=== PATIENT | male | born 1950 | race Caucasian/White ===

== ENCOUNTER → 2016-10-15 | Outpatient (CLI) | payer MEDICAID ==
[2016-10-15 10:25] LABS: Basophils # (A) 0.1 k/uL (0-0.2); Basophils % (A) 1 %; CH 31.2; CHCM 34.8; Eosinophils # (A) 0.1 k/uL (0-0.7); Eosinophils % (A) 1 %; HCT 46.4 % (39.0-53.0); HDW 2.85; HGB 15.7 gm/dL (13.0-17.5); Luc # (Auto) 0.26; Luc % (Auto) 4; Lymphocytes # (A) 2.5 k/uL (1.0-4.8); Lymphocytes % (A) 37 %; MCH 30.4 pg (25.0-35.0); MCHC 33.8 g/dL (31.0-37.0); MCV 90.1 fL (80.0-100.0); Mean Platelet Volume 6.8; Monocytes # (A) 0.4 k/uL (0-1.0); Monocytes % (A) 7 %; Neutrophils # (A) 3.4 k/uL (1.3-7.7); Neutrophils % (A) 50 %; RBC 5.15 m/uL (4.30-5.90); RDW 15.1 % (11.5-15.5); WBC 6.7 k/uL (3.8-10.6); WBC (Perox) 6.41
[2016-10-15 11:00] LABS: Bilirubin, Delta 0.2 mg/dL (0.0-0.2); Total Bilirubin 0.7 mg/dL (0.2-1.3); Total Protein 7.9 g/dL (6.3-8.2)
[2016-10-16 15:29] LABS: HCV Qualitative Result Not detected (Not detected)
== END | disposition home or self-care (01) ==
LOC: LABWHC1 10:03
PROVIDERS: ATTEND Physician Assistant
DX: B18.2 Chronic viral hepatitis C (principal)
CPT/HCPCS: 36415; 80076; 82105; 85025; 87522

== ENCOUNTER → 2016-12-26 | Outpatient (CLI) | payer MEDICAID ==
[2016-12-26 10:18] LABS: CH 31.5; CHCM 34.2; HCT 47.5 % (39.0-53.0); HDW 2.73; HGB 16.1 gm/dL (13.0-17.5); MCH 31.4 pg (25.0-35.0); MCHC 33.9 g/dL (31.0-37.0); MCV 92.6 fL (80.0-100.0); Mean Platelet Volume 7.6; RBC 5.13 m/uL (4.30-5.90); RDW 14.6 % (11.5-15.5); WBC 8.8 k/uL (3.8-10.6)
[2016-12-26 10:33] LABS: Anion Gap 11 mmol/L; Blood Urea Nitrogen 10 mg/dL (9-20); Carbon Dioxide 23 mmol/L (22-30); Chloride 106 mmol/L (98-107); Non-African American GFR(MDRD) >60 (>60 ml/min/1.73 sqM); Potassium 4.4 mmol/L (3.5-5.1); Sodium 140 mmol/L (137-145)
== END | disposition home or self-care (01) ==
LOC: LABWHC1 09:24
PROVIDERS: ATTEND Internal Medicine Interventional Cardiology
DX: Z01.818 Encounter for other preprocedural examination (principal); I73.9 Peripheral vascular disease, unspecified
CPT/HCPCS: 36415; 80051; 82565; 84520; 85027

== ENCOUNTER 2016-12-30 05:24 | Emergency (ER) | payer MEDICAID ==
[2016-12-30 05:32] VITALS: BP 165/96; PULSE 76; RESP 24; TEMP 97.4
--- NOTE | 2016-12-30 05:56 | ED ---
General Adult HPI - General Chief complaint: Extremity Problem,Nontraumatic Stated complaint: bursitis Time Seen by Provider: 12/30/16 05:37 Source: patient, RN notes reviewed Mode of arrival: ambulatory Limitations: no limitations - History of Present Illness Initial comments: 66-year-old male presenting with a one-day history of left neck and shoulder pain. Patient denies trauma. Patient does have history of chronic low back and lower extremity pain. So also had neck pain in the past, states this is different than his normal neck pain. Denies shooting pain down the arm. Pain is located to the base of the left neck and left shoulder. There is no fever or chills. No nausea vomiting or diarrhea. Patient has rubbed lidocaine ointment antrotomy heating pack Home with minimal relief. He also admits to taking a friend's Pettibone tends which did help him sleep and alleviated some of the pain. Patient also states she has an appointment with a pain specialist on Friday. - Related Data Home Medications Medication Instructions Recorded Confirmed Celecoxib [CeleBREX] 200 mg PO QAM 02/05/14 04/09/16 DULoxetine HCL [Cymbalta] 60 mg PO QAM 02/05/14 04/10/16 Mirtazapine 7.5 mg PO HS PRN 01/24/15 04/09/16 Rivaroxaban [Xarelto] 20 mg PO QAM 01/24/15 04/10/16 hydrALAZINE HCL [Apresoline] 25 tab PO BID 01/24/15 04/09/16 Gabapentin 600 mg PO TID 07/28/15 04/09/16 amLODIPine [Norvasc] 5 mg PO QAM 02/09/16 04/09/16 oxyCODONE HCL 30 mg PO QID PRN 02/09/16 04/09/16 Daclatasvir Dihydrochloride 60 mg PO QAM 04/09/16 04/09/16 [Daklinza] Sovaldi 100 mg PO QAM 04/09/16 Previous Rx's Medication Instructions Recorded Aspirin 325 mg PO DAILY #90 tab 04/11/16 Atorvastatin [Lipitor] 40 mg PO DAILY #90 tab 04/11/16 Clopidogrel [Plavix] 75 mg PO DAILY #90 tab 04/11/16 HYDROcodone/APAP 10-325MG [Pettibone 1 tab PO Q6H PRN #12 tab 12/30/16 10-325] Ibuprofen [Motrin] 600 mg PO Q8HR PRN #24 tab 12/30/16 Allergies Allergy/AdvReac Type Severity Reaction Status Date / Time No Known Allergies Allergy Verified 12/30/16 05:31 Review of Systems ROS Statement: Those systems with pertinent positive or pertinent negative responses have been documented in the HPI. ROS Other: All systems not noted in ROS Statement are negative. Past Medical History Past Medical History: CVA/TIA, Hypertension, Liver Disease, Memory Impairment, Osteoarthritis (OA), Vascular Disorder Additional Past Medical History / Comment(s): L lower extremity discomfort with claudication, PAD, xarelto for previous stoke. HEPATITIS 25YRS AGO DIAGNOSED. History of Any Multi-Drug Resistant Organisms: None Reported Past Surgical History: Appendectomy, Hernia Repair, Orthopedic Surgery, Pacemaker Additional Past Surgical History / Comment(s): 04/10/16 L femoral popliteal atherectomy with PTBA. Other surgical hx: abdominal aortagram with bilateral lower extremity runoffs, 2016 LIVER BX THIS YEAR. Liver biopsy - approx. 15-20 years ago per pt, hepatitis Past Anesthesia/Blood Transfusion Reactions: No Reported Reaction Type of Cardiac Device: Permanent Pacemaker Device Placement Date:: 02-13-16 Past Psychological History: Depression Smoking Status: Current every day smoker - Past Family History Mother Family Medical History: Cancer Additional Family Medical History / Comment(s): Skin cancer and lung cancer Father Family Medical History: No Reported History General Exam Limitations: no limitations General appearance: alert, in no apparent distress Head exam: Present: atraumatic, normocephalic Eye exam: Present: normal appearance, PERRL, EOMI ENT exam: Present: normal exam, mucous membranes moist Neck exam: Present: tenderness, full ROM, other (No midline tenderness, tenderness over the left trapezius, with muscle spasm) Respiratory exam: Present: normal lung sounds bilaterally. Absent: respiratory distress Cardiovascular Exam: Present: regular rate. Absent: normal rhythm GI/Abdominal exam: Present: soft. Absent: distended, tenderness Extremities exam: Present: normal inspection, normal capillary refill. Absent: pedal edema Back exam: Present: normal inspection, full ROM, tenderness, muscle spasm ( Tenderness over the left trapezius) Neurological exam: Present: alert, oriented X3, CN II-XII intact. Absent: motor sensory deficit Psychiatric exam: Present: normal affect, normal mood Skin exam: Present: warm, dry Course Vital Signs 12/30/16 05:27 Temperature 97.4 F L Pulse Rate 76 Respiratory 24 Rate Blood Pressure 165/96 O2 Sat by Pulse 100 Oximetry Medical Decision Making - Medical Decision Making 66-year-old male presenting with nontraumatic neck pain. Patient has significant point tenderness over the left trapezius, there is no midline tenderness. No shooting pain down the arm, strength is normal in the upper extremities. Patient did try some lidocaine ointment and heating pad at home with minimal relief. He also admits to taking Pettibone and was not prescribed and this did help the pain. He previously was on OxyContin 30 mg up until approximately one month ago when his primary care physician "cut him off". Patient does have an appointment with a pain specialist on Friday which is 24- hours from now. Diagnosis: Left trapezius muscle spasm Disposition Clinical Impression: Trapezius muscle spasm Disposition: HOME SELF-CARE Condition: Stable Instructions: Muscle Spasm (ED) Prescriptions: HYDROcodone/APAP 10-325MG [Pettibone 10-325] 1 tab PO Q6H PRN #12 tab PRN Reason: Pain Ibuprofen [Motrin] 600 mg PO Q8HR PRN #24 tab PRN Reason: Pain Referrals: Cheo Ramirez MD [Primary Care Provider] - 1-2 days Time of Disposition: 05:56
== END 2016-12-30 06:06 | disposition home or self-care (01) ==
LOC: EC 05:24
DX: M62.838 Other muscle spasm (principal); I10 Essential (primary) hypertension; K76.9 Liver disease, unspecified; F32.9 Major depressive disorder, single episode, unspecified; M19.90 Unspecified osteoarthritis, unspecified site; F17.200 Nicotine dependence, unspecified, uncomplicated; Z86.73 Personal history of transient ischemic attack (TIA), and cerebral infarction without residual deficits; Z95.0 Presence of cardiac pacemaker; Z79.01 Long term (current) use of anticoagulants; Z79.899 Other long term (current) drug therapy
CPT/HCPCS: 99283

== ENCOUNTER 2017-01-02 06:35 | Inpatient (IN) | payer MEDICAID ==
[2016-12-31 08:10] VITALS: BMI 20.1
[~2017-01-02 06:35] MED LIST: ALPRAZolam 0.25 MG TAB PO PRN; ALPRAZolam 0.5 MG TAB PO PRN; ASPIRIN 325 MG TAB PO STA; CLOPIDOGREL 75 MG TAB PO STA; NITROGLYCERIN SL TABS 0.4 MG TAB SUBLINGUAL PRN; SODIUM CHLORIDE 0.9% 1,000 ML in EMPTY BAG 1 BAG IV ONE
[2017-01-02] MEDS: HYDROmorphone 2 MG/ML 1 ML SYRINGE IVP ONE ×2 (08:28→09:19)
[2017-01-02] MEDS ORDERED: LIDOCAINE 2% INJ 20 MG/ML SQ ONE (08:30)
[2017-01-02] MEDS ORDERED: CLOPIDOGREL 75 MG TAB PO ONE (08:34)
[2017-01-02] MEDS ORDERED: HEPARIN SODIUM 1,000 UN/ML (10ML VL) IV ONE (08:38)
[2017-01-02] MEDS ORDERED: HYDROmorphone 2 MG/ML 1 ML SYRINGE IVP ONE (09:23)
[2017-01-02] MEDS ORDERED: IOHEXOL 350 MG/ML 100 ML BOTTLE INJ ONE (09:49)
[2017-01-02] MEDS ORDERED: MIRTAZAPINE 15 MG TAB PO PRN (09:57)
[2017-01-02] MEDS ORDERED: ATROPINE SULFATE 0.1 MG/ML 10ML SYRINGE IV PRN (09:58)
[2017-01-02] MEDS ORDERED: RX INFO: IV CONTRAST WAS GIVEN 1 EACH MISC MISCELLANE PRN (09:58)
[2017-01-02] MEDS ORDERED: MAG HYDROX/AL HYDROX/SIMETH 30 ML CUP PO PRN (09:58)
[2017-01-02] MEDS ORDERED: SODIUM CHLORIDE 0.9% 1,000 ML IV SCH (10:00)
[2017-01-02 10:58] LABS: Glucose,Whole Blood 116 mg/dL (75-99)
[2017-01-02] MEDS: HYDROcodone/APAP 10-325MG 1 EACH TAB PO PRN ×2 (11:42→18:25)
--- NOTE | 2017-01-02 14:20 | IR ---
EXAMINATION TYPE: IR stent intravas non coronary DATE OF EXAM: 01/02/2017 CLINICAL HISTORY: Carotid stenosis TECHNIQUE: Fluoroscopy. COMPARISON: None. FINDINGS: Fluoroscopic guidance was provided during carotid angiogram with stent deployment procedur e performed by Dr. Bui. A total of 17.8 minutes of fluoroscopic time was utilized during the proced ure and 16 distinct cine runs are saved to PACS. IMPRESSION: As Above.
[2017-01-02] MEDS: METOPROLOL TARTRATE 25 MG TAB PO SCH (20:38)
[2017-01-02] MEDS: hydrALAZINE HCL 25 MG TAB PO SCH (20:38)
[2017-01-02] MEDS ORDERED: ATORVASTATIN 40 MG TAB PO SCH (21:00)
[2017-01-02] MEDS ORDERED: PRAMIPEXOLE 0.125 MG TAB PO SCH (21:00)
[2017-01-03] MEDS: HYDROcodone/APAP 10-325MG 1 EACH TAB PO PRN ×2 (00:38→06:43)
[2017-01-03 04:37] LABS: Basophils # (A) 0.1 k/uL (0-0.2); Basophils % (A) 1 %; CH 31.8; CHCM 34.8; Eosinophils # (A) 0.2 k/uL (0-0.7); Eosinophils % (A) 2 %; HDW 2.69; HGB 14.1 gm/dL (13.0-17.5); Luc # (Auto) 0.21; Luc % (Auto) 2; Lymphocytes # (A) 2.7 k/uL (1.0-4.8); Lymphocytes % (A) 30 %; MCHC 33.7 g/dL (31.0-37.0); MCV 91.9 fL (80.0-100.0); Mean Platelet Volume 7.3; Monocytes # (A) 0.5 k/uL (0-1.0); Monocytes % (A) 6 %; Neutrophils # (A) 5.3 k/uL (1.3-7.7); Neutrophils % (A) 59 %; RBC 4.57 m/uL (4.30-5.90); WBC (Perox) 8.76
[2017-01-03 04:53] LABS: Anion Gap 6 mmol/L; Blood Urea Nitrogen 18 mg/dL (9-20); Calcium 8.9 mg/dL (8.4-10.2); Carbon Dioxide 27 mmol/L (22-30); Chloride 109 mmol/L (98-107); Glucose 90 mg/dL (74-99); Non-African American GFR(MDRD) >60 (>60 ml/min/1.73 sqM); Potassium 4.6 mmol/L (3.5-5.1); Sodium 142 mmol/L (137-145)
--- NOTE | 2017-01-03 07:41 | PCN ---
DATE OF SERVICE: 01/02/17 PERFORMING PHYSICIAN: Loyd Bui M.D., wax pattern assembler. PROCEDURE PERFORMED: 1. Selective right common carotid angiogram. 2. Selective right internal carotid angiogram. 3. Intracranial angiogram. 4. Successful stenting of the right internal carotid artery using 8 to 10 x 14 mm Xact stent with good angiographic results with adjunctive use of the ( ) distal protection device. 5. Selective right common femoral artery angiogram. INDICATIONS: This is a pleasant 66 -year-old gentleman who sees Dr. French as an outpatient who was found to have critical right internal carotid artery by Doppler study. He was brought in today to undergo an aortic arch and carotid angiogram. APPROACH: Right common femoral artery. COMPLICATIONS: None. LEVEL OF SEDATION: Moderate with a sedation length of one hour and 15 minutes. PROCEDURE DESCRIPTION: After obtaining informed consent, the patient was brought to the cardiac catheterization lab. The right common femoral artery was cannulated using Micropuncture technique. The micropuncture wire passed easily. Then I placed a 6 Tristanian sheath in the right common femoral artery. Subsequently, I did an aortic arch angiogram using a 5 Tristanian pigtail catheter. After that I did right common and right internal as well as intracranial angiogram after I did select the right common carotid artery using a JV2 catheter. After that, I decided to intervene on the right common carotid artery. Please see a separate paragraph for that. AORTIC ARCH ANGIOGRAM: The aortic arch angiogram was performed in the LATVIAN projection and using a power injection. The aortic arch appeared to be angiographically normal and it seemed to be Type 2 aortic arch as well as a bovine arch. SELECTIVE CAROTID ANGIOGRAM: The right common carotid artery appeared to be angiographically normal. The ostial of the right internal carotid artery as well as the proximal right internal carotid artery appeared to be calcified with eccentric plaque seems to be in the range of 90 to 95%. The ostial of the right external carotid artery seems to be involved in the disease as well. INTRACRANIAL ANGIOGRAM: The intracranial angiogram was performed in the AP crani view and using hand injection. I was able to visualize the right middle cerebral artery as well as the right anterior cerebral artery as well. STENTING OF THE RIGHT INTERNAL CAROTID ARTERY: Anticoagulation was initiated using heparin and the patient was given a total of 6000 units of heparin IV. Subsequently I did exchange my 11 cm 6 Tristanian sheath into 70 cm 6 Tristanian sheath using an Advantage wire. I did select the right common carotid artery using an 035 [place] Advantage wire with and using a JP2 catheter. Left JP2 catheter in the right common carotid artery and I pulled the 035 Advantage wire out. I did selective right common carotid and right internal carotid and intracranial angiogram using the JP2 catheter. After that, I did advance my long 90 cm sheath into the proximal right common carotid artery using I did advance my 90 6 Tristanian sheath into the proximal right common carotid artery over the JP2 catheter as well as over super core wire. I positioned the long sheath in the proximal right common carotid artery. After that, I did selective picture of the right common and internal carotid artery using the long sheath. Subsequently, I was able to deploy the ( ) distal protection device. After that, I did predilatation of the lesion using 4 -0 mm x 30 mm balloon. The balloon was inflated for maybe a few seconds only. Subsequently, I deployed 8 to 10 x 40 mm X-Act carotid stent system and after that it was dilated using 6 mm balloon. The following angiogram showed good angiographic results. After that, I did retrieve the filter. I did final angiogram which showed good angiographic results with residual stenosis of about maybe 50%. The procedure was completed with residual stenosis of about 30% only. CONCLUSION: 1. Type 2 aortic arch. 2. Bovine arch as well. 3. Critical disease involving the proximal right internal carotid artery. 4. Successful stenting of the right internal carotid artery using 8 to 10 x 40 mm X-Act self expandable stent with adjunctive use of distal protection device with final good angiographic results. POST PROCEDURE MANAGEMENT: 1. Dual antiplatelet therapy. 2. Risk factor modifications. 3. Follow-up with the patient. BRITT
--- NOTE | 2017-01-03 07:44 | MISC ---
Dear Dr. Ramirez: Mr. Jagjit Israel was found to have severe disease involving the right internal carotid artery by duplex study. As you know, he suffered from stroke a few months ago. He was brought today and underwent a carotid angiogram which showed critical disease involving the right internal carotid artery seems to be in the range of 90 to 95%. He underwent successful stenting of the right internal carotid artery with good angiographic results and without any complication. I want to thank you for allowing me to participate in his care. Please do not hesitate to call if you have any questions or concerns. BRITT
[2017-01-03] MEDS: hydrALAZINE HCL 25 MG TAB PO SCH (08:48)
[2017-01-03] MEDS: METOPROLOL TARTRATE 25 MG TAB PO SCH (08:48)
[2017-01-03] MEDS ORDERED: amLODIPine 5 MG TAB PO SCH (09:00)
[2017-01-03] MEDS ORDERED: CLOPIDOGREL 75 MG TAB PO SCH (09:00)
[2017-01-03] MEDS ORDERED: MELOXICAM 7.5 MG TAB PO SCH (09:00)
[2017-01-03] MEDS ORDERED: ASPIRIN 325 MG TAB PO SCH (09:00)
[2017-01-03] MEDS ORDERED: DULoxetine HCL 60 MG CAPSULE.DR PO SCH (09:00)
[2017-01-03 10:05] VITALS: TEMP 98
[2017-01-03 10:20] VITALS: BP 123/77; PULSE 73; RESP 21
--- NOTE | 2017-01-03 11:31 | P.DS ---
Providers Date of admission: 01/02/17 06:35 Attending physician: Loyd Bui Consults: 01/02/17 09:58 Consult Physician Routine Consulting Provider: Loyd Bui Consult Reason/Comments: Post Interventional patient Do you want consulting provider notified?: Already Contacted [facility] care [facility]: [facility] Course: This is a pleasant 66-year-old gentleman who was admitted to the hospital yesterday and underwent successful stenting of the right internal carotid artery with a good angiographic results and without any complication. The procedure was performed from the right groin which is soft and nontender and without any bruises. The patient is going to be discharged home on dual antiplatelet therapy and I will follow-up with the patient as an outpatient in the office. Plan - Discharge Summary New Discharge Prescriptions: New Aspirin 325 mg PO DAILY #90 tab Atorvastatin [Lipitor] 40 mg PO HS #90 tab Clopidogrel [Plavix] 75 mg PO DAILY #90 tab Continue DULoxetine HCL [Cymbalta] 60 mg PO DAILY hydrALAZINE HCL [Apresoline] 25 tab PO BID amLODIPine [Norvasc] 5 mg PO DAILY HYDROcodone/APAP 10-325MG [[place] 10-325] 1 tab PO Q6H PRN #12 tab PRN Reason: Pain Pramipexole [Mirapex] 0.125 mg PO HS Metoprolol Tartrate [Lopressor] 25 mg PO BID Mirtazapine 7.5 mg PO HS PRN PRN Reason: Insomnia Discontinued Celecoxib [CeleBREX] 200 mg PO QAM Rivaroxaban [Xarelto] 20 mg PO DAILY Discharge Medication List DULoxetine HCL [Cymbalta] 60 mg PO DAILY 02/05/14 [History] hydrALAZINE HCL [Apresoline] 25 tab PO BID 01/24/15 [History] amLODIPine [Norvasc] 5 mg PO DAILY 02/09/16 [History] HYDROcodone/APAP 10-325MG [[place] 10-325] 1 tab PO Q6H PRN #12 tab 12/30/16 [Rx] Metoprolol Tartrate [Lopressor] 25 mg PO BID 12/31/16 [History] Pramipexole [Mirapex] 0.125 mg PO HS 12/31/16 [History] Mirtazapine 7.5 mg PO HS PRN 01/02/17 [History] Aspirin 325 mg PO DAILY #90 tab 01/03/17 [Rx] Atorvastatin [Lipitor] 40 mg PO HS #90 tab 01/03/17 [Rx] Clopidogrel [Plavix] 75 mg PO DAILY #90 tab 01/03/17 [Rx] Follow up Appointment(s)/Referral(s): Loyd Bui MD [STAFF PHYSICIAN] - 1 Week
== END 2017-01-03 12:19 | disposition home or self-care (01) | DRG 39 ==
LOC: 2ORMAIN 06:35 → EDSTATUS 07:30 → 6ICU 09:43
PROVIDERS: ADMIT Internal Medicine Interventional Cardiology; ATTEND Internal Medicine Interventional Cardiology
PROC: B3161ZZ Fluoroscopy of Right Internal Carotid Artery using Low Osmolar Contrast (ICD-10-PCS; principal; 2017-01-02 08:00)
PROC: B3131ZZ Fluoroscopy of Right Common Carotid Artery using Low Osmolar Contrast (ICD-10-PCS; principal; 2017-01-02 08:00)
PROC: 037K34Z Dilation of Right Internal Carotid Artery with Drug-eluting Intraluminal Device, Percutaneous Approach (ICD-10-PCS; principal; 2017-01-02 08:00)
PROC: B41F1ZZ Fluoroscopy of Right Lower Extremity Arteries using Low Osmolar Contrast (ICD-10-PCS; principal; 2017-01-02 08:00)
DX: I65.21 Occlusion and stenosis of right carotid artery (principal); I10 Essential (primary) hypertension; Z86.73 Personal history of transient ischemic attack (TIA), and cerebral infarction without residual deficits; Z79.01 Long term (current) use of anticoagulants; Z79.899 Other long term (current) drug therapy; F17.210 Nicotine dependence, cigarettes, uncomplicated
CPT/HCPCS: 37215; 80048; 85025

== ENCOUNTER → 2017-04-16 | Outpatient (CLI) | payer MEDICAID ==
[2017-04-16 13:18] LABS: Basophils # (A) 0.1 k/uL (0-0.2); Basophils % (A) 1 %; CHCM 33.1; Eosinophils # (A) 0.1 k/uL (0-0.7); Eosinophils % (A) 1 %; HCT 42.3 % (39.0-53.0); HDW 2.51; HGB 13.9 gm/dL (13.0-17.5); Luc # (Auto) 0.14; Luc % (Auto) 2; Lymphocytes # (A) 2.2 k/uL (1.0-4.8); Lymphocytes % (A) 34 %; MCH 30.9 pg (25.0-35.0); MCHC 32.8 g/dL (31.0-37.0); Mean Platelet Volume 7.5; Monocytes # (A) 0.4 k/uL (0-1.0); Monocytes % (A) 6 %; Neutrophils # (A) 3.7 k/uL (1.3-7.7); Neutrophils % (A) 57 %; RDW 14.8 % (11.5-15.5); WBC 6.6 k/uL (3.8-10.6); WBC (Perox) 6.26
[2017-04-16 13:40] LABS: ALT 40 U/L (21-72); AST 27 U/L (17-59); Alkaline Phosphatase 59 U/L (38-126); Anion Gap 7 mmol/L; Bilirubin, Delta 0.2 mg/dL (0.0-0.2); Blood Urea Nitrogen 12 mg/dL (9-20); Calcium 9.1 mg/dL (8.4-10.2); Carbon Dioxide 31 mmol/L (22-30); Chloride 104 mmol/L (98-107); Glucose 103 mg/dL (74-99); Non-African American GFR(MDRD) >60 (>60 ml/min/1.73 sqM); Potassium 4.1 mmol/L (3.5-5.1); Sodium 142 mmol/L (137-145); Total Bilirubin 0.4 mg/dL (0.2-1.3); Total Protein 7.1 g/dL (6.3-8.2)
[2017-04-17 14:51] LABS: Hepatits C Virus RNA, Quant <12 IU/mL (<12); LOG HCV IU/mL <1.08 (<1.08)
== END | disposition home or self-care (01) ==
LOC: LABWHC1 12:15
PROVIDERS: ATTEND Physician Assistant
DX: R31.0 Gross hematuria (principal); B18.2 Chronic viral hepatitis C
CPT/HCPCS: 36415; 80053; 82248; 85025; 87522

== ENCOUNTER → 2017-04-22 | Outpatient (CLI) | payer MEDICAID ==
--- NOTE | 2017-04-22 16:48 | US ---
EXAMINATION TYPE: US kidneys/renal and bladder DATE OF EXAM: 04/22/2017 COMPARISON: NONE CLINICAL HISTORY: R31.0 Hematuria. Patient states urinating blood for 5 days then went away. Did a ro und of antibiotics. Generalized back pain. EXAM MEASUREMENTS: Right Kidney: 10.1 x 5.4 x 3.8 cm Left Kidney: 10.4 x 4.0 x 5.1 cm Right Kidney: Medial anechoic lesion = 1.4 x 0.8 cm Left Kidney: Medial anechoic lesion - 1.5 x 1.0 cm Bladder: posterior nonvascular right lesion - 1.8 x 1.3 x 1.1 cm Bilateral Jets seen There is no evidence for hydronephrosis at this point in time. No nephrolithiasis is seen. No celina s are identified. The urinary bladder is anechoic. Bilateral ureteral jets are seen. IMPRESSION: No evidence of renal stone or obstruction. No evidence of a renal solid mass. Oval-shaped solid area in the dependent urinary bladder measures 18 x 10 mm. I would consider possibi lities of nonshadowing stone, tumor, blood clot. Follow-up is recommended.
== END | disposition home or self-care (01) ==
LOC: RADUSWWP 16:09
PROVIDERS: ATTEND Family Medicine
DX: R31.0 Gross hematuria (principal)
CPT/HCPCS: 76770

== ENCOUNTER → 2017-05-05 | Outpatient (CLI) | payer MEDICAID ==
[2017-05-05 14:17] LABS: Blood Urea Nitrogen 13 mg/dL (9-20); Non-African American GFR(MDRD) >60 (>60 ml/min/1.73 sqM)
--- NOTE | 2017-05-05 17:27 | CT ---
EXAMINATION TYPE: CT urogram wo/w con DATE OF EXAM: 05/05/2017 COMPARISON: NONE INDICATION: Blood in urine DLP: 869 mGycm, Automated exposure control for dose reduction was used. CONTRAST: 100 mL of Omnipaque 300. Study performed TECHNIQUE: Axial images were obtained from above the diaphragm to the pubic rami in the axial plane a t 5 mm thick sections. Reconstructed images are reviewed on the computer in the coronal plane. Thre e-D reconstructed images through the renal collecting system are performed postcontrast by the techno logist on a separate computer. FINDINGS: Limited CT sections are obtained the lung bases. The lung bases are clear. CT ABDOMEN: Liver: Normal Spleen: Normal Pancreas: Normal Adrenal glands: The adrenal glands are normal. Gallbladder: Normal Kidneys: No masses are evident. No hydronephrosis is present. No cysts are present. Delayed images were obtained through the kidneys, which remain unremarkable. Dedicated sequential images were obtained through the renal collecting system and ureters. Three-D re constructed images are reviewed. Appears to be some hydroureter present proximal ureters are tortuous . Distal ureters appear normal. Aorta: Vascular calcification is within the aorta. Inferior vena cava: Normal. CT PELVIS: Loops of bowel within the abdomen and pelvis are normal. Study is without oral contrast limiting the evaluation of bowel loops. Fecal debris is within the colon. Appendix: Not identified. Urinary bladder: Normal as visualized. Genitourinary structures: Prostate is mildly prominent. Osseous structures: No suspicious lytic or sclerotic lesions. Spondylolysis of L5 is evident. Facet d egenerative changes present L4-5 and L3-4 IMPRESSIONS: 1. Mild bilateral hydroureter. 2. Proximal ureters are tortuous without obstruction or hydronephrosis. 3. Spondylolysis of L5
== END | disposition home or self-care (01) ==
LOC: RADCTMAIN 13:32
PROVIDERS: ATTEND Urology
DX: N13.4 Hydroureter (principal)
CPT/HCPCS: 82565; 84520; 74178; 36415; 74400; Q9967

== ENCOUNTER 2017-08-19 15:02 | Inpatient (IN) | payer MEDICAID ==
[2017-08-19] MEDS ORDERED: SODIUM CHLORIDE 0.9% 1,000 ML IV STA (15:08)
[2017-08-19] MEDS ORDERED: RX INFO: IV CONTRAST WAS GIVEN 1 EACH MISC MISCELLANE PRN ×2 (15:08→15:44)
[2017-08-19 15:20] LABS: Glucose,Whole Blood 162 mg/dL (75-99)
[2017-08-19 15:31] LABS: Basophils % (A) 0 %; Eosinophils % (A) 0 %; HCT 47.1 % (39.0-53.0); HGB 15.7 gm/dL (13.0-17.5); Lymphocytes % (A) 10 %; MCH 28.7 pg (25.0-35.0); MCHC 33.3 g/dL (31.0-37.0); MCV 86.1 fL (80.0-100.0); Mean Platelet Volume 7.3; Monocytes # (A) 1.3 k/uL (0-1.0); Monocytes % (A) 6 %; Neutrophils # (A) 16.6 k/uL (1.3-7.7); Neutrophils % (A) 82 %; Platelet Count 352 k/uL (150-450); RBC 5.47 m/uL (4.30-5.90); RDW 14.3 % (11.5-15.5); WBC 20.3 k/uL (3.8-10.6)
--- NOTE | 2017-08-19 15:31 | ED ---
Neuro HPI - General Chief Complaint: Neuro Symptoms/Deficit Stated Complaint: Poss cva Time Seen by Provider: 08/19/17 15:02 Source: EMS, RN notes reviewed, old records reviewed Mode of arrival: EMS Limitations: altered mental status - History of Present Illness Is the patient presenting with stroke symptoms?: Yes Initial Comments: This is a 67-year-old male with a history of CVA about one half years ago with no residual deficits also history of hepatitis C who is believes only be on Plavix at this time who was last seen at 7:30 AM this morning he was pretty normal he was found is prior to arrival by his son found him lying on the floor unresponsive. Per paramedics he was unresponsive lying on the floor he was incontinent of urine he initially was not using his left upper or lower extremity he had a left lateral gaze. As time he arrives here by EMS he was moving his left arm somewhat. He was still not answering questions he after brief period time in emergency Department was able to communicate with staff. No history of trauma the information is limited at this time. - Related Data Home Medications: Home Medications Medication Instructions Recorded Confirmed DULoxetine HCL [Cymbalta] 60 mg PO DAILY 02/05/14 08/19/17 hydrALAZINE HCL [Apresoline] 25 tab PO BID 01/24/15 08/19/17 amLODIPine [Norvasc] 5 mg PO DAILY 02/09/16 08/19/17 Metoprolol Tartrate [Lopressor] 25 mg PO BID 12/31/16 08/19/17 Tamsulosin HCl [Flomax] 0.4 mg PO DAILY 08/19/17 08/19/17 Previous Rx's Medication Instructions Recorded Clopidogrel [Plavix] 75 mg PO DAILY #90 tab 01/03/17 Allergies/Adverse Reactions: Allergies Allergy/AdvReac Type Severity Reaction Status Date / Time No Known Allergies Allergy Verified 08/19/17 16:13 Review of Systems ROS Statement: Those systems with pertinent positive or pertinent negative responses have been documented in the HPI. ROS Other: All systems not noted in ROS Statement are negative. Limitations: ROS unobtainable due to patients medical condition General Exam - General Exam Comments Initial Comments: This is a well-developed sec appearing male no evidence of trauma he does demonstrate left lateral gaze he does demonstrate some hemiparesis a left upper lower extremity. Limitations: altered mental status General appearance: obtunded Head exam: Present: atraumatic, normocephalic, normal inspection Eye exam: Present: other (Left lateral gaze pupils are approximately 4 mm and responsive cataracts are present) ENT exam: Present: mucous membranes dry Neck exam: Present: normal inspection. Absent: tenderness, meningismus, lymphadenopathy Respiratory exam: Present: decreased breath sounds Cardiovascular Exam: Present: normal rhythm, tachycardia GI/Abdominal exam: Present: soft, normal bowel sounds. Absent: distended, tenderness, guarding, rebound, rigid Extremities exam: Absent: full ROM Back exam: Present: normal inspection Neurological exam: Present: altered, reflexes normal Psychiatric exam: Present: other (Unable to evaluate) Skin exam: Present: warm, dry, intact, normal color. Absent: rash Stroke MDM - Lab Data Result diagrams: 08/19/17 15:16 08/19/17 15:16 Lab Results 08/19/17 08/19/17 08/19/17 Range/Units 15:16 15:16 15:16 WBC (3.8-10.6) k/uL RBC (4.30-5.90) m/uL Hgb (13.0-17.5) gm/dL Hct (39.0-53.0) % MCV (80.0-100.0) fL MCH (25.0-35.0) pg MCHC (31.0-37.0) g/dL RDW (11.5-15.5) % Plt Count (150-450) k/uL Neutrophils % % Lymphocytes % % Monocytes % % Eosinophils % % Basophils % % Neutrophils # (1.3-7.7) k/uL Lymphocytes # (1.0-4.8) k/uL Monocytes # (0-1.0) k/uL Eosinophils # (0-0.7) k/uL Basophils # (0-0.2) k/uL PT (9.0-12.0) sec INR (<1.2) APTT (22.0-30.0) sec Sodium 147 H (137-145) mmol/L Potassium 3.7 (3.5-5.1) mmol/L Chloride 108 H (98-107) mmol/L Carbon Dioxide 16 L (22-30) mmol/L Anion Gap 23 mmol/L BUN 18 (9-20) mg/dL Creatinine 0.70 (0.66-1.25) mg/dL Est GFR (CKD-EPI)AfAm >90 (>60 ml/min/1.73 sqM) Est GFR (CKD-EPI)NonAf >90 (>60 ml/min/1.73 sqM) Glucose 174 H (74-99) mg/dL POC Glucose (mg/dL) (75-99) mg/dL POC Glu Physician Scientist ID Plasma Lactic Acid [place]ingo 8.6 H* (0.7-2.0) mmol/L Calcium 10.3 H (8.4-10.2) mg/dL Magnesium 2.2 (1.6-2.3) mg/dL Total Bilirubin 0.7 (0.2-1.3) mg/dL AST 28 (17-59) U/L ALT 8 L (21-72) U/L Alkaline Phosphatase 77 (38-126) U/L Ammonia <9 (<30) umol/L Total Creatine Kinase 247 H (55-170) U/L CK-MB (CK-2) 2.6 H* (0.0-2.4) ng/mL CK-MB (CK-2) Rel Index 1.1 Troponin I <0.012 (0.000-0.034) ng/mL Total Protein 8.7 H (6.3-8.2) g/dL Albumin 5.1 H (3.5-5.0) g/dL Amylase 60 (30-110) U/L Lipase 198 (23-300) U/L Urine Color Urine Appearance (Clear) Urine pH (5.0-8.0) Ur Specific [place] (1.001-1.035) Urine Protein (Negative) Urine Glucose (UA) (Negative) Urine Ketones (Negative) Urine Blood (Negative) Urine Nitrite (Negative) Urine Bilirubin (Negative) Urine Urobilinogen (<2.0) mg/dL Ur Leukocyte Esterase (Negative) Urine RBC (0-5) /hpf Urine WBC (0-5) /hpf Amorphous Sediment (None) /hpf Urine Bacteria (None) /hpf Hyaline Casts (0-2) /lpf Granular Casts (0) /lpf Urine Mucus (None) /hpf Urine Opiates Screen (NotDetected) Ur Oxycodone Screen (NotDetected) Urine Methadone Screen (NotDetected) Ur Propoxyphene Screen (NotDetected) Ur Barbiturates Screen (NotDetected) U Tricyclic Antidepress (NotDetected) Ur Phencyclidine Scrn (NotDetected) Ur Amphetamines Screen (NotDetected) U Methamphetamines Scrn (NotDetected) U Benzodiazepines Scrn (NotDetected) Urine Cocaine Screen (NotDetected) U Marijuana (THC) Screen (NotDetected) Serum Alcohol <10 mg/dL 08/19/17 08/19/17 08/19/17 Range/Units 15:16 15:16 15:18 WBC 20.3 H (3.8-10.6) k/uL RBC 5.47 (4.30-5.90) m/uL Hgb 15.7 (13.0-17.5) gm/dL Hct 47.1 (39.0-53.0) % MCV 86.1 (80.0-100.0) fL MCH 28.7 (25.0-35.0) pg MCHC 33.3 (31.0-37.0) g/dL RDW 14.3 (11.5-15.5) % Plt Count 352 (150-450) k/uL Neutrophils % 82 % Lymphocytes % 10 % Monocytes % 6 % Eosinophils % 0 % Basophils % 0 % Neutrophils # 16.6 H (1.3-7.7) k/uL Lymphocytes # 2.0 (1.0-4.8) k/uL Monocytes # 1.3 H (0-1.0) k/uL Eosinophils # 0.0 (0-0.7) k/uL Basophils # 0.0 (0-0.2) k/uL PT 13.6 H (9.0-12.0) sec INR 1.5 H (<1.2) APTT 20.7 L (22.0-30.0) sec Sodium (137-145) mmol/L Potassium (3.5-5.1) mmol/L Chloride (98-107) mmol/L Carbon Dioxide (22-30) mmol/L Anion Gap mmol/L BUN (9-20) mg/dL Creatinine (0.66-1.25) mg/dL Est GFR (CKD-EPI)AfAm (>60 ml/min/1.73 sqM) Est GFR (CKD-EPI)NonAf (>60 ml/min/1.73 sqM) Glucose (74-99) mg/dL POC Glucose (mg/dL) 162 H (75-99) mg/dL POC Glu Physician Scientist ID Precious Fish Plasma Lactic Acid Mingo (0.7-2.0) mmol/L Calcium (8.4-10.2) mg/dL Magnesium (1.6-2.3) mg/dL Total Bilirubin (0.2-1.3) mg/dL AST (17-59) U/L ALT (21-72) U/L Alkaline Phosphatase (38-126) U/L Ammonia (<30) umol/L Total Creatine Kinase (55-170) U/L CK-MB (CK-2) (0.0-2.4) ng/mL CK-MB (CK-2) Rel Index Troponin I (0.000-0.034) ng/mL Total Protein (6.3-8.2) g/dL Albumin (3.5-5.0) g/dL Amylase (30-110) U/L Lipase (23-300) U/L Urine Color Urine Appearance (Clear) Urine pH (5.0-8.0) Ur Specific [place] (1.001-1.035) Urine Protein (Negative) Urine Glucose (UA) (Negative) Urine Ketones (Negative) Urine Blood (Negative) Urine Nitrite (Negative) Urine Bilirubin (Negative) Urine Urobilinogen (<2.0) mg/dL Ur Leukocyte Esterase (Negative) Urine RBC (0-5) /hpf Urine WBC (0-5) /hpf Amorphous Sediment (None) /hpf Urine Bacteria (None) /hpf Hyaline Casts (0-2) /lpf Granular Casts (0) /lpf Urine Mucus (None) /hpf Urine Opiates Screen (NotDetected) Ur Oxycodone Screen (NotDetected) Urine Methadone Screen (NotDetected) Ur Propoxyphene Screen (NotDetected) Ur Barbiturates Screen (NotDetected) U Tricyclic Antidepress (NotDetected) Ur Phencyclidine Scrn (NotDetected) Ur Amphetamines Screen (NotDetected) U Methamphetamines Scrn (NotDetected) U Benzodiazepines Scrn (NotDetected) Urine Cocaine Screen (NotDetected) U Marijuana (THC) Screen (NotDetected) Serum Alcohol mg/dL 08/19/17 Range/Units 16:04 WBC (3.8-10.6) k/uL RBC (4.30-5.90) m/uL Hgb (13.0-17.5) gm/dL Hct (39.0-53.0) % MCV (80.0-100.0) fL MCH (25.0-35.0) pg MCHC (31.0-37.0) g/dL RDW (11.5-15.5) % Plt Count (150-450) k/uL Neutrophils % % Lymphocytes % % Monocytes % % Eosinophils % % Basophils % % Neutrophils # (1.3-7.7) k/uL Lymphocytes # (1.0-4.8) k/uL Monocytes # (0-1.0) k/uL Eosinophils # (0-0.7) k/uL Basophils # (0-0.2) k/uL PT (9.0-12.0) sec INR (<1.2) APTT (22.0-30.0) sec Sodium (137-145) mmol/L Potassium (3.5-5.1) mmol/L Chloride (98-107) mmol/L Carbon Dioxide (22-30) mmol/L Anion Gap mmol/L BUN (9-20) mg/dL Creatinine (0.66-1.25) mg/dL Est GFR (CKD-EPI)AfAm (>60 ml/min/1.73 sqM) Est GFR (CKD-EPI)NonAf (>60 ml/min/1.73 sqM) Glucose (74-99) mg/dL POC Glucose (mg/dL) (75-99) mg/dL POC Glu Physician Scientist ID Plasma Lactic Acid Mingo (0.7-2.0) mmol/L Calcium (8.4-10.2) mg/dL Magnesium (1.6-2.3) mg/dL Total Bilirubin (0.2-1.3) mg/dL AST (17-59) U/L ALT (21-72) U/L Alkaline Phosphatase (38-126) U/L Ammonia (<30) umol/L Total Creatine Kinase (55-170) U/L CK-MB (CK-2) (0.0-2.4) ng/mL CK-MB (CK-2) Rel Index Troponin I (0.000-0.034) ng/mL Total Protein (6.3-8.2) g/dL Albumin (3.5-5.0) g/dL Amylase (30-110) U/L Lipase (23-300) U/L Urine Color Yellow Urine Appearance Cloudy (Clear) Urine pH 5.5 (5.0-8.0) Ur Specific M[place] 1.018 (1.001-1.035) Urine Protein 2+ H (Negative) Urine Glucose (UA) Negative (Negative) Urine Ketones 1+ H (Negative) Urine Blood Moderate H (Negative) Urine Nitrite Negative (Negative) Urine Bilirubin Negative (Negative) Urine Urobilinogen <2.0 (<2.0) mg/dL Ur Leukocyte Esterase Negative (Negative) Urine RBC 4 (0-5) /hpf Urine WBC 5 (0-5) /hpf Amorphous Sediment Few H (None) /hpf Urine Bacteria Rare H (None) /hpf Hyaline Casts 9 H (0-2) /lpf Granular Casts 8 (0) /lpf Urine Mucus Occasional H (None) /hpf Urine Opiates Screen Detected H (NotDetected) Ur Oxycodone Screen Not Detected (NotDetected) Urine Methadone Screen Not Detected (NotDetected) Ur Propoxyphene Screen Not Detected (NotDetected) Ur Barbiturates Screen Not Detected (NotDetected) U Tricyclic Antidepress Not Detected (NotDetected) Ur Phencyclidine Scrn Not Detected (NotDetected) Ur Amphetamines Screen Not Detected (NotDetected) U Methamphetamines Scrn Not Detected (NotDetected) U Benzodiazepines Scrn Detected H (NotDetected) Urine Cocaine Screen Not Detected (NotDetected) U Marijuana (THC) Screen Detected H (NotDetected) Serum Alcohol mg/dL - NIH Stroke Scale 1a. Level of Consciousness: (1) not alert, arousable 1b. LOC Questions: (0) answers correctly 1c. LOC Commands: (0) performs tasks correctly 2. Best Gaze: (2) forced deviation 3. Visual: (0) no visual loss 4. Facial Palsy: (0) normal symmetrical movement 5a. Motor Arm Left: (3) no gravity effort 5b. Motor Arm Right: (0) no drift 6a. Motor Leg Left: (3) no gravity effort 6b. Motor Leg Right: (0) no drift 7. Limb Ataxia: (0) absent 8. Sensory: (0) normal 9. Best Language: (1) mild/moderate aphasia 10. Dysarthria: (1) mild/moderate dysarthria 11. Extinction/Inattention: (0) no abnormality - Thrombolytic Inclusion/Exclusion Thrombolytic Exclusion Criteria: Symptom Onset > 3 Hours - Medical Decision Making Patient was evaluated by interventional neurology at this time he is not a candidate for TPA he will be admitted to this facility for evaluation. X-ray shows no definite acute infiltrate CT shows no definite acute findings. - EKG Data -: EKG Interpreted by Me (Sinus rhythm rate of 109 CT interval 118 QRS duration 70 QT since QTC 3:30/) Past Medical History Past Medical History: CVA/TIA, Hypertension, Liver Disease, Memory Impairment, Osteoarthritis (OA), Vascular Disorder Additional Past Medical History / Comment(s): L lower extremity discomfort with claudication, PAD, xarelto for previous stoke. HEPATITIS 25YRS AGO DIAGNOSED. History of Any Multi-Drug Resistant Organisms: None Reported Past Surgical History: Appendectomy, Hernia Repair, Orthopedic Surgery, Pacemaker Additional Past Surgical History / Comment(s): 04/10/16 L femoral popliteal atherectomy with PTBA. Other surgical hx: abdominal aortagram with bilateral lower extremity runoffs, 2016 LIVER BX THIS YEAR. Liver biopsy - approx. 15-20 years ago per pt, hepatitis Past Anesthesia/Blood Transfusion Reactions: No Reported Reaction Type of Cardiac Device: Permanent Pacemaker Device Placement Date:: 02-13-16 Past Psychological History: Depression Past Drug Use History: None Reported - Past Family History Mother Family Medical History: Cancer Additional Family Medical History / Comment(s): Skin cancer and lung cancer Father Family Medical History: No Reported History Course Vital Signs 08/19/17 08/19/17 08/19/17 15:04 15:15 15:30 Temperature 101.4 F H Pulse Rate 102 H 96 108 H Respiratory 18 22 22 Rate Blood Pressure 136/63 136/63 168/101 O2 Sat by Pulse 97 98 98 Oximetry 08/19/17 08/19/17 08/19/17 16:41 16:59 17:40 Temperature 99.2 F Pulse Rate 104 H 102 H Respiratory 20 20 Rate Blood Pressure 195/96 175/107 O2 Sat by Pulse 98 98 Oximetry - Reevaluation(s) Reevaluation #1: 08/19/17 15:31 Warfarin from the patient's he purely had nausea vomiting diarrhea however yesterday and appeared be somewhat dehydrated. Reevaluation #2: 08/19/17 15:34 Patient did have a proximally 3 second episode of tonic-clonic activity while in CAT scan. 2 mg of IV Ativan was ordered. Reevaluation #3: 08/19/17 16:13 Patient is more responsive some of the activity demonstrated by the patient apparently is his normal with respect to his extremity movement. His renal function is within normal limits he is getting CTA. Reevaluation #4: 08/19/17 17:56 CT imaging was reviewed and the exam performed by the neuro interventionalist. Patient will be admitted to this facility. Patient was seen by Dr. Haas in the emergency department. Critical Care Time Critical Care Time: Yes Critical Care Time: 45 minutes critical care time which includes monitoring EMS call discussed with paramedics history physical labs x-rays several reevaluation of the patient to response to therapy and progression of disease. Discussion with the patient's discussion with staff members admitting physician. Review of old history. Documentation the above admission orders. Disposition Clinical Impression: Cerebrovascular accident, Seizure, Sepsis Disposition: ADMITTED IP TO THIS [facility] Condition: Stable Referrals: None,Stated [REFERRING] - 1-2 days
[2017-08-19] MEDS ORDERED: LORazepam 2 MG/ML INJ IV STA ×2 (15:32→16:36)
[2017-08-19] MEDS ORDERED: ACETAMINOPHEN IV (For NPO) 1,000 MG in EMPTY BAG 1 BAG IVPB ONE (15:32)
[2017-08-19 15:36] LABS: INR 1.5 (<1.2); Prothrombin Time 13.6 sec (9.0-12.0)
--- NOTE | 2017-08-19 15:36 | CT ---
EXAMINATION TYPE: CT brain wo con DATE OF EXAM: 08/19/2017 COMPARISON: NONE HISTORY: Altered mental status. History of stroke. Unable to do repeats for motion, patient started s eizing. CT DLP: [address] of the brain was performed. The ventricles, basal cisterns and sulci overlying the cerebral convexities demonstrate moderate enla rgement. Remote insult high right parietal occipital region. There is no evidence for intracranial hemorrhage or sulcal effacement. There is decreased attenuation about the periventricular white matter and deep white matter of both c erebral hemispheres, compatible with chronic small vessel ischemia. Differential diagnosis does inclu de demyelination. No mass effects are seen.No midline shift. Osseous calvarium is intact. If symptoms persist consider MRI. IMPRESSION: 1. Age related atrophic and chronic small vessel ischemic change without acute intracranial process s een at this time. Limited examination due to patient motion.
[2017-08-19 15:38] LABS: Partial Thromboplastin Time 20.7 sec (22.0-30.0)
[2017-08-19 15:46] LABS: Ammonia <9 umol/L (<30)
[2017-08-19 15:48] LABS: Creatine Kinase 247 U/L (55-170); Lactic Acid, Venous 8.6 mmol/L (0.7-2.0)
[2017-08-19] MEDS ORDERED: SODIUM CHLORIDE 0.9% 2,000 ML IV ONE (15:48)
[2017-08-19 15:50] LABS: ALT 8 U/L (21-72); Albumin 5.1 g/dL (3.5-5.0); Alcohol <10 mg/dL; Alkaline Phosphatase 77 U/L (38-126); Amylase 60 U/L (30-110); Anion Gap 23 mmol/L; Blood Urea Nitrogen 18 mg/dL (9-20); Calcium 10.3 mg/dL (8.4-10.2); Carbon Dioxide 16 mmol/L (22-30); Chloride 108 mmol/L (98-107); Glucose 174 mg/dL (74-99); Lipase 198 U/L (23-300); Magnesium 2.2 mg/dL (1.6-2.3); Potassium 3.7 mmol/L (3.5-5.1); Sodium 147 mmol/L (137-145); Total Bilirubin 0.7 mg/dL (0.2-1.3); Total Protein 8.7 g/dL (6.3-8.2)
--- NOTE | 2017-08-19 15:56 | XR ---
EXAMINATION TYPE: XR chest 1V portable DATE OF EXAM: 08/19/2017 COMPARISON: 02/14/2016 HISTORY: altered mental status TECHNIQUE: Single frontal view of the chest is obtained. FINDINGS: Cardiac device noted and there is hyperinflation compatible COPD. No focal infiltrate or i nterstitial edema. No pneumothorax. Diffuse osteopenia and arthropathy of the shoulders. Curvature th e spine with degenerative changes noted. Exam limited by overlying instrumentation. IMPRESSION: Correlate for COPD
[2017-08-19 15:57] LABS: AST 28 U/L (17-59)
[2017-08-19 15:59] LABS: Troponin I <0.012 ng/mL (0.000-0.034)
[2017-08-19 16:00] LABS: Creatine Kinase MB 2.6 ng/mL (0.0-2.4)
[2017-08-19] MEDS ORDERED: cefTRIAXone IN SWFI 1,000 MG/10 ML SYRINGE IVP STA (16:11)
[2017-08-19 16:20] LABS: Amorphous Sediment,Urine Few /hpf; Appearance,Urine Cloudy (Clear); Bacteria,Urine Rare /hpf; Bilirubin,Urine Negative (Negative); Blood,Urine Moderate (Negative); Color,Urine Yellow; Glucose,Urine (UA) Negative (Negative); Granular Casts,Urine 8 /lpf (0); Hyaline Casts,Urine 9 /lpf (0-2); Ketones,Urine 1+ (Negative); Leukocyte Esterase,Urine Negative (Negative); Mucus,Urine Occasional /hpf; Nitrite,Urine Negative (Negative); PH, Urine 5.5 (5.0-8.0); Protein,Urine 2+ (Negative); RBC,Urine 4 /hpf (0-5); Specific Gravity,Urine 1.018 (1.001-1.035); Urobilinogen,Urine <2.0 mg/dL (<2.0); WBC,Urine 5 /hpf (0-5)
[2017-08-19 16:22] LABS: Cocaine Screen,Urine Not Detected (NotDetected); Phencyclidine Screen,Urine Not Detected (NotDetected); Urn Cannabinoid Scrn Detected (NotDetected)
[2017-08-19 16:23] LABS: Amphetamine Screen,Urine Not Detected (NotDetected); Barbiturate Screen,Urine Not Detected (NotDetected); Benzodiazepines Screen,Urine Detected (NotDetected); Methadone Screen, Urine Not Detected (NotDetected); Opiate Screen,Urine Detected (NotDetected); Oxycodone Screen, Urine Not Detected (NotDetected); Tricyclic Antidepressant,Urine Not Detected (NotDetected)
--- NOTE | 2017-08-19 17:06 | CT ---
EXAMINATION TYPE: CT angio head neck DATE OF EXAM: 08/19/2017 HISTORY: Altered mental status. COMPARISON: NONE CT DLP: 219.8 mGycm. Automated Exposure Control for Dose Reduction was Utilized. TECHNIQUE: CTA scan of the neck is performed with IV Contrast, patient injected with 65 mL of Omnipa que 350, axial images are obtained, coronal and sagittal reformatted images are reviewed. Three-D rec onstructed images are created on an independent workstation and reviewed. FINDINGS: There is normal branching pattern of the great vessels on the aortic arch. There is bilateral patency of the common carotid arteries. The right vertebral artery is larger than the left. There is bilater al vertebral artery flow. There is significant plaque at the left carotid artery bifurcation and lume n narrowing of 75% diameter. There is patency of the left external carotid artery. There is no stenos is of left external carotid artery. There is metal artifact at the right carotid artery bifurcation. Lumen is difficult to evaluate. Ther e is arterial flow in the right external and internal carotid arteries. The basilar artery fills entirely from the right side. There is a diminutive distal left vertebral ar mis. There is arterial flow in the anterior middle and posterior cerebral arteries. I see no evidence of a neurysm or neovascularity. There is no sign of spasm. There is hypodensity in the right posterior par ietal lobe cortex consistent with old infarct. There is hypodensity in the periventricular white kiana er. There is normal contrast opacification of the venous sinuses. IMPRESSION: There is approximate 75% stenosis of the proximal left internal carotid artery due to clarissa que formation. There is artifact at the right carotid artery bifurcation and lumen is not well evaluated. Diminutive left vertebral artery. I do not see evidence of subclavian steal. No significant intracranial arterial abnormality.
[2017-08-19] MEDS ORDERED: MAGNESIUM HYDROXIDE 2,400 MG/10 ML CUP PO PRN (18:07)
[2017-08-19] MEDS ORDERED: CALCIUM CARBONATE 500 MG CHEWABLE PO PRN (18:07)
[2017-08-19] MEDS ORDERED: ENOXAPARIN 40 MG/0.4 ML SYRINGE SQ STA (18:26)
[2017-08-19] MEDS ORDERED: NICOTINE 21MG/24HR PATCH TRANSDERM STA (18:27)
[2017-08-19] MEDS ORDERED: ACETAMINOPHEN IV (For NPO) 500 MG in EMPTY BAG 1 BAG IVPB PRN (18:52)
[2017-08-19] MEDS ORDERED: KETOROLAC 30 MG/ML 1 ML VIAL IVP PRN (19:04)
[2017-08-19 19:08] LABS: Glucose,Whole Blood 123 mg/dL (75-99)
[2017-08-19] MEDS: SODIUM CHLORIDE 0.9% 1,000 ML IV SCH (19:09)
--- NOTE | 2017-08-19 19:46 | HP ---
HISTORY AND PHYSICAL DATE OF ADMISSION: 08/19/2017. PRESENTING COMPLAINT: Found unconscious. HISTORY OF PRESENTING COMPLAINT: This is a 67-year-old patient who follows with Dr. Ramirez. Chronic stable medical conditions include hypertension, osteoarthritis, BPH, peripheral arterial disease, depression, permanent pacemaker. History is obtained from the Jayla who is a psychiatry nurse in the hospital. The was called by the son that he found the father unconscious. The patient was looking to the left side. The patient was lying on the living room floor and was incontinent of urine and feces. [place] coma scale was 10. Skin was warm and dry. Patient was breathing. Pupils were equal, 4 mm bilaterally. There was some left-sided weakness and patient was looking to the left side. There was no trauma noted. There is no prior history of seizures. No arrhythmia was noted. Patient's vital signs recorded there were blood pressure 159/103, pulse 130, respiration 20. Blood sugar was 171. Pulse ox was 97%. The patient 2 years ago did have a stroke that completely recovered. The did state that at his baseline patient was very fidgety, had restless legs and sometimes had mild tremors. It looks like the patient had a right internal carotid artery stent placed back in December. For the last 3 or 4 days the patient has been having upper respiratory tract infection symptoms, including a runny nose and a cough. The patient currently is moving his limbs but not able to speak or really follow commands. Review of systems cannot be done, as the patient is nonverbal. PAST MEDICAL HISTORY: 1. Right internal carotid artery stent. 2. Stroke with complete recovery. 3. Hypertension. 4. Osteoarthritis. 5. BPH. 6. Peripheral arterial disease. 7. Depression. 8. Permanent pacemaker. PAST SURGICAL HISTORY: 1. Appendectomy. 2. Hernia repair. 3. Orthopedic surgery. 4. Pacemaker. 5. Left femoropopliteal atherectomy with PTBA. 6. Abdominal aortogram with bilateral lower extremity runoff. SOCIAL HISTORY: The patient has been smoking a pack a day for over 45 years. Did stop drinking excessive alcohol about 25 years ago. The patient is a [employer] retired. . Lives with his . Does marijuana about twice a week. FAMILY HISTORY: Skin and lung cancer. HOME MEDICATIONS: 1. Hydralazine 25 mg b.i.d. 2. Norvasc 5 mg p.o. daily. 3. Flomax 0.4 mg daily. 4. Lopressor 25 p.o. b.i.d. 5. Cymbalta 60 mg p.o. daily. 6. Plavix 75 mg p.o. daily. ALLERGIES: NONE. PHYSICAL EXAMINATION: VITAL SIGNS ON PRESENTATION: Temperature 101.4, pulse 102, respiration 18, blood pressure 136/63, pulse ox 97% on room air. GENERAL APPEARANCE: Thin build. Lying in bed, not awake. Fidgety. Moving all limbs. EYES: Pupils equal. Conjunctivae normal. HEENT: External appearance of nose and ears normal. Oral cavity dry mucous membrane. NECK: JVD not raised. Mass not palpable. RESPIRATORY: Effort increased. LUNGS: Decreased breath sounds. CARDIOVASCULAR: First and second sounds normal. No edema. ABDOMEN: Soft, nontender. Liver and spleen not palpable. LYMPHATICS: No lymph node palpable in neck, axillae or groin. PSYCHIATRY: Unable to assess. NEUROLOGICAL: Pupils are equal and reactive. No facial asymmetry. Patient's right arm is supported on a board and patient is moving all 4 limbs. Plantars are difficult to assess. Patient is not really following commands, though responds to pain and is spontaneously moving all 4 limbs. INVESTIGATIONS: White count 20.3, hemoglobin 15.7, potassium 3.7. BUN and creatinine are normal. Glucose 174. Lactic acid 8.6. Urine drug screen positive for marijuana, benzodiazepine, opiates. Chest x-ray did not report any infiltrate. ASSESSMENT: 1. This is a patient who was found on the floor, unresponsive, with some shaking, incontinent of stool and urine, looking to one side initially; appears to have had a seizure and probably is in a postictal state. Patient is moving all 4 limbs. Stroke entirely cannot be ruled out, though appears to be less likely. The seizure probably could have been precipitated by the sepsis picture patient has. 2. Probably sepsis. Sepsis could be from a viral infection. Patient's says that patient has had a history of cough and cold and respiratory symptoms for last 4 to 5 days, and this well could be viral. At the same time, bacterial cannot be ruled out at this point. 3. Essential hypertension with urgency. 4. Primary osteoarthritis in multiple joints. 5. Benign prostatic hypertrophy. 6. Peripheral arterial disease. 7. Permanent pacemaker. 8. Depression not otherwise specified. 9. Chronic obstructive pulmonary disease. 10.Chronic nicotine dependence in an active cigarette smoker. PLAN: At this point, neuro checks will be carried out with seizure precautions. Patient of course will be kept n.p.o. Wait for the patient to recover. Patient has never had a seizure before. Will hold off any anti-epileptic drugs for now. CT scan does not indicate any stroke. Patient has been started on antibiotics in the ER and did get a dose of ceftriaxone. Will continue with the same for now. Care was discussed with the . Questions were answered. Consultation request to Neurology Dr. Abel is being made. Prognosis guarded. MMODL / IJN: [id number] /
[2017-08-19] MEDS: ACETAMINOPHEN IV (For NPO) 1,000 MG in EMPTY BAG 1 BAG IVPB PRN (22:00)
[2017-08-19] MEDS: hydrALAZINE HCL 25 MG TAB PO SCH (23:20)
[2017-08-19] MEDS: METOPROLOL TARTRATE 25 MG TAB PO SCH (23:20)
[2017-08-19] MEDS: ATORVASTATIN 80 MG TAB PO SCH (23:20)
[2017-08-19] MEDS: FAMOTIDINE 20 MG/2 ML VIAL IV SCH (23:20)
[2017-08-20 02:23] LABS: Glucose,Whole Blood 121 mg/dL (75-99)
[2017-08-20 03:47] LABS: Hemoglobin A1C 5.7 % (4.0-6.0)
[2017-08-20] MEDS: SODIUM CHLORIDE 0.9% 1,000 ML IV SCH ×4 (03:49→21:26)
[2017-08-20] MEDS: ACETAMINOPHEN IV (For NPO) 1,000 MG in EMPTY BAG 1 BAG IVPB PRN (03:55)
[2017-08-20 06:38] LABS: Glucose,Whole Blood 110 mg/dL (75-99)
[2017-08-20 07:12] LABS: Basophils % (A) 0 %; Eosinophils % (A) 0 %; HCT 45.5 % (39.0-53.0); HGB 15.5 gm/dL (13.0-17.5); Lymphocytes # (A) 2.4 k/uL (1.0-4.8); Lymphocytes % (A) 16 %; MCH 29.3 pg (25.0-35.0); MCV 86.1 fL (80.0-100.0); Mean Platelet Volume 6.8; Monocytes # (A) 0.9 k/uL (0-1.0); Monocytes % (A) 6 %; Neutrophils # (A) 11.1 k/uL (1.3-7.7); Neutrophils % (A) 75 %; Platelet Count 255 k/uL (150-450); RBC 5.29 m/uL (4.30-5.90); RDW 14.2 % (11.5-15.5); WBC 14.9 k/uL (3.8-10.6)
[2017-08-20 07:26] LABS: Anion Gap 13 mmol/L; Blood Urea Nitrogen 14 mg/dL (9-20); Calcium 8.9 mg/dL (8.4-10.2); Carbon Dioxide 21 mmol/L (22-30); Chloride 112 mmol/L (98-107); Cholesterol 136 mg/dL (<200); Glucose 106 mg/dL (74-99); HDL Cholesterol 39 mg/dL (40-60); LDL Cholesterol,Calculated 71 mg/dL (0-99); Potassium 3.1 mmol/L (3.5-5.1); Sodium 146 mmol/L (137-145); Triglycerides 131 mg/dL (<150)
--- NOTE | 2017-08-20 09:30 | P.CON ---
Consult Note - . Consult date: 08/20/17 Assessment/Plan:: Consult for lumbar puncture noted, requested for altered mental status and sedation. Patient currently on Plavix which he received yesterday, and there is substantially increased risk of neuraxial hematoma and possible paralysis if procedure is performed while patient is on recent anticoagulation. Patient will need to be off Plavix for seven days to be a candidate for lumbar puncture. Please call back with any questions.
[2017-08-20] MEDS ORDERED: Potassium Replacement Protocol 1 EACH MISC MISCELLANE PRN (10:07)
[2017-08-20] MEDS ORDERED: POTASSIUM CHLORIDE ER 20 MEQ TAB.ER PO STA (10:07)
[2017-08-20] MEDS: METOPROLOL TARTRATE 25 MG TAB PO SCH ×2 (10:16→21:25)
[2017-08-20] MEDS: DULoxetine HCL 60 MG CAPSULE.DR PO SCH (10:16)
[2017-08-20] MEDS: ASPIRIN 325 MG TAB PO SCH (10:16)
[2017-08-20] MEDS: ENOXAPARIN 40 MG/0.4 ML SYRINGE SQ SCH (10:17)
[2017-08-20] MEDS: FAMOTIDINE 20 MG/2 ML VIAL IV SCH ×2 (10:17→21:26)
[2017-08-20] MEDS: CLOPIDOGREL 75 MG TAB PO SCH (10:17)
[2017-08-20] MEDS: NICOTINE 21MG/24HR PATCH TRANSDERM SCH (10:18)
[2017-08-20] MEDS: amLODIPine 5 MG TAB PO SCH (10:18)
[2017-08-20] MEDS: TAMSULOSIN 0.4 MG CAP.ER.24H PO SCH (10:18)
[2017-08-20] MEDS: hydrALAZINE HCL 25 MG TAB PO SCH ×2 (10:18→21:25)
[2017-08-20] MEDS ORDERED: VANCOMYCIN IV PER PHARMACY 1 EACH MISC MISCELLANE SCH (10:45)
--- NOTE | 2017-08-20 10:57 | ECHOF ---
Referral Reason: MEASUREMENTS -------- HEIGHT: 170.2 cm WEIGHT: 114.8 kg BP: 92/50 IVSd: 0.8 cm (0.6 - 1.1) LVIDd: 4.2 cm (3.9 - 5.3) LVPWd: 0.7 cm (0.6 - 1.1) IVSs: 1.0 cm LVIDs: 2.3 cm LVPWs: 1.2 cm Ao Diam: 3.2 cm (2.0 - 3.7) AV Cusp: 1.2 cm (1.5 - 2.6) LA Diam: 2.6 cm (2.7 - 3.8) MV EXCURSION: 18.525 mm (> 18.000) MV EF SLOPE: 110 mm/s (70 - 150) EPSS: 1.0 cm MV E Davy: 0.52 m/s MV DecT: 412 ms MV A Davy: 0.52 m/s MV E/A Ratio: 0.99 RAP: 5.00 mmHg RVSP: 10.17 mmHg FINDINGS -------- Pacemaker This was a technically difficult study with suboptimal limited apical views. The left ventricular size is normal. Left ventricular wall thickness is normal. Overall left vent ricular systolic function is normal with, an EF between 55 - 60 %. The right ventricle is normal in size and function. The left atrium is normal in size. The right atrium is normal in size. The aortic valve is trileaflet, and appears structurally normal. No aortic stenosis or regurgitation. There is trace mitral regurgitation. Trace tricuspid regurgitation present. The right ventricular systolic pressure, as measured by Dopp ler, is 10.17mmHg. Pulmonic valve appears structurally normal. The aortic root, ascending aorta and aortic arch are normal. The pericardium is normal. CONCLUSIONS -------- 1. Pacemaker 2. This was a technically difficult study with suboptimal limited apical views. 3. The left ventricular size is normal. 4. Left ventricular wall thickness is normal. 5. Overall left ventricular systolic function is normal with, an EF between 55 - 60 %. 6. The right ventricle is normal in size and function. 7. The left atrium is normal in size. 8. The right atrium is normal in size. 9. The aortic valve is trileaflet, and appears structurally normal. No aortic stenosis or regurgitati on. 10. There is trace mitral regurgitation. 11. Trace tricuspid regurgitation present. 12. The right ventricular systolic pressure, as measured by Doppler, is 10.17mmHg. 13. Pulmonic valve appears structurally normal. 14. The aortic root, ascending aorta and aortic arch are normal. 15. The pericardium is normal. 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
--- NOTE | 2017-08-20 11:01 | P.CONS ---
History of Present Illness - Reason for Consult Consult date: 08/20/17 fever, delirium - History of Present Illness Year old male patient who has history of hepatitis C as well as previous stroke on Plavix. The patient is seen in the emergency center. Patient states he has had diarrhea for the past 3 days and complains of abdominal pain he had. He has also had several falls over the last couple of days when he has an abrasion to the left lower leg and complains of increased lumbar pain. He states he always has back pain and he smokes marijuana for this. Patient is an active smoker. According to the ER documentation, patient was found by his son on the floor unresponsive and incontinent of urine and not using his left arm with a left lateral gaze. He was evaluated for stroke and not a candidate for TPA as he was last seen in the morning at 7:30 and was acting normal at that time. CAT scan of the brain showed age-related atrophy and chronic small vessel ischemic change. CTA of head and neck revealed 75% stenosis of the proximal left internal carotid artery. Artifact in the left carotid artery bifurcation. Diminutive left vertebral artery. No subclavian steal. No intracranial abnormality. EKG was a sinus rhythm. Her temperature max is been 102.6 with elevated heart rate and blood pressure elevated with leukocytosis of 20.3. Patient was given ceftriaxone 1 dose. Blood culture was obtained. Urinalysis was cloudy with bacteria rare. INR 1.5. Lactic acid initially 8.6 and repeated 1.2. Patient is unable to undergo LP due to Plavix. Patient appears to be sleeping and is minimally arousable to verbal stimuli. He will answer a few questions but does not open his eyes, set up, make eye contact but he is able to answer simple questions correctly regarding orientation. Patient denies having any shortness of breath. On note that patient had a 3 second tonic-clonic seizure-like activity while in CAT scan. He was given Ativan and there is a consult in place with Dr. Abel. Review of Systems ROS unobtainable: due to mental status Past Medical History Past Medical History: CVA/TIA, Hypertension, Liver Disease, Memory Impairment, Osteoarthritis (OA), Vascular Disorder Additional Past Medical History / Comment(s): L lower extremity discomfort with claudication, PAD, xarelto for previous stoke. HEPATITIS 25YRS AGO DIAGNOSED. History of Any Multi-Drug Resistant Organisms: None Reported Past Surgical History: Appendectomy, Hernia Repair, Orthopedic Surgery, Pacemaker Additional Past Surgical History / Comment(s): 04/10/16 L femoral popliteal atherectomy with PTBA. Other surgical hx: abdominal aortagram with bilateral lower extremity runoffs, 2016 LIVER BX THIS YEAR. Liver biopsy - approx. 15-20 years ago per pt, hepatitis Past Anesthesia/Blood Transfusion Reactions: No Reported Reaction Type of Cardiac Device: Permanent Pacemaker Device Placement Date:: 02-13-16 Past Psychological History: Depression Past Drug Use History: None Reported - Past Family History Mother Family Medical History: Cancer Additional Family Medical History / Comment(s): Skin cancer and lung cancer Father Family Medical History: No Reported History Medications and Allergies Home Medications Medication Instructions Recorded Confirmed Type DULoxetine HCL [Cymbalta] 60 mg PO DAILY 02/05/14 08/19/17 History hydrALAZINE HCL [Apresoline] 25 tab PO BID 01/24/15 08/19/17 History amLODIPine [Norvasc] 5 mg PO DAILY 02/09/16 08/19/17 History Metoprolol Tartrate [Lopressor] 25 mg PO BID 12/31/16 08/19/17 History Clopidogrel [Plavix] 75 mg PO DAILY #90 tab 01/03/17 08/19/17 Rx Tamsulosin HCl [Flomax] 0.4 mg PO DAILY 08/19/17 08/19/17 History Allergies Allergy/AdvReac Type Severity Reaction Status Date / Time No Known Allergies Allergy Verified 08/19/17 16:13 Physical Exam Vitals: Vital Signs Temp Pulse Pulse Resp BP BP Pulse Ox 08/20/17 08:00 98 F 62 18 167/79 97 08/20/17 04:00 101.4 F H 67 18 165/89 97 08/20/17 00:00 102.0 F H 72 18 170/84 100 08/19/17 21:22 88 18 182/93 98 08/19/17 20:28 102.2 F H 08/19/17 20:12 80 18 198/106 98 08/19/17 18:53 102.6 F H 18 180/100 98 08/19/17 17:40 102 H 20 175/107 98 08/19/17 16:59 99.2 F 08/19/17 16:41 104 H 20 195/96 98 08/19/17 15:30 108 H 22 168/101 98 08/19/17 15:15 96 22 136/63 98 08/19/17 15:04 101.4 F H 102 H 18 136/63 97 Intake and Output 08/19/17 08/20/17 08/20/17 22:59 06:59 14:59 Intake Total 1300 Output Total 650 625 Balance -650 675 Intake: IV 1300 ACETAMINOPHEN IV (For NPO 100 ) 1,000 mg In Empty Bag 1 bag @ 400 mls/hr IVPB ONCE ONE Rx#:[id number] Sodium Chloride 0.9% 1, 1200 000 ml @ 150 mls/hr IV . Q6H40M LYDIA Rx#:[id number] Output: Urine 650 625 Other: Voiding Method Indwelling Catheter Indwelling Catheter Weight 114.9 kg Gen: This is a 67-year-old thin male. Patient is laying on the stretcher and appears to be comfortable. No respiratory distress noted. HEENT: Head is atraumatic, normocephalic. Pupils equal, round. Sclerae is anicteric. Conjunctiva pink. Mucous members of the mouth are dry. No thrush noted. NECK: Supple. No JVD. No lymphadenopathy. No thyromegaly. LUNGS: Scattered rhonchi. No intercostal retractions. HEART: Regular rate and rhythm. No murmur. ABDOMEN: Soft. Bowel sounds are present. No masses. Generalized tenderness. EXTREMITIES: Extremities are thin with muscle wasting noted. No pedal edema. No calf tenderness. Dorsalis pedis +1 bilaterally. Patient has an abrasion to the back of his left ankle. No significant redness erythema. NEUROLOGICAL: Patient appears to be sleeping, arouses minimally to verbal stimuli. He answers all orientation questions appropriately but is unclear regarding recent history of events. Hand cna instructor are equal bilaterally. Foot pull/push equal bilaterally. Results Results: Laboratory Results WBC 14.9 k/uL (3.8-10.6) H 08/20/17 06:43 RBC 5.29 m/uL (4.30-5.90) 08/20/17 06:43 Hgb 15.5 gm/dL (13.0-17.5) 08/20/17 06:43 Hct 45.5 % (39.0-53.0) 08/20/17 06:43 MCV 86.1 fL (80.0-100.0) 08/20/17 06:43 MCH 29.3 pg (25.0-35.0) 08/20/17 06:43 MCHC 34.0 g/dL (31.0-37.0) 08/20/17 06:43 RDW 14.2 % (11.5-15.5) 08/20/17 06:43 Plt Count 255 k/uL (150-450) 08/20/17 06:43 Neutrophils % 75 % 08/20/17 06:43 Lymphocytes % 16 % 08/20/17 06:43 Monocytes % 6 % 08/20/17 06:43 Eosinophils % 0 % 08/20/17 06:43 Basophils % 0 % 08/20/17 06:43 Neutrophils # 11.1 k/uL (1.3-7.7) H 08/20/17 06:43 Lymphocytes # 2.4 k/uL (1.0-4.8) 08/20/17 06:43 Monocytes # 0.9 k/uL (0-1.0) 08/20/17 06:43 Eosinophils # 0.0 k/uL (0-0.7) 08/20/17 06:43 Basophils # 0.0 k/uL (0-0.2) 08/20/17 06:43 PT 13.6 sec (9.0-12.0) H 08/19/17 15:16 INR 1.5 (<1.2) H 08/19/17 15:16 APTT 20.7 sec (22.0-30.0) L 08/19/17 15:16 Sodium 146 mmol/L (137-145) H 08/20/17 06:43 Potassium 3.1 mmol/L (3.5-5.1) L 08/20/17 06:43 Chloride 112 mmol/L (98-107) H 08/20/17 06:43 Carbon Dioxide 21 mmol/L (22-30) L 08/20/17 06:43 Anion Gap 13 mmol/L 08/20/17 06:43 BUN 14 mg/dL (9-20) 08/20/17 06:43 Creatinine 0.55 mg/dL (0.66-1.25) L 08/20/17 06:43 Est GFR (CKD-EPI)AfAm >90 (>60 ml/min/1.73 sqM) 08/20/17 06:43 Est GFR (CKD-EPI)NonAf >90 (>60 ml/min/1.73 sqM) 08/20/17 06:43 Glucose 106 mg/dL (74-99) H 08/20/17 06:43 POC Glucose (mg/dL) 110 mg/dL (75-99) H 08/20/17 06:36 POC Glu Rounder And Backer ID 08/20/17 06:[address] Glu mg/dL 117 08/19/17 19:17 Hemoglobin A1c 5.7 % (4.0-6.0) 08/19/17 19:17 Lactic Ac Sepsis Rflx Y 08/19/17 15:48 Plasma Lactic Acid [place] 1.2 mmol/L (0.7-2.0) 08/19/17 19:17 Calcium 8.9 mg/dL (8.4-10.2) 08/20/17 06:43 Magnesium 2.2 mg/dL (1.6-2.3) 08/19/17 15:16 Total Bilirubin 0.7 mg/dL (0.2-1.3) 08/19/17 15:16 AST 28 U/L (17-59) 08/19/17 15:16 ALT 8 U/L (21-72) L 08/19/17 15:16 Alkaline Phosphatase 77 U/L (38-126) 08/19/17 15:16 Ammonia <9 umol/L (<30) 08/19/17 15:16 Total Creatine Kinase 247 U/L (55-170) H 08/19/17 15:16 CK-MB (CK-2) 2.6 ng/mL (0.0-2.4) H* 08/19/17 15:16 CK-MB (CK-2) Rel Index 1.1 08/19/17 15:16 Troponin I <0.012 ng/mL (0.000-0.034) 08/19/17 15:16 Total Protein 8.7 g/dL (6.3-8.2) H 08/19/17 15:16 Albumin 5.1 g/dL (3.5-5.0) H 08/19/17 15:16 Triglycerides 131 mg/dL (<150) 08/20/17 06:43 Cholesterol 136 mg/dL (<200) 08/20/17 06:43 LDL Cholesterol, Calc 71 mg/dL (0-99) 08/20/17 06:43 HDL Cholesterol 39 mg/dL (40-60) L 08/20/17 06:43 Amylase 60 U/L (30-110) 08/19/17 15:16 Lipase 198 U/L (23-300) 08/19/17 15:16 Urine Color Yellow 08/19/17 16:04 Urine Appearance Cloudy (Clear) 08/19/17 16:04 Urine pH 5.5 (5.0-8.0) 08/19/17 16:04 Ur Specific [place] 1.018 (1.001-1.035) 08/19/17 16:04 Urine Protein 2+ (Negative) H 08/19/17 16:04 Urine Glucose (UA) Negative (Negative) 08/19/17 16:04 Urine Ketones 1+ (Negative) H 08/19/17 16:04 Urine Blood Moderate (Negative) H 08/19/17 16:04 Urine Nitrite Negative (Negative) 08/19/17 16:04 Urine Bilirubin Negative (Negative) 08/19/17 16:04 Urine Urobilinogen <2.0 mg/dL (<2.0) 08/19/17 16:04 Ur Leukocyte Esterase Negative (Negative) 08/19/17 16:04 Urine RBC 4 /hpf (0-5) 08/19/17 16:04 Urine WBC 5 /hpf (0-5) 08/19/17 16:04 Amorphous Sediment Few /hpf (None) H 08/19/17 16:04 Urine Bacteria Rare /hpf (None) H 08/19/17 16:04 Hyaline Casts 9 /lpf (0-2) H 08/19/17 16:04 Granular Casts 8 /lpf (0) 08/19/17 16:04 Urine Mucus Occasional /hpf (None) H 08/19/17 16:04 Urine Opiates Screen Detected (NotDetected) H 08/19/17 16:04 Ur Oxycodone Screen Not Detected (NotDetected) 08/19/17 16:04 Urine Methadone Screen Not Detected (NotDetected) 08/19/17 16:04 Ur Propoxyphene Screen Not Detected (NotDetected) 08/19/17 16:04 Ur Barbiturates Screen Not Detected (NotDetected) 08/19/17 16:04 U Tricyclic Antidepress Not Detected (NotDetected) 08/19/17 16:04 Ur Phencyclidine Scrn Not Detected (NotDetected) 08/19/17 16:04 Ur Amphetamines Screen Not Detected (NotDetected) 08/19/17 16:04 U Methamphetamines Scrn Not Detected (NotDetected) 08/19/17 16:04 U Benzodiazepines Scrn Detected (NotDetected) H 08/19/17 16:04 Urine Cocaine Screen Not Detected (NotDetected) 08/19/17 16:04 U Marijuana (THC) Screen Detected (NotDetected) H 08/19/17 16:04 Serum Alcohol <10 mg/dL 08/19/17 15:16 CBC & Chem 7: 08/20/17 06:43 08/20/17 06:43 Labs: Abnormal Lab Results - Last 24 Hours (Table) 08/19/17 08/19/17 08/19/17 Range/Units 15:16 15:16 15:16 WBC (3.8-10.6) k/uL Neutrophils # (1.3-7.7) k/uL Monocytes # (0-1.0) k/uL PT (9.0-12.0) sec INR (<1.2) APTT (22.0-30.0) sec Sodium 147 H (137-145) mmol/L Potassium (3.5-5.1) mmol/L Chloride 108 H (98-107) mmol/L Carbon Dioxide 16 L (22-30) mmol/L Creatinine (0.66-1.25) mg/dL Glucose 174 H (74-99) mg/dL POC Glucose (mg/dL) (75-99) mg/dL Plasma Lactic Acid [place] 8.6 H* (0.7-2.0) mmol/L Calcium 10.3 H (8.4-10.2) mg/dL ALT 8 L (21-72) U/L Total Creatine Kinase 247 H (55-170) U/L CK-MB (CK-2) 2.6 H* (0.0-2.4) ng/mL Total Protein 8.7 H (6.3-8.2) g/dL Albumin 5.1 H (3.5-5.0) g/dL HDL Cholesterol (40-60) mg/dL Urine Protein (Negative) Urine Ketones (Negative) Urine Blood (Negative) Amorphous Sediment (None) /hpf Urine Bacteria (None) /hpf Hyaline Casts (0-2) /lpf Urine Mucus (None) /hpf Urine Opiates Screen (NotDetected) U Benzodiazepines Scrn (NotDetected) U Marijuana (THC) Screen (NotDetected) 08/19/17 08/19/17 08/19/17 Range/Units 15:16 15:16 15:18 WBC 20.3 H (3.8-10.6) k/uL Neutrophils # 16.6 H (1.3-7.7) k/uL Monocytes # 1.3 H (0-1.0) k/uL PT 13.6 H (9.0-12.0) sec INR 1.5 H (<1.2) APTT 20.7 L (22.0-30.0) sec Sodium (137-145) mmol/L Potassium (3.5-5.1) mmol/L Chloride (98-107) mmol/L Carbon Dioxide (22-30) mmol/L Creatinine (0.66-1.25) mg/dL Glucose (74-99) mg/dL POC Glucose (mg/dL) 162 H (75-99) mg/dL Plasma Lactic Acid [place] (0.7-2.0) mmol/L Calcium (8.4-10.2) mg/dL ALT (21-72) U/L Total Creatine Kinase (55-170) U/L CK-MB (CK-2) (0.0-2.4) ng/mL Total Protein (6.3-8.2) g/dL Albumin (3.5-5.0) g/dL HDL Cholesterol (40-60) mg/dL Urine Protein (Negative) Urine Ketones (Negative) Urine Blood (Negative) Amorphous Sediment (None) /hpf Urine Bacteria (None) /hpf Hyaline Casts (0-2) /lpf Urine Mucus (None) /hpf Urine Opiates Screen (NotDetected) U Benzodiazepines Scrn (NotDetected) U Marijuana (THC) Screen (NotDetected) 08/19/17 08/19/17 08/20/17 Range/Units 16:04 19:06 02:18 WBC (3.8-10.6) k/uL Neutrophils # (1.3-7.7) k/uL Monocytes # (0-1.0) k/uL PT (9.0-12.0) sec INR (<1.2) APTT (22.0-30.0) sec Sodium (137-145) mmol/L Potassium (3.5-5.1) mmol/L Chloride (98-107) mmol/L Carbon Dioxide (22-30) mmol/L Creatinine (0.66-1.25) mg/dL Glucose (74-99) mg/dL POC Glucose (mg/dL) 123 H 121 H (75-99) mg/dL Plasma Lactic Acid [place] (0.7-2.0) mmol/L Calcium (8.4-10.2) mg/dL ALT (21-72) U/L Total Creatine Kinase (55-170) U/L CK-MB (CK-2) (0.0-2.4) ng/mL Total Protein (6.3-8.2) g/dL Albumin (3.5-5.0) g/dL HDL Cholesterol (40-60) mg/dL Urine Protein 2+ H (Negative) Urine Ketones 1+ H (Negative) Urine Blood Moderate H (Negative) Amorphous Sediment Few H (None) /hpf Urine Bacteria Rare H (None) /hpf Hyaline Casts 9 H (0-2) /lpf Urine Mucus Occasional H (None) /hpf Urine Opiates Screen Detected H (NotDetected) U Benzodiazepines Scrn Detected H (NotDetected) U Marijuana (THC) Screen Detected H (NotDetected) 08/20/17 08/20/17 08/20/17 Range/Units 06:36 06:43 06:43 WBC 14.9 H (3.8-10.6) k/uL Neutrophils # 11.1 H (1.3-7.7) k/uL Monocytes # (0-1.0) k/uL PT (9.0-12.0) sec INR (<1.2) APTT (22.0-30.0) sec Sodium 146 H (137-145) mmol/L Potassium 3.1 L (3.5-5.1) mmol/L Chloride 112 H (98-107) mmol/L Carbon Dioxide 21 L (22-30) mmol/L Creatinine 0.55 L (0.66-1.25) mg/dL Glucose 106 H (74-99) mg/dL POC Glucose (mg/dL) 110 H (75-99) mg/dL Plasma Lactic Acid [place] (0.7-2.0) mmol/L Calcium (8.4-10.2) mg/dL ALT (21-72) U/L Total Creatine Kinase (55-170) U/L CK-MB (CK-2) (0.0-2.4) ng/mL Total Protein (6.3-8.2) g/dL Albumin (3.5-5.0) g/dL HDL Cholesterol 39 L (40-60) mg/dL Urine Protein (Negative) Urine Ketones (Negative) Urine Blood (Negative) Amorphous Sediment (None) /hpf Urine Bacteria (None) /hpf Hyaline Casts (0-2) /lpf Urine Mucus (None) /hpf Urine Opiates Screen (NotDetected) U Benzodiazepines Scrn (NotDetected) U Marijuana (THC) Screen (NotDetected) Assessment and Plan Plan: This is a 67-year-old male patient who presented to the hospital with mental status changes and metabolic encephalopathy most likely secondary to sepsis possibly related to meningitis or encephalitis. Patient also had a seizure while on the CAT scan unit possibly related to sepsis. Patient has had falls recently at home no obvious injuries noted. He also has had diarrhea for 3 days at home. We will check amylase and lipase and C. difficile toxin influenza testing will be done a patient will be started on ceftriaxone 2 g every 12 hours and vancomycin, acyclovir 10 mg/kg every 8 hours. Serum HSV 1 and 2 by PCR will be ordered. Continue IV Tylenol. Blood cultures are status received. Continue supportive care. Further recommendations as patient progresses. The above dictated assessment and findings were discussed with Dr. Starkey. The impression and plan of care have been directed as dictated. Ewa Barahona nurse practitioner acting as scribe for Dr. Starkey.
[2017-08-20 11:11] LABS: Amylase 62 U/L (30-110); Lipase 201 U/L (23-300)
[2017-08-20] MEDS: POTASSIUM CHLORIDE 10 MEQ in SODIUM CHLORIDE 0.9% 100 ML IVPB SCH ×2 (12:26→14:38)
[2017-08-20] MEDS: ACYCLOVIR SODIUM 1,150 MG in SODIUM CHLORIDE 0.9% 250 ML IV SCH ×2 (12:28→19:59)
[2017-08-20] MEDS: cefTRIAXone IN SWFI 2,000 MG/20 ML SYRINGE IVP SCH ×2 (12:28→21:29)
[2017-08-20] MEDS: VANCOMYCIN 2,000 MG in SODIUM CHLORIDE 0.9% 500 ML IVPB SCH ×2 (14:44→22:47)
[2017-08-20 15:00] LABS: Glucose,Whole Blood 97 mg/dL (75-99)
[2017-08-20] MEDS: ATORVASTATIN 80 MG TAB PO SCH (21:25)
--- NOTE | 2017-08-20 22:11 | PN ---
PROGRESS NOTE DATE OF SERVICE: August 20, 2017. PRESENT COMPLAINT: Fever. INTERVAL HISTORY: This patient admitted with what may be seizure activity. Febrile. Started on antibiotics in the ER. Seen by Infectious Disease who brought in the coverage. The patient is more awake today, actually communicating, following commands. Jayla is not at the bedside. Because of Plavix, lumbar puncture could not be done. I did talk to the anesthesia person on-call who came down to the ER. Hence, lumbar puncture could not be done. Patient denies any photophobia or neck stiffness. REVIEW OF SYSTEMS: Was attempted. The patient is currently barely talking but following commands. CURRENT MEDICATIONS: Reviewed that include IV acyclovir, IV ceftriaxone, IV vancomycin. PHYSICAL EXAMINATION: T-max 102, this morning 98, pulse 62, respiration 18, blood pressure 167/79, pulse ox 97% on 2 L. General appearance is lying in bed, awake. Eyes: Pupils equal, conjunctivae normal. HEENT external appearance of nose and ears normal. Oral cavity dry. Neck JVD unable to assess. Mass not palpable. Respiratory effort increased. Lungs decreased breath sounds. Cardiovascular: First and second sounds normal. No edema. ABDOMEN: Soft, nontender. Liver and spleen not palpable. Neurological no facial asymmetry. The patient is moving all 4 limbs. Following simple commands but barely speaking. INVESTIGATIONS: White count 14.9, hemoglobin 15.5, potassium 3.5, BUN 14, creatinine 0.55. Cultures are pending. ASSESSMENT: 1. This is a patient looks like he may have had a seizure. Also had a septic picture. There is concern about encephalitis/meningitis. Lumbar puncture could not be done because the patient being on Plavix. The patient is clinically doing better. Given that the white count is coming down and fevers are coming down this morning. 2. Essential hypertension. 3. Primary osteoarthritis multiple joints. 4. Benign prostatic hypertrophy. 5. Peripheral artery disease. 6. Permanent pacemaker. 7. Depression, not otherwise specified. 8. Chronic obstructive pulmonary disease. 9. Chronic nicotine dependence in an active cigarette smoker. PLAN: Close eye will be kept on the patient. Will be continued on ceftriaxone, acyclovir, vancomycin. The patient does not have any photophobia or neck stiffness. Need to cover the organisms. Dr. Starkey was consulted and so was Neurology. The patient's is not here. Will try to reach her on home phone. MMODL / IJN: [id number] /
[2017-08-20] MEDS: PRAMIPEXOLE 0.5 MG TAB PO SCH (22:50)
--- NOTE | 2017-08-20 22:58 | P.CON ---
Consult Note - . Consult date: 08/20/17 Assessment/Plan:: 67 Year old male patient who has history of hepatitis C as well as previous stroke on Plavix. The patient is seen in the emergency center. Patient states he has had diarrhea for the past 3 days and complains of abdominal pain he had. He has also had several falls over the last couple of days when he has an abrasion to the left lower leg and complains of increased lumbar pain. He states he always has back pain and he smokes marijuana for this. Patient is an active smoker. According to the ER documentation, patient was found by his son on the floor unresponsive and incontinent of urine and not using his left arm with a left lateral gaze. He was evaluated for stroke and not a candidate for TPA as he was last seen in the morning at 7:30 and was acting normal at that time. CAT scan of the brain showed age-related atrophy and chronic small vessel ischemic change. CTA of head and neck revealed 75% stenosis of the proximal left internal carotid artery. Artifact in the left carotid artery bifurcation. Diminutive left vertebral artery. No subclavian steal. No intracranial abnormality. EKG was a sinus rhythm. Her temperature max is been 102.6 with elevated heart rate and blood pressure elevated with leukocytosis of 20.3. Patient was given ceftriaxone 1 dose. Blood culture was obtained. Urinalysis was cloudy with bacteria rare. INR 1.5. Lactic acid initially 8.6 and repeated 1.2. Patient is unable to undergo LP due to Plavix. Patient appears to be sleeping and is minimally arousable to verbal stimuli. He will answer a few questions but does not open his eyes, set up, make eye contact but he is able to answer simple questions correctly regarding orientation. Patient denies having any shortness of breath. On note that patient had a 3 second tonic-clonic seizure-like activity while in CAT scan. He was given Ativan and there is a consult in place with Dr. Abel. Please see the consult is dictated by nurse practitioner Mrs. Ewa Barahona. The patient has had a slight improvement of his mental status over the last few hours has his fever has improved and has been no further seizure-like activity. Is not he is on Plavix and lumbar puncture cannot be performed. The left does relate that the patient was treated with his hepatitis C with Epclusa which has been completed for more than a year and he has had sustained neurological response for that timeframe. No recent drug activities of occurred. No current alcohol use. As noted the patient has had a significantly. Mental status associated with fever and leukocytosis and elevated lactic acid all of concern to potential central nervous system infection and consequently antibiotic therapy with Rocephin and vancomycin have been initiated. We'll also add in acyclovir and that if he does have encephalitis, herpes simplex encephalitis is the most common and is potentially treatable and consequently high-dose acyclovir was added. Blood cultures are in process urine cultures are in process. Serum HSV1 PCR has been requested since lumbar puncture not able to be performed at this time. Lactic acid is improved from 8.6-1.2 after hydration, and as noted mental status is showing some improvement. He is however having copious amounts of diarrhea and workup is in progress. His abdomen is soft and exam and does not appear to have ischemic colitis, but infectious gastroenteritis is of concern and workup is in progress. C. diff testing is negative as was influenza testing. For now supportive care empiric antimicrobial therapy and close monitoring is in process. Neurologic evaluation is in process to further evaluate the possibility of seizure, if seizure has occurred would increase the likelihood that this was a encephalitis. I agree with evaluation, assessment and plan as dictated by nurse practitioner Mrs. Ewa Barahona.
[2017-08-21] MEDS: SODIUM CHLORIDE 0.9% 1,000 ML IV SCH ×3 (03:36→21:27)
[2017-08-21] MEDS: ACYCLOVIR SODIUM 1,150 MG in SODIUM CHLORIDE 0.9% 250 ML IV SCH ×3 (05:00→21:20)
[2017-08-21 06:10] LABS: Glucose,Whole Blood 97 mg/dL (75-99)
[2017-08-21 06:39] LABS: Anion Gap 11 mmol/L; Blood Urea Nitrogen 12 mg/dL (9-20); Carbon Dioxide 23 mmol/L (22-30); Chloride 108 mmol/L (98-107); Glucose 99 mg/dL (74-99); Potassium 3.7 mmol/L (3.5-5.1); Sodium 142 mmol/L (137-145)
[2017-08-21] MEDS: CLOPIDOGREL 75 MG TAB PO SCH (08:36)
[2017-08-21] MEDS: amLODIPine 5 MG TAB PO SCH (08:36)
[2017-08-21] MEDS: ASPIRIN 325 MG TAB PO SCH (08:36)
[2017-08-21] MEDS: ENOXAPARIN 40 MG/0.4 ML SYRINGE SQ SCH (08:37)
[2017-08-21] MEDS: FAMOTIDINE 20 MG/2 ML VIAL IV SCH ×2 (08:37→21:21)
[2017-08-21] MEDS: DULoxetine HCL 60 MG CAPSULE.DR PO SCH (08:37)
[2017-08-21] MEDS: hydrALAZINE HCL 25 MG TAB PO SCH ×2 (08:37→21:21)
[2017-08-21] MEDS: TAMSULOSIN 0.4 MG CAP.ER.24H PO SCH (08:38)
[2017-08-21] MEDS: METOPROLOL TARTRATE 25 MG TAB PO SCH ×2 (08:38→21:21)
[2017-08-21] MEDS: NICOTINE 21MG/24HR PATCH TRANSDERM SCH (08:38)
[2017-08-21] MEDS: cefTRIAXone IN SWFI 2,000 MG/20 ML SYRINGE IVP SCH ×2 (08:41→21:29)
[2017-08-21] MEDS: VANCOMYCIN 1,000 MG in SODIUM CHLORIDE 0.9% 250 ML IVPB SCH (13:57)
[2017-08-21] MEDS: ATORVASTATIN 80 MG TAB PO SCH (21:20)
[2017-08-21] MEDS: PRAMIPEXOLE 0.5 MG TAB PO SCH (21:21)
[2017-08-21] MEDS: Acetaminophen-Codeine 300-30mg TAB PO PRN (21:33)
--- NOTE | 2017-08-21 22:53 | P.PN ---
Subjective Progress Note Date: 08/21/17 Principal diagnosis: Year old male patient who has history of hepatitis C as well as previous stroke on Plavix. The patient is seen in the emergency center. Patient states he has had diarrhea for the past 3 days and complains of abdominal pain he had. He has also had several falls over the last couple of days when he has an abrasion to the left lower leg and complains of increased lumbar pain. He states he always has back pain and he smokes marijuana for this. Patient is an active smoker. According to the ER documentation, patient was found by his son on the floor unresponsive and incontinent of urine and not using his left arm with a left lateral gaze. He was evaluated for stroke and not a candidate for TPA as he was last seen in the morning at 7:30 and was acting normal at that time. CAT scan of the brain showed age-related atrophy and chronic small vessel ischemic change. CTA of head and neck revealed 75% stenosis of the proximal left internal carotid artery. Artifact in the left carotid artery bifurcation. Diminutive left vertebral artery. No subclavian steal. No intracranial abnormality. EKG was a sinus rhythm. Her temperature max is been 102.6 with elevated heart rate and blood pressure elevated with leukocytosis of 20.3. Patient was given ceftriaxone 1 dose. Blood culture was obtained. Urinalysis was cloudy with bacteria rare. INR 1.5. Lactic acid initially 8.6 and repeated 1.2. Patient is unable to undergo LP due to Plavix. Patient appears to be sleeping and is minimally arousable to verbal stimuli. He will answer a few questions but does not open his eyes, set up, make eye contact but he is able to answer simple questions correctly regarding orientation. Patient denies having any shortness of breath. On note that patient had a 3 second tonic-clonic seizure-like activity while in CAT scan. He was given Ativan and there is a consult in place with Dr. Abel. 08/21/2017 patient is more cognizant. He is wondering when he'll be able to go home. He is less agitated. He is able to form sentences. He is moving easily in the bed. Is trying to get up. Does not easily understand he has a Mcfarlane catheter in place. But he is easily quieted. He does not complain of much discomfort. Objective - Vital Signs Vital signs: Vital Signs Temp 97.2 F L 08/21/17 16:00 Pulse 60 08/21/17 16:00 Resp 18 08/21/17 16:00 BP 156/82 08/21/17 16:00 Pulse Ox 94 L 08/21/17 16:00 Intake & Output 08/21/17 08/21/17 08/22/17 06:59 18:59 06:59 Intake Total 400 Output Total 2000 600 Balance -1999 -200 Weight 54 kg 54 kg Intake: Oral 400 Output: Urine 2000 600 Other: Voiding Method Indwelling Catheter Indwelling Catheter # Bowel Movements 4 - Exam Gen: This is a 67-year-old thin male. Patient is laying on the stretcher and appears to be comfortable. No respiratory distress noted. HEENT: Head is atraumatic, normocephalic. Pupils equal, round. Sclerae is anicteric. Conjunctiva pink. Mucous members of the mouth are dry. No thrush noted. NECK: Supple. No JVD. No lymphadenopathy. No thyromegaly. no menigsmus LUNGS: Scattered rhonchi. No intercostal retractions. HEART: Regular rate and rhythm. No murmur. ABDOMEN: Soft. Bowel sounds are present. No masses. Generalized tenderness. EXTREMITIES: Extremities are thin with muscle wasting noted. No pedal edema. No calf tenderness. Dorsalis pedis +1 bilaterally. Patient has an abrasion to the back of his left ankle. No significant redness erythema. NEUROLOGICAL: The patient is awake and arousable. He is able to speak. He wonders when he gets to go home. He is resting comfortably until he tries to get up to his close ongoing home. He is reoriented and then lays back down. He currently is not having any seizure-like activity. - Labs CBC & Chem 7: 08/20/17 06:43 08/21/17 05:50 Labs: Abnormal Lab Results - Last 24 Hours (Table) 08/21/17 Range/Units 05:50 Chloride 108 H (98-107) mmol/L Creatinine 0.58 L (0.66-1.25) mg/dL Microbiology - Last 24 Hours (Table) 08/19/17 15:16 Blood Culture - Preliminary Blood No Growth after 48 hours 08/19/17 16:04 Urine Culture - Preliminary Urine,Catheterized Laboratory Results WBC 14.9 k/uL (3.8-10.6) H 08/20/17 06:43 RBC 5.29 m/uL (4.30-5.90) 08/20/17 06:43 Hgb 15.5 gm/dL (13.0-17.5) 08/20/17 06:43 Hct 45.5 % (39.0-53.0) 08/20/17 06:43 MCV 86.1 fL (80.0-100.0) 08/20/17 06:43 MCH 29.3 pg (25.0-35.0) 08/20/17 06:43 MCHC 34.0 g/dL (31.0-37.0) 08/20/17 06:43 RDW 14.2 % (11.5-15.5) 08/20/17 06:43 Plt Count 255 k/uL (150-450) 08/20/17 06:43 Neutrophils % 75 % 08/20/17 06:43 Lymphocytes % 16 % 08/20/17 06:43 Monocytes % 6 % 08/20/17 06:43 Eosinophils % 0 % 08/20/17 06:43 Basophils % 0 % 08/20/17 06:43 Neutrophils # 11.1 k/uL (1.3-7.7) H 08/20/17 06:43 Lymphocytes # 2.4 k/uL (1.0-4.8) 08/20/17 06:43 Monocytes # 0.9 k/uL (0-1.0) 08/20/17 06:43 Eosinophils # 0.0 k/uL (0-0.7) 08/20/17 06:43 Basophils # 0.0 k/uL (0-0.2) 08/20/17 06:43 PT 13.6 sec (9.0-12.0) H 08/19/17 15:16 INR 1.5 (<1.2) H 08/19/17 15:16 APTT 20.7 sec (22.0-30.0) L 08/19/17 15:16 Sodium 142 mmol/L (137-145) 08/21/17 05:50 Potassium 3.7 mmol/L (3.5-5.1) 08/21/17 05:50 Chloride 108 mmol/L (98-107) H 08/21/17 05:50 Carbon Dioxide 23 mmol/L (22-30) 08/21/17 05:50 Anion Gap 11 mmol/L 08/21/17 05:50 BUN 12 mg/dL (9-20) 08/21/17 05:50 Creatinine 0.58 mg/dL (0.66-1.25) L 08/21/17 05:50 Est GFR (CKD-EPI)AfAm >90 (>60 ml/min/1.73 sqM) 08/21/17 05:50 Est GFR (CKD-EPI)NonAf >90 (>60 ml/min/1.73 sqM) 08/21/17 05:50 Glucose 99 mg/dL (74-99) 08/21/17 05:50 POC Glucose (mg/dL) 97 mg/dL (75-99) 08/21/17 06:09 POC Glu [employer] ID Kailee Berry 08/21/17 06:[address] Glu mg/dL 117 08/19/17 19:17 Hemoglobin A1c 5.7 % (4.0-6.0) 08/19/17 19:17 Lactic Ac Sepsis Rflx Y 08/19/17 15:48 Plasma Lactic Acid [place] 1.2 mmol/L (0.7-2.0) 08/19/17 19:17 Calcium 9.0 mg/dL (8.4-10.2) 08/21/17 05:50 Magnesium 2.2 mg/dL (1.6-2.3) 08/19/17 15:16 Total Bilirubin 0.7 mg/dL (0.2-1.3) 08/19/17 15:16 AST 28 U/L (17-59) 08/19/17 15:16 ALT 8 U/L (21-72) L 08/19/17 15:16 Alkaline Phosphatase 77 U/L (38-126) 08/19/17 15:16 Ammonia <9 umol/L (<30) 08/19/17 15:16 Total Creatine Kinase 247 U/L (55-170) H 08/19/17 15:16 CK-MB (CK-2) 2.6 ng/mL (0.0-2.4) H* 08/19/17 15:16 CK-MB (CK-2) Rel Index 1.1 08/19/17 15:16 Troponin I <0.012 ng/mL (0.000-0.034) 08/19/17 15:16 Total Protein 8.7 g/dL (6.3-8.2) H 08/19/17 15:16 Albumin 5.1 g/dL (3.5-5.0) H 08/19/17 15:16 Triglycerides 131 mg/dL (<150) 08/20/17 06:43 Cholesterol 136 mg/dL (<200) 08/20/17 06:43 LDL Cholesterol, Calc 71 mg/dL (0-99) 08/20/17 06:43 HDL Cholesterol 39 mg/dL (40-60) L 08/20/17 06:43 Amylase 62 U/L (30-110) 08/20/17 06:43 Lipase 201 U/L (23-300) 08/20/17 06:43 Urine Color Yellow 08/19/17 16:04 Urine Appearance Cloudy (Clear) 08/19/17 16:04 Urine pH 5.5 (5.0-8.0) 08/19/17 16:04 Ur Specific Reg[place] 1.018 (1.001-1.035) 08/19/17 16:04 Urine Protein 2+ (Negative) H 08/19/17 16:04 Urine Glucose (UA) Negative (Negative) 08/19/17 16:04 Urine Ketones 1+ (Negative) H 08/19/17 16:04 Urine Blood Moderate (Negative) H 08/19/17 16:04 Urine Nitrite Negative (Negative) 08/19/17 16:04 Urine Bilirubin Negative (Negative) 08/19/17 16:04 Urine Urobilinogen <2.0 mg/dL (<2.0) 08/19/17 16:04 Ur Leukocyte Esterase Negative (Negative) 08/19/17 16:04 Urine RBC 4 /hpf (0-5) 08/19/17 16:04 Urine WBC 5 /hpf (0-5) 08/19/17 16:04 Amorphous Sediment Few /hpf (None) H 08/19/17 16:04 Urine Bacteria Rare /hpf (None) H 08/19/17 16:04 Hyaline Casts 9 /lpf (0-2) H 08/19/17 16:04 Granular Casts 8 /lpf (0) 08/19/17 16:04 Urine Mucus Occasional /hpf (None) H 08/19/17 16:04 Urine Opiates Screen Detected (NotDetected) H 08/19/17 16:04 Ur Oxycodone Screen Not Detected (NotDetected) 08/19/17 16:04 Urine Methadone Screen Not Detected (NotDetected) 08/19/17 16:04 Ur Propoxyphene Screen Not Detected (NotDetected) 08/19/17 16:04 Ur Barbiturates Screen Not Detected (NotDetected) 08/19/17 16:04 U Tricyclic Antidepress Not Detected (NotDetected) 08/19/17 16:04 Ur Phencyclidine Scrn Not Detected (NotDetected) 08/19/17 16:04 Ur Amphetamines Screen Not Detected (NotDetected) 08/19/17 16:04 U Methamphetamines Scrn Not Detected (NotDetected) 08/19/17 16:04 U Benzodiazepines Scrn Detected (NotDetected) H 08/19/17 16:04 Urine Cocaine Screen Not Detected (NotDetected) 08/19/17 16:04 U Marijuana (THC) Screen Detected (NotDetected) H 08/19/17 16:04 Serum Alcohol <10 mg/dL 08/19/17 15:16 C. difficile (EIA) Intrp Negative (Negative) 08/20/17 10:04 HSV I DNA PCR Not detected (Not detected) 08/20/17 06:43 HSV II DNA PCR Not detected (Not detected) 08/20/17 06:43 HSV (PCR) Source Blood - Plasma 08/20/17 06:43 Influenza Type A RNA Not Detected (Not Detectd) 08/20/17 12:05 Influenza Type B (PCR) Not Detected (Not Detectd) 08/20/17 12:05 Microbiology 08/19/17 15:16 Blood Blood Culture - Preliminary No Growth after 48 hours 08/19/17 16:04 Urine,Catheterized Urine Culture - Preliminary Assessment and Plan (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 Patient also had a seizure while on the CAT scan unit possibly related to sepsis. Patient has had falls recently at home no obvious injuries noted. He also has had diarrhea for 3 days at home. We will check amylase and lipase and C. difficile toxin influenza testing will be done a patient will be started on ceftriaxone 2 g every 12 hours and vancomycin, acyclovir 10 mg/kg every 8 hours. Serum HSV 1 and 2 by PCR will be ordered. Continue IV Tylenol. Blood cultures are status received. Continue supportive care. 08/21/2017 the patient is more awake and alert today. He is able to answer some simple questions. The appropriateness of his answers is certainly questionable. Toward the end of the exam he tries to exit out of the bed and try to stand catching his Mcfarlane catheter in his leg. He is redirected that he has a Mcfarlane in and stops. And lays back down. It is noted there is evidence of his altered mental status At this point in time it is appearing more likely be an encephalitis. Unfortunately lumbar puncture could not be performed and CSF PCR for HSV 1 and 2 could not be performed. The serum PCR that was negative but does not exclude the possibility of viral encephalitis. The patient's fever and leukocytosis are rapidly improving. He has no meningismus and has no other new acute neurological difficulties. It is unlikely that he has meningitis if his blood cultures are negative tomorrow and consider discontinuation of his antibiotic therapy. Continue his antiviral therapy. Case is discussed with the hospitalist and likely will complete her course of acyclovir therapy. Current Visit: Yes Status: Acute Code(s): B00.4 - HERPESVIRAL ENCEPHALITIS SNOMED Code(s): 147048462 (2) Sepsis Current Visit: Yes Status: Acute Code(s): A41.9 - SEPSIS, UNSPECIFIED ORGANISM SNOMED Code(s): 82378677 (3) Seizure Current Visit: Yes Status: Acute Code(s): R56.9 - UNSPECIFIED CONVULSIONS SNOMED Code(s): 25932778
--- NOTE | 2017-08-21 23:24 | PN ---
PROGRESS NOTE DATE OF SERVICE: 08/21/2017 PRESENTING COMPLAINT: Fever. INTERVAL HISTORY: This is a patient who presented with fever, mental status changes. It is felt the more likely to be probably encephalitis as opposed to meningitis. Given the generalized nature of his presentation. No photophobia. No neck stiffness. The patient this morning is awake, actually talking, communicative. He does state that his arms and legs are jumpy all the time and what may have been described as seizure activity was actually more of an exacerbation of his restless leg syndrome. The patient has responded to current treatment plan and fevers have come down. Patient actually wants food. I did try to reach patient's last night both at home and in the psychiatry where she works, could not get hold off her, just to give her an update. Patient has a sitter in the room. REVIEW OF SYSTEMS: Done for constitutional, cardiovascular, GI, pulmonary; relevant findings as above. CURRENT MEDICATIONS: Reviewed that include: 1. IV acyclovir. 2. IV ceftriaxone and. 3. IV vancomycin. EXAMINATION: Afebrile, pulse 70, respirations 18, blood pressure 152/80, pulse ox 94% on 3L. GENERAL APPEARANCE: Lying in bed, awake, communicating. EYES: Pupil equal. Conjunctivae normal. HEENT: External nose and ears normal. Oral cavity normal. NECK: JVD not raised. Mass not palpable. RESPIRATORY: Effort increased. LUNGS: Diminished breath sounds. CARDIOVASCULAR: First and second sounds normal. No edema. ABDOMEN: Soft, nontender. Liver, spleen not palpable. PSYCHIATRY: Alert and oriented x3. Mood: The patient is somewhat anxious. NEUROLOGICAL: The patient has some at least restless legs. ASSESSMENT: 1. Likely acute encephalitis. Given the clinical presentation, meningitis seems much unlikely. The patient has clinically responded to the current treatment plan. Lumbar puncture could not be done because of the patient being on Plavix. The patient's serum HSV has come back to be negative. 2. Essential hypertension. 3. Primary osteoarthritis in multiple joints. 4. Benign prostatic hypertrophy. 5. Peripheral artery disease. 6. Permanent pacemaker. 7. Depression, not otherwise specified. 8. Chronic obstructive pulmonary disease. 9. Chronic nicotine dependence. Patient is an active cigarette smoker. 10.Anxiety disorder, slightly uncontrolled, unspecified. It may be noted that the patient's urine drug screen was positive for medications, including benzodiazepines and so will add some Ativan to curb that down. 11.Restless legs syndrome, uncontrolled. PLAN: 1. At this point will add Mirapex, increase that to 0.5 three times a day. If needed, the dose can be escalated. 2. Will add a small dose of Valium at least for the next 2-3 days and as it builds up in his system, the dose can be scaled back. I discussed with Dr. Starkey/infectious disease. It is felt most likely the patient has encephalitis and less likely meningitis, given his clinical picture presentation, responding well to the current treatment plan. HSV in the blood has come back negative. Given that a lumbar puncture cannot be done, we will probably give the patient 10 days of acyclovir and if cultures remain negative, antibiotics can be discontinued in next 24-48 hours and if fevers do not come back, no antibiotic will be resumed. EEG is also ordered and neurology input will be followed. Total time spent today was about 40 minutes, including 20-25 minutes of discussion, including that with the patient. NADIA / LATOYAN: [id number] /
--- NOTE | 2017-08-21 23:27 | CONS ---
CONSULTATION DATE OF SERVICE: 08/21/2017. CHIEF COMPLAINT: Syncope. HISTORY OF PRESENT ILLNESS: The patient is a pleasant 67-year-old male who is being evaluated by the neurology service per the request of Dr. Haas for a syncopal spell. The patient was found by his son to be unconscious on the living room floor. According to his , who was at bedside, their son found him to be incontinent of urine and feces. EMS was called and the patient was transferred to the emergency room. His vital signs were stable and his blood sugar was 171. The blood pressure was slightly elevated at 159 systolic and moderately elevated at 103 diastolic. There is no history of seizures. The patient does not recall why he was in the living room. He remembers going to sleep the previous night in the bedroom, but does not recall waking up on Friday morning. This episode occurred on 08/19/2017. At the time of my evaluation, the patient is quite awake and is back to his baseline according to his . A CT scan of the brain was done, which showed atrophy and small-vessel ischemic changes. A CT angiogram of the neck showed 75% stenosis involving the left internal carotid artery. The patient states that he has history of carotid artery stent placement. His CT angiogram of the brain was normal. His fasting lipid panel was normal. His CBC showed leukocytosis of 14.9. His comprehensive metabolic profile showed mild hypernatremia at 146 and hypokalemia at 3.1. The patient does complain of low back pain. He does have a chronic history of spinal pain, though he denies having any recent workup for this. He also informs me that he suffered a stroke a few years ago, but he recovered from this. At that time, he had left hemiparesis. He does have a pacemaker implant and is on Plavix 75 mg daily. PAST MEDICAL HISTORY: Stroke, right internal carotid artery stent placement, hypertension, osteoarthritis, benign prostatic hypertrophy, peripheral artery disease, depression, history of appendectomy, orthopedic surgery, pacemaker placement, hernia repair, vascular surgery. SOCIAL HISTORY: The patient is a current every day smoker. There is a remote history of alcohol abuse but he quit drinking over 20 years ago. He occasionally smokes marijuana. FAMILY HISTORY: Positive for cancer. HOME MEDICATIONS: Reviewed in the chart. ALLERGIES: No known drug allergies. REVIEW OF SYSTEMS: CONSTITUTIONAL: Negative. EYES: Negative. CARDIOVASCULAR: As mentioned above. ENT: Negative. RESPIRATORY: Negative. NEUROLOGICAL: As mentioned above. GASTROINTESTINAL: Negative. GENITOURINARY: Negative. ENDOCRINE: Negative. MUSCULOSKELETAL: As mentioned above. DERMATOLOGICAL: Negative. PSYCHIATRIC: Negative. PHYSICAL EXAM: VITAL SIGNS: Temperature of 97.2, pulse 60, respiration 18, blood pressure 156/82. GENERAL APPEARANCE: The patient is a thin male who appears to be in no acute distress. HEENT: Normocephalic, atraumatic, no facial asymmetry is seen. NECK: Supple with no masses felt. CARDIOVASCULAR: Regular rate and rhythm. ABDOMEN: Nontender, nondistended. EXTREMITIES: No edema or clubbing. NEUROLOGIC: The patient is alert, aware and oriented x3. Speech and language are normal. Strength is full in all 4 extremities. Sensory exam was normal to light touch in all 4 extremities. No pronator drift is seen. No tremors or seizure-like activity is noticed. No facial asymmetry is seen on cranial nerve testing. IMPRESSION: 1. Episode of unresponsiveness. 2. Altered mental status, improved. 3. History of ischemic stroke. 4. Left internal carotid artery stenosis. 5. Chronic pain syndrome. RECOMMENDATIONS: The patient did have an episode of unresponsiveness but the exact etiology is unknown. He does not have any history of seizures. Although he was found to be incontinent of urine and feces as mentioned above, no seizure-like activity was described. No tongue biting occurred. His CT scan of the brain was reviewed and it showed no acute findings. I reviewed his home medications and none of them significantly is thought to induce seizures, although Cymbalta can reduce a seizure threshold, but he is on a low to medium dose. An EEG will be ordered. The patient does have a history of pacemaker implant and I do recommend a Cardiology consultation for possible pacemaker interrogation. As for his left internal carotid artery stenosis, this is felt to be significant and I do recommend a vascular surgery consultation. Continue Plavix daily. His fasting lipid panel was normal. I will order a serum homocystine level. Continue neuro checks. I will continue to follow with you. Further recommendations to follow. Thank you for allowing me to participate in the care of your patient. If you have any questions, please feel free to contact me. NADIA / LATOYAN: [id number] /
[2017-08-22] MEDS: ACYCLOVIR SODIUM 1,150 MG in SODIUM CHLORIDE 0.9% 250 ML IV SCH ×3 (03:00→20:36)
[2017-08-22 04:10] LABS: Glucose,Whole Blood 94 mg/dL (75-99)
[2017-08-22] MEDS: SODIUM CHLORIDE 0.9% 1,000 ML IV SCH ×4 (05:26→20:38)
[2017-08-22 06:22] LABS: Calcium 8.9 mg/dL (8.4-10.2); Potassium 3.1 mmol/L (3.5-5.1)
[2017-08-22] MEDS: VANCOMYCIN 1,000 MG in SODIUM CHLORIDE 0.9% 250 ML IVPB SCH (06:41)
[2017-08-22] MEDS ORDERED: VANCOMYCIN IV PER PHARMACY 1 EACH MISC MISCELLANE SCH (09:15)
[2017-08-22] MEDS: NICOTINE 21MG/24HR PATCH TRANSDERM SCH (11:20)
[2017-08-22] MEDS: amLODIPine 5 MG TAB PO SCH (11:21)
[2017-08-22] MEDS: ASPIRIN 325 MG TAB PO SCH (11:22)
[2017-08-22] MEDS: cefTRIAXone IN SWFI 2,000 MG/20 ML SYRINGE IVP SCH (11:22)
[2017-08-22] MEDS: CLOPIDOGREL 75 MG TAB PO SCH (11:23)
[2017-08-22] MEDS: DULoxetine HCL 60 MG CAPSULE.DR PO SCH (11:23)
[2017-08-22] MEDS: ENOXAPARIN 40 MG/0.4 ML SYRINGE SQ SCH (11:24)
[2017-08-22] MEDS: FAMOTIDINE 20 MG/2 ML VIAL IV SCH ×2 (11:24→20:33)
[2017-08-22] MEDS: hydrALAZINE HCL 25 MG TAB PO SCH ×2 (11:25→20:33)
[2017-08-22] MEDS: METOPROLOL TARTRATE 25 MG TAB PO SCH ×2 (11:26→20:33)
[2017-08-22] MEDS: PRAMIPEXOLE 0.5 MG TAB PO SCH ×3 (11:27→20:33)
[2017-08-22] MEDS: TAMSULOSIN 0.4 MG CAP.ER.24H PO SCH (11:27)
--- NOTE | 2017-08-22 18:34 | PN ---
PROGRESS NOTE DATE OF SERVICE: 08/22/2017 PRESENTING COMPLAINT: Fever. INTERVAL HISTORY: This patient presented with fever, mental status changes, felt to be more likely encephalitis as opposed to meningitis, though currently still on IV antibiotics for the same. The patient did not have any photophobia or neck stiffness. The patient is having jerking motions which is felt to be a flareup of his chronic restless leg syndrome. Patient's urine drug screen came back positive for some medications, which patient really did not want to discuss much, though he agreed he has been taking the same. The patient though feels much better after a dose of Mirapex was increased yesterday. REVIEW OF SYSTEMS: Done for constitutional, cardiovascular, GI, pulmonary; relevant findings as above. CURRENT MEDICATIONS: Reviewed. They include IV acyclovir. Patient's vancomycin and ceftriaxone have now been discontinued. PHYSICAL EXAMINATION: Afebrile. Pulse 70, respiration 18, blood pressure 140/72, pulse ox 96% on room air. GENERAL APPEARANCE: Lying in bed, awake. EYES: Pupils equal. Conjunctivae normal. HEENT: External appearance of nose and ears normal. Oral cavity normal. NECK: JVD not raised. Mass not palpable. RESPIRATORY: Effort normal. LUNGS: Diminished breath sounds. CARDIOVASCULAR: First and second sounds normal. No edema. ABDOMEN: Soft, nontender. Liver and spleen not palpable. PSYCHIATRY: Alert and oriented x3. Mood and affect anxious. NEUROLOGICAL: Less muscle spasms. INVESTIGATIONS: Potassium 3.1. ASSESSMENT: 1. Likely acute encephalitis with clinical improvement. Empirically it is being treated with IV acyclovir. Patient's serum HSV was negative but LP could not be done because patient had been on Plavix. 2. Essential hypertension. 3. Primary osteoarthritis in multiple joints. 4. Benign prostatic hypertrophy. 5. Peripheral arterial disease. 6. Permanent pacemaker. 7. Depression not otherwise specified. 8. Chronic obstructive pulmonary disease. 9. Chronic nicotine dependence. Patient is an active cigarette smoker. 10.Anxiety disorder, unspecified. 11.Restless legs syndrome, uncontrolled, but doing better with Mirapex. PLAN: Patient is doing well on the current medication and treatment plan. I spoke at length with the patient and his at the bedside. Will continue with IV acyclovir at least through the weekend, and if the patient does not get any fevers, then patient will get a total of 10 days of IV acyclovir. If restless leg syndrome becomes a problem, the dose of Mirapex can be increased. Patient's dose of Valium can be cut back by the time patient is going home. NADIA / JONAH: [phone] /
[2017-08-22] MEDS: ATORVASTATIN 80 MG TAB PO SCH (20:32)
[2017-08-22] MEDS: DIAZEPAM 2 MG TAB PO SCH (20:33)
--- NOTE | 2017-08-22 23:02 | P.PN ---
Subjective Progress Note Date: 08/22/17 Principal diagnosis: altered mental status Neurology is following on a 67-year-old male for altered mental status/syncope. Patient collapsed on living room floor at home, was found by son incontinent of urine and feces. EMS transported patient to the ED. Patient is going to sleep the previous night but does not recall waking up CT of the brain showed atrophy and chronic small vessel ischemic changes. CT angiogram of the neck showed 75% stenosis involving the left ICA. Patient has a history of carotid artery stent placement. CT angiogram of the brain was normal. Fasting lipid panel normal. CBC showed leukocytosis. CMP showed mild hyponatremia and hypokalemia. Patient does complain of low back pain, history of chronic spinal pain that he denies having any recent workup. Patient does have a pacemaker and is on Plavix 75 mg by mouth daily. Patient is alert but intermittently confused. Patient does appear to be impulsive. Patient is in no acute distress. Objective - Vital Signs Vital signs: Vital Signs Temp 97.0 F L 08/22/17 20:00 Pulse 61 08/22/17 20:00 Resp 18 08/22/17 20:00 BP 160/99 08/22/17 20:00 Pulse Ox 98 08/22/17 20:00 Intake & Output 08/22/17 08/22/17 08/23/17 06:59 18:59 06:59 Intake Total 2250 990 1200 Output Total 905 Balance 4675 145 1871 Weight 54 kg Intake: IV 1500 1200 Sodium Chloride 0.9% 1, 1500 1200 000 ml @ 150 mls/hr IV . Q6H40M [facility] Rx#:[id number] Intake, IV Titration 750 Amount Acyclovir Sodium 1,150 mg 500 In Sodium Chloride 0.9% 250 ml @ 250 mls/hr IV Q8H [facility] Rx#:[id number] Vancomycin 1,000 mg In 250 Sodium Chloride 0.9% 250 ml @ 125 mls/hr IVPB Q12H [facility] Rx#:[id number] Oral 990 Output: Urine 900 Emesis 5 Other: Voiding Method Indwelling Catheter Indwelling Catheter Indwelling Catheter # Voids 2 # Bowel Movements 1 - Exam General appearance: Alert, no apparent distress. Head: Atraumatic, normocephalic, normal inspection Eyes: Well appearance, PERRLA, EOMI. Absent scleral icterus, conjunctival injection, nystagmus, periorbital swelling. Ear, nose and throat: Normal exam, mucous membranes moist Neck: Normal inspection, absent tenderness, lymphadenopathy. Respiratory: No increased work of breathing Cardiovascular: Regular rate, rhythm GI/abdominal: no guarding, no rebound, no rigidity. Extremities: All range of motion, normal capillary refill, no tenderness, pedal edema joint swelling, calf tenderness. Neurological: cranial nerves II through XII intact no lateralizing weakness no seizure activity noted on physical exam no pronator drift and no nystagmus. strength is normal, equal and symmetrical in all 4 extremities Sensation: normal, equal in all 4 extremities Psychological: Mood and affect appropriate for setting. - Labs CBC & Chem 7: 08/20/17 06:43 08/22/17 05:51 Labs: Abnormal Lab Results - Last 24 Hours (Table) 08/22/17 08/22/17 Range/Units 05:51 05:51 Potassium 3.1 L (3.5-5.1) mmol/L Chloride 109 H (98-107) mmol/L Homocysteine 21.68 H (4.00-14.00) umol/L Microbiology - Last 24 Hours (Table) 08/19/17 15:16 Blood Culture - Preliminary Blood No Growth after 72 hours 08/19/17 16:04 Urine Culture - Final Urine,Catheterized Assessment and Plan (1) Encephalitis due to human herpes simplex virus (HSV) Current Visit: Yes Status: Acute Code(s): B00.4 - HERPESVIRAL ENCEPHALITIS SNOMED Code(s): 210244136 (2) Seizure Current Visit: Yes Status: Acute Code(s): R56.9 - UNSPECIFIED CONVULSIONS SNOMED Code(s): 87799785 Plan: 1. Encephalitis 2. Possible Seizure Patient does not have a history of seizures. Although he was found incontinent with no seizure-like activity was observed. CT brain showed no acute process. Home medications were negative for any contributory occasions. EEG is taken not read. Vascular consult was recommended for left internal carotid artery stenosis felt to be significant. Fasting lipid panel is normal serum homocystine level was elevated. Prescribed: Fobic for serum homocyteine elevation Continue: neuro checks QSHIFT Continue: Plavix Continue: Lipitor Infectious Disease is already on consult Continue to treat underlying encephalopathic process. Neurology will follow on an as needed basis Feel free to contact our office with any questions or if we are need to assist in the future. I have discussed the plan of care with the physician prior to implementation and he agrees with the plan as implemented.
[2017-08-23] MEDS: ACYCLOVIR SODIUM 1,150 MG in SODIUM CHLORIDE 0.9% 250 ML IV SCH ×2 (04:14→11:46)
[2017-08-23] MEDS: SODIUM CHLORIDE 0.9% 1,000 ML IV SCH ×4 (04:14→21:46)
[2017-08-23 06:21] LABS: Calcium 8.2 mg/dL (8.4-10.2)
[2017-08-23 06:26] LABS: Vancomycin,Random 14.4 ug/mL
[2017-08-23] MEDS: POTASSIUM CHLORIDE ER 20 MEQ TAB.ER PO SCH ×2 (06:55→08:32)
[2017-08-23] MEDS: CYANOCOBALAMIN-FA-PYRIDOXINE 1 EACH TAB PO SCH (08:33)
[2017-08-23] MEDS: METOPROLOL TARTRATE 25 MG TAB PO SCH ×2 (08:33→21:21)
[2017-08-23] MEDS: TAMSULOSIN 0.4 MG CAP.ER.24H PO SCH (08:33)
[2017-08-23] MEDS: PRAMIPEXOLE 0.5 MG TAB PO SCH ×3 (08:33→21:46)
[2017-08-23] MEDS: amLODIPine 5 MG TAB PO SCH (08:33)
[2017-08-23] MEDS: FAMOTIDINE 20 MG/2 ML VIAL IV SCH ×2 (08:33→21:20)
[2017-08-23] MEDS: NICOTINE 21MG/24HR PATCH TRANSDERM SCH (08:33)
[2017-08-23] MEDS: hydrALAZINE HCL 25 MG TAB PO SCH ×2 (08:33→21:45)
[2017-08-23] MEDS: ASPIRIN 325 MG TAB PO SCH (08:33)
[2017-08-23] MEDS: DULoxetine HCL 60 MG CAPSULE.DR PO SCH (08:33)
[2017-08-23] MEDS: CLOPIDOGREL 75 MG TAB PO SCH (08:33)
[2017-08-23] MEDS: DIAZEPAM 2 MG TAB PO SCH ×2 (08:36→21:19)
[2017-08-23] MEDS: ENOXAPARIN 40 MG/0.4 ML SYRINGE SQ SCH (08:36)
--- NOTE | 2017-08-23 11:43 | P.PN ---
Subjective 67-year-old admitted is being treated for HSV encephalitis, apparently his hallucinations are worse kidney function has gone up from 0.9 couple days ago to 2.5 ketorolac will be discontinued patient is on diazepam is apparently requiring diazepam. Urine random sodium and urine random creatinine will be obtained patient is having good urine output and clear urine. Patient is not feeling well because of increasing hallucinations and on and off confusion, when I evaluated his alert oriented 3. Constitutional: Denied any fatigue denied any fever. Cardio vascular: denied any chest pain, palpitations Gastrointestinal denied any nausea vomiting Pulmonary: Denied any shortness of breath cough Neurologic denied any new focal deficits Objective - Vital Signs Vital signs: Vital Signs Temp 96.4 F L 08/23/17 08:00 Pulse 68 08/23/17 08:00 Resp 18 08/23/17 08:00 BP 178/87 08/23/17 08:00 Pulse Ox 90 L 08/23/17 08:00 Intake & Output 08/22/17 08/23/17 08/23/17 18:59 06:59 18:59 Intake Total 990 1200 Output Total 1700 Balance 990 -500 Weight 54 kg Intake: IV 1200 Sodium Chloride 0.9% 1, 1200 000 ml @ 150 mls/hr IV . Q6H40M [facility] Rx#:[id number] Oral 990 Output: Urine 1700 Other: Voiding Method Indwelling Catheter Indwelling Catheter Indwelling Catheter - Exam PHYSICAL EXAMINATION: GENERAL: The patient is alert and oriented x3, not in any acute distress. Well developed, well nourished. HEENT: Pupils are round and equally reacting to light. EOMI. No scleral icterus. No conjunctival pallor. Normocephalic, atraumatic. No pharyngeal erythema. No thyromegaly. CARDIOVASCULAR: S1 and S2 present. No murmurs, rubs, or gallops. PULMONARY: Chest is clear to auscultation, no wheezing or crackles. ABDOMEN: Soft, nontender, nondistended, normoactive bowel sounds. No palpable organomegaly. MUSCULOSKELETAL: No joint swelling or deformity. EXTREMITIES: No cyanosis, clubbing, or pedal edema. NEUROLOGICAL: Gross neurological examination did not reveal any focal deficits. Patient was having hallucinations SKIN: No rashes. - Labs CBC & Chem 7: 08/20/17 06:43 08/23/17 05:38 Labs: Abnormal Lab Results - Last 24 Hours (Table) 08/22/17 08/23/17 Range/Units 05:51 05:38 Potassium 3.0 L* (3.5-5.1) mmol/L Chloride 114 H (98-107) mmol/L Carbon Dioxide 19 L (22-30) mmol/L Creatinine 2.40 H (0.66-1.25) mg/dL Glucose 126 H (74-99) mg/dL Calcium 8.2 L (8.4-10.2) mg/dL Homocysteine 21.68 H (4.00-14.00) umol/L Microbiology - Last 24 Hours (Table) 08/19/17 15:16 Blood Culture - Preliminary Blood No Growth after 72 hours Assessment and Plan Plan: -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 -Hallucinations delirium probably related to encephalitis with contribution from worsening renal function. -Acute renal failure: Related to nonsteroidal anti-inflammatories which will be discontinued continue with IV fluids infectious disease will be consulted. -Seizures: Secondary to encephalitis. -Hyperlipidemia -Benign prostatic hypertrophy -Restless leg syndrome.
[2017-08-23] MEDS ORDERED: TEMAZEPAM 15 MG CAP PO PRN (18:18)
[2017-08-23] MEDS ORDERED: QUEtiapine 25 MG TAB PO PRN (20:34)
[2017-08-23] MEDS: HALOPERIDOL LACTATE 5 MG/ML 1 ML VIAL IVP PRN (21:11)
[2017-08-23] MEDS: ATORVASTATIN 80 MG TAB PO SCH (21:19)
[2017-08-24] MEDS: HALOPERIDOL LACTATE 5 MG/ML 1 ML VIAL IVP PRN ×4 (01:29→15:48)
[2017-08-24] MEDS: LORazepam 2 MG/ML INJ IV PRN ×4 (04:32→20:05)
[2017-08-24] MEDS: SODIUM CHLORIDE 0.9% 1,000 ML IV SCH (05:56)
[2017-08-24 06:53] LABS: HCT 38.7 % (39.0-53.0); HGB 13.6 gm/dL (13.0-17.5); MCH 29.4 pg (25.0-35.0); MCHC 35.1 g/dL (31.0-37.0); MCV 83.8 fL (80.0-100.0); Mean Platelet Volume 7.3; Platelet Count 192 k/uL (150-450); RBC 4.62 m/uL (4.30-5.90); RDW 14.1 % (11.5-15.5); WBC 11.6 k/uL (3.8-10.6)
[2017-08-24 06:57] LABS: Calcium 8.9 mg/dL (8.4-10.2); Potassium 3.6 mmol/L (3.5-5.1)
[2017-08-24] MEDS: FAMOTIDINE 20 MG/2 ML VIAL IV SCH ×2 (08:40→20:06)
[2017-08-24] MEDS: ACYCLOVIR SODIUM 500 MG in SODIUM CHLORIDE 0.9% 100 ML IVPB SCH ×2 (08:41→20:20)
[2017-08-24] MEDS: SODIUM CHLORIDE 0.45% 1,000 ML IV SCH ×2 (10:00→20:21)
--- NOTE | 2017-08-24 10:20 | CONS ---
CONSULTATION DATE OF SERVICE: 08/24/2017. REASON FOR CONSULT: Renal failure. HISTORY OF PRESENT ILLNESS: Patient is a 67-year-old male who was admitted to the hospital on 08/19/2017 with shaky movements of the upper extremities and he was found by son lying on the floor. He was noted to have a left lateral gaze with nystagmus. The patient has a previous history of cerebrovascular accident. He has been evaluated by Neurology and is being worked up for possible seizures. The patient has been confused and is requiring Haldol. His serum creatinine on admission was 0.7 and did go up to 2.4 mg/dL yesterday and today it is at 2.7. Currently, patient is maintained on IV fluids. He was on bigger dose of acyclovir, which is now decreased. The patient is getting acyclovir IV. His blood pressures have not been low, in fact on the higher side. The patient did receive IV contrast for CT angiogram that was done on 08/19/2017. There is a suspicion for HSV encephalitis. PAST MEDICAL HISTORY: Significant for previous the stroke and hepatitis C, carotid artery disease, hypertension, osteoarthritis, BPH, peripheral arterial disease, history of depression. PAST SURGICAL HISTORY: Appendectomy, pacemaker placement, hernia surgery, left femoral popliteal arthrectomy with PTBA, liver biopsy, permanent pacemaker placement. SOCIAL HISTORY: Positive for depression. No history of alcohol abuse. REVIEW OF SYSTEMS: As per HPI. No history of diarrhea, nausea, vomiting or urinary symptoms. The patient did have a fever. On examination, currently he is sleeping. He is not in any acute distress. Blood pressure 198/104, heart rate 84 per minute. He is afebrile. Examination of the heart S1, S2. Examination of the lungs, bilateral breath sounds are heard. Abdomen is soft, nontender. Examination lower extremities shows no evidence of edema. [employer] exam is grossly intact. LABS: Sodium 150, potassium 3.6, chloride 119, serum creatinine 2.7 mg/dL. Hemoglobin was 13.6. Random vancomycin was 14.4. ASSESSMENT: 1. Acute kidney injury secondary to contrast nephropathy as well as possibly related to the IV acyclovir is as well. The dose has been decreased. Continue with aggressive IV hydration. Continue to avoid nephrotoxic agents. Vancomycin level was not elevated. 2. Hypernatremia associated with free water deficit. Change IV fluids to half-normal saline and recheck a serum sodium this evening. 3. Hypokalemia, currently being replaced, improved post replacement. 4. HSV encephalitis, being followed by ID, maintained on IV acyclovir. 5. Possible seizures, being followed by Neurology. PLAN: Continue off of nonsteroidal anti-inflammatory agents. Continue aggressive IV hydration. Agree with decreasing the acyclovir dose. Avoid vancomycin. Continue with indwelling Mcfarlane catheter. Thank you for this consultation. We will continue to follow the patient with you during his hospitalization. MMCEDL / LATOYAN: [id number] /
--- NOTE | 2017-08-24 12:29 | P.PN ---
Subjective 67-year-old admitted is being treated for HSV encephalitis, apparently his hallucinations are worse kidney function has gone up from 0.9 couple days ago to 2.5 ketorolac will be discontinued patient is on diazepam is apparently requiring diazepam. Urine random sodium and urine random creatinine will be obtained patient is having good urine output and clear urine. Patient is not feeling well because of increasing hallucinations and on and off confusion, when I evaluated his alert oriented 3. 08/24/2017 Patient is more agitated more confused patient is alert oriented time almost 0 today. Patient is receiving Haldol and Seroquel on as-needed basis for agitation. Urine output appears to be okay nephrology evaluated the patient. And he is receiving 0.45 half-normal saline Constitutional: Denied any fatigue denied any fever. Cardio vascular: denied any chest pain, palpitations Gastrointestinal denied any nausea vomiting Pulmonary: Denied any shortness of breath cough Neurologic denied any new focal deficits Objective - Vital Signs Vital signs: Vital Signs Temp 96.5 F L 08/24/17 07:00 Pulse 84 08/24/17 07:00 Resp 18 08/24/17 07:00 BP 198/104 08/24/17 07:00 Pulse Ox 100 08/24/17 07:00 Intake & Output 08/23/17 08/24/17 08/24/17 18:59 06:59 18:59 Intake Total 1050 1000 Output Total 350 1475 700 Balance 700 -475 -700 Weight 52 kg Intake: IV 800 800 Sodium Chloride 0.9% 1, 800 800 000 ml @ 150 mls/hr IV . Q6H40M [facility] Rx#:[id number] Intake, IV Titration 250 Amount Acyclovir Sodium 1,150 mg 250 In Sodium Chloride 0.9% 250 ml @ 250 mls/hr IV Q8H [facility] Rx#:[id number] Oral 200 Output: Urine 350 1475 700 Other: Voiding Method Indwelling Catheter Indwelling Catheter Indwelling Catheter # Voids 1 - Exam PHYSICAL EXAMINATION: GENERAL: The patient is alert and oriented x0, not in any acute distress. Well developed, well nourished. Agitated HEENT: Pupils are round and equally reacting to light. EOMI. No scleral icterus. No conjunctival pallor. Normocephalic, atraumatic. No pharyngeal erythema. No thyromegaly. CARDIOVASCULAR: S1 and S2 present. No murmurs, rubs, or gallops. PULMONARY: Chest is clear to auscultation, no wheezing or crackles. ABDOMEN: Soft, nontender, nondistended, normoactive bowel sounds. No palpable organomegaly. MUSCULOSKELETAL: No joint swelling or deformity. EXTREMITIES: No cyanosis, clubbing, or pedal edema. NEUROLOGICAL: Gross neurological examination did not reveal any focal deficits. Patient was having hallucinations, much more agitated compared to yesterday SKIN: No rashes. - Labs CBC & Chem 7: 08/24/17 06:30 08/24/17 06:30 Labs: Abnormal Lab Results - Last 24 Hours (Table) 08/24/17 08/24/17 Range/Units 06:30 06:30 WBC 11.6 H (3.8-10.6) k/uL Hct 38.7 L (39.0-53.0) % Sodium 150 H (137-145) mmol/L Chloride 119 H (98-107) mmol/L Carbon Dioxide 20 L (22-30) mmol/L Creatinine 2.77 H (0.66-1.25) mg/dL Glucose 105 H (74-99) mg/dL Microbiology - Last 24 Hours (Table) 08/19/17 15:16 Blood Culture - Preliminary Blood No Growth after 96 hours Assessment and Plan Plan: -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 -Hallucinations, agitation delirium probably related to encephalitis with contribution from worsening renal function and metabolic encephalopathy. Patient is receiving on as-needed basis Haldol, Seroquel at nighttime. -Acute renal failure: Related to nonsteroidal anti-inflammatories which will be discontinued continue with IV fluids infectious disease will be consulted. -Seizures: Secondary to encephalitis. -Hyperlipidemia -Benign prostatic hypertrophy -Restless leg syndrome.
--- NOTE | 2017-08-24 12:57 | CONS ---
DATE OF CONSULTATION: 08/24/2017 The patient is a 67-year-old gentleman who was seen on consultation for left carotid 75% stenosis. The patient was found to have some dizzy spell and the patient was found on the floor. EMS was called and patient was transferred to the emergency room. The patient had some blood sugar 171. There was no history of seizure. No history of amaurosis fugax. CT scan of the head showed no atrophy with old age-related related finding and the CT of the carotid shows 75% stenosis on the left side both vertebral antegrade. EXAMINATION: Patient was seen in his room. NECK: Supple. No bruit appreciated. CHEST: Clear to auscultation. ABDOMEN: Soft. Femoral pulses are present. Patient has a normal motor function. The patient is seen by Neurology. At this point, patient has no evidence of any motor deficit. She was found to have incidental finding of 75% stenosis of the left carotid artery. PLAN: Patient is on antiplatelet therapy, which should be continued. If the patient is stable and goes home, we will follow in the office. At this point patient does not need any major vascular intervention. MMODL / IJN: [id number] / BRITT
[2017-08-24] MEDS: ASPIRIN 325 MG TAB PO SCH (15:18)
[2017-08-24] MEDS: amLODIPine 5 MG TAB PO SCH (15:18)
[2017-08-24] MEDS: PRAMIPEXOLE 0.5 MG TAB PO SCH ×3 (15:19→21:07)
[2017-08-24] MEDS: DIAZEPAM 2 MG TAB PO SCH ×2 (15:19→20:06)
[2017-08-24] MEDS: DULoxetine HCL 60 MG CAPSULE.DR PO SCH (15:19)
[2017-08-24] MEDS: CLOPIDOGREL 75 MG TAB PO SCH (15:19)
[2017-08-24] MEDS: CYANOCOBALAMIN-FA-PYRIDOXINE 1 EACH TAB PO SCH (15:20)
[2017-08-24] MEDS: NICOTINE 21MG/24HR PATCH TRANSDERM SCH (15:20)
[2017-08-24] MEDS: METOPROLOL TARTRATE 25 MG TAB PO SCH ×2 (15:20→20:06)
[2017-08-24] MEDS: TAMSULOSIN 0.4 MG CAP.ER.24H PO SCH (15:21)
[2017-08-24] MEDS: hydrALAZINE HCL 25 MG TAB PO SCH ×2 (15:21→21:07)
[2017-08-24] MEDS: PIPERACILLIN-TAZOBACTAM 3.375 GM in DEXTROSE/WATER 1 50ML.BAG IVPB SCH ×2 (15:48→23:35)
--- NOTE | 2017-08-24 16:04 | XR ---
EXAMINATION TYPE: XR chest 1V portable DATE OF EXAM: 08/24/2017 COMPARISON: 08/09/2017 HISTORY: Shortness of breath. TECHNIQUE: Single frontal view of the chest is obtained. FINDINGS: There is no focal air space opacity, pleural effusion, or pneumothorax seen. There is a dextroscoliotic curvature of the thoracic spine shifting the mediastinum to the left. Heart is enlarg ed. Dual lead left-sided cardiac device is again demonstrated. Multiple skin folds overlie the right hemithorax with lung markings seen peripheral to these. Pulmonary hyperinflation again may relate to underlying COPD. IMPRESSION: No acute cardiopulmonary process.
[2017-08-24 16:09] LABS: Appearance,Urine Clear (Clear); Bacteria,Urine Rare /hpf; Bilirubin,Urine Negative (Negative); Blood,Urine Small (Negative); Color,Urine Colorless; Glucose,Urine (UA) Negative (Negative); Ketones,Urine Negative (Negative); Leukocyte Esterase,Urine Negative (Negative); Mucus,Urine Rare /hpf; Nitrite,Urine Negative (Negative); PH, Urine 5.5 (5.0-8.0); Protein,Urine Trace (Negative); RBC,Urine 21 /hpf (0-5); Specific Gravity,Urine 1.006 (1.001-1.035); Urobilinogen,Urine <2.0 mg/dL (<2.0); WBC,Urine 2 /hpf (0-5)
--- NOTE | 2017-08-24 17:52 | P.CN ---
Psychiatric Consult - . Consult date: 08/24/17 Consult:: 08/24/17 17:43 IDENTIFYING DATA: 67-year-old male patient HPI: Patient admitted to the medical floor [facility] after being found unconscious. Per chart history was found unconscious and incontinent of urine and feces. He is admitted with concerns of seizure, stroke , sepsis. He is currently found in his room lying in bed, does not respond to name-calling, eyes closed. His is present and provides much of the history. He is being treated for likely acute encephalitis per chart history and has been started on IV acyclovir. Per chart history is also been experiencing some hallucinations. His reports that he has been hallucinating until today, he was seeing things, for example 2 of her. He also was talking about a repeated movie. His states he is also having lots of diarrhea. She states that yesterday he was agitated and didn't sleep. He started receiving some Haldol which did give him benefit and he received a dose about an hour ago it has worked for him. Per his , Restoril was not helpful and given in the hospital. PAST PSYCHIATRIC HISTORY: History of depression and anxiety with history of being on Cymbalta, currently 60 mg daily. Cymbalta is working well for him. He 's never had any psychiatric admissions and never tried to hurt himself per history. PMH: Hypertension, osteoarthritis, BPH, peripheral arterial disease, permanent pacemaker, right ICA stent, stroke, hepatitis C ALLERGIES: No Known ALLERGIES MEDICATIONS: Tylenol No. 3 when necessary, acyclovir, Norvasc, aspirin, Lipitor , Tums when necessary, Plavix, Valium, Cymbalta, Pepcid, folate Acid, Haldol when necessary, Apresoline, Ativan when necessary, milk of magnesia when necessary, Lopressor, potassium when necessary, Habitrol patch, piperacillin/ tazobactam, Mirapex, Seroquel when necessary, Flomax, Restoril when necessary, CHEMICAL DEPENDENCY HISTORY: Per his benzodiazepine was found on urine drug screen; history of heroin dependence; sobriety from alcohol greater than 25 years. FAMILY PSYCHIATRIC HISTORY: Not known at this time. FAMILY CHEMICAL DEPENDENCY HISTORY: Unknown at this time. SOCIAL HISTORY: Lives with his . 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 3 children. MENTAL STATUS EXAM: He is found in his room lying in bed, eyes closed. He does not respond to name-calling. He is recently received a dose of Haldol per his . He does move his extremities at times. He does not show any significant agitation. His provides all of the history. IMPRESSIONS: Delirium, likely multifactorial; possible causes include infectious , withdrawal; history of depression and anxiety; rule out sedative/hypnotic use disorder; history of opioid use disorder PLAN: Continue to treat possible causes of delirium. Currently, Seroquel when necessary and Haldol when necessary were ordered. He has responded in a positive fashion when he has received Haldol when necessary, we'll discontinue Seroquel when necessary to minimize to only 1 antipsychotic. We'll also discontinue Restoril to minimize the number of benzodiazepine medication. He is currently on Valium scheduled which would help in terms of any benzodiazepine withdrawal, Ativan is ordered on a when necessary basis. Psychiatry to follow up to monitor status
[2017-08-24] MEDS: ATORVASTATIN 80 MG TAB PO SCH (20:06)
[2017-08-25] MEDS: SODIUM CHLORIDE 0.45% 1,000 ML IV SCH (06:14)
[2017-08-25 07:52] LABS: HCT 37.3 % (39.0-53.0); HGB 13.2 gm/dL (13.0-17.5); MCH 29.8 pg (25.0-35.0); MCHC 35.3 g/dL (31.0-37.0); MCV 84.3 fL (80.0-100.0); Mean Platelet Volume 7.6; Platelet Count 197 k/uL (150-450); RBC 4.43 m/uL (4.30-5.90); RDW 14.3 % (11.5-15.5); WBC 13.9 k/uL (3.8-10.6)
[2017-08-25 08:17] LABS: Calcium 8.9 mg/dL (8.4-10.2); Potassium 3.2 mmol/L (3.5-5.1)
[2017-08-25] MEDS: ACYCLOVIR SODIUM 500 MG in SODIUM CHLORIDE 0.9% 100 ML IVPB SCH ×3 (09:04→21:10)
[2017-08-25] MEDS: DULoxetine HCL 30 MG CAPSULE.DR PO SCH (09:05)
[2017-08-25] MEDS: amLODIPine 5 MG TAB PO SCH (09:05)
[2017-08-25] MEDS: CLOPIDOGREL 75 MG TAB PO SCH (09:05)
[2017-08-25] MEDS: ASPIRIN 325 MG TAB PO SCH (09:05)
[2017-08-25] MEDS: FAMOTIDINE 20 MG/2 ML VIAL IV SCH (09:06)
[2017-08-25] MEDS: METOPROLOL TARTRATE 25 MG TAB PO SCH ×2 (09:06→20:33)
[2017-08-25] MEDS: hydrALAZINE HCL 25 MG TAB PO SCH ×2 (09:06→20:34)
[2017-08-25] MEDS: NICOTINE 21MG/24HR PATCH TRANSDERM SCH (09:06)
[2017-08-25] MEDS: PRAMIPEXOLE 0.5 MG TAB PO SCH ×3 (09:06→20:35)
[2017-08-25] MEDS: DIAZEPAM 2 MG TAB PO SCH ×2 (09:32→20:33)
[2017-08-25] MEDS: PIPERACILLIN-TAZOBACTAM 3.375 GM in DEXTROSE/WATER 1 50ML.BAG IVPB SCH ×3 (09:32→23:33)
[2017-08-25] MEDS: TAMSULOSIN 0.4 MG CAP.ER.24H PO SCH (09:39)
[2017-08-25] MEDS: DEXTROSE 5% IN WATER 1,000 ML IV SCH ×2 (09:41→20:42)
[2017-08-25] MEDS: CYANOCOBALAMIN-FA-PYRIDOXINE 1 EACH TAB PO SCH (13:08)
[2017-08-25 14:24] VITALS: BMI 17.7
--- NOTE | 2017-08-25 16:49 | P.PN ---
Subjective Progress Note Date: 08/25/17 Principal diagnosis: Progress note being dictated for Dr. Casanova. Interval history:67-year-old admitted is being treated for HSV encephalitis, apparently his hallucinations are worse kidney function has gone up from 0.9 couple days ago to 2.5 ketorolac will be discontinued patient is on diazepam is apparently requiring diazepam. Urine random sodium and urine random creatinine will be obtained patient is having good urine output and clear urine. Patient is not feeling well because of increasing hallucinations and on and off confusion, when I evaluated his alert oriented 3. 08/24/2017 Patient is more agitated more confused patient is alert oriented time almost 0 today. Patient is receiving Haldol and Seroquel on as-needed basis for agitation. Urine output appears to be okay nephrology evaluated the patient. And he is receiving 0.45 half-normal saline Constitutional: Denied any fatigue denied any fever. Cardio vascular: denied any chest pain, palpitations Gastrointestinal denied any nausea vomiting Pulmonary: Denied any shortness of breath cough Neurologic denied any new focal deficits 08/25 resting comfortably, no family at bedside. Evaluated by psychiatry with recommendations noted including Restoril and Seroquel discontinued. Afebrile, T-max 101.4. WBC13.9. Chest x-ray reporting no acute cardiopulmonary process, pulmonary hyperinflation. Initial urine and blood cultures negative. Repeat urine and blood cultures in progress. Sodium, creatinine, chloride trending up, maintained on D5W as per nephrology. K3.2. Objective - Vital Signs Vital signs: Vital Signs Temp 98.2 F 08/25/17 07:00 Pulse 76 08/25/17 07:00 Resp 18 08/25/17 07:00 BP 136/77 08/25/17 07:00 Pulse Ox 97 08/25/17 07:00 Intake & Output 08/24/17 08/25/17 08/25/17 18:59 06:59 18:59 Intake Total 820 950 150 Output Total 2300 1200 Balance -1480 -250 150 Weight 51.5 kg 51.5 kg Intake: IV 950 150 Piperacillin-Tazobactam 3 50 50 .375 gm In Dextrose/Water 1 50ml.bag @ 12.5 mls/hr IVPB Q8HR [facility] Rx#: [id number] Sodium Chloride 0.45% 1, 900 100 000 ml @ 100 mls/hr IV . Q10H [facility] Rx#:[id number] Intake, IV Titration 700 Amount Sodium Chloride 0.45% 1, 700 000 ml @ 100 mls/hr IV . Q10H [facility] Rx#:[id number] Oral 120 Output: Urine 2300 1200 Uretheral (Mcfarlane) 1200 Other: Voiding Method Indwelling Catheter Indwelling Catheter Indwelling Catheter # Bowel Movements 1 - Exam GENERAL: The patient is alert and oriented x1, no acute distress. Well developed , well nourished. HEENT: Pupils are round and equally reacting to light. EOMI. No scleral icterus. No conjunctival pallor. Normocephalic, atraumatic. No pharyngeal erythema. No thyromegaly. CARDIOVASCULAR: S1 and S2 present. No murmurs, rubs, or gallops. PULMONARY: Chest is clear to auscultation, no wheezing or crackles. ABDOMEN: Soft, nontender, nondistended, normoactive bowel sounds. No palpable organomegaly. MUSCULOSKELETAL: No joint swelling or deformity. EXTREMITIES: No cyanosis, clubbing, or pedal edema. Safety mittens on bilateral hands. NEUROLOGICAL: Gross neurological examination did not reveal any focal deficits. - Labs CBC & Chem 7: 08/25/17 07:20 08/25/17 07:20 Labs: Abnormal Lab Results - Last 24 Hours (Table) 08/24/17 08/25/17 08/25/17 Range/Units 15:30 07:20 07:20 WBC 13.9 H (3.8-10.6) k/uL Hct 37.3 L (39.0-53.0) % Sodium 152 H (137-145) mmol/L Potassium 3.2 L (3.5-5.1) mmol/L Chloride 122 H* (98-107) mmol/L Carbon Dioxide 17 L (22-30) mmol/L BUN 22 H (9-20) mg/dL Creatinine 2.80 H (0.66-1.25) mg/dL Urine Protein Trace H (Negative) Urine Blood Small H (Negative) Urine RBC 21 H (0-5) /hpf Urine Bacteria Rare H (None) /hpf Urine Mucus Rare H (None) /hpf Microbiology - Last 24 Hours (Table) 08/24/17 15:30 Urine Culture - Preliminary Urine,Catheterized 08/19/17 15:16 Blood Culture - Preliminary Blood No Growth after 120 hours Assessment and Plan Assessment: -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 -Hallucinations, agitation delirium probably related to encephalitis with contribution from worsening renal function and metabolic encephalopathy. -Acute renal failure: Related to nonsteroidal anti-inflam. -Seizures: Secondary to encephalitis. -Hyperlipidemia -Benign prostatic hypertrophy -Restless leg syndrome. -Hyponatremia -Hyperchloridemia Plan: Continue on current medication regime ,monitoring and symptomatic treatment. Fever workup in progress. Further recommendations from infectious disease pending. Psychiatry's recommendations noted and appreciated. Close monitoring of sodium, renal function, chloride; fluids as per nephrology. Close monitoring of electrolytes, renal function with repeat labs ordered for a.m. maintain seizure precautions. The impression and plan of care has been dictated as directed. : I performed a history and examination of this patient, discussed the same with the dictator. I agree with the dictator's note ,documented as a scribe. Any additional findings or plans will be noted.
[2017-08-25] MEDS ORDERED: HALOPERIDOL LACTATE 5 MG/ML 1 ML VIAL IM PRN (19:08)
[2017-08-25] MEDS: Acetaminophen-Codeine 300-30mg TAB PO PRN (20:32)
[2017-08-25] MEDS: ATORVASTATIN 80 MG TAB PO SCH (20:33)
--- NOTE | 2017-08-25 21:35 | P.PN ---
Subjective Progress Note Date: 08/25/17 Principal diagnosis: Year old male patient who has history of hepatitis C as well as previous stroke on Plavix. The patient is seen in the emergency center. Patient states he has had diarrhea for the past 3 days and complains of abdominal pain he had. He has also had several falls over the last couple of days when he has an abrasion to the left lower leg and complains of increased lumbar pain. He states he always has back pain and he smokes marijuana for this. Patient is an active smoker. According to the ER documentation, patient was found by his son on the floor unresponsive and incontinent of urine and not using his left arm with a left lateral gaze. He was evaluated for stroke and not a candidate for TPA as he was last seen in the morning at 7:30 and was acting normal at that time. CAT scan of the brain showed age-related atrophy and chronic small vessel ischemic change. CTA of head and neck revealed 75% stenosis of the proximal left internal carotid artery. Artifact in the left carotid artery bifurcation. Diminutive left vertebral artery. No subclavian steal. No intracranial abnormality. EKG was a sinus rhythm. Her temperature max is been 102.6 with elevated heart rate and blood pressure elevated with leukocytosis of 20.3. Patient was given ceftriaxone 1 dose. Blood culture was obtained. Urinalysis was cloudy with bacteria rare. INR 1.5. Lactic acid initially 8.6 and repeated 1.2. Patient is unable to undergo LP due to Plavix. Patient appears to be sleeping and is minimally arousable to verbal stimuli. He will answer a few questions but does not open his eyes, set up, make eye contact but he is able to answer simple questions correctly regarding orientation. Patient denies having any shortness of breath. On note that patient had a 3 second tonic-clonic seizure-like activity while in CAT scan. He was given Ativan and there is a consult in place with Dr. Abel. 08/21/2017 patient is more cognizant. He is wondering when he'll be able to go home. He is less agitated. He is able to form sentences. He is moving easily in the bed. Is trying to get up. Does not easily understand he has a Mcfarlane catheter in place. But he is easily quieted. He does not complain of much discomfort. 08/25/2017 patient is awake occasionally is able to answer question. In general just has a quiet nature, has received Haldol earlier in the day. His related over the weekend his behavior worsened and consequently antipsychotic therapy was started. Objective - Vital Signs Vital signs: Vital Signs Temp 98.5 F 08/25/17 20:31 Pulse 72 08/25/17 20:31 Resp 20 08/25/17 20:31 BP 181/101 08/25/17 20:31 Pulse Ox 95 08/25/17 20:31 Intake & Output 08/25/17 08/25/17 08/26/17 06:59 18:59 06:59 Intake Total 950 150 Output Total 1200 825 Balance -250 -675 Weight 51.5 kg 51.5 kg Intake: IV 950 150 Piperacillin-Tazobactam 3 50 50 .375 gm In Dextrose/Water 1 50ml.bag @ 12.5 mls/hr IVPB Q8HR [facility] Rx#: [id number] Sodium Chloride 0.45% 1, 900 100 000 ml @ 100 mls/hr IV . Q10H [facility] Rx#:[id number] Output: Urine 1200 825 Uretheral (Mcfarlane) 1200 825 Other: Voiding Method Indwelling Catheter Indwelling Catheter # Bowel Movements 1 - Exam Gen: This is a 67-year-old thin male. Patient is laying on the stretcher and appears to be comfortable. No respiratory distress noted. HEENT: Head is atraumatic, normocephalic. Pupils equal, round. Sclerae is anicteric. Conjunctiva pink. Mucous members of the mouth are dry. No thrush noted. NECK: Supple. No JVD. No lymphadenopathy. No thyromegaly. no menigsmus LUNGS: Scattered rhonchi. No intercostal retractions. HEART: Regular rate and rhythm. No murmur. ABDOMEN: Soft. Bowel sounds are present. No masses. Generalized tenderness. EXTREMITIES: Extremities are thin with muscle wasting noted. No pedal edema. No calf tenderness. Dorsalis pedis +1 bilaterally. Patient has an abrasion to the back of his left ankle. No significant redness erythema. NEUROLOGICAL: The patient is awake and arousable. He does answer briefly one or 2 questions but then has to stay quiet bizarre behavior. He currently is not having any seizure-like activity. - Labs CBC & Chem 7: 08/25/17 07:20 08/25/17 19:20 Labs: Abnormal Lab Results - Last 24 Hours (Table) 08/25/17 08/25/17 08/25/17 Range/Units 07:20 07:20 19:20 WBC 13.9 H (3.8-10.6) k/uL Hct 37.3 L (39.0-53.0) % Sodium 152 H (137-145) mmol/L Potassium 3.2 L 3.2 L (3.5-5.1) mmol/L Chloride 122 H* (98-107) mmol/L Carbon Dioxide 17 L (22-30) mmol/L BUN 22 H (9-20) mg/dL Creatinine 2.80 H (0.66-1.25) mg/dL Microbiology - Last 24 Hours (Table) 08/24/17 15:30 Urine Culture - Final Urine,Catheterized 08/24/17 16:04 Blood Culture - Preliminary Blood No Growth after 24 hours 08/19/17 15:16 Blood Culture - Final Blood No Growth after 144 hours Laboratory Results WBC 13.9 k/uL (3.8-10.6) H 08/25/17 07:20 RBC 4.43 m/uL (4.30-5.90) 08/25/17 07:20 Hgb 13.2 gm/dL (13.0-17.5) 08/25/17 07:20 Hct 37.3 % (39.0-53.0) L 08/25/17 07:20 MCV 84.3 fL (80.0-100.0) 08/25/17 07:20 MCH 29.8 pg (25.0-35.0) 08/25/17 07:20 MCHC 35.3 g/dL (31.0-37.0) 08/25/17 07:20 RDW 14.3 % (11.5-15.5) 08/25/17 07:20 Plt Count 197 k/uL (150-450) 08/25/17 07:20 Neutrophils % 75 % 08/20/17 06:43 Lymphocytes % 16 % 08/20/17 06:43 Monocytes % 6 % 08/20/17 06:43 Eosinophils % 0 % 08/20/17 06:43 Basophils % 0 % 08/20/17 06:43 Neutrophils # 11.1 k/uL (1.3-7.7) H 08/20/17 06:43 Lymphocytes # 2.4 k/uL (1.0-4.8) 08/20/17 06:43 Monocytes # 0.9 k/uL (0-1.0) 08/20/17 06:43 Eosinophils # 0.0 k/uL (0-0.7) 08/20/17 06:43 Basophils # 0.0 k/uL (0-0.2) 08/20/17 06:43 PT 13.6 sec (9.0-12.0) H 08/19/17 15:16 INR 1.5 (<1.2) H 08/19/17 15:16 APTT 20.7 sec (22.0-30.0) L 08/19/17 15:16 Sodium 152 mmol/L (137-145) H 08/25/17 07:20 Potassium 3.2 mmol/L (3.5-5.1) L 08/25/17 19:20 Chloride 122 mmol/L (98-107) H* 08/25/17 07:20 Carbon Dioxide 17 mmol/L (22-30) L 08/25/17 07:20 Anion Gap 13 mmol/L 08/25/17 07:20 BUN 22 mg/dL (9-20) H 08/25/17 07:20 Creatinine 2.80 mg/dL (0.66-1.25) H 08/25/17 07:20 Est GFR (CKD-EPI)AfAm 26 (>60 ml/min/1.73 sqM) 08/25/17 07:20 Est GFR (CKD-EPI)NonAf 23 (>60 ml/min/1.73 sqM) 08/25/17 07:20 Glucose 92 mg/dL (74-99) 08/25/17 07:20 POC Glucose (mg/dL) 94 mg/dL (75-99) 08/22/17 04:08 POC Glu [place]ner ID Grey Carnes A 08/22/17 04:[address] Glu mg/dL 117 08/19/17 19:17 Hemoglobin A1c 5.7 % (4.0-6.0) 08/19/17 19:17 Lactic Ac Sepsis Rflx Y 08/19/17 15:48 Plasma Lactic Acid [place] 1.2 mmol/L (0.7-2.0) 08/19/17 19:17 Calcium 8.9 mg/dL (8.4-10.2) 08/25/17 07:20 Magnesium 2.2 mg/dL (1.6-2.3) 08/19/17 15:16 Total Bilirubin 0.7 mg/dL (0.2-1.3) 08/19/17 15:16 AST 28 U/L (17-59) 08/19/17 15:16 ALT 8 U/L (21-72) L 08/19/17 15:16 Alkaline Phosphatase 77 U/L (38-126) 08/19/17 15:16 Ammonia <9 umol/L (<30) 08/19/17 15:16 Total Creatine Kinase 247 U/L (55-170) H 08/19/17 15:16 CK-MB (CK-2) 2.6 ng/mL (0.0-2.4) H* 08/19/17 15:16 CK-MB (CK-2) Rel Index 1.1 08/19/17 15:16 Troponin I <0.012 ng/mL (0.000-0.034) 08/19/17 15:16 Total Protein 8.7 g/dL (6.3-8.2) H 08/19/17 15:16 Albumin 5.1 g/dL (3.5-5.0) H 08/19/17 15:16 Triglycerides 131 mg/dL (<150) 08/20/17 06:43 Cholesterol 136 mg/dL (<200) 08/20/17 06:43 LDL Cholesterol, Calc 71 mg/dL (0-99) 08/20/17 06:43 HDL Cholesterol 39 mg/dL (40-60) L 08/20/17 06:43 Amylase 62 U/L (30-110) 08/20/17 06:43 Lipase 201 U/L (23-300) 08/20/17 06:43 Homocysteine 21.68 umol/L (4.00-14.00) H 08/22/17 05:51 Urine Color Colorless 08/24/17 15:30 Urine Appearance Clear (Clear) 08/24/17 15:30 Urine pH 5.5 (5.0-8.0) 08/24/17 15:30 Ur Specific [place] 1.006 (1.001-1.035) 08/24/17 15:30 Urine Protein Trace (Negative) H 08/24/17 15:30 Urine Glucose (UA) Negative (Negative) 08/24/17 15:30 Urine Ketones Negative (Negative) 08/24/17 15:30 Urine Blood Small (Negative) H 08/24/17 15:30 Urine Nitrite Negative (Negative) 08/24/17 15:30 Urine Bilirubin Negative (Negative) 08/24/17 15:30 Urine Urobilinogen <2.0 mg/dL (<2.0) 08/24/17 15:30 Ur Leukocyte Esterase Negative (Negative) 08/24/17 15:30 Urine RBC 21 /hpf (0-5) H 08/24/17 15:30 Urine WBC 2 /hpf (0-5) 08/24/17 15:30 Amorphous Sediment Few /hpf (None) H 08/19/17 16:04 Urine Bacteria Rare /hpf (None) H 08/24/17 15:30 Hyaline Casts 9 /lpf (0-2) H 08/19/17 16:04 Granular Casts 8 /lpf (0) 08/19/17 16:04 Urine Mucus Rare /hpf (None) H 08/24/17 15:30 Ur Random Creatinine 30.3 mg/dL 08/23/17 18:30 Ur Random Sodium 88 mmol/L (30-90) 08/23/17 18:30 Random Vancomycin 14.4 ug/mL 08/23/17 05:38 Urine Opiates Screen Detected (NotDetected) H 08/19/17 16:04 Ur Oxycodone Screen Not Detected (NotDetected) 08/19/17 16:04 Urine Methadone Screen Not Detected (NotDetected) 08/19/17 16:04 Ur Propoxyphene Screen Not Detected (NotDetected) 08/19/17 16:04 Ur Barbiturates Screen Not Detected (NotDetected) 08/19/17 16:04 U Tricyclic Antidepress Not Detected (NotDetected) 08/19/17 16:04 Ur Phencyclidine Scrn Not Detected (NotDetected) 08/19/17 16:04 Ur Amphetamines Screen Not Detected (NotDetected) 08/19/17 16:04 U Methamphetamines Scrn Not Detected (NotDetected) 08/19/17 16:04 U Benzodiazepines Scrn Detected (NotDetected) H 08/19/17 16:04 Urine Cocaine Screen Not Detected (NotDetected) 08/19/17 16:04 U Marijuana (THC) Screen Detected (NotDetected) H 08/19/17 16:04 Serum Alcohol <10 mg/dL 08/19/17 15:16 C. difficile (EIA) Intrp Negative (Negative) 08/20/17 10:04 HSV I DNA PCR Not detected (Not detected) 08/20/17 06:43 HSV II DNA PCR Not detected (Not detected) 08/20/17 06:43 HSV (PCR) Source Blood - Plasma 08/20/17 06:43 Influenza Type A RNA Not Detected (Not Detectd) 08/20/17 12:05 Influenza Type B (PCR) Not Detected (Not Detectd) 08/20/17 12:05 Microbiology 08/24/17 15:30 Urine,Catheterized Urine Culture - Final 08/24/17 16:04 Blood Blood Culture - Preliminary No Growth after 24 hours 08/19/17 15:16 Blood Blood Culture - Final No Growth after 144 hours 08/19/17 16:04 Urine,Catheterized Urine Culture - Final Assessment and Plan (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 Patient also had a seizure while on the CAT scan unit possibly related to sepsis. Patient has had falls recently at home no obvious injuries noted. He also has had diarrhea for 3 days at home. We will check amylase and lipase and C. difficile toxin influenza testing will be done a patient will be started on ceftriaxone 2 g every 12 hours and vancomycin, acyclovir 10 mg/kg every 8 hours. Serum HSV 1 and 2 by PCR will be ordered. Continue IV Tylenol. Blood cultures are status received. Continue supportive care. 08/21/2017 the patient is more awake and alert today. He is able to answer some simple questions. The appropriateness of his answers is certainly questionable. Toward the end of the exam he tries to exit out of the bed and try to stand catching his Mcfarlane catheter in his leg. He is redirected that he has a Mcfarlane in and stops. And lays back down. It is noted there is evidence of his altered mental status At this point in time it is appearing more likely be an encephalitis. Unfortunately lumbar puncture could not be performed and CSF PCR for HSV 1 and 2 could not be performed. The serum PCR that was negative but does not exclude the possibility of viral encephalitis. The patient's fever and leukocytosis are rapidly improving. He has no meningismus and has no other new acute neurological difficulties. It is unlikely that he has meningitis if his blood cultures are negative tomorrow and consider discontinuation of his antibiotic therapy. Continue his antiviral therapy. Case is discussed with the hospitalist and likely will complete her course of acyclovir therapy. 08/25/2017 reveals the patient to have no further improvement. The patient is now greater than 5 days off of his Plavix and will arrange for lumbar puncture for radiology for routine studies as well as viral assessment including HSV-1/ HSV 2, VDRL, West Nile. The patient's behavior is quite quiet today because he received some antipsychotic therapy. Regretfully he is still very poorly functional. In that only herpes encephalitis is treatable we'll continue the intravenous acyclovir at this point in time. The patient didn't have evidence of some acute renal failure that appears to be multifactorial, the acyclovir dose has been adjusted. Patient did have a fever and Zosyn was added pending some further cultures. Current Visit: Yes Status: Acute Code(s): B00.4 - HERPESVIRAL ENCEPHALITIS SNOMED Code(s): 675193167 (2) Sepsis Current Visit: Yes Status: Acute Code(s): A41.9 - SEPSIS, UNSPECIFIED ORGANISM SNOMED Code(s): 06048114 (3) Seizure Current Visit: Yes Status: Acute Code(s): R56.9 - UNSPECIFIED CONVULSIONS SNOMED Code(s): 43652091
[2017-08-25] MEDS: POTASSIUM CHLORIDE 10 MEQ in SODIUM CHLORIDE 0.9% 100 ML IVPB SCH ×2 (22:20→22:57)
--- NOTE | 2017-08-25 23:10 | PN ---
PROGRESS NOTE Patient is seen for followup for acute kidney injury. Currently he is awake. He remains confused and agitated. Patient has had good urine output, with 24-hour urine output of about 3.5 L. He is maintained on IV fluids; however, this morning his sodium is higher. Serum creatinine is about the same. On examination, blood pressure is 136/77 this morning, heart rate of 76 per minute. Patient is afebrile. EXAMINATION OF THE HEART: S1, S2. EXAMINATION OF LUNGS: Bilateral breath sounds are heard. ABDOMEN: Soft, non-tender. Examination of lower extremities shows no evidence of edema. Labs show sodium 152, potassium 3.2, chloride 122, BUN 22, serum creatinine 2.8. ASSESSMENT: 1. Acute kidney injury associated with hypotension, hypoperfusion as well as IV contrast. Currently patient is nonoliguric. He is maintained on IV fluids. He is also maintained on acyclovir. 2. 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 3. Seizures on admission, currently not on any specific anti-seizure medications. 4. Agitation, altered mentation; definitely it is a component of electrolyte imbalance. 5. Hypernatremia. Will change IV fluids to D5W. PLAN: Change IV fluids to D5W. Continue aggressive IV hydration. Repeat labs in a.m. and continue to avoid nephrotoxic agents. Continue with indwelling Mcfarlane catheter for now. MMODL / IJN: [id number] /
[2017-08-26] MEDS: DEXTROSE 5% IN WATER 1,000 ML with POTASSIUM CHLORIDE 40 MEQ IV SCH ×3 (01:14→22:37)
[2017-08-26 08:00] LABS: Calcium 8.9 mg/dL (8.4-10.2)
[2017-08-26 08:11] LABS: Potassium 3.3 mmol/L (3.5-5.1)
[2017-08-26] MEDS: NICOTINE 21MG/24HR PATCH TRANSDERM SCH (08:53)
[2017-08-26] MEDS: METOPROLOL TARTRATE 25 MG TAB PO SCH ×2 (08:54→22:37)
[2017-08-26] MEDS: TAMSULOSIN 0.4 MG CAP.ER.24H PO SCH (08:54)
[2017-08-26] MEDS: PRAMIPEXOLE 0.5 MG TAB PO SCH ×3 (08:54→22:39)
[2017-08-26] MEDS: FAMOTIDINE 20 MG TAB PO SCH (08:55)
[2017-08-26] MEDS: amLODIPine 5 MG TAB PO SCH (08:55)
[2017-08-26] MEDS: hydrALAZINE HCL 25 MG TAB PO SCH ×2 (08:55→22:37)
[2017-08-26] MEDS: DULoxetine HCL 30 MG CAPSULE.DR PO SCH (08:55)
[2017-08-26] MEDS: ACYCLOVIR SODIUM 500 MG in SODIUM CHLORIDE 0.9% 100 ML IVPB SCH (08:56)
[2017-08-26] MEDS: DIAZEPAM 2 MG TAB PO SCH ×2 (08:58→22:38)
[2017-08-26] MEDS: PIPERACILLIN-TAZOBACTAM 3.375 GM in DEXTROSE/WATER 1 50ML.BAG IVPB SCH ×3 (10:09→23:52)
[2017-08-26] MEDS: ASPIRIN 325 MG TAB PO SCH (10:57)
[2017-08-26] MEDS: CLOPIDOGREL 75 MG TAB PO SCH (10:58)
[2017-08-26] MEDS: CYANOCOBALAMIN-FA-PYRIDOXINE 1 EACH TAB PO SCH (12:40)
[2017-08-26] MEDS: Acetaminophen-Codeine 300-30mg TAB PO PRN ×3 (12:57→22:38)
[2017-08-26] MEDS ORDERED: Magnesium Replacement Protocol 1 EACH MISC MISCELLANE PRN (17:54)
[2017-08-26] MEDS: NYSTATIN 100,000 UNIT/ML SUSP 500,000 UNIT/5 ML CUP PO SCH ×2 (18:13→22:48)
--- NOTE | 2017-08-26 18:24 | P.PN ---
Subjective Progress Note Date: 08/26/17 Principal diagnosis: Progress note being dictated for Dr. Casanova. Interval history:67-year-old admitted is being treated for HSV encephalitis, apparently his hallucinations are worse kidney function has gone up from 0.9 couple days ago to 2.5 ketorolac will be discontinued patient is on diazepam is apparently requiring diazepam. Urine random sodium and urine random creatinine will be obtained patient is having good urine output and clear urine. Patient is not feeling well because of increasing hallucinations and on and off confusion, when I evaluated his alert oriented 3. 08/24/2017 Patient is more agitated more confused patient is alert oriented time almost 0 today. Patient is receiving Haldol and Seroquel on as-needed basis for agitation. Urine output appears to be okay nephrology evaluated the patient. And he is receiving 0.45 half-normal saline Constitutional: Denied any fatigue denied any fever. Cardio vascular: denied any chest pain, palpitations Gastrointestinal denied any nausea vomiting Pulmonary: Denied any shortness of breath cough Neurologic denied any new focal deficits 08/25 resting comfortably, no family at bedside. Evaluated by psychiatry with recommendations noted including Restoril and Seroquel discontinued. Afebrile, T-max 101.4. WBC13.9. Chest x-ray reporting no acute cardiopulmonary process, pulmonary hyperinflation. Initial urine and blood cultures negative. Repeat urine and blood cultures in progress. Sodium, creatinine, chloride trending up, maintained on D5W as per nephrology. K3.2. 08/26/2017 much more alert today. Alert and oriented to person and time, disoriented to place, but he was at home. Conversing. Denies chest pain, palpitations or increasing shortness of breath. Denies pain. 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 Maintained on IV antibiotics and antivirals. Afebrile. Continues on D5W with sodium and renal function improving. No seizure activity reported. Objective - Vital Signs Vital signs: Vital Signs Temp 98.2 F 08/26/17 15:00 Pulse 65 08/26/17 16:00 Resp 18 08/26/17 16:00 BP 159/86 08/26/17 15:00 Pulse Ox 100 08/26/17 15:00 Intake & Output 08/25/17 08/26/17 08/26/17 18:59 06:59 18:59 Intake Total 150 1500 1530 Output Total 825 1000 6600 Balance -675 500 -5070 Weight 51.5 kg Intake: IV 150 Piperacillin-Tazobactam 3 50 .375 gm In Dextrose/Water 1 50ml.bag @ 12.5 mls/hr IVPB Q8HR [facility] Rx#: [id number] Sodium Chloride 0.45% 1, 100 000 ml @ 100 mls/hr IV . Q10H [facility] Rx#:[id number] Intake, IV Titration 1150 950 Amount Acyclovir Sodium 500 mg 100 In Sodium Chloride 0.9% 100 ml @ 100 mls/hr IVPB DAILY [facility] Rx#:[id number] Acyclovir Sodium 500 mg 100 In Sodium Chloride 0.9% 100 ml @ 100 mls/hr IVPB Q12HR [facility] Rx#:[id number] Dextrose 5% in Water 1, 500 000 ml @ 100 mls/hr IV . Q10H [facility] Rx#:[id number] Dextrose 5% in Water 1, 400 800 000 ml @ 100 mls/hr IV . [id number] [facility] with Potassium Chloride 40 meq Rx#:[id number] Piperacillin-Tazobactam 3 50 50 .375 gm In Dextrose/Water 1 50ml.bag @ 12.5 mls/hr IVPB Q8HR [facility] Rx#: [id number] Potassium Chloride 10 meq 100 In Sodium Chloride 0.9% 100 ml @ 105 mls/hr IVPB Q1H [facility] Rx#:[id number] Oral 350 580 Output: Urine 825 1000 6600 Uretheral (Mcfarlane) 825 1000 3000 Other: Voiding Method Indwelling Catheter Indwelling Catheter Indwelling Catheter # Voids 1 # Bowel Movements 1 1 - Exam GENERAL: The patient is alert and oriented x1, no acute distress. Well developed , well nourished. HEENT: Pupils are round and equally reacting to light. EOMI. No scleral icterus. No conjunctival pallor. CARDIOVASCULAR: S1 and S2 present. No murmurs, rubs, or gallops. PULMONARY: Chest is clear to auscultation, no wheezing or crackles. Occasional scattered rhonchi ABDOMEN: Soft, nontender, nondistended, normoactive bowel sounds. No palpable organomegaly. MUSCULOSKELETAL: No joint swelling or deformity. EXTREMITIES: No cyanosis, clubbing, or pedal edema. NEUROLOGICAL: Gross neurological examination did not reveal any focal deficits. Moving all 4 extremities. Strength and sensation grossly intact. Microbiology 08/26/17 01:10 Urine,Catheterized Urine Culture - Preliminary 08/24/17 15:30 Urine,Catheterized Urine Culture - Final 08/24/17 16:04 Blood Blood Culture - Preliminary No Growth after 24 hours 08/19/17 15:16 Blood Blood Culture - Final No Growth after 144 hours 08/19/17 16:04 Urine,Catheterized Urine Culture - Final - Labs CBC & Chem 7: 08/25/17 07:20 08/26/17 06:58 Labs: Abnormal Lab Results - Last 24 Hours (Table) 08/25/17 08/25/17 08/26/17 Range/Units 19:20 23:53 06:58 Sodium 149 H (137-145) mmol/L Potassium 3.2 L 3.1 L 3.3 L (3.5-5.1) mmol/L Chloride 114 H (98-107) mmol/L Carbon Dioxide 21 L (22-30) mmol/L Creatinine 2.50 H (0.66-1.25) mg/dL Glucose 120 H (74-99) mg/dL Microbiology - Last 24 Hours (Table) 08/26/17 01:10 Urine Culture - Preliminary Urine,Catheterized 08/24/17 15:30 Urine Culture - Final Urine,Catheterized 08/24/17 16:04 Blood Culture - Preliminary Blood No Growth after 24 hours 08/19/17 15:16 Blood Culture - Final Blood No Growth after 144 hours Assessment and Plan Assessment: -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 -Hallucinations, agitation delirium probably related to encephalitis with contribution from worsening renal function and metabolic encephalopathy. -Acute renal failure: Related to nonsteroidal anti-inflam. -Seizures: Secondary to encephalitis. -Hyperlipidemia -Benign prostatic hypertrophy -Restless leg syndrome. -Hyponatremia -Hyperchloridemia -Oral candidiasis Plan: Continue on current medication regime ,monitoring and symptomatic treatment. Lumbar puncture as per infectious disease, but patient on Plavix. Maintain IV antibiotics/antivirals as per infectious disease. Close monitoring of cultures. sodium, renal function, chloride; fluids as per nephrology. Close monitoring of electrolytes, renal function with repeat labs ordered for a.m. nystatin added to med regime .maintain seizure precautions. The impression and plan of care has been dictated as directed. : I performed a history and examination of this patient, discussed the same with the dictator. I agree with the dictator's note ,documented as a scribe. Any additional findings or plans will be noted.
--- NOTE | 2017-08-26 19:47 | PN ---
PROGRESS NOTE Patient is seen for followup for acute kidney injury and intravascular volume depletion. Patient is maintained on IV fluids. His renal function is improving. He is also maintained on IV acyclovir for possible herpes encephalitis. Serum creatinine is down to 2.5 from 2.8 yesterday. Mentation seems to be slightly improved, as patient is not that severely agitated, but he remains confused. On examination, blood pressure this morning was 132/89. Patient is afebrile. EXAMINATION OF THE HEART: S1, S2. EXAMINATION OF LUNGS: Bilateral breath sounds are heard. ABDOMEN: Soft, non-tender. Examination of lower extremities shows no evidence of edema. Patient has an indwelling Mcfarlane catheter. He has had good urine output. Twenty-four urine output was 3.5 L. Labs reveal sodium 149, potassium 3.3, chloride 114, BUN 16, serum creatinine 2.5. UA shows trace protein, small blood. ASSESSMENT: 1. Acute kidney injury, acute tubular necrosis, currently nonoliguric. Etiology is hypotension and hypoperfusion as well as IV dye. 2. 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 3. Seizures, attributed to possible underlying encephalitis. 4. Agitation and altered mentation, currently slightly improved. A component of electrolyte imbalance is also contributing to it. 5. Hypernatremia associated with free water deficit, currently maintained on D5W. PLAN: Continue with D5W. Continue to avoid nephrotoxic agents. Avoid any further IV contrast agents and repeat labs in a.m. MMODL / IJN: [id number] /
[2017-08-26] MEDS: ATORVASTATIN 80 MG TAB PO SCH (22:38)
--- NOTE | 2017-08-26 22:57 | P.PN ---
Subjective Progress Note Date: 08/26/17 Principal diagnosis: Year old male patient who has history of hepatitis C as well as previous stroke on Plavix. The patient is seen in the emergency center. Patient states he has had diarrhea for the past 3 days and complains of abdominal pain he had. He has also had several falls over the last couple of days when he has an abrasion to the left lower leg and complains of increased lumbar pain. He states he always has back pain and he smokes marijuana for this. Patient is an active smoker. According to the ER documentation, patient was found by his son on the floor unresponsive and incontinent of urine and not using his left arm with a left lateral gaze. He was evaluated for stroke and not a candidate for TPA as he was last seen in the morning at 7:30 and was acting normal at that time. CAT scan of the brain showed age-related atrophy and chronic small vessel ischemic change. CTA of head and neck revealed 75% stenosis of the proximal left internal carotid artery. Artifact in the left carotid artery bifurcation. Diminutive left vertebral artery. No subclavian steal. No intracranial abnormality. EKG was a sinus rhythm. Her temperature max is been 102.6 with elevated heart rate and blood pressure elevated with leukocytosis of 20.3. Patient was given ceftriaxone 1 dose. Blood culture was obtained. Urinalysis was cloudy with bacteria rare. INR 1.5. Lactic acid initially 8.6 and repeated 1.2. Patient is unable to undergo LP due to Plavix. Patient appears to be sleeping and is minimally arousable to verbal stimuli. He will answer a few questions but does not open his eyes, set up, make eye contact but he is able to answer simple questions correctly regarding orientation. Patient denies having any shortness of breath. On note that patient had a 3 second tonic-clonic seizure-like activity while in CAT scan. He was given Ativan and there is a consult in place with Dr. Abel. 08/21/2017 patient is more cognizant. He is wondering when he'll be able to go home. He is less agitated. He is able to form sentences. He is moving easily in the bed. Is trying to get up. Does not easily understand he has a Mcfarlane catheter in place. But he is easily quieted. He does not complain of much discomfort. 08/25/2017 patient is awake occasionally is able to answer question. In general just has a quiet nature, has received Haldol earlier in the day. His related over the weekend his behavior worsened and consequently antipsychotic therapy was started. 08/26/2017 patient is actually a bit more calm today than he has been. Was able to answer simple questions without difficulty. However still remains with disorientation is not able to relate that he is in hospital. Denies discomforts Objective - Vital Signs Vital signs: Vital Signs Temp 97 F L 08/26/17 22:44 Pulse 61 08/26/17 22:44 Resp 16 08/26/17 22:44 BP 158/87 08/26/17 22:44 Pulse Ox 99 08/26/17 22:44 Intake & Output 08/26/17 08/26/17 08/27/17 06:59 18:59 06:59 Intake Total 1500 2010 240 Output Total 1000 7400 Balance 500 -5390 240 Intake: Intake, IV Titration 1150 950 Amount Acyclovir Sodium 500 mg 100 In Sodium Chloride 0.9% 100 ml @ 100 mls/hr IVPB DAILY [facility] Rx#:[id number] Acyclovir Sodium 500 mg 100 In Sodium Chloride 0.9% 100 ml @ 100 mls/hr IVPB Q12HR [facility] Rx#:[id number] Dextrose 5% in Water 1, 500 000 ml @ 100 mls/hr IV . Q10H [facility] Rx#:[id number] Dextrose 5% in Water 1, 400 800 000 ml @ 100 mls/hr IV . [id number] [facility] with Potassium Chloride 40 meq Rx#:[id number] Piperacillin-Tazobactam 3 50 50 .375 gm In Dextrose/Water 1 50ml.bag @ 12.5 mls/hr IVPB Q8HR [facility] Rx#: [id number] Potassium Chloride 10 meq 100 In Sodium Chloride 0.9% 100 ml @ 105 mls/hr IVPB Q1H [facility] Rx#:[id number] Oral 350 1060 240 Output: Urine 1000 7400 Uretheral (Mcfarlane) 1000 3800 Other: Voiding Method Indwelling Catheter Indwelling Catheter Indwelling Catheter # Voids 1 # Bowel Movements 1 1 - Exam Gen: This is a 67-year-old thin male. Patient is laying on the stretcher and appears to be comfortable. No respiratory distress noted. HEENT: Head is atraumatic, normocephalic. Pupils equal, round. Sclerae is anicteric. Conjunctiva pink. Mucous members of the mouth are dry. No thrush noted. NECK: Supple. No JVD. No lymphadenopathy. No thyromegaly. no menigsmus LUNGS: Scattered rhonchi. No intercostal retractions. HEART: Regular rate and rhythm. No murmur. ABDOMEN: Soft. Bowel sounds are present. No masses. Generalized tenderness. EXTREMITIES: Extremities are thin with muscle wasting noted. No pedal edema. No calf tenderness. Dorsalis pedis +1 bilaterally. Patient has an abrasion to the back of his left ankle. No significant redness erythema. NEUROLOGICAL: The patient is awake and arousable. He is more awake and interactive than he has been. 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 However does not have good motion of the left arm upon request. Is not able to neutralize gravity when the arm is held up. However has motion to the left leg with stimulation. - Labs CBC & Chem 7: 08/25/17 07:20 08/26/17 06:58 Labs: Abnormal Lab Results - Last 24 Hours (Table) 08/25/17 08/26/17 Range/Units 23:53 06:58 Sodium 149 H (137-145) mmol/L Potassium 3.1 L 3.3 L (3.5-5.1) mmol/L Chloride 114 H (98-107) mmol/L Carbon Dioxide 21 L (22-30) mmol/L Creatinine 2.50 H (0.66-1.25) mg/dL Glucose 120 H (74-99) mg/dL Microbiology - Last 24 Hours (Table) 08/24/17 16:04 Blood Culture - Preliminary Blood No Growth after 48 hours 08/26/17 01:10 Urine Culture - Preliminary Urine,Catheterized 08/24/17 15:30 Urine Culture - Final Urine,Catheterized Laboratory Results WBC 13.9 k/uL (3.8-10.6) H 08/25/17 07:20 RBC 4.43 m/uL (4.30-5.90) 08/25/17 07:20 Hgb 13.2 gm/dL (13.0-17.5) 08/25/17 07:20 Hct 37.3 % (39.0-53.0) L 08/25/17 07:20 MCV 84.3 fL (80.0-100.0) 08/25/17 07:20 MCH 29.8 pg (25.0-35.0) 08/25/17 07:20 MCHC 35.3 g/dL (31.0-37.0) 08/25/17 07:20 RDW 14.3 % (11.5-15.5) 08/25/17 07:20 Plt Count 197 k/uL (150-450) 08/25/17 07:20 Neutrophils % 75 % 08/20/17 06:43 Lymphocytes % 16 % 08/20/17 06:43 Monocytes % 6 % 08/20/17 06:43 Eosinophils % 0 % 08/20/17 06:43 Basophils % 0 % 08/20/17 06:43 Neutrophils # 11.1 k/uL (1.3-7.7) H 08/20/17 06:43 Lymphocytes # 2.4 k/uL (1.0-4.8) 08/20/17 06:43 Monocytes # 0.9 k/uL (0-1.0) 08/20/17 06:43 Eosinophils # 0.0 k/uL (0-0.7) 08/20/17 06:43 Basophils # 0.0 k/uL (0-0.2) 08/20/17 06:43 PT 13.6 sec (9.0-12.0) H 08/19/17 15:16 INR 1.5 (<1.2) H 08/19/17 15:16 APTT 20.7 sec (22.0-30.0) L 08/19/17 15:16 Sodium 149 mmol/L (137-145) H 08/26/17 06:58 Potassium 3.3 mmol/L (3.5-5.1) L 08/26/17 06:58 Chloride 114 mmol/L (98-107) H 08/26/17 06:58 Carbon Dioxide 21 mmol/L (22-30) L 08/26/17 06:58 Anion Gap 14 mmol/L 08/26/17 06:58 BUN 16 mg/dL (9-20) 08/26/17 06:58 Creatinine 2.50 mg/dL (0.66-1.25) H 08/26/17 06:58 Est GFR (CKD-EPI)AfAm 30 (>60 ml/min/1.73 sqM) 08/26/17 06:58 Est GFR (CKD-EPI)NonAf 26 (>60 ml/min/1.73 sqM) 08/26/17 06:58 Glucose 120 mg/dL (74-99) H 08/26/17 06:58 POC Glucose (mg/dL) 94 mg/dL (75-99) 08/22/17 04:08 POC Glu Tooth Cutter Spur ID [place] A 08/22/17 04:[address] Glu mg/dL 117 08/19/17 19:17 Hemoglobin A1c 5.7 % (4.0-6.0) 08/19/17 19:17 Lactic Ac Sepsis Rflx Y 08/19/17 15:48 Plasma Lactic Acid [place] 1.2 mmol/L (0.7-2.0) 08/19/17 19:17 Calcium 8.9 mg/dL (8.4-10.2) 08/26/17 06:58 Magnesium 1.9 mg/dL (1.6-2.3) 08/26/17 18:14 Total Bilirubin 0.7 mg/dL (0.2-1.3) 08/19/17 15:16 AST 28 U/L (17-59) 08/19/17 15:16 ALT 8 U/L (21-72) L 08/19/17 15:16 Alkaline Phosphatase 77 U/L (38-126) 08/19/17 15:16 Ammonia <9 umol/L (<30) 08/19/17 15:16 Total Creatine Kinase 247 U/L (55-170) H 08/19/17 15:16 CK-MB (CK-2) 2.6 ng/mL (0.0-2.4) H* 08/19/17 15:16 CK-MB (CK-2) Rel Index 1.1 08/19/17 15:16 Troponin I <0.012 ng/mL (0.000-0.034) 08/19/17 15:16 Total Protein 8.7 g/dL (6.3-8.2) H 08/19/17 15:16 Albumin 5.1 g/dL (3.5-5.0) H 08/19/17 15:16 Triglycerides 131 mg/dL (<150) 08/20/17 06:43 Cholesterol 136 mg/dL (<200) 08/20/17 06:43 LDL Cholesterol, Calc 71 mg/dL (0-99) 08/20/17 06:43 HDL Cholesterol 39 mg/dL (40-60) L 08/20/17 06:43 Amylase 62 U/L (30-110) 08/20/17 06:43 Lipase 201 U/L (23-300) 08/20/17 06:43 Homocysteine 21.68 umol/L (4.00-14.00) H 08/22/17 05:51 Urine Color Colorless 08/24/17 15:30 Urine Appearance Clear (Clear) 08/24/17 15:30 Urine pH 5.5 (5.0-8.0) 08/24/17 15:30 Ur Specific [place] 1.006 (1.001-1.035) 08/24/17 15:30 Urine Protein Trace (Negative) H 08/24/17 15:30 Urine Glucose (UA) Negative (Negative) 08/24/17 15:30 Urine Ketones Negative (Negative) 08/24/17 15:30 Urine Blood Small (Negative) H 08/24/17 15:30 Urine Nitrite Negative (Negative) 08/24/17 15:30 Urine Bilirubin Negative (Negative) 08/24/17 15:30 Urine Urobilinogen <2.0 mg/dL (<2.0) 08/24/17 15:30 Ur Leukocyte Esterase Negative (Negative) 08/24/17 15:30 Urine RBC 21 /hpf (0-5) H 08/24/17 15:30 Urine WBC 2 /hpf (0-5) 08/24/17 15:30 Amorphous Sediment Few /hpf (None) H 08/19/17 16:04 Urine Bacteria Rare /hpf (None) H 08/24/17 15:30 Hyaline Casts 9 /lpf (0-2) H 08/19/17 16:04 Granular Casts 8 /lpf (0) 08/19/17 16:04 Urine Mucus Rare /hpf (None) H 08/24/17 15:30 Ur Random Creatinine 30.3 mg/dL 08/23/17 18:30 Ur Random Sodium 88 mmol/L (30-90) 08/23/17 18:30 Random Vancomycin 14.4 ug/mL 08/23/17 05:38 Urine Opiates Screen Detected (NotDetected) H 08/19/17 16:04 Ur Oxycodone Screen Not Detected (NotDetected) 08/19/17 16:04 Urine Methadone Screen Not Detected (NotDetected) 08/19/17 16:04 Ur Propoxyphene Screen Not Detected (NotDetected) 08/19/17 16:04 Ur Barbiturates Screen Not Detected (NotDetected) 08/19/17 16:04 U Tricyclic Antidepress Not Detected (NotDetected) 08/19/17 16:04 Ur Phencyclidine Scrn Not Detected (NotDetected) 08/19/17 16:04 Ur Amphetamines Screen Not Detected (NotDetected) 08/19/17 16:04 U Methamphetamines Scrn Not Detected (NotDetected) 08/19/17 16:04 U Benzodiazepines Scrn Detected (NotDetected) H 08/19/17 16:04 Urine Cocaine Screen Not Detected (NotDetected) 08/19/17 16:04 U Marijuana (THC) Screen Detected (NotDetected) H 08/19/17 16:04 Serum Alcohol <10 mg/dL 08/19/17 15:16 C. difficile (EIA) Intrp Negative (Negative) 08/20/17 10:04 HSV I DNA PCR Not detected (Not detected) 08/20/17 06:43 HSV II DNA PCR Not detected (Not detected) 08/20/17 06:43 HSV (PCR) Source Blood - Plasma 08/20/17 06:43 Influenza Type A RNA Not Detected (Not Detectd) 08/20/17 12:05 Influenza Type B (PCR) Not Detected (Not Detectd) 08/20/17 12:05 Microbiology 08/24/17 16:04 Blood Blood Culture - Preliminary No Growth after 48 hours 08/26/17 01:10 Urine,Catheterized Urine Culture - Preliminary 08/24/17 15:30 Urine,Catheterized Urine Culture - Final 08/19/17 15:16 Blood Blood Culture - Final No Growth after 144 hours 08/19/17 16:04 Urine,Catheterized Urine Culture - Final Assessment and Plan (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 Patient also had a seizure while on the CAT scan unit possibly related to sepsis. Patient has had falls recently at home no obvious injuries noted. He also has had diarrhea for 3 days at home. We will check amylase and lipase and C. difficile toxin influenza testing will be done a patient will be started on ceftriaxone 2 g every 12 hours and vancomycin, acyclovir 10 mg/kg every 8 hours. Serum HSV 1 and 2 by PCR will be ordered. Continue IV Tylenol. Blood cultures are status received. Continue supportive care. 08/21/2017 the patient is more awake and alert today. He is able to answer some simple questions. The appropriateness of his answers is certainly questionable. Toward the end of the exam he tries to exit out of the bed and try to stand catching his Mcfarlane catheter in his leg. He is redirected that he has a Mcfarlane in and stops. And lays back down. It is noted there is evidence of his altered mental status At this point in time it is appearing more likely be an encephalitis. Unfortunately lumbar puncture could not be performed and CSF PCR for HSV 1 and 2 could not be performed. The serum PCR that was negative but does not exclude the possibility of viral encephalitis. The patient's fever and leukocytosis are rapidly improving. He has no meningismus and has no other new acute neurological difficulties. It is unlikely that he has meningitis if his blood cultures are negative tomorrow and consider discontinuation of his antibiotic therapy. Continue his antiviral therapy. Case is discussed with the hospitalist and likely will complete her course of acyclovir therapy. 08/25/2017 reveals the patient to have no further improvement. The patient is now greater than 5 days off of his Plavix and will arrange for lumbar puncture for radiology for routine studies as well as viral assessment including HSV-1/ HSV 2, VDRL, West Nile. The patient's behavior is quite quiet today because he received some antipsychotic therapy. Regretfully he is still very poorly functional. In that only herpes encephalitis is treatable we'll continue the intravenous acyclovir at this point in time. The patient didn't have evidence of some acute renal failure that appears to be multifactorial, the acyclovir dose has been adjusted. Patient did have a fever and Zosyn was added pending some further cultures. 08/26/2017 patient is having some improvement of his acute renal failure. Continues to be treated for acute herpetic encephalitis. Lumbar puncture requested however apparently has received further doses of Plavix which will further delay lumbar puncture. Consequently will not be able to discontinue acyclovir at this time is to complete the full course for HSV encephalitis. If possible lumbar puncture is still an ideal test given his significant neurological disease. Had a mild skin rash which is improving with just local care. Current Visit: Yes Status: Acute Code(s): B00.4 - HERPESVIRAL ENCEPHALITIS SNOMED Code(s): 900617986 (2) Sepsis Current Visit: Yes Status: Acute Code(s): A41.9 - SEPSIS, UNSPECIFIED ORGANISM SNOMED Code(s): 01997195 (3) Seizure Current Visit: Yes Status: Acute Code(s): R56.9 - UNSPECIFIED CONVULSIONS SNOMED Code(s): 18353004
[2017-08-27] MEDS ORDERED: NITROGLYCERIN SL TABS 0.4 MG TAB SUBLINGUAL ONE (00:34)
[2017-08-27] MEDS: DEXTROSE 5% IN WATER 1,000 ML with POTASSIUM CHLORIDE 40 MEQ IV SCH ×3 (07:16→22:00)
[2017-08-27] MEDS: ACYCLOVIR SODIUM 500 MG in SODIUM CHLORIDE 0.9% 100 ML IVPB SCH (07:17)
[2017-08-27] MEDS: NICOTINE 21MG/24HR PATCH TRANSDERM SCH (07:18)
[2017-08-27] MEDS: CLOPIDOGREL 75 MG TAB PO SCH (07:23)
[2017-08-27] MEDS: ASPIRIN 325 MG TAB PO SCH (07:24)
[2017-08-27] MEDS: DIAZEPAM 2 MG TAB PO SCH ×2 (07:34→20:51)
[2017-08-27] MEDS: FAMOTIDINE 20 MG TAB PO SCH (07:35)
[2017-08-27] MEDS: TAMSULOSIN 0.4 MG CAP.ER.24H PO SCH (07:35)
[2017-08-27] MEDS: NYSTATIN 100,000 UNIT/ML SUSP 500,000 UNIT/5 ML CUP PO SCH ×4 (07:35→20:51)
[2017-08-27] MEDS: PRAMIPEXOLE 0.5 MG TAB PO SCH ×3 (07:35→20:51)
[2017-08-27] MEDS: DULoxetine HCL 30 MG CAPSULE.DR PO SCH (07:35)
[2017-08-27] MEDS: hydrALAZINE HCL 25 MG TAB PO SCH ×2 (07:35→20:51)
[2017-08-27] MEDS: amLODIPine 5 MG TAB PO SCH (07:35)
[2017-08-27 08:10] LABS: Basophils # (A) 0.1 k/uL (0-0.2); Basophils % (A) 1 %; Eosinophils # (A) 0.2 k/uL (0-0.7); Eosinophils % (A) 2 %; HCT 38.6 % (39.0-53.0); HGB 13.5 gm/dL (13.0-17.5); Lymphocytes # (A) 1.8 k/uL (1.0-4.8); Lymphocytes % (A) 17 %; MCH 29.2 pg (25.0-35.0); MCV 83.5 fL (80.0-100.0); Mean Platelet Volume 7.2; Monocytes # (A) 0.5 k/uL (0-1.0); Monocytes % (A) 5 %; Neutrophils # (A) 7.7 k/uL (1.3-7.7); Neutrophils % (A) 72 %; Platelet Count 245 k/uL (150-450); RBC 4.62 m/uL (4.30-5.90); RDW 14.4 % (11.5-15.5); WBC 10.6 k/uL (3.8-10.6)
[2017-08-27 08:44] LABS: Albumin 3.5 g/dL (3.5-5.0); Calcium 8.9 mg/dL (8.4-10.2); Magnesium 1.7 mg/dL (1.6-2.3); Potassium 4.5 mmol/L (3.5-5.1); Total Bilirubin 0.8 mg/dL (0.2-1.3); Total Protein 6.2 g/dL (6.3-8.2)
[2017-08-27] MEDS: PIPERACILLIN-TAZOBACTAM 3.375 GM in DEXTROSE/WATER 1 50ML.BAG IVPB SCH ×3 (09:17→23:40)
[2017-08-27] MEDS: METOPROLOL TARTRATE 25 MG TAB PO SCH ×2 (10:03→20:50)
[2017-08-27] MEDS: CYANOCOBALAMIN-FA-PYRIDOXINE 1 EACH TAB PO SCH (12:12)
--- NOTE | 2017-08-27 17:40 | P.PN ---
Subjective Progress Note Date: 08/27/17 Principal diagnosis: Progress note being dictated for Dr. Casanova. Interval history:67-year-old admitted is being treated for HSV encephalitis, apparently his hallucinations are worse kidney function has gone up from 0.9 couple days ago to 2.5 ketorolac will be discontinued patient is on diazepam is apparently requiring diazepam. Urine random sodium and urine random creatinine will be obtained patient is having good urine output and clear urine. Patient is not feeling well because of increasing hallucinations and on and off confusion, when I evaluated his alert oriented 3. 08/24/2017 Patient is more agitated more confused patient is alert oriented time almost 0 today. Patient is receiving Haldol and Seroquel on as-needed basis for agitation. Urine output appears to be okay nephrology evaluated the patient. And he is receiving 0.45 half-normal saline Constitutional: Denied any fatigue denied any fever. Cardio vascular: denied any chest pain, palpitations Gastrointestinal denied any nausea vomiting Pulmonary: Denied any shortness of breath cough Neurologic denied any new focal deficits 08/25 resting comfortably, no family at bedside. Evaluated by psychiatry with recommendations noted including Restoril and Seroquel discontinued. Afebrile, T-max 101.4. WBC13.9. Chest x-ray reporting no acute cardiopulmonary process, pulmonary hyperinflation. Initial urine and blood cultures negative. Repeat urine and blood cultures in progress. Sodium, creatinine, chloride trending up, maintained on D5W as per nephrology. K3.2. 08/26/2017 much more alert today. Alert and oriented to person and time, disoriented to place, but he was at home. Conversing. Denies chest pain, palpitations or increasing shortness of breath. Denies pain. Staff reported patient not moving left upper extremity; patient currently moving left upper extremity with strong field artillery cannoneer. Maintained on IV antibiotics and antivirals. Afebrile. Continues on D5W with sodium and renal function improving. No seizure activity reported. 08/27/2017 aspirin and Plavix remain on hold, spinal tap pending. Maintained on IV antibiotics. More alert today, and on 3, moves all extremities. Renal function and sodium continued to improve. Objective - Vital Signs Vital signs: Vital Signs Temp 97.7 F 08/27/17 15:00 Pulse 60 08/27/17 15:00 Resp 16 08/27/17 15:00 BP 163/90 08/27/17 15:00 Pulse Ox 99 08/27/17 15:00 Intake & Output 08/26/17 08/27/17 08/27/17 18:59 06:59 18:59 Intake Total 2009 1290 3690 Output Total 7400 1100 700 Balance -5390 190 2990 Weight 51.5 kg Intake: IV 50 Piperacillin-Tazobactam 3 50 .375 gm In Dextrose/Water 1 50ml.bag @ 12.5 mls/hr IVPB Q8HR [facility] Rx#: [id number] Intake, IV Titration 950 900 950 Amount Acyclovir Sodium 500 mg 100 100 In Sodium Chloride 0.9% 100 ml @ 100 mls/hr IVPB DAILY [facility] Rx#:[id number] Dextrose 5% in Water 1, 800 900 800 000 ml @ 100 mls/hr IV . [id number] LYDIA with Potassium Chloride 40 meq Rx#:[id number] Piperacillin-Tazobactam 3 50 50 .375 gm In Dextrose/Water 1 50ml.bag @ 12.5 mls/hr IVPB Q8HR [facility] Rx#: [id number] Oral 7635 192 5609 Output: Urine 7400 1100 700 Uretheral ([place]) 3800 1100 Other: Voiding Method Indwelling Catheter Indwelling Catheter Indwelling Catheter # Voids 1 # Bowel Movements 1 - Exam GENERAL: The patient is alert and oriented x3, sitting up in bed, no acute distress. Sleepy, arousable. HEENT: Pupils are round and equally reacting to light. EOMI. No scleral icterus. No conjunctival pallor. CARDIOVASCULAR: S1 and S2 present. No murmurs, rubs, or gallops. PULMONARY: Chest is clear to auscultation, no wheezing or crackles. Occasional scattered rhonchi ABDOMEN: Soft, nontender, nondistended, normoactive bowel sounds. No palpable organomegaly. MUSCULOSKELETAL: No joint swelling or deformity. EXTREMITIES: No cyanosis, clubbing, or pedal edema. NEUROLOGICAL: Gross neurological examination did not reveal any focal deficits. Moving all 4 extremities. Strength and sensation grossly intact. Microbiology 08/26/17 01:10 Urine,Catheterized Urine Culture - Final 08/24/17 16:04 Blood Blood Culture - Preliminary No Growth after 48 hours 08/24/17 15:30 Urine,Catheterized Urine Culture - Final 08/19/17 15:16 Blood Blood Culture - Final No Growth after 144 hours 08/19/17 16:04 Urine,Catheterized Urine Culture - Final - Labs CBC & Chem 7: 08/27/17 07:22 08/27/17 07:22 Labs: Abnormal Lab Results - Last 24 Hours (Table) 08/27/17 08/27/17 Range/Units 07:22 07:22 Hct 38.6 L (39.0-53.0) % Sodium 147 H (137-145) mmol/L Chloride 113 H (98-107) mmol/L Creatinine 2.15 H (0.66-1.25) mg/dL Glucose 106 H (74-99) mg/dL Total Protein 6.2 L (6.3-8.2) g/dL Microbiology - Last 24 Hours (Table) 08/26/17 01:10 Urine Culture - Final Urine,Catheterized 08/24/17 16:04 Blood Culture - Preliminary Blood No Growth after 48 hours Assessment and Plan Assessment: -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 -Hallucinations, agitation delirium probably related to encephalitis with contribution from worsening renal function and metabolic encephalopathy. -Acute renal failure: Related to nonsteroidal anti-inflam. -Seizures: Secondary to encephalitis. -Hyperlipidemia -Benign prostatic hypertrophy -Restless leg syndrome. -Hyponatremia -Hyperchloridemia -Oral candidiasis Plan: Continue on current medication regime ,monitoring and symptomatic treatment. Lumbar puncture as per infectious disease. Maintain IV antibiotics/ antivirals as per infectious disease. Close monitoring of cultures. sodium, renal function, chloride. Close monitoring of electrolytes, renal function with repeat labs ordered for a.m. maintain seizure precautions. The impression and plan of care has been dictated as directed. : I performed a history and examination of this patient, discussed the same with the dictator. I agree with the dictator's note ,documented as a scribe. Any additional findings or plans will be noted.
[2017-08-27] MEDS: ATORVASTATIN 80 MG TAB PO SCH (20:50)
--- NOTE | 2017-08-27 21:45 | PN ---
PROGRESS NOTE Patient was seen for followup this morning. He has been seen for acute renal injury and hypernatremia. Patient is maintained on IV fluids. Renal function has been improving. Mentation appears to have improved as well. On examination, blood pressure this morning was 179/97, heart rate of about 60 per minute. Patient is afebrile. EXAMINATION OF THE HEART: S1, S2. EXAMINATION OF LUNGS: Bilateral breath sounds are heard. ABDOMEN: Soft, non-tender. Examination of lower extremities shows no evidence of edema. REPORTING MANAGER exam shows patient moving all 4 extremities. Labs show sodium 147, potassium 4.5, BUN 12, serum creatinine 2.15. ASSESSMENT: 1. Acute kidney injury secondary to contrast nephropathy, currently doing well. Patient also had NSAIDs, which are now discontinued. He is maintained on IV fluids and renal function is improving. 2. Possible HSV encephalitis, maintained on acyclovir. 3. Seizures, currently not on any medications, possibly related to encephalitis. 4. Restless legs syndrome. PLAN: Continue D5W. Continue to avoid nephrotoxic agents. MMODL / IJN: [id number] /
[2017-08-28] MEDS: ACYCLOVIR SODIUM 500 MG in SODIUM CHLORIDE 0.9% 100 ML IVPB SCH ×2 (07:13→21:35)
[2017-08-28 07:32] LABS: Basophils # (A) 0.1 k/uL (0-0.2); Basophils % (A) 1 %; Eosinophils # (A) 0.3 k/uL (0-0.7); Eosinophils % (A) 3 %; HGB 13.5 gm/dL (13.0-17.5); Lymphocytes # (A) 2.1 k/uL (1.0-4.8); Lymphocytes % (A) 23 %; MCH 29.2 pg (25.0-35.0); MCHC 34.7 g/dL (31.0-37.0); MCV 84.2 fL (80.0-100.0); Mean Platelet Volume 7.1; Monocytes # (A) 0.6 k/uL (0-1.0); Monocytes % (A) 7 %; Neutrophils # (A) 5.4 k/uL (1.3-7.7); Neutrophils % (A) 62 %; Platelet Count 258 k/uL (150-450); RBC 4.63 m/uL (4.30-5.90); RDW 15.1 % (11.5-15.5); WBC 8.8 k/uL (3.8-10.6)
[2017-08-28] MEDS: NICOTINE 21MG/24HR PATCH TRANSDERM SCH (07:33)
[2017-08-28] MEDS: PRAMIPEXOLE 0.5 MG TAB PO SCH ×3 (07:33→21:37)
[2017-08-28] MEDS: METOPROLOL TARTRATE 25 MG TAB PO SCH ×2 (07:33→21:36)
[2017-08-28] MEDS: hydrALAZINE HCL 25 MG TAB PO SCH ×2 (07:34→21:36)
[2017-08-28] MEDS: DULoxetine HCL 30 MG CAPSULE.DR PO SCH (07:34)
[2017-08-28] MEDS: FAMOTIDINE 20 MG TAB PO SCH (07:34)
[2017-08-28] MEDS: ASPIRIN 325 MG TAB PO SCH (07:34)
[2017-08-28] MEDS: amLODIPine 5 MG TAB PO SCH (07:34)
[2017-08-28] MEDS: DIAZEPAM 2 MG TAB PO SCH ×2 (07:34→21:35)
[2017-08-28] MEDS: CLOPIDOGREL 75 MG TAB PO SCH (07:34)
[2017-08-28 08:01] LABS: Calcium 8.8 mg/dL (8.4-10.2); Potassium 4.3 mmol/L (3.5-5.1)
[2017-08-28] MEDS: PIPERACILLIN-TAZOBACTAM 3.375 GM in DEXTROSE/WATER 1 50ML.BAG IVPB SCH ×2 (08:39→17:04)
[2017-08-28] MEDS: NYSTATIN 100,000 UNIT/ML SUSP 500,000 UNIT/5 ML CUP PO SCH ×4 (08:39→22:22)
[2017-08-28] MEDS: TAMSULOSIN 0.4 MG CAP.ER.24H PO SCH (08:40)
[2017-08-28] MEDS: CYANOCOBALAMIN-FA-PYRIDOXINE 1 EACH TAB PO SCH (12:25)
--- NOTE | 2017-08-28 20:43 | PN ---
PROGRESS NOTE DATE OF SERVICE: August 28, 2017. PRESENT COMPLAINT: Tired. INTERVAL HISTORY: The patient presented with suspected HSV encephalitis. Lumbar puncture could not be done because of Plavix. The patient then had contrast induced nephropathy with acute renal failure and patient became delirious. Also felt to have seizures. Today the patient is doing better. Did tolerate some diet, actually walked a bit with assistance and altered sensorium has been clearing up according to the nurse compared to yesterday. REVIEW OF SYSTEMS: Done for constitutional, cardiovascular, GI, pulmonary, neuro, relevant findings as above. CURRENT MEDICATIONS: Reviewed that include IV acyclovir, Plavix, D5W, Valium 1 mg twice a day, Cymbalta 30 mg p.o. daily, Lopressor, IV Zosyn, Mirapex, Flomax. PHYSICAL EXAMINATION: Temperature 98.3, pulse 60, respiratory 18, blood pressure 161/ 80. GENERAL APPEARANCE: Lying in bed, awake, smiling. Eyes pupils are equal, conjunctivae normal. HEENT: External appearance of nose and ears normal. Oral cavity normal. Neck: JVD not raised. Mass not palpable. Respiratory effort: Lungs decreased breath sounds. Cardiovascular: 1st and 2nd sounds normal. No edema. ABDOMEN: Soft, nontender. Liver and spleen not palpable. Psychiatry: Alert and orient x3. Mood and affect the patient is smiling. Neurological: Moving all 4 limbs. Following commands. INVESTIGATIONS: White count 8.8, hemoglobin 13.5, potassium 4.3, BUN 13, creatinine 1.84. ASSESSMENT: 1. 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 Getting IV acyclovir. 2. Essential hypertension. 3. Primary osteoarthritis multiple joints. 4. Benign prostatic hypertrophy. 5. Peripheral artery disease. 6. Permanent pacemaker. 7. Depression, not otherwise specified. 8. Chronic obstructive pulmonary disease. 9. Chronic nicotine dependence. Patient is an active cigarette smoker. 10.Anxiety disorder, unspecified. 11.Restless legs syndrome, better controlled with Mirapex. 12.Acute delirium multifactorial. 13.Acute kidney injury, nonoliguric secondary to contrast nephropathy/element of ATN, improving. 14.Epilepsy disorder. PLAN: PT/OT is already on the case. We will DC the Valium after today's dose. Continue on IV acyclovir. Keep the patient on IV fluids. We will check the patient's calcium, magnesium, phosphorus in the morning. MMODL / IJN: [id number] /
[2017-08-28] MEDS: ATORVASTATIN 80 MG TAB PO SCH (21:36)
[2017-08-28] MEDS: DEXTROSE 5% IN WATER 1,000 ML with POTASSIUM CHLORIDE 40 MEQ IV SCH (22:22)
--- NOTE | 2017-08-28 23:35 | P.PN ---
Subjective Progress Note Date: 08/28/17 Principal diagnosis: 67 Year old male patient who has history of hepatitis C as well as previous stroke on Plavix. The patient is seen in the emergency center. Patient states he has had diarrhea for the past 3 days and complains of abdominal pain he had. He has also had several falls over the last couple of days when he has an abrasion to the left lower leg and complains of increased lumbar pain. He states he always has back pain and he smokes marijuana for this. Patient is an active smoker. According to the ER documentation, patient was found by his son on the floor unresponsive and incontinent of urine and not using his left arm with a left lateral gaze. He was evaluated for stroke and not a candidate for TPA as he was last seen in the morning at 7:30 and was acting normal at that time. CAT scan of the brain showed age-related atrophy and chronic small vessel ischemic change. CTA of head and neck revealed 75% stenosis of the proximal left internal carotid artery. Artifact in the left carotid artery bifurcation. Diminutive left vertebral artery. No subclavian steal. No intracranial abnormality. EKG was a sinus rhythm. Her temperature max is been 102.6 with elevated heart rate and blood pressure elevated with leukocytosis of 20.3. Patient was given ceftriaxone 1 dose. Blood culture was obtained. Urinalysis was cloudy with bacteria rare. INR 1.5. Lactic acid initially 8.6 and repeated 1.2. Patient is unable to undergo LP due to Plavix. Patient appears to be sleeping and is minimally arousable to verbal stimuli. He will answer a few questions but does not open his eyes, set up, make eye contact but he is able to answer simple questions correctly regarding orientation. Patient denies having any shortness of breath. On note that patient had a 3 second tonic-clonic seizure-like activity while in CAT scan. He was given Ativan and there is a consult in place with Dr. Abel. 08/21/2017 patient is more cognizant. He is wondering when he'll be able to go home. He is less agitated. He is able to form sentences. He is moving easily in the bed. Is trying to get up. Does not easily understand he has a Mcfarlane catheter in place. But he is easily quieted. He does not complain of much discomfort. 08/25/2017 patient is awake occasionally is able to answer question. In general just has a quiet nature, has received Haldol earlier in the day. His related over the weekend his behavior worsened and consequently antipsychotic therapy was started. 08/26/2017 patient is actually a bit more calm today than he has been. Was able to answer simple questions without difficulty. However still remains with disorientation is not able to relate that he is in hospital. Denies discomforts 08/28/2017 reveals the patient be much more improved. He is easily arousable upon arrival. He knows his name without difficulties. He is able to relate that his [facility]. He knows it is not at home. The Pres. is Paul Mcgregor, in the year is 2018. This is a significant improvement of the mental status. He was having some left-sided weakness that is now resolved and is feeling better overall. He is eating considerably better and has no other new acute complaints but has chronic lower back pain that is not new. Objective - Vital Signs Vital signs: Vital Signs Temp 97.7 F 08/28/17 23:00 Pulse 55 L 08/28/17 23:00 Resp 16 08/28/17 23:00 BP 167/95 08/28/17 23:00 Pulse Ox 96 08/28/17 23:00 Intake & Output 08/28/17 08/28/17 08/29/17 06:59 18:59 06:59 Intake Total 750 200 Output Total 2100 1175 Balance -7920 972 Intake: IV 50 Piperacillin-Tazobactam 3 50 .375 gm In Dextrose/Water 1 50ml.bag @ 12.5 mls/hr IVPB Q8HR LYDIA Rx#: [id number] Intake, IV Titration 500 150 Amount Acyclovir Sodium 500 mg 100 In Sodium Chloride 0.9% 100 ml @ 100 mls/hr IVPB DAILY LYDIA Rx#:[id number] Dextrose 5% in Water 1, 500 000 ml @ 100 mls/hr IV . [id number] LYDIA with Potassium Chloride 40 meq Rx#:[id number] Piperacillin-Tazobactam 3 50 .375 gm In Dextrose/Water 1 50ml.bag @ 12.5 mls/hr IVPB Q8HR LYDIA Rx#: [id number] Oral 250 Output: Urine 2100 1175 Uretheral (Mcfarlane) 2100 775 Other: Voiding Method Indwelling Catheter # Bowel Movements 1 - Exam Gen: This is a 67-year-old thin male. Patient is laying comfortably No respiratory distress noted. HEENT: Head is atraumatic, normocephalic. Pupils equal, round. Sclerae is anicteric. Conjunctiva pink. Mucous members of the mouth are dry. No thrush noted. NECK: Supple. No JVD. No lymphadenopathy. No thyromegaly. no menigsmus LUNGS: Scattered rhonchi. No intercostal retractions. HEART: Regular rate and rhythm. No murmur. ABDOMEN: Soft. Bowel sounds are present. No masses. Generalized tenderness. EXTREMITIES: Extremities are thin with muscle wasting noted. No pedal edema. No calf tenderness. Dorsalis pedis +1 bilaterally. Patient has an abrasion to the back of his left ankle. No significant redness erythema. NEUROLOGICAL: The patient is awake and arousable. As noted he is awake alert oriented person place and time. There are no gross focal sensory motor deficits although he does have some generalized weakness there is no focality to the exam. His mental status is markedly improved. - Labs CBC & Chem 7: 08/28/17 07:08 08/28/17 07:08 Labs: Abnormal Lab Results - Last 24 Hours (Table) 08/28/17 Range/Units 07:08 Chloride 112 H (98-107) mmol/L Carbon Dioxide 20 L (22-30) mmol/L Creatinine 1.84 H (0.66-1.25) mg/dL Glucose 101 H (74-99) mg/dL Microbiology - Last 24 Hours (Table) 08/24/17 16:04 Blood Culture - Preliminary Blood No Growth after 96 hours Laboratory Results WBC 8.8 k/uL (3.8-10.6) 08/28/17 07:08 RBC 4.63 m/uL (4.30-5.90) 08/28/17 07:08 Hgb 13.5 gm/dL (13.0-17.5) 08/28/17 07:08 Hct 39.0 % (39.0-53.0) 08/28/17 07:08 MCV 84.2 fL (80.0-100.0) 08/28/17 07:08 MCH 29.2 pg (25.0-35.0) 08/28/17 07:08 MCHC 34.7 g/dL (31.0-37.0) 08/28/17 07:08 RDW 15.1 % (11.5-15.5) 08/28/17 07:08 Plt Count 258 k/uL (150-450) 08/28/17 07:08 Neutrophils % 62 % 08/28/17 07:08 Lymphocytes % 23 % 08/28/17 07:08 Monocytes % 7 % 08/28/17 07:08 Eosinophils % 3 % 08/28/17 07:08 Basophils % 1 % 08/28/17 07:08 Neutrophils # 5.4 k/uL (1.3-7.7) 08/28/17 07:08 Lymphocytes # 2.1 k/uL (1.0-4.8) 08/28/17 07:08 Monocytes # 0.6 k/uL (0-1.0) 08/28/17 07:08 Eosinophils # 0.3 k/uL (0-0.7) 08/28/17 07:08 Basophils # 0.1 k/uL (0-0.2) 08/28/17 07:08 PT 13.6 sec (9.0-12.0) H 08/19/17 15:16 INR 1.5 (<1.2) H 08/19/17 15:16 APTT 20.7 sec (22.0-30.0) L 08/19/17 15:16 Sodium 144 mmol/L (137-145) 08/28/17 07:08 Potassium 4.3 mmol/L (3.5-5.1) 08/28/17 07:08 Chloride 112 mmol/L (98-107) H 08/28/17 07:08 Carbon Dioxide 20 mmol/L (22-30) L 08/28/17 07:08 Anion Gap 12 mmol/L 08/28/17 07:08 BUN 13 mg/dL (9-20) 08/28/17 07:08 Creatinine 1.84 mg/dL (0.66-1.25) H 08/28/17 07:08 Est GFR (CKD-EPI)AfAm 44 (>60 ml/min/1.73 sqM) 08/28/17 07:08 Est GFR (CKD-EPI)NonAf 38 (>60 ml/min/1.73 sqM) 08/28/17 07:08 Glucose 101 mg/dL (74-99) H 08/28/17 07:08 POC Glucose (mg/dL) 94 mg/dL (75-99) 08/22/17 04:08 POC Glu Skein Bleacher ID [place] Carnes A 08/22/17 04:[address] Glu mg/dL 117 08/19/17 19:17 Hemoglobin A1c 5.7 % (4.0-6.0) 08/19/17 19:17 Lactic Ac Sepsis Rflx Y 08/19/17 15:48 Plasma Lactic Acid [place] 1.2 mmol/L (0.7-2.0) 08/19/17 19:17 Calcium 8.8 mg/dL (8.4-10.2) 08/28/17 07:08 Magnesium 1.7 mg/dL (1.6-2.3) 08/27/17 07:22 Total Bilirubin 0.8 mg/dL (0.2-1.3) 08/27/17 07:22 AST 22 U/L (17-59) 08/27/17 07:22 ALT 24 U/L (21-72) 08/27/17 07:22 Alkaline Phosphatase 53 U/L (38-126) 08/27/17 07:22 Ammonia <9 umol/L (<30) 08/19/17 15:16 Total Creatine Kinase 247 U/L (55-170) H 08/19/17 15:16 CK-MB (CK-2) 2.6 ng/mL (0.0-2.4) H* 08/19/17 15:16 CK-MB (CK-2) Rel Index 1.1 08/19/17 15:16 Troponin I <0.012 ng/mL (0.000-0.034) 08/19/17 15:16 Total Protein 6.2 g/dL (6.3-8.2) L 08/27/17 07:22 Albumin 3.5 g/dL (3.5-5.0) 08/27/17 07:22 Triglycerides 131 mg/dL (<150) 08/20/17 06:43 Cholesterol 136 mg/dL (<200) 08/20/17 06:43 LDL Cholesterol, Calc 71 mg/dL (0-99) 08/20/17 06:43 HDL Cholesterol 39 mg/dL (40-60) L 08/20/17 06:43 Amylase 62 U/L (30-110) 08/20/17 06:43 Lipase 201 U/L (23-300) 08/20/17 06:43 Homocysteine 21.68 umol/L (4.00-14.00) H 08/22/17 05:51 Urine Color Colorless 08/24/17 15:30 Urine Appearance Clear (Clear) 08/24/17 15:30 Urine pH 5.5 (5.0-8.0) 08/24/17 15:30 Ur Specific [place] 1.006 (1.001-1.035) 08/24/17 15:30 Urine Protein Trace (Negative) H 08/24/17 15:30 Urine Glucose (UA) Negative (Negative) 08/24/17 15:30 Urine Ketones Negative (Negative) 08/24/17 15:30 Urine Blood Small (Negative) H 08/24/17 15:30 Urine Nitrite Negative (Negative) 08/24/17 15:30 Urine Bilirubin Negative (Negative) 08/24/17 15:30 Urine Urobilinogen <2.0 mg/dL (<2.0) 08/24/17 15:30 Ur Leukocyte Esterase Negative (Negative) 08/24/17 15:30 Urine RBC 21 /hpf (0-5) H 08/24/17 15:30 Urine WBC 2 /hpf (0-5) 08/24/17 15:30 Amorphous Sediment Few /hpf (None) H 08/19/17 16:04 Urine Bacteria Rare /hpf (None) H 08/24/17 15:30 Hyaline Casts 9 /lpf (0-2) H 08/19/17 16:04 Granular Casts 8 /lpf (0) 08/19/17 16:04 Urine Mucus Rare /hpf (None) H 08/24/17 15:30 Ur Random Creatinine 30.3 mg/dL 08/23/17 18:30 Ur Random Sodium 88 mmol/L (30-90) 08/23/17 18:30 Random Vancomycin 14.4 ug/mL 08/23/17 05:38 Urine Opiates Screen Detected (NotDetected) H 08/19/17 16:04 Ur Oxycodone Screen Not Detected (NotDetected) 08/19/17 16:04 Urine Methadone Screen Not Detected (NotDetected) 08/19/17 16:04 Ur Propoxyphene Screen Not Detected (NotDetected) 08/19/17 16:04 Ur Barbiturates Screen Not Detected (NotDetected) 08/19/17 16:04 U Tricyclic Antidepress Not Detected (NotDetected) 08/19/17 16:04 Ur Phencyclidine Scrn Not Detected (NotDetected) 08/19/17 16:04 Ur Amphetamines Screen Not Detected (NotDetected) 08/19/17 16:04 U Methamphetamines Scrn Not Detected (NotDetected) 08/19/17 16:04 U Benzodiazepines Scrn Detected (NotDetected) H 08/19/17 16:04 Urine Cocaine Screen Not Detected (NotDetected) 08/19/17 16:04 U Marijuana (THC) Screen Detected (NotDetected) H 08/19/17 16:04 Serum Alcohol <10 mg/dL 08/19/17 15:16 C. difficile (EIA) Intrp Negative (Negative) 08/20/17 10:04 HSV I DNA PCR Not detected (Not detected) 08/20/17 06:43 HSV II DNA PCR Not detected (Not detected) 08/20/17 06:43 HSV (PCR) Source Blood - Plasma 08/20/17 06:43 Influenza Type A RNA Not Detected (Not Detectd) 08/20/17 12:05 Influenza Type B (PCR) Not Detected (Not Detectd) 08/20/17 12:05 Microbiology 08/24/17 16:04 Blood Blood Culture - Preliminary No Growth after 96 hours 08/26/17 01:10 Urine,Catheterized Urine Culture - Final 08/24/17 15:30 Urine,Catheterized Urine Culture - Final 08/19/17 15:16 Blood Blood Culture - Final No Growth after 144 hours 08/19/17 16:04 Urine,Catheterized Urine Culture - Final Assessment and Plan (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 Patient also had a seizure while on the CAT scan unit possibly related to sepsis. Patient has had falls recently at home no obvious injuries noted. He also has had diarrhea for 3 days at home. We will check amylase and lipase and C. difficile toxin influenza testing will be done a patient will be started on ceftriaxone 2 g every 12 hours and vancomycin, acyclovir 10 mg/kg every 8 hours. Serum HSV 1 and 2 by PCR will be ordered. Continue IV Tylenol. Blood cultures are status received. Continue supportive care. 08/21/2017 the patient is more awake and alert today. He is able to answer some simple questions. The appropriateness of his answers is certainly questionable. Toward the end of the exam he tries to exit out of the bed and try to stand catching his Mcfarlane catheter in his leg. He is redirected that he has a Mcfarlane in and stops. And lays back down. It is noted there is evidence of his altered mental status At this point in time it is appearing more likely be an encephalitis. Unfortunately lumbar puncture could not be performed and CSF PCR for HSV 1 and 2 could not be performed. The serum PCR that was negative but does not exclude the possibility of viral encephalitis. The patient's fever and leukocytosis are rapidly improving. He has no meningismus and has no other new acute neurological difficulties. It is unlikely that he has meningitis if his blood cultures are negative tomorrow and consider discontinuation of his antibiotic therapy. Continue his antiviral therapy. Case is discussed with the hospitalist and likely will complete her course of acyclovir therapy. 08/25/2017 reveals the patient to have no further improvement. The patient is now greater than 5 days off of his Plavix and will arrange for lumbar puncture for radiology for routine studies as well as viral assessment including HSV-1/ HSV 2, VDRL, West Nile. The patient's behavior is quite quiet today because he received some antipsychotic therapy. Regretfully he is still very poorly functional. In that only herpes encephalitis is treatable we'll continue the intravenous acyclovir at this point in time. The patient didn't have evidence of some acute renal failure that appears to be multifactorial, the acyclovir dose has been adjusted. Patient did have a fever and Zosyn was added pending some further cultures. 08/26/2017 patient is having some improvement of his acute renal failure. Continues to be treated for acute herpetic encephalitis. Lumbar puncture requested however apparently has received further doses of Plavix which will further delay lumbar puncture. Consequently will not be able to discontinue acyclovir at this time is to complete the full course for HSV encephalitis. If possible lumbar puncture is still an ideal test given his significant neurological disease. Had a mild skin rash which is improving with just local care. 08/28/2017 reveals the patient to have steady improvement of his status. It does appear that he is starting to recover from his encephalitis, at this time will assume is related to the acyclovir therapy and we will plan a 14 day course of therapy. This is discussed with the primary care hospitalist. Since lumbar puncture could not be performed and the patient has had a clinical improvement with complete the course of therapy of the encephalitis with acyclovir. Acute renal failure is improving. Current Visit: Yes Status: Acute Code(s): B00.4 - HERPESVIRAL ENCEPHALITIS SNOMED Code(s): 022918326 (2) Sepsis Current Visit: Yes Status: Acute Code(s): A41.9 - SEPSIS, UNSPECIFIED ORGANISM SNOMED Code(s): 34559934 (3) Seizure Current Visit: Yes Status: Acute Code(s): R56.9 - UNSPECIFIED CONVULSIONS SNOMED Code(s): 95790698
[2017-08-29] MEDS: PIPERACILLIN-TAZOBACTAM 3.375 GM in DEXTROSE/WATER 1 50ML.BAG IVPB SCH ×4 (00:23→23:38)
[2017-08-29] MEDS: DEXTROSE 5% IN WATER 1,000 ML with POTASSIUM CHLORIDE 40 MEQ IV SCH ×3 (05:21→23:52)
[2017-08-29 08:02] LABS: Basophils # (A) 0.1 k/uL (0-0.2); Basophils % (A) 0 %; Eosinophils # (A) 0.3 k/uL (0-0.7); Eosinophils % (A) 3 %; HCT 38.3 % (39.0-53.0); HGB 13.8 gm/dL (13.0-17.5); Lymphocytes # (A) 2.3 k/uL (1.0-4.8); Lymphocytes % (A) 21 %; MCH 29.8 pg (25.0-35.0); MCHC 35.9 g/dL (31.0-37.0); MCV 82.9 fL (80.0-100.0); Mean Platelet Volume 7.3; Monocytes # (A) 0.6 k/uL (0-1.0); Monocytes % (A) 5 %; Neutrophils # (A) 7.3 k/uL (1.3-7.7); Neutrophils % (A) 68 %; Platelet Count 257 k/uL (150-450); RBC 4.62 m/uL (4.30-5.90); RDW 15.4 % (11.5-15.5); WBC 10.8 k/uL (3.8-10.6)
[2017-08-29 08:03] LABS: Albumin 3.6 g/dL (3.5-5.0); Magnesium 1.7 mg/dL (1.6-2.3); Phosphorus 3.6 mg/dL (2.5-4.5); Potassium 4.4 mmol/L (3.5-5.1); Total Bilirubin 0.6 mg/dL (0.2-1.3); Total Protein 6.3 g/dL (6.3-8.2)
[2017-08-29] MEDS: ACYCLOVIR SODIUM 500 MG in SODIUM CHLORIDE 0.9% 100 ML IVPB SCH ×2 (08:22→21:09)
[2017-08-29] MEDS: NICOTINE 21MG/24HR PATCH TRANSDERM SCH (08:34)
[2017-08-29] MEDS: FAMOTIDINE 20 MG TAB PO SCH (08:34)
[2017-08-29] MEDS: ASPIRIN 81 MG PO SCH (09:14)
[2017-08-29] MEDS: METOPROLOL TARTRATE 25 MG TAB PO SCH ×2 (09:14→21:11)
[2017-08-29] MEDS: PRAMIPEXOLE 0.5 MG TAB PO SCH ×3 (09:14→21:10)
[2017-08-29] MEDS: DULoxetine HCL 30 MG CAPSULE.DR PO SCH (09:14)
[2017-08-29] MEDS: amLODIPine 5 MG TAB PO SCH ×2 (09:14→21:11)
[2017-08-29] MEDS: CLOPIDOGREL 75 MG TAB PO SCH (09:14)
[2017-08-29] MEDS: hydrALAZINE HCL 25 MG TAB PO SCH (09:14)
[2017-08-29] MEDS: TAMSULOSIN 0.4 MG CAP.ER.24H PO SCH (09:14)
[2017-08-29] MEDS: NYSTATIN 100,000 UNIT/ML SUSP 500,000 UNIT/5 ML CUP PO SCH ×4 (09:14→22:51)
--- NOTE | 2017-08-29 14:02 | PN ---
PROGRESS NOTE Patient is seen for followup for acute kidney injury. Renal function has been improving. Patient was also hypernatremia, currently maintained on D5W. He is being treated for possible HSV encephalitis. Mentation seems to have improved. PHYSICAL EXAMINATION: Blood pressure was 167/95, heart rate 55 per minute, patient is afebrile. Examination of the heart S1, S2. Examination off the lungs, bilateral breath sounds are heard. Abdomen is soft, nontender. Examination of the lower extremities shows no evidence of edema. [employer] exam is grossly intact. Patient is moving all 4 extremities. LABS: Show sodium of 143, potassium 4.4, serum creatinine 1.62, BUN 14. hemoglobin 13.8. ASSESSMENT: 1. Acute kidney injury secondary to contrast nephropathy, currently improving and doing well. Patient had also been on NSAIDs, which are now discontinued. He is maintained on IV fluids, mainly D5W for hypernatremia. 2. Possible HSV encephalitis. Patient was on acyclovir, the dose of which was decreased given the renal failure. 3. Restless legs syndrome. 4. Hypertension, currently uncontrolled. Increase hydralazine to 50 mg b.i.d. PLAN: Continue D5W. Increase hydralazine to 50 mg b.i.d.. MMODL / IJN: [id number] /
--- NOTE | 2017-08-29 16:26 | PN ---
PROGRESS NOTE DATE OF SERVICE: 08/29/17 PRESENTING COMPLAINT: Tired. INTERVAL HISTORY: The patient was admitted with suspected HSV encephalitis. Lumbar puncture could not be done because the patient being on Plavix. The patient also had contrast induced nephropathy with acute renal failure and patient became delirious. The patient also found to have seizures. The patient is tired this morning. Jayla is in the room. Overall patient doing better, communicating much better, though tired. REVIEW OF SYSTEMS: Done for constitutional, cardiovascular, GI, pulmonary and relevant findings as above. CURRENT MEDICATIONS: Reviewed that include IV acyclovir, IV Zosyn. PHYSICAL EXAMINATION: Temperature 97.8, pulse 81, respiratory 18, blood pressure 188/102, pulse ox 97% on room. General appearance: Sitting up, tired-appearing. Eyes: Pupils equal. Conjunctivae normal. HEENT external appearance of nose and ears normal. Oral cavity normal. Neck JVD not raised. Mass not palpable. Respiratory effort lungs decreased breath sounds. Cardiovascular: First and second sounds normal. No edema. ABDOMEN: Soft, nontender. Liver and spleen not palpable. Psychiatry: Answering questions though tired-appearing. Neurological: Moving all 4 limbs. Following commands. INVESTIGATIONS: White count 10.8, hemoglobin 13.8, potassium 4.4, BUN 14, creatinine 1.62. ASSESSMENT: 1. 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 Getting IV acyclovir. 2. Essential hypertension. 3. Primary osteoarthritis multiple joints. 4. Benign prostatic hypertrophy. 5. Peripheral artery disease. 6. Permanent pacemaker. 7. Depression, not otherwise specified. 8. Chronic obstructive pulmonary disease. 9. Chronic nicotine dependence, patient is an active cigarette smoker. 10.Anxiety disorder not specified. 11.Restless legs syndrome on Mirapex. 12.Acute delirium multifactorial with significant clinical improvement. 13.Acute kidney injury, nonoliguric secondary to contrast nephropathy element of acute tubular necrosis, improving. 14.Epilepsy disorder. PLAN: Overall the patient is doing better. Sodium has come down. I spoke to the nurse to get the patient up in a chair to feed him. Physical therapy is working to have a lengthy talk with the patient's Jayla. Questions were answered. We will keep the patient on IV fluids for right now. MMODL / IJN: [id number] /
[2017-08-29] MEDS: CYANOCOBALAMIN-FA-PYRIDOXINE 1 EACH TAB PO SCH (18:12)
[2017-08-29] MEDS: ATORVASTATIN 80 MG TAB PO SCH (21:10)
[2017-08-29] MEDS: hydrALAZINE HCL 50 MG TAB PO SCH (21:10)
--- NOTE | 2017-08-29 23:31 | P.PN ---
Subjective Progress Note Date: 08/29/17 Principal diagnosis: 67 Year old male patient who has history of hepatitis C as well as previous stroke on Plavix. The patient is seen in the emergency center. Patient states he has had diarrhea for the past 3 days and complains of abdominal pain he had. He has also had several falls over the last couple of days when he has an abrasion to the left lower leg and complains of increased lumbar pain. He states he always has back pain and he smokes marijuana for this. Patient is an active smoker. According to the ER documentation, patient was found by his son on the floor unresponsive and incontinent of urine and not using his left arm with a left lateral gaze. He was evaluated for stroke and not a candidate for TPA as he was last seen in the morning at 7:30 and was acting normal at that time. CAT scan of the brain showed age-related atrophy and chronic small vessel ischemic change. CTA of head and neck revealed 75% stenosis of the proximal left internal carotid artery. Artifact in the left carotid artery bifurcation. Diminutive left vertebral artery. No subclavian steal. No intracranial abnormality. EKG was a sinus rhythm. Her temperature max is been 102.6 with elevated heart rate and blood pressure elevated with leukocytosis of 20.3. Patient was given ceftriaxone 1 dose. Blood culture was obtained. Urinalysis was cloudy with bacteria rare. INR 1.5. Lactic acid initially 8.6 and repeated 1.2. Patient is unable to undergo LP due to Plavix. Patient appears to be sleeping and is minimally arousable to verbal stimuli. He will answer a few questions but does not open his eyes, set up, make eye contact but he is able to answer simple questions correctly regarding orientation. Patient denies having any shortness of breath. On note that patient had a 3 second tonic-clonic seizure-like activity while in CAT scan. He was given Ativan and there is a consult in place with Dr. Abel. 08/21/2017 patient is more cognizant. He is wondering when he'll be able to go home. He is less agitated. He is able to form sentences. He is moving easily in the bed. Is trying to get up. Does not easily understand he has a Mcfarlane catheter in place. But he is easily quieted. He does not complain of much discomfort. 08/25/2017 patient is awake occasionally is able to answer question. In general just has a quiet nature, has received Haldol earlier in the day. His related over the weekend his behavior worsened and consequently antipsychotic therapy was started. 08/26/2017 patient is actually a bit more calm today than he has been. Was able to answer simple questions without difficulty. However still remains with disorientation is not able to relate that he is in hospital. Denies discomforts 08/28/2017 reveals the patient be much more improved. He is easily arousable upon arrival. He knows his name without difficulties. He is able to relate that his [facility]. He knows it is not at home. The Pres. is Paul Mcgregor, in the year is 2018. This is a significant improvement of the mental status. He was having some left-sided weakness that is now resolved and is feeling better overall. He is eating considerably better and has no other new acute complaints but has chronic lower back pain that is not new. 08/29/2017 the patient continues to have improvement. He is awake alert oriented person place and time. His appetite sported a heat some nausea. He has very tender to be in the hospital. He has some physical therapy and is surprised at how weak he has. His some discouragement today. Objective - Vital Signs Vital signs: Vital Signs Temp 98.3 F 08/29/17 22:30 Pulse 60 08/29/17 22:30 Resp 20 08/29/17 22:30 BP 155/78 08/29/17 22:30 Pulse Ox 97 08/29/17 22:30 Intake & Output 08/29/17 08/29/17 08/30/17 06:59 18:59 06:59 Intake Total 1000 200 590 Output Total 2400 Balance 1000 -2200 590 Weight 51.5 kg Intake: IV 100 Piperacillin-Tazobactam 3 100 .375 gm In Dextrose/Water 1 50ml.bag @ 12.5 mls/hr IVPB Q8HR LYDIA Rx#: [id number] Intake, IV Titration 900 Amount Acyclovir Sodium 500 mg 100 In Sodium Chloride 0.9% 100 ml @ 100 mls/hr IVPB Q12HR LYDIA Rx#:[id number] Dextrose 5% in Water 1, 800 000 ml @ 100 mls/hr IV . [id number] LYDIA with Potassium Chloride 40 meq Rx#:[id number] Oral 200 590 Output: Urine 2400 Uretheral (Mcfarlane) 2000 Other: Voiding Method Indwelling Catheter Indwelling Catheter # Voids 1 - Exam Gen: This is a 67-year-old thin male. Patient is laying comfortably No respiratory distress noted. HEENT: Head is atraumatic, normocephalic. Pupils equal, round. Sclerae is anicteric. Conjunctiva pink. Mucous members of the mouth are dry. No thrush noted. NECK: Supple. No JVD. No lymphadenopathy. No thyromegaly. no menigsmus LUNGS: Scattered rhonchi. No intercostal retractions. HEART: Regular rate and rhythm. No murmur. ABDOMEN: Soft. Bowel sounds are present. No masses. Generalized tenderness. EXTREMITIES: Extremities are thin with muscle wasting noted. No pedal edema. No calf tenderness. Dorsalis pedis +1 bilaterally. Patient has an abrasion to the back of his left ankle. No significant redness erythema. NEUROLOGICAL: The patient is awake and arousable. As noted he is awake alert oriented person place and time. There are no gross focal sensory motor deficits although he does have some generalized weakness there is no focality to the exam. His mental status is markedly improved. - Labs CBC & Chem 7: 08/29/17 06:45 08/29/17 06:45 Labs: Abnormal Lab Results - Last 24 Hours (Table) 08/29/17 08/29/17 Range/Units 06:45 06:45 WBC 10.8 H (3.8-10.6) k/uL Hct 38.3 L (39.0-53.0) % Chloride 109 H (98-107) mmol/L Creatinine 1.62 H (0.66-1.25) mg/dL Glucose 108 H (74-99) mg/dL AST 15 L (17-59) U/L Microbiology - Last 24 Hours (Table) 08/24/17 16:04 Blood Culture - Preliminary Blood No Growth after 120 hours Laboratory Results WBC 10.8 k/uL (3.8-10.6) H 08/29/17 06:45 RBC 4.62 m/uL (4.30-5.90) 08/29/17 06:45 Hgb 13.8 gm/dL (13.0-17.5) 08/29/17 06:45 Hct 38.3 % (39.0-53.0) L 08/29/17 06:45 MCV 82.9 fL (80.0-100.0) 08/29/17 06:45 MCH 29.8 pg (25.0-35.0) 08/29/17 06:45 MCHC 35.9 g/dL (31.0-37.0) 08/29/17 06:45 RDW 15.4 % (11.5-15.5) 08/29/17 06:45 Plt Count 257 k/uL (150-450) 08/29/17 06:45 Neutrophils % 68 % 08/29/17 06:45 Lymphocytes % 21 % 08/29/17 06:45 Monocytes % 5 % 08/29/17 06:45 Eosinophils % 3 % 08/29/17 06:45 Basophils % 0 % 08/29/17 06:45 Neutrophils # 7.3 k/uL (1.3-7.7) 08/29/17 06:45 Lymphocytes # 2.3 k/uL (1.0-4.8) 08/29/17 06:45 Monocytes # 0.6 k/uL (0-1.0) 08/29/17 06:45 Eosinophils # 0.3 k/uL (0-0.7) 08/29/17 06:45 Basophils # 0.1 k/uL (0-0.2) 08/29/17 06:45 PT 13.6 sec (9.0-12.0) H 08/19/17 15:16 INR 1.5 (<1.2) H 08/19/17 15:16 APTT 20.7 sec (22.0-30.0) L 08/19/17 15:16 Sodium 143 mmol/L (137-145) 08/29/17 06:45 Potassium 4.4 mmol/L (3.5-5.1) 08/29/17 06:45 Chloride 109 mmol/L (98-107) H 08/29/17 06:45 Carbon Dioxide 23 mmol/L (22-30) 08/29/17 06:45 Anion Gap 11 mmol/L 08/29/17 06:45 BUN 14 mg/dL (9-20) 08/29/17 06:45 Creatinine 1.62 mg/dL (0.66-1.25) H 08/29/17 06:45 Est GFR (CKD-EPI)AfAm 51 (>60 ml/min/1.73 sqM) 08/29/17 06:45 Est GFR (CKD-EPI)NonAf 44 (>60 ml/min/1.73 sqM) 08/29/17 06:45 Glucose 108 mg/dL (74-99) H 08/29/17 06:45 POC Glucose (mg/dL) 94 mg/dL (75-99) 08/22/17 04:08 POC Glu Handhole Machine Operator ID Grey Carnes A 08/22/17 04:[address] Glu mg/dL 117 08/19/17 19:17 Hemoglobin A1c 5.7 % (4.0-6.0) 08/19/17 19:17 Lactic Ac Sepsis Rflx Y 08/19/17 15:48 Plasma Lactic Acid [place] 1.2 mmol/L (0.7-2.0) 08/19/17 19:17 Calcium 9.0 mg/dL (8.4-10.2) 08/29/17 06:45 Phosphorus 3.6 mg/dL (2.5-4.5) 08/29/17 06:45 Magnesium 1.7 mg/dL (1.6-2.3) 08/29/17 06:45 Total Bilirubin 0.6 mg/dL (0.2-1.3) 08/29/17 06:45 AST 15 U/L (17-59) L 08/29/17 06:45 ALT 24 U/L (21-72) 08/29/17 06:45 Alkaline Phosphatase 49 U/L (38-126) 08/29/17 06:45 Ammonia <9 umol/L (<30) 08/19/17 15:16 Total Creatine Kinase 247 U/L (55-170) H 08/19/17 15:16 CK-MB (CK-2) 2.6 ng/mL (0.0-2.4) H* 08/19/17 15:16 CK-MB (CK-2) Rel Index 1.1 08/19/17 15:16 Troponin I <0.012 ng/mL (0.000-0.034) 08/19/17 15:16 Total Protein 6.3 g/dL (6.3-8.2) 08/29/17 06:45 Albumin 3.6 g/dL (3.5-5.0) 08/29/17 06:45 Triglycerides 131 mg/dL (<150) 08/20/17 06:43 Cholesterol 136 mg/dL (<200) 08/20/17 06:43 LDL Cholesterol, Calc 71 mg/dL (0-99) 08/20/17 06:43 HDL Cholesterol 39 mg/dL (40-60) L 08/20/17 06:43 Amylase 62 U/L (30-110) 08/20/17 06:43 Lipase 201 U/L (23-300) 08/20/17 06:43 Homocysteine 21.68 umol/L (4.00-14.00) H 08/22/17 05:51 Urine Color Colorless 08/24/17 15:30 Urine Appearance Clear (Clear) 08/24/17 15:30 Urine pH 5.5 (5.0-8.0) 08/24/17 15:30 Ur Specific Surveyor 1.006 (1.001-1.035) 08/24/17 15:30 Urine Protein Trace (Negative) H 08/24/17 15:30 Urine Glucose (UA) Negative (Negative) 08/24/17 15:30 Urine Ketones Negative (Negative) 08/24/17 15:30 Urine Blood Small (Negative) H 08/24/17 15:30 Urine Nitrite Negative (Negative) 08/24/17 15:30 Urine Bilirubin Negative (Negative) 08/24/17 15:30 Urine Urobilinogen <2.0 mg/dL (<2.0) 08/24/17 15:30 Ur Leukocyte Esterase Negative (Negative) 08/24/17 15:30 Urine RBC 21 /hpf (0-5) H 08/24/17 15:30 Urine WBC 2 /hpf (0-5) 08/24/17 15:30 Amorphous Sediment Few /hpf (None) H 08/19/17 16:04 Urine Bacteria Rare /hpf (None) H 08/24/17 15:30 Hyaline Casts 9 /lpf (0-2) H 08/19/17 16:04 Granular Casts 8 /lpf (0) 08/19/17 16:04 Urine Mucus Rare /hpf (None) H 08/24/17 15:30 Ur Random Creatinine 30.3 mg/dL 08/23/17 18:30 Ur Random Sodium 88 mmol/L (30-90) 08/23/17 18:30 Random Vancomycin 14.4 ug/mL 08/23/17 05:38 Urine Opiates Screen Detected (NotDetected) H 08/19/17 16:04 Ur Oxycodone Screen Not Detected (NotDetected) 08/19/17 16:04 Urine Methadone Screen Not Detected (NotDetected) 08/19/17 16:04 Ur Propoxyphene Screen Not Detected (NotDetected) 08/19/17 16:04 Ur Barbiturates Screen Not Detected (NotDetected) 08/19/17 16:04 U Tricyclic Antidepress Not Detected (NotDetected) 08/19/17 16:04 Ur Phencyclidine Scrn Not Detected (NotDetected) 08/19/17 16:04 Ur Amphetamines Screen Not Detected (NotDetected) 08/19/17 16:04 U Methamphetamines Scrn Not Detected (NotDetected) 08/19/17 16:04 U Benzodiazepines Scrn Detected (NotDetected) H 08/19/17 16:04 Urine Cocaine Screen Not Detected (NotDetected) 08/19/17 16:04 U Marijuana (THC) Screen Detected (NotDetected) H 08/19/17 16:04 Serum Alcohol <10 mg/dL 08/19/17 15:16 C. difficile (EIA) Intrp Negative (Negative) 08/20/17 10:04 HSV I DNA PCR Not detected (Not detected) 08/20/17 06:43 HSV II DNA PCR Not detected (Not detected) 08/20/17 06:43 HSV (PCR) Source Blood - Plasma 08/20/17 06:43 Influenza Type A RNA Not Detected (Not Detectd) 08/20/17 12:05 Influenza Type B (PCR) Not Detected (Not Detectd) 08/20/17 12:05 Microbiology 08/24/17 16:04 Blood Blood Culture - Preliminary No Growth after 120 hours 08/26/17 01:10 Urine,Catheterized Urine Culture - Final 08/24/17 15:30 Urine,Catheterized Urine Culture - Final 08/19/17 15:16 Blood Blood Culture - Final No Growth after 144 hours 08/19/17 16:04 Urine,Catheterized Urine Culture - Final Assessment and Plan (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 Patient also had a seizure while on the CAT scan unit possibly related to sepsis. Patient has had falls recently at home no obvious injuries noted. He also has had diarrhea for 3 days at home. We will check amylase and lipase and C. difficile toxin influenza testing will be done a patient will be started on ceftriaxone 2 g every 12 hours and vancomycin, acyclovir 10 mg/kg every 8 hours. Serum HSV 1 and 2 by PCR will be ordered. Continue IV Tylenol. Blood cultures are status received. Continue supportive care. 08/21/2017 the patient is more awake and alert today. He is able to answer some simple questions. The appropriateness of his answers is certainly questionable. Toward the end of the exam he tries to exit out of the bed and try to stand catching his Mcfarlane catheter in his leg. He is redirected that he has a Mcfarlane in and stops. And lays back down. It is noted there is evidence of his altered mental status At this point in time it is appearing more likely be an encephalitis. Unfortunately lumbar puncture could not be performed and CSF PCR for HSV 1 and 2 could not be performed. The serum PCR that was negative but does not exclude the possibility of viral encephalitis. The patient's fever and leukocytosis are rapidly improving. He has no meningismus and has no other new acute neurological difficulties. It is unlikely that he has meningitis if his blood cultures are negative tomorrow and consider discontinuation of his antibiotic therapy. Continue his antiviral therapy. Case is discussed with the hospitalist and likely will complete her course of acyclovir therapy. 08/25/2017 reveals the patient to have no further improvement. The patient is now greater than 5 days off of his Plavix and will arrange for lumbar puncture for radiology for routine studies as well as viral assessment including HSV-1/ HSV 2, VDRL, West Nile. The patient's behavior is quite quiet today because he received some antipsychotic therapy. Regretfully he is still very poorly functional. In that only herpes encephalitis is treatable we'll continue the intravenous acyclovir at this point in time. The patient didn't have evidence of some acute renal failure that appears to be multifactorial, the acyclovir dose has been adjusted. Patient did have a fever and Zosyn was added pending some further cultures. 08/26/2017 patient is having some improvement of his acute renal failure. Continues to be treated for acute herpetic encephalitis. Lumbar puncture requested however apparently has received further doses of Plavix which will further delay lumbar puncture. Consequently will not be able to discontinue acyclovir at this time is to complete the full course for HSV encephalitis. If possible lumbar puncture is still an ideal test given his significant neurological disease. Had a mild skin rash which is improving with just local care. 08/28/2017 reveals the patient to have steady improvement of his status. It does appear that he is starting to recover from his encephalitis, at this time will assume is related to the acyclovir therapy and we will plan a 14 day course of therapy. This is discussed with the primary care hospitalist. Since lumbar puncture could not be performed and the patient has had a clinical improvement with complete the course of therapy of the encephalitis with acyclovir. Acute renal failure is improving. 08/29/2017 patient continues to have improvement of his mental status. Appears to be having response to treatment of encephalitis. We have no definitive proof but we have clinical evidence that he is responding well to acyclovir therapy. His acute renal failure is resolving. Overall there is today improvement but he is a bit discouraged today and that his appetite and somewhat poor and he is surprised that just how profoundly weak his body is. Current Visit: Yes Status: Acute Code(s): B00.4 - HERPESVIRAL ENCEPHALITIS SNOMED Code(s): 333793357 (2) Sepsis Current Visit: Yes Status: Acute Code(s): A41.9 - SEPSIS, UNSPECIFIED ORGANISM SNOMED Code(s): 28264723 (3) Seizure Current Visit: Yes Status: Acute Code(s): R56.9 - UNSPECIFIED CONVULSIONS SNOMED Code(s): 19117115
[2017-08-30 08:12] LABS: Calcium 9.3 mg/dL (8.4-10.2); Potassium 4.6 mmol/L (3.5-5.1)
[2017-08-30] MEDS: ACYCLOVIR SODIUM 500 MG in SODIUM CHLORIDE 0.9% 100 ML IVPB SCH ×2 (08:36→21:01)
[2017-08-30] MEDS: DEXTROSE 5% IN WATER 1,000 ML with POTASSIUM CHLORIDE 40 MEQ IV SCH (08:37)
[2017-08-30 08:39] LABS: Basophils # (A) 0.1 k/uL (0-0.2); Basophils % (A) 0 %; Eosinophils # (A) 0.3 k/uL (0-0.7); Eosinophils % (A) 2 %; HCT 41.7 % (39.0-53.0); HGB 14.4 gm/dL (13.0-17.5); Lymphocytes # (A) 2.7 k/uL (1.0-4.8); Lymphocytes % (A) 19 %; MCH 29.1 pg (25.0-35.0); MCHC 34.5 g/dL (31.0-37.0); MCV 84.3 fL (80.0-100.0); Monocytes # (A) 0.7 k/uL (0-1.0); Monocytes % (A) 5 %; Neutrophils # (A) 10.2 k/uL (1.3-7.7); Neutrophils % (A) 72 %; Platelet Count 307 k/uL (150-450); RBC 4.95 m/uL (4.30-5.90); RDW 15.1 % (11.5-15.5); WBC 14.3 k/uL (3.8-10.6)
[2017-08-30] MEDS: FAMOTIDINE 20 MG TAB PO SCH (08:44)
[2017-08-30] MEDS: NICOTINE 21MG/24HR PATCH TRANSDERM SCH (08:44)
[2017-08-30] MEDS: amLODIPine 5 MG TAB PO SCH ×2 (08:44→20:59)
[2017-08-30] MEDS: NYSTATIN 100,000 UNIT/ML SUSP 500,000 UNIT/5 ML CUP PO SCH ×4 (08:44→22:54)
[2017-08-30] MEDS: PRAMIPEXOLE 0.5 MG TAB PO SCH ×3 (08:44→22:54)
[2017-08-30] MEDS: hydrALAZINE HCL 50 MG TAB PO SCH ×3 (08:44→22:54)
[2017-08-30] MEDS: CLOPIDOGREL 75 MG TAB PO SCH (08:45)
[2017-08-30] MEDS: TAMSULOSIN 0.4 MG CAP.ER.24H PO SCH (08:45)
[2017-08-30] MEDS: METOPROLOL TARTRATE 25 MG TAB PO SCH ×2 (08:45→20:59)
[2017-08-30] MEDS: DULoxetine HCL 30 MG CAPSULE.DR PO SCH (08:45)
[2017-08-30] MEDS: ASPIRIN 81 MG PO SCH (08:45)
[2017-08-30] MEDS: PIPERACILLIN-TAZOBACTAM 3.375 GM in DEXTROSE/WATER 1 50ML.BAG IVPB SCH ×2 (09:57→16:24)
[2017-08-30] MEDS ORDERED: DEXTROSE 5% IN WATER 1,000 ML IV ONE (11:32)
--- NOTE | 2017-08-30 11:33 | P.PN ---
Subjective Patient is seen in follow-up for acute kidney injury. Creatinine peaked at 2.8 this admission and is down to 1.42 today. Patient's currently resting in bed. He complains of an upset stomach today. No vomiting or diarrhea. Denies chest pain or shortness of breath. Admits to good urine output. Vital signs are stable. General: The patient appeared well nourished and normally developed. HEENT: Head exam is unremarkable. Neck is without jugular venous distension. LUNGS: Lungs are clear to auscultation and percussion. Breath sounds decreased. HEART: Rate and Rhythm are regular. First and second heart sounds normal. No murmurs, rubs or gallops. ABDOMEN: Abdominal exam reveals normal bowel sounds. Non-tender and non- distended. No evidence of peritonitis. EXTREMITITES: No clubbing, cyanosis, or edema. Objective - Vital Signs Vital signs: Vital Signs Temp 97.5 F L 08/30/17 07:00 Pulse 65 08/30/17 08:00 Resp 20 08/30/17 08:00 BP 175/97 08/30/17 07:00 Pulse Ox 97 08/29/17 22:30 Intake & Output 08/29/17 08/30/17 08/30/17 18:59 06:59 18:59 Intake Total 200 740 Output Total 2400 2600 Balance -2200 -1860 Weight 51.5 kg 51.5 kg Intake: IV 50 Piperacillin-Tazobactam 3 50 .375 gm In Dextrose/Water 1 50ml.bag @ 12.5 mls/hr IVPB Q8HR LYDIA Rx#: [id number] Intake, IV Titration 100 Amount Acyclovir Sodium 500 mg 100 In Sodium Chloride 0.9% 100 ml @ 100 mls/hr IVPB Q12HR LYDIA Rx#:[id number] Oral 200 590 Output: Urine 2400 2600 Uretheral (Mcfarlane) 2000 Other: Voiding Method Indwelling Catheter Indwelling Catheter Indwelling Catheter # Voids 1 - Labs CBC & Chem 7: 08/30/17 07:07 08/30/17 07:07 Labs: Abnormal Lab Results - Last 24 Hours (Table) 08/30/17 08/30/17 Range/Units 07:07 07:07 WBC 14.3 H (3.8-10.6) k/uL Neutrophils # 10.2 H (1.3-7.7) k/uL Creatinine 1.42 H (0.66-1.25) mg/dL Microbiology - Last 24 Hours (Table) 08/24/17 16:04 Blood Culture - Preliminary Blood No Growth after 120 hours Assessment and Plan Plan: Assessment: #1. Nonoliguric acute kidney injury secondary to ATN secondary to contrast- induced nephropathy and nonsteroidals. Renal function improving with creatinine around 1.42 today. Baseline creatinine is near 1. #2. Hypernatremia secondary to lack of oral water intake. Sodium level stable at 143 today. #3. 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 #4. Benign hypertension. Uncontrolled. Plan: Discontinue potassium supplementation. I will decrease rate of D5W to 50 mL an hour. Encourage oral intake. Avoid nephrotoxic agents and hypotensive episodes. Increase hydralazine to 50 mg 3 times daily. Repeat electrolytes in the morning.
[2017-08-30] MEDS: CYANOCOBALAMIN-FA-PYRIDOXINE 1 EACH TAB PO SCH (13:47)
--- NOTE | 2017-08-30 17:39 | PN ---
PROGRESS NOTE DATE OF SERVICE: 08/30/2017 PRESENTING COMPLAINT: Tired. INTERVAL HISTORY: Patient admitted with suspected HSV encephalitis on IV acyclovir. Lumbar puncture could not be done because patient being on Plavix. Patient also had contrast induced nephropathy and had seizures. Patient apparently was taking medications off the street. Did not want to talk about the same. Still feeling weak and tired. Oral intake is a little bit. Has been working in physical therapy. REVIEW OF SYSTEMS: Done for constitutional, cardiovascular, GI, pulmonary; relevant findings as above. CURRENT MEDICATIONS: Reviewed that include IV acyclovir, IV fluids at 50 mL an hour, IV Zosyn. PHYSICAL EXAMINATION: Temperature 98.1, pulse 72, respiratory 18, blood pressure 132/67, pulse ox 98% on room air. GENERAL APPEARANCE: Lying in bed, tired-appearing. EYES: Pupils equal, conjunctivae normal. HEENT: External appearance of nose and ear normal. Oral cavity dry. NECK: JVD not raised, mass not palpable. Respiratory effort normal. LUNGS: Decreased breath sounds. CARDIOVASCULAR: First and second sounds normal. No edema. ABDOMEN: Soft, nontender. Liver and spleen not palpable. PSYCHIATRY: Tired-appearing but answering questions. NEUROLOGICAL: Moving all 4 limbs. Lying in bed. INVESTIGATIONS: White count 14.3, hemoglobin 14.4, potassium 4.6, creatinine 1.42. ASSESSMENT: 1. Suspected herpes encephalitis for which patient is on IV acyclovir. 2. Essential hypertension. 3. Primary osteoarthritis of multiple joints. 4. Benign prostatic hypertrophy. 5. Peripheral artery disease. 6. Permanent pacemaker. 7. Depression, not otherwise specified. 8. Chronic obstructive pulmonary disease. 9. Chronic nicotine dependence, patient is an active cigarette smoker. 10.Anxiety disorder, not otherwise specified. 11.Restless legs syndrome on Mirapex. 12.Acute delirium multifactoria with significant improvement. 13.Acute kidney injury, nonoliguric, secondary to contrast nephropathy with acute tubular necrosis with significant improvement. 14.Epilepsy disorder. PLAN: I did discuss with Dr. Starkey yesterday and did not see an obvious need for Zosyn. At this point, it is not clear whether white count has been going up. In any case will DC the Zosyn. Keep the patient on acyclovir. Encourage the patient to increase oral intake. Will follow. Continue with IV fluids. MMODL / IJN: [id number] /
[2017-08-30] MEDS: ATORVASTATIN 80 MG TAB PO SCH (20:59)
--- NOTE | 2017-08-30 22:38 | P.PN ---
Subjective Progress Note Date: 08/30/17 Principal diagnosis: 67 Year old male patient who has history of hepatitis C as well as previous stroke on Plavix. The patient is seen in the emergency center. Patient states he has had diarrhea for the past 3 days and complains of abdominal pain he had. He has also had several falls over the last couple of days when he has an abrasion to the left lower leg and complains of increased lumbar pain. He states he always has back pain and he smokes marijuana for this. Patient is an active smoker. According to the ER documentation, patient was found by his son on the floor unresponsive and incontinent of urine and not using his left arm with a left lateral gaze. He was evaluated for stroke and not a candidate for TPA as he was last seen in the morning at 7:30 and was acting normal at that time. CAT scan of the brain showed age-related atrophy and chronic small vessel ischemic change. CTA of head and neck revealed 75% stenosis of the proximal left internal carotid artery. Artifact in the left carotid artery bifurcation. Diminutive left vertebral artery. No subclavian steal. No intracranial abnormality. EKG was a sinus rhythm. Her temperature max is been 102.6 with elevated heart rate and blood pressure elevated with leukocytosis of 20.3. Patient was given ceftriaxone 1 dose. Blood culture was obtained. Urinalysis was cloudy with bacteria rare. INR 1.5. Lactic acid initially 8.6 and repeated 1.2. Patient is unable to undergo LP due to Plavix. Patient appears to be sleeping and is minimally arousable to verbal stimuli. He will answer a few questions but does not open his eyes, set up, make eye contact but he is able to answer simple questions correctly regarding orientation. Patient denies having any shortness of breath. On note that patient had a 3 second tonic-clonic seizure-like activity while in CAT scan. He was given Ativan and there is a consult in place with Dr. Abel. 08/21/2017 patient is more cognizant. He is wondering when he'll be able to go home. He is less agitated. He is able to form sentences. He is moving easily in the bed. Is trying to get up. Does not easily understand he has a Mcfarlane catheter in place. But he is easily quieted. He does not complain of much discomfort. 08/25/2017 patient is awake occasionally is able to answer question. In general just has a quiet nature, has received Haldol earlier in the day. His related over the weekend his behavior worsened and consequently antipsychotic therapy was started. 08/26/2017 patient is actually a bit more calm today than he has been. Was able to answer simple questions without difficulty. However still remains with disorientation is not able to relate that he is in hospital. Denies discomforts 08/28/2017 reveals the patient be much more improved. He is easily arousable upon arrival. He knows his name without difficulties. He is able to relate that his [facility]. He knows it is not at home. The Pres. is Paul Mcgregor, in the year is 2018. This is a significant improvement of the mental status. He was having some left-sided weakness that is now resolved and is feeling better overall. He is eating considerably better and has no other new acute complaints but has chronic lower back pain that is not new. 08/29/2017 the patient continues to have improvement. He is awake alert oriented person place and time. His appetite sported a heat some nausea. He has very tender to be in the hospital. He has some physical therapy and is surprised at how weak he has. His some discouragement today. 08/30/2017 reveals the patient has further improvement. Sitting up in the chair. He still feels quite weak. But his speech is clear and relevant. His is present today and acknowledges a significant improvement, but he is nowhere near his usual baseline of a highly functional individual. Objective - Vital Signs Vital signs: Vital Signs Temp 98.1 F 08/30/17 15:00 Pulse 72 08/30/17 16:00 Resp 18 08/30/17 16:00 BP 132/67 08/30/17 15:00 Pulse Ox 98 08/30/17 15:00 Intake & Output 08/30/17 08/30/17 08/31/17 06:59 18:59 06:59 Intake Total 740 600 Output Total 2600 600 Balance -1860 0 Weight 51.5 kg Intake: IV 50 Piperacillin-Tazobactam 3 50 .375 gm In Dextrose/Water 1 50ml.bag @ 12.5 mls/hr IVPB Q8HR [facility] Rx#: [id number] Intake, IV Titration 100 600 Amount Acyclovir Sodium 500 mg 100 In Sodium Chloride 0.9% 100 ml @ 100 mls/hr IVPB Q12HR [facility] Rx#:[id number] Dextrose 5% in Water 1, 600 000 ml @ 100 mls/hr IV . [id number] [facility] with Potassium Chloride 40 meq Rx#:[id number] Oral 590 Output: Urine 2600 600 Other: Voiding Method Indwelling Catheter Indwelling Catheter - Exam Gen: This is a 67-year-old thin male. Patient is laying comfortably No respiratory distress noted. HEENT: Head is atraumatic, normocephalic. Pupils equal, round. Sclerae is anicteric. Conjunctiva pink. Mucous members of the mouth are dry. No thrush noted. NECK: Supple. No JVD. No lymphadenopathy. No thyromegaly. no menigsmus LUNGS: Scattered rhonchi. No intercostal retractions. HEART: Regular rate and rhythm. No murmur. ABDOMEN: Soft. Bowel sounds are present. No masses. Generalized tenderness. EXTREMITIES: Extremities are thin with muscle wasting noted. No pedal edema. No calf tenderness. Dorsalis pedis +1 bilaterally. Patient has an abrasion to the back of his left ankle. No significant redness erythema. NEUROLOGICAL: The patient is awake and arousable. As noted he is awake alert oriented person place and time. There are no gross focal sensory motor deficits although he does have some generalized weakness there is no focality to the exam. His mental status is markedly improved. - Labs CBC & Chem 7: 08/30/17 07:07 08/30/17 07:07 Labs: Abnormal Lab Results - Last 24 Hours (Table) 08/30/17 08/30/17 Range/Units 07:07 07:07 WBC 14.3 H (3.8-10.6) k/uL Neutrophils # 10.2 H (1.3-7.7) k/uL Creatinine 1.42 H (0.66-1.25) mg/dL Microbiology - Last 24 Hours (Table) 08/24/17 16:04 Blood Culture - Final Blood No Growth after 144 hours Laboratory Results WBC 14.3 k/uL (3.8-10.6) H 08/30/17 07:07 RBC 4.95 m/uL (4.30-5.90) 08/30/17 07:07 Hgb 14.4 gm/dL (13.0-17.5) 08/30/17 07:07 Hct 41.7 % (39.0-53.0) 08/30/17 07:07 MCV 84.3 fL (80.0-100.0) 08/30/17 07:07 MCH 29.1 pg (25.0-35.0) 08/30/17 07:07 MCHC 34.5 g/dL (31.0-37.0) 08/30/17 07:07 RDW 15.1 % (11.5-15.5) 08/30/17 07:07 Plt Count 307 k/uL (150-450) 08/30/17 07:07 Neutrophils % 72 % 08/30/17 07:07 Lymphocytes % 19 % 08/30/17 07:07 Monocytes % 5 % 08/30/17 07:07 Eosinophils % 2 % 08/30/17 07:07 Basophils % 0 % 08/30/17 07:07 Neutrophils # 10.2 k/uL (1.3-7.7) H 08/30/17 07:07 Lymphocytes # 2.7 k/uL (1.0-4.8) 08/30/17 07:07 Monocytes # 0.7 k/uL (0-1.0) 08/30/17 07:07 Eosinophils # 0.3 k/uL (0-0.7) 08/30/17 07:07 Basophils # 0.1 k/uL (0-0.2) 08/30/17 07:07 PT 13.6 sec (9.0-12.0) H 08/19/17 15:16 INR 1.5 (<1.2) H 08/19/17 15:16 APTT 20.7 sec (22.0-30.0) L 08/19/17 15:16 Sodium 143 mmol/L (137-145) 08/30/17 07:07 Potassium 4.6 mmol/L (3.5-5.1) 08/30/17 07:07 Chloride 106 mmol/L (98-107) 08/30/17 07:07 Carbon Dioxide 24 mmol/L (22-30) 08/30/17 07:07 Anion Gap 13 mmol/L 08/30/17 07:07 BUN 13 mg/dL (9-20) 08/30/17 07:07 Creatinine 1.42 mg/dL (0.66-1.25) H 08/30/17 07:07 Est GFR (CKD-EPI)AfAm 60 (>60 ml/min/1.73 sqM) 08/30/17 07:07 Est GFR (CKD-EPI)NonAf 52 (>60 ml/min/1.73 sqM) 08/30/17 07:07 Glucose 90 mg/dL (74-99) 08/30/17 07:07 POC Glucose (mg/dL) 94 mg/dL (75-99) 08/22/17 04:08 POC Glu Label Fuser Tender ID Grey Carnes A 08/22/17 04:[address] Glu mg/dL 117 08/19/17 19:17 Hemoglobin A1c 5.7 % (4.0-6.0) 08/19/17 19:17 Lactic Ac Sepsis Rflx Y 08/19/17 15:48 Plasma Lactic Acid [place] 1.2 mmol/L (0.7-2.0) 08/19/17 19:17 Calcium 9.3 mg/dL (8.4-10.2) 08/30/17 07:07 Phosphorus 3.6 mg/dL (2.5-4.5) 08/29/17 06:45 Magnesium 1.7 mg/dL (1.6-2.3) 08/29/17 06:45 Total Bilirubin 0.6 mg/dL (0.2-1.3) 08/29/17 06:45 AST 15 U/L (17-59) L 08/29/17 06:45 ALT 24 U/L (21-72) 08/29/17 06:45 Alkaline Phosphatase 49 U/L (38-126) 08/29/17 06:45 Ammonia <9 umol/L (<30) 08/19/17 15:16 Total Creatine Kinase 247 U/L (55-170) H 08/19/17 15:16 CK-MB (CK-2) 2.6 ng/mL (0.0-2.4) H* 08/19/17 15:16 CK-MB (CK-2) Rel Index 1.1 08/19/17 15:16 Troponin I <0.012 ng/mL (0.000-0.034) 08/19/17 15:16 Total Protein 6.3 g/dL (6.3-8.2) 08/29/17 06:45 Albumin 3.6 g/dL (3.5-5.0) 08/29/17 06:45 Triglycerides 131 mg/dL (<150) 08/20/17 06:43 Cholesterol 136 mg/dL (<200) 08/20/17 06:43 LDL Cholesterol, Calc 71 mg/dL (0-99) 08/20/17 06:43 HDL Cholesterol 39 mg/dL (40-60) L 08/20/17 06:43 Amylase 62 U/L (30-110) 08/20/17 06:43 Lipase 201 U/L (23-300) 08/20/17 06:43 Homocysteine 21.68 umol/L (4.00-14.00) H 08/22/17 05:51 Urine Color Colorless 08/24/17 15:30 Urine Appearance Clear (Clear) 08/24/17 15:30 Urine pH 5.5 (5.0-8.0) 08/24/17 15:30 Ur Specific [place] 1.006 (1.001-1.035) 08/24/17 15:30 Urine Protein Trace (Negative) H 08/24/17 15:30 Urine Glucose (UA) Negative (Negative) 08/24/17 15:30 Urine Ketones Negative (Negative) 08/24/17 15:30 Urine Blood Small (Negative) H 08/24/17 15:30 Urine Nitrite Negative (Negative) 08/24/17 15:30 Urine Bilirubin Negative (Negative) 08/24/17 15:30 Urine Urobilinogen <2.0 mg/dL (<2.0) 08/24/17 15:30 Ur Leukocyte Esterase Negative (Negative) 08/24/17 15:30 Urine RBC 21 /hpf (0-5) H 08/24/17 15:30 Urine WBC 2 /hpf (0-5) 08/24/17 15:30 Amorphous Sediment Few /hpf (None) H 08/19/17 16:04 Urine Bacteria Rare /hpf (None) H 08/24/17 15:30 Hyaline Casts 9 /lpf (0-2) H 08/19/17 16:04 Granular Casts 8 /lpf (0) 08/19/17 16:04 Urine Mucus Rare /hpf (None) H 08/24/17 15:30 Ur Random Creatinine 30.3 mg/dL 08/23/17 18:30 Ur Random Sodium 88 mmol/L (30-90) 08/23/17 18:30 Random Vancomycin 14.4 ug/mL 08/23/17 05:38 Urine Opiates Screen Detected (NotDetected) H 08/19/17 16:04 Ur Oxycodone Screen Not Detected (NotDetected) 08/19/17 16:04 Urine Methadone Screen Not Detected (NotDetected) 08/19/17 16:04 Ur Propoxyphene Screen Not Detected (NotDetected) 08/19/17 16:04 Ur Barbiturates Screen Not Detected (NotDetected) 08/19/17 16:04 U Tricyclic Antidepress Not Detected (NotDetected) 08/19/17 16:04 Ur Phencyclidine Scrn Not Detected (NotDetected) 08/19/17 16:04 Ur Amphetamines Screen Not Detected (NotDetected) 08/19/17 16:04 U Methamphetamines Scrn Not Detected (NotDetected) 08/19/17 16:04 U Benzodiazepines Scrn Detected (NotDetected) H 08/19/17 16:04 Urine Cocaine Screen Not Detected (NotDetected) 08/19/17 16:04 U Marijuana (THC) Screen Detected (NotDetected) H 08/19/17 16:04 Serum Alcohol <10 mg/dL 08/19/17 15:16 C. difficile (EIA) Intrp Negative (Negative) 08/20/17 10:04 HSV I DNA PCR Not detected (Not detected) 08/20/17 06:43 HSV II DNA PCR Not detected (Not detected) 08/20/17 06:43 HSV (PCR) Source Blood - Plasma 08/20/17 06:43 Influenza Type A RNA Not Detected (Not Detectd) 08/20/17 12:05 Influenza Type B (PCR) Not Detected (Not Detectd) 08/20/17 12:05 Microbiology 08/24/17 16:04 Blood Blood Culture - Final No Growth after 144 hours 08/26/17 01:10 Urine,Catheterized Urine Culture - Final 08/24/17 15:30 Urine,Catheterized Urine Culture - Final 08/19/17 15:16 Blood Blood Culture - Final No Growth after 144 hours 08/19/17 16:04 Urine,Catheterized Urine Culture - Final Laboratory Results WBC 14.3 k/uL (3.8-10.6) H 08/30/17 07:07 RBC 4.95 m/uL (4.30-5.90) 08/30/17 07:07 Hgb 14.4 gm/dL (13.0-17.5) 08/30/17 07:07 Hct 41.7 % (39.0-53.0) 08/30/17 07:07 MCV 84.3 fL (80.0-100.0) 08/30/17 07:07 MCH 29.1 pg (25.0-35.0) 08/30/17 07:07 MCHC 34.5 g/dL (31.0-37.0) 08/30/17 07:07 RDW 15.1 % (11.5-15.5) 08/30/17 07:07 Plt Count 307 k/uL (150-450) 08/30/17 07:07 Neutrophils % 72 % 08/30/17 07:07 Lymphocytes % 19 % 08/30/17 07:07 Monocytes % 5 % 08/30/17 07:07 Eosinophils % 2 % 08/30/17 07:07 Basophils % 0 % 08/30/17 07:07 Neutrophils # 10.2 k/uL (1.3-7.7) H 08/30/17 07:07 Lymphocytes # 2.7 k/uL (1.0-4.8) 08/30/17 07:07 Monocytes # 0.7 k/uL (0-1.0) 08/30/17 07:07 Eosinophils # 0.3 k/uL (0-0.7) 08/30/17 07:07 Basophils # 0.1 k/uL (0-0.2) 08/30/17 07:07 PT 13.6 sec (9.0-12.0) H 08/19/17 15:16 INR 1.5 (<1.2) H 08/19/17 15:16 APTT 20.7 sec (22.0-30.0) L 08/19/17 15:16 Sodium 143 mmol/L (137-145) 08/30/17 07:07 Potassium 4.6 mmol/L (3.5-5.1) 08/30/17 07:07 Chloride 106 mmol/L (98-107) 08/30/17 07:07 Carbon Dioxide 24 mmol/L (22-30) 08/30/17 07:07 Anion Gap 13 mmol/L 08/30/17 07:07 BUN 13 mg/dL (9-20) 08/30/17 07:07 Creatinine 1.42 mg/dL (0.66-1.25) H 08/30/17 07:07 Est GFR (CKD-EPI)AfAm 60 (>60 ml/min/1.73 sqM) 08/30/17 07:07 Est GFR (CKD-EPI)NonAf 52 (>60 ml/min/1.73 sqM) 08/30/17 07:07 Glucose 90 mg/dL (74-99) 08/30/17 07:07 POC Glucose (mg/dL) 94 mg/dL (75-99) 08/22/17 04:08 POC Glu Label Fuser Tender ID Grey Carnes A 08/22/17 04:[address] Glu mg/dL 117 08/19/17 19:17 Hemoglobin A1c 5.7 % (4.0-6.0) 08/19/17 19:17 Lactic Ac Sepsis Rflx Y 08/19/17 15:48 Plasma Lactic Acid [place] 1.2 mmol/L (0.7-2.0) 08/19/17 19:17 Calcium 9.3 mg/dL (8.4-10.2) 08/30/17 07:07 Phosphorus 3.6 mg/dL (2.5-4.5) 08/29/17 06:45 Magnesium 1.7 mg/dL (1.6-2.3) 08/29/17 06:45 Total Bilirubin 0.6 mg/dL (0.2-1.3) 08/29/17 06:45 AST 15 U/L (17-59) L 08/29/17 06:45 ALT 24 U/L (21-72) 08/29/17 06:45 Alkaline Phosphatase 49 U/L (38-126) 08/29/17 06:45 Ammonia <9 umol/L (<30) 08/19/17 15:16 Total Creatine Kinase 247 U/L (55-170) H 08/19/17 15:16 CK-MB (CK-2) 2.6 ng/mL (0.0-2.4) H* 08/19/17 15:16 CK-MB (CK-2) Rel Index 1.1 08/19/17 15:16 Troponin I <0.012 ng/mL (0.000-0.034) 08/19/17 15:16 Total Protein 6.3 g/dL (6.3-8.2) 08/29/17 06:45 Albumin 3.6 g/dL (3.5-5.0) 08/29/17 06:45 Triglycerides 131 mg/dL (<150) 08/20/17 06:43 Cholesterol 136 mg/dL (<200) 08/20/17 06:43 LDL Cholesterol, Calc 71 mg/dL (0-99) 08/20/17 06:43 HDL Cholesterol 39 mg/dL (40-60) L 08/20/17 06:43 Amylase 62 U/L (30-110) 08/20/17 06:43 Lipase 201 U/L (23-300) 08/20/17 06:43 Homocysteine 21.68 umol/L (4.00-14.00) H 08/22/17 05:51 Urine Color Colorless 08/24/17 15:30 Urine Appearance Clear (Clear) 08/24/17 15:30 Urine pH 5.5 (5.0-8.0) 08/24/17 15:30 Ur Specific [place] 1.006 (1.001-1.035) 08/24/17 15:30 Urine Protein Trace (Negative) H 08/24/17 15:30 Urine Glucose (UA) Negative (Negative) 08/24/17 15:30 Urine Ketones Negative (Negative) 08/24/17 15:30 Urine Blood Small (Negative) H 08/24/17 15:30 Urine Nitrite Negative (Negative) 08/24/17 15:30 Urine Bilirubin Negative (Negative) 08/24/17 15:30 Urine Urobilinogen <2.0 mg/dL (<2.0) 08/24/17 15:30 Ur Leukocyte Esterase Negative (Negative) 08/24/17 15:30 Urine RBC 21 /hpf (0-5) H 08/24/17 15:30 Urine WBC 2 /hpf (0-5) 08/24/17 15:30 Amorphous Sediment Few /hpf (None) H 08/19/17 16:04 Urine Bacteria Rare /hpf (None) H 08/24/17 15:30 Hyaline Casts 9 /lpf (0-2) H 08/19/17 16:04 Granular Casts 8 /lpf (0) 08/19/17 16:04 Urine Mucus Rare /hpf (None) H 08/24/17 15:30 Ur Random Creatinine 30.3 mg/dL 08/23/17 18:30 Ur Random Sodium 88 mmol/L (30-90) 08/23/17 18:30 Random Vancomycin 14.4 ug/mL 08/23/17 05:38 Urine Opiates Screen Detected (NotDetected) H 08/19/17 16:04 Ur Oxycodone Screen Not Detected (NotDetected) 08/19/17 16:04 Urine Methadone Screen Not Detected (NotDetected) 08/19/17 16:04 Ur Propoxyphene Screen Not Detected (NotDetected) 08/19/17 16:04 Ur Barbiturates Screen Not Detected (NotDetected) 08/19/17 16:04 U Tricyclic Antidepress Not Detected (NotDetected) 08/19/17 16:04 Ur Phencyclidine Scrn Not Detected (NotDetected) 08/19/17 16:04 Ur Amphetamines Screen Not Detected (NotDetected) 08/19/17 16:04 U Methamphetamines Scrn Not Detected (NotDetected) 08/19/17 16:04 U Benzodiazepines Scrn Detected (NotDetected) H 08/19/17 16:04 Urine Cocaine Screen Not Detected (NotDetected) 08/19/17 16:04 U Marijuana (THC) Screen Detected (NotDetected) H 08/19/17 16:04 Serum Alcohol <10 mg/dL 08/19/17 15:16 C. difficile (EIA) Intrp Negative (Negative) 08/20/17 10:04 HSV I DNA PCR Not detected (Not detected) 08/20/17 06:43 HSV II DNA PCR Not detected (Not detected) 08/20/17 06:43 HSV (PCR) Source Blood - Plasma 08/20/17 06:43 Influenza Type A RNA Not Detected (Not Detectd) 08/20/17 12:05 Influenza Type B (PCR) Not Detected (Not Detectd) 08/20/17 12:05 Microbiology 08/24/17 16:04 Blood Blood Culture - Final No Growth after 144 hours 08/26/17 01:10 Urine,Catheterized Urine Culture - Final 08/24/17 15:30 Urine,Catheterized Urine Culture - Final 08/19/17 15:16 Blood Blood Culture - Final No Growth after 144 hours 08/19/17 16:04 Urine,Catheterized Urine Culture - Final Assessment and Plan (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 Patient also had a seizure while on the CAT scan unit possibly related to sepsis. Patient has had falls recently at home no obvious injuries noted. He also has had diarrhea for 3 days at home. We will check amylase and lipase and C. difficile toxin influenza testing will be done a patient will be started on ceftriaxone 2 g every 12 hours and vancomycin, acyclovir 10 mg/kg every 8 hours. Serum HSV 1 and 2 by PCR will be ordered. Continue IV Tylenol. Blood cultures are status received. Continue supportive care. 08/21/2017 the patient is more awake and alert today. He is able to answer some simple questions. The appropriateness of his answers is certainly questionable. Toward the end of the exam he tries to exit out of the bed and try to stand catching his Mcfarlane catheter in his leg. He is redirected that he has a Mcfarlane in and stops. And lays back down. It is noted there is evidence of his altered mental status At this point in time it is appearing more likely be an encephalitis. Unfortunately lumbar puncture could not be performed and CSF PCR for HSV 1 and 2 could not be performed. The serum PCR that was negative but does not exclude the possibility of viral encephalitis. The patient's fever and leukocytosis are rapidly improving. He has no meningismus and has no other new acute neurological difficulties. It is unlikely that he has meningitis if his blood cultures are negative tomorrow and consider discontinuation of his antibiotic therapy. Continue his antiviral therapy. Case is discussed with the hospitalist and likely will complete her course of acyclovir therapy. 08/25/2017 reveals the patient to have no further improvement. The patient is now greater than 5 days off of his Plavix and will arrange for lumbar puncture for radiology for routine studies as well as viral assessment including HSV-1/ HSV 2, VDRL, West Nile. The patient's behavior is quite quiet today because he received some antipsychotic therapy. Regretfully he is still very poorly functional. In that only herpes encephalitis is treatable we'll continue the intravenous acyclovir at this point in time. The patient didn't have evidence of some acute renal failure that appears to be multifactorial, the acyclovir dose has been adjusted. Patient did have a fever and Zosyn was added pending some further cultures. 08/26/2017 patient is having some improvement of his acute renal failure. Continues to be treated for acute herpetic encephalitis. Lumbar puncture requested however apparently has received further doses of Plavix which will further delay lumbar puncture. Consequently will not be able to discontinue acyclovir at this time is to complete the full course for HSV encephalitis. If possible lumbar puncture is still an ideal test given his significant neurological disease. Had a mild skin rash which is improving with just local care. 08/28/2017 reveals the patient to have steady improvement of his status. It does appear that he is starting to recover from his encephalitis, at this time will assume is related to the acyclovir therapy and we will plan a 14 day course of therapy. This is discussed with the primary care hospitalist. Since lumbar puncture could not be performed and the patient has had a clinical improvement with complete the course of therapy of the encephalitis with acyclovir. Acute renal failure is improving. 08/29/2017 patient continues to have improvement of his mental status. Appears to be having response to treatment of encephalitis. We have no definitive proof but we have clinical evidence that he is responding well to acyclovir therapy. His acute renal failure is resolving. Overall there is today improvement but he is a bit discouraged today and that his appetite and somewhat poor and he is surprised that just how profoundly weak his body is. 08/30/2017 the patient is sitting up or in a chair and has had some of his lunch. Strength is improved but nowhere near his baseline. Renal failure is improving. His mentation continues to show improvement. He does not appear uncomfortable sitting upright in a chair because he does not have much cushioning on his buttocks, this is not new and often uses a memory foam cushion when he travels. Complete 14 days of intravenous acyclovir for the presumptive diagnosis of herpetic encephalitis. Current Visit: Yes Status: Acute Code(s): B00.4 - HERPESVIRAL ENCEPHALITIS SNOMED Code(s): 665015228 (2) Sepsis Current Visit: Yes Status: Acute Code(s): A41.9 - SEPSIS, UNSPECIFIED ORGANISM SNOMED Code(s): 89313420 (3) Seizure Current Visit: Yes Status: Acute Code(s): R56.9 - UNSPECIFIED CONVULSIONS SNOMED Code(s): 96352976
[2017-08-31] MEDS: ACYCLOVIR SODIUM 500 MG in SODIUM CHLORIDE 0.9% 100 ML IVPB SCH ×2 (07:18→20:40)
[2017-08-31] MEDS: PRAMIPEXOLE 0.5 MG TAB PO SCH ×3 (07:19→21:23)
[2017-08-31] MEDS: METOPROLOL TARTRATE 25 MG TAB PO SCH ×2 (07:19→20:41)
[2017-08-31] MEDS: hydrALAZINE HCL 50 MG TAB PO SCH ×3 (07:21→21:23)
[2017-08-31] MEDS: ASPIRIN 81 MG PO SCH (07:22)
[2017-08-31] MEDS: amLODIPine 5 MG TAB PO SCH ×2 (07:22→20:41)
[2017-08-31] MEDS: DULoxetine HCL 30 MG CAPSULE.DR PO SCH (07:22)
[2017-08-31] MEDS: TAMSULOSIN 0.4 MG CAP.ER.24H PO SCH (07:22)
[2017-08-31] MEDS: CLOPIDOGREL 75 MG TAB PO SCH (07:22)
[2017-08-31] MEDS: NYSTATIN 100,000 UNIT/ML SUSP 500,000 UNIT/5 ML CUP PO SCH ×4 (07:23→22:30)
[2017-08-31] MEDS: NICOTINE 21MG/24HR PATCH TRANSDERM SCH (07:23)
[2017-08-31] MEDS: FAMOTIDINE 20 MG TAB PO SCH (07:23)
[2017-08-31 07:50] LABS: Basophils # (A) 0.1 k/uL (0-0.2); Basophils % (A) 1 %; Eosinophils # (A) 0.3 k/uL (0-0.7); Eosinophils % (A) 2 %; HCT 41.6 % (39.0-53.0); HGB 14.6 gm/dL (13.0-17.5); Lymphocytes # (A) 2.7 k/uL (1.0-4.8); Lymphocytes % (A) 24 %; MCH 29.3 pg (25.0-35.0); MCHC 35.1 g/dL (31.0-37.0); MCV 83.4 fL (80.0-100.0); Mean Platelet Volume 6.9; Monocytes # (A) 0.6 k/uL (0-1.0); Monocytes % (A) 5 %; Neutrophils # (A) 7.3 k/uL (1.3-7.7); Neutrophils % (A) 66 %; Platelet Count 290 k/uL (150-450); RBC 4.99 m/uL (4.30-5.90); RDW 15.7 % (11.5-15.5); WBC 11.2 k/uL (3.8-10.6)
[2017-08-31 08:01] LABS: Calcium 9.4 mg/dL (8.4-10.2); Magnesium 1.6 mg/dL (1.6-2.3); Potassium 4.2 mmol/L (3.5-5.1)
[2017-08-31] MEDS ORDERED: hydrALAZINE HCL 20 MG/ML 1 ML VIAL IVP PRN (10:33)
[2017-08-31] MEDS: MAGNESIUM SULFATE-D5W PMX 1 GM in DEXTROSE/WATER 1 100ML.BAG IVPB SCH ×2 (11:16→13:21)
[2017-08-31] MEDS: CYANOCOBALAMIN-FA-PYRIDOXINE 1 EACH TAB PO SCH (11:22)
[2017-08-31] MEDS: Acetaminophen-Codeine 300-30mg TAB PO PRN (11:22)
--- NOTE | 2017-08-31 11:26 | P.PN ---
Subjective Patient is seen in follow-up for acute kidney injury. Creatinine peaked at 2.8 this admission and is down to 1.3 today. Patient's currently resting in bed. He feels better today. No vomiting or diarrhea. Denies chest pain or shortness of breath. Admits to good urine output. Vital signs are stable. General: The patient appeared well nourished and normally developed. HEENT: Head exam is unremarkable. Neck is without jugular venous distension. LUNGS: Lungs are clear to auscultation and percussion. Breath sounds decreased. HEART: Rate and Rhythm are regular. First and second heart sounds normal. No murmurs, rubs or gallops. ABDOMEN: Abdominal exam reveals normal bowel sounds. Non-tender and non- distended. No evidence of peritonitis. EXTREMITITES: No clubbing, cyanosis, or edema. Objective - Vital Signs Vital signs: Vital Signs Temp 96.8 F L 08/31/17 07:00 Pulse 72 08/31/17 08:00 Resp 18 08/31/17 08:00 BP 177/99 08/31/17 07:00 Pulse Ox 99 08/31/17 07:00 Intake & Output 08/30/17 08/31/17 08/31/17 18:59 06:59 18:59 Intake Total 600 1590 Output Total 600 700 700 Balance 0 890 -700 Weight 51.5 kg 51.5 kg 51.5 kg Intake: Intake, IV Titration 600 750 Amount Acyclovir Sodium 500 mg 100 In Sodium Chloride 0.9% 100 ml @ 100 mls/hr IVPB Q12HR [facility] Rx#:[id number] Dextrose 5% in Water 1, 600 000 ml @ 100 mls/hr IV . [id number] [facility] with Potassium Chloride 40 meq Rx#:[id number] Dextrose 5% in Water 1, 600 000 ml @ 50 mls/hr IV . Q20H ONE Rx#:[id number] Piperacillin-Tazobactam 3 50 .375 gm In Dextrose/Water 1 50ml.bag @ 12.5 mls/hr IVPB Q8HR [facility] Rx#: [id number] Oral 840 Output: Urine 600 700 700 Other: Voiding Method Indwelling Catheter Indwelling Catheter Indwelling Catheter # Voids 1 - Labs CBC & Chem 7: 08/31/17 06:59 03/25/18 06:59 Labs: Abnormal Lab Results - Last 24 Hours (Table) 08/31/17 08/31/17 Range/Units 06:59 06:59 WBC 11.2 H (3.8-10.6) k/uL RDW 15.7 H (11.5-15.5) % Creatinine 1.30 H (0.66-1.25) mg/dL Microbiology - Last 24 Hours (Table) 08/24/17 16:04 Blood Culture - Final Blood No Growth after 144 hours Assessment and Plan Plan: Assessment: #1. Nonoliguric acute kidney injury secondary to ATN secondary to contrast- induced nephropathy and nonsteroidals. Renal function improving with creatinine down to 1.3 today. Baseline creatinine is near 1. #2. Hypernatremia secondary to lack of oral water intake. Resolved. #3. 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 #4. Benign hypertension. Better controlled but blood pressures somewhat labile. #5. Hypomagnesemia due to poor nutritional status. Plan: Discontinued potassium supplementation. Hep-Lock IV fluids. Encouraged oral intake. Avoid nephrotoxic agents and hypotensive episodes. Maintain current antihypertensives. Replace magnesium. 2 g IV today. Repeat electrolytes in the morning.
[2017-08-31] MEDS: ATORVASTATIN 80 MG TAB PO SCH (20:41)
--- NOTE | 2017-08-31 23:43 | PN ---
PROGRESS NOTE DATE OF SERVICE: 08/31/2017. PRESENTING COMPLAINT: Tired. INTERVAL HISTORY: Patient admitted with suspected HSV encephalitis on IV acyclovir. The patient also had contrast induced nephropathy and seizures. The patient still has weakness, but getting better, more awake. Oral intake is getting better. REVIEW OF SYSTEMS: Done for constitutional, cardiovascular, GI, pulmonary; relevant findings as above. CURRENT MEDICATIONS: Reviewed that include IV acyclovir. EXAMINATION: Temp 96.1, pulse 86, respiratory 18, blood pressure 142/87, pulse ox 96% on room air. GENERAL APPEARANCE: Lying in bed, awake, tired-appearing. EYES: Pupils equal. Conjunctivae are normal. HEENT: External appearance of nose and ears normal. Oral cavity dry. NECK: JVD not raised. Mass not palpable. Respiratory effort . LUNGS: Decreased breath sounds. CARDIOVASCULAR: First and seconds sounds, no edema. ABDOMEN: Soft, nontender. Liver and spleen not palpable. PSYCHIATRY: Awake, answering questions appropriately. INVESTIGATIONS: White count 11.2, creatinine down to 1.30. ASSESSMENT: 1. 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 2. Essential hypertension. 3. Primary osteoarthritis in multiple joints. 4. Benign prostatic hypertrophy. 5. Peripheral artery disease. 6. Permanent pacemaker. 7. Depression, not otherwise specified. 8. Chronic obstructive pulmonary disease. 9. Chronic nicotine dependence. The patient is an active cigarette smoker. 10.Anxiety disorder, not otherwise specified. 11.Restless legs syndrome, controlled on Mirapex. 12.Acute delirium, multifactorial with significant improvement. 13.Acute kidney injury, nonoliguric secondary to contrast nephropathy. 14.Epilepsy disorder. PLAN: Continue medication and treatment plan. Care was discussed with the patient. The patient should get a total of two weeks of IV acyclovir. Looking at inpatient rehab for the patient. MMODL / IJN: [id number] /
[2017-09-01] MEDS: NICOTINE 21MG/24HR PATCH TRANSDERM SCH (07:45)
[2017-09-01] MEDS: ACYCLOVIR SODIUM 500 MG in SODIUM CHLORIDE 0.9% 100 ML IVPB SCH ×2 (07:45→22:02)
[2017-09-01] MEDS: DULoxetine HCL 30 MG CAPSULE.DR PO SCH (07:46)
[2017-09-01] MEDS: CLOPIDOGREL 75 MG TAB PO SCH (07:46)
[2017-09-01] MEDS: amLODIPine 5 MG TAB PO SCH ×2 (07:46→22:03)
[2017-09-01] MEDS: ASPIRIN 81 MG PO SCH (07:46)
[2017-09-01] MEDS: FAMOTIDINE 20 MG TAB PO SCH (07:46)
[2017-09-01] MEDS: hydrALAZINE HCL 50 MG TAB PO SCH ×3 (07:46→22:02)
[2017-09-01] MEDS: NYSTATIN 100,000 UNIT/ML SUSP 500,000 UNIT/5 ML CUP PO SCH ×4 (07:47→22:03)
[2017-09-01] MEDS: METOPROLOL TARTRATE 25 MG TAB PO SCH ×2 (07:47→22:02)
[2017-09-01] MEDS: TAMSULOSIN 0.4 MG CAP.ER.24H PO SCH (07:47)
[2017-09-01] MEDS: PRAMIPEXOLE 0.5 MG TAB PO SCH ×3 (07:47→22:03)
--- NOTE | 2017-09-01 10:05 | P.PN ---
Subjective Patient is seen in follow-up for acute kidney injury. Creatinine peaked at 2.8 this admission and was down to 1.3 as of yesterday. Patient's currently resting in bed. Doing well. No vomiting or diarrhea. Denies chest pain or shortness of breath. Admits to good urine output. Vital signs are stable. General: The patient appeared well nourished and normally developed. HEENT: Head exam is unremarkable. Neck is without jugular venous distension. LUNGS: Lungs are clear to auscultation and percussion. Breath sounds decreased. HEART: Rate and Rhythm are regular. First and second heart sounds normal. No murmurs, rubs or gallops. ABDOMEN: Abdominal exam reveals normal bowel sounds. Non-tender and non- distended. No evidence of peritonitis. EXTREMITITES: No clubbing, cyanosis, or edema. Objective - Vital Signs Vital signs: Vital Signs Temp 97.6 F 09/01/17 07:00 Pulse 70 09/01/17 07:00 Resp 16 09/01/17 07:00 BP 176/98 09/01/17 07:00 Pulse Ox 98 09/01/17 07:00 Intake & Output 08/31/17 09/01/17 09/01/17 18:59 06:59 18:59 Intake Total 200 Output Total 2200 600 Balance -2000 -600 Weight 51.5 kg Intake: Intake, IV Titration 200 Amount Magnesium Sulfate-D5w Pmx 200 1 gm In Dextrose/Water 1 100ml.bag @ 100 mls/hr IVPB Q1H [facility] Rx#: [id number] Output: Urine 2200 600 Other: Voiding Method Indwelling Catheter Indwelling Catheter # Voids 1 1 - Labs CBC & Chem 7: 08/31/17 06:59 08/31/17 06:59 Assessment and Plan Plan: Assessment: #1. Nonoliguric acute kidney injury secondary to ATN secondary to contrast- induced nephropathy and nonsteroidals. Renal function improving with creatinine down to 1.3 as of yesterday. Baseline creatinine is near 1. #2. Hypernatremia secondary to lack of oral water intake. Resolved. #3. 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 #4. Benign hypertension. Better controlled but blood pressures somewhat labile. #5. Hypomagnesemia due to poor nutritional status. Plan: Discontinued potassium supplementation. NS at 50 cc/hr as he is on IV acycllovir. Encouraged oral intake. Avoid nephrotoxic agents and hypotensive episodes. Maintain current antihypertensives. Follow-up AM labs.
[2017-09-01 11:23] LABS: Calcium 9.6 mg/dL (8.4-10.2); Potassium 4.4 mmol/L (3.5-5.1)
[2017-09-01] MEDS: SODIUM CHLORIDE 0.9% 1,000 ML IV SCH (11:37)
[2017-09-01] MEDS: CYANOCOBALAMIN-FA-PYRIDOXINE 1 EACH TAB PO SCH (11:38)
[2017-09-01] MEDS: ATORVASTATIN 80 MG TAB PO SCH (22:02)
--- NOTE | 2017-09-01 22:32 | PN ---
PROGRESS NOTE DATE OF SERVICE: September 01, 2017 PRESENTING COMPLAINT: Tired. INTERVAL HISTORY: Patient with suspected HSV encephalitis on IV Acyclovir, continues to improve. Oral intake is getting better though still a bit tired. Mcfarlane catheter remains in place. at the bedside. REVIEW OF SYSTEMS: Done for constitutional, cardiovascular, GI, pulmonary, relevant findings as above. CURRENT MEDICATIONS: Include IV Acyclovir. PHYSICAL EXAMINATION: Temperature 97.6, pulse 78, respiratory rate 16, blood pressure 176/98, before that blood pressure 139/84. General appearance: Sitting up more awake. Eyes pupils are equal. Conjunctivae normal. HEENT external appearance of nose and ears normal. Oral cavity normal. Neck JVD not raised. Mass not palpable. Respiratory effort lungs decreased breath sounds. Cardiovascular 1st and 2nd sounds normal. No edema. ABDOMEN: Soft, nontender. Liver and spleen not palpable. Psychiatry: Awake, answering questions. INVESTIGATIONS: Potassium 4.4, BUN 17, creatinine 1.20. ASSESSMENT: 1. 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 The patient acyclovir to be completed on September 03, 2017. 2. Essential hypertension. 3. Primary osteoarthritis multiple joints. 4. Benign prostatic hypertrophy. 5. Peripheral artery disease. 6. Permanent pacemaker. 7. Depression, not otherwise specified. 8. Chronic obstructive pulmonary disease. 9. Chronic nicotine dependence patient is an ex-cigarette smoker. 10.Anxiety disorder not otherwise specified. 11.Restless legs syndrome on Mirapex. 12.Acute delirium multifactorial improvement. 13.Acute kidney injury, nonoliguric secondary to contrast nephropathy with significant improvement. 14.Epilepsy disorder. PLAN: Keep the patient on IV fluids of 50 mL an hour. The patient's last dose of Acyclovir will be on September 03, 2017. That will complete 14 days of IV, that is when patient can be discharged. Mcfarlane catheter will be discontinued today. MMODL / IJN: [id number] /
--- NOTE | 2017-09-01 23:17 | P.PN ---
Subjective Progress Note Date: 09/01/17 Principal diagnosis: 67 Year old male patient who has history of hepatitis C as well as previous stroke on Plavix. The patient is seen in the emergency center. Patient states he has had diarrhea for the past 3 days and complains of abdominal pain he had. He has also had several falls over the last couple of days when he has an abrasion to the left lower leg and complains of increased lumbar pain. He states he always has back pain and he smokes marijuana for this. Patient is an active smoker. According to the ER documentation, patient was found by his son on the floor unresponsive and incontinent of urine and not using his left arm with a left lateral gaze. He was evaluated for stroke and not a candidate for TPA as he was last seen in the morning at 7:30 and was acting normal at that time. CAT scan of the brain showed age-related atrophy and chronic small vessel ischemic change. CTA of head and neck revealed 75% stenosis of the proximal left internal carotid artery. Artifact in the left carotid artery bifurcation. Diminutive left vertebral artery. No subclavian steal. No intracranial abnormality. EKG was a sinus rhythm. Her temperature max is been 102.6 with elevated heart rate and blood pressure elevated with leukocytosis of 20.3. Patient was given ceftriaxone 1 dose. Blood culture was obtained. Urinalysis was cloudy with bacteria rare. INR 1.5. Lactic acid initially 8.6 and repeated 1.2. Patient is unable to undergo LP due to Plavix. Patient appears to be sleeping and is minimally arousable to verbal stimuli. He will answer a few questions but does not open his eyes, set up, make eye contact but he is able to answer simple questions correctly regarding orientation. Patient denies having any shortness of breath. On note that patient had a 3 second tonic-clonic seizure-like activity while in CAT scan. He was given Ativan and there is a consult in place with Dr. Abel. 08/21/2017 patient is more cognizant. He is wondering when he'll be able to go home. He is less agitated. He is able to form sentences. He is moving easily in the bed. Is trying to get up. Does not easily understand he has a Mcfarlane catheter in place. But he is easily quieted. He does not complain of much discomfort. 08/25/2017 patient is awake occasionally is able to answer question. In general just has a quiet nature, has received Haldol earlier in the day. His related over the weekend his behavior worsened and consequently antipsychotic therapy was started. 08/26/2017 patient is actually a bit more calm today than he has been. Was able to answer simple questions without difficulty. However still remains with disorientation is not able to relate that he is in hospital. Denies discomforts 08/28/2017 reveals the patient be much more improved. He is easily arousable upon arrival. He knows his name without difficulties. He is able to relate that his [facility]. He knows it is not at home. The Pres. is Paul Mcgregor, in the year is 2018. This is a significant improvement of the mental status. He was having some left-sided weakness that is now resolved and is feeling better overall. He is eating considerably better and has no other new acute complaints but has chronic lower back pain that is not new. 08/29/2017 the patient continues to have improvement. He is awake alert oriented person place and time. His appetite sported a heat some nausea. He has very tender to be in the hospital. He has some physical therapy and is surprised at how weak he has. His some discouragement today. 08/30/2017 reveals the patient has further improvement. Sitting up in the chair. He still feels quite weak. But his speech is clear and relevant. His is present today and acknowledges a significant improvement, but he is nowhere near his usual baseline of a highly functional individual. 09/01/2017 patient has some further improvement. Sitting up in the chair. Eating well. Still having some discomforts to his buttocks and lower back which are chronic. He denying fevers or chills. Functional status continues to slowly improve. He is quite conversational today. Objective - Vital Signs Vital signs: Vital Signs Temp 98 F 09/01/17 23:00 Pulse 71 09/01/17 23:00 Resp 16 09/01/17 23:00 BP 132/72 09/01/17 23:00 Pulse Ox 98 09/01/17 23:00 Intake & Output 09/01/17 09/01/17 09/02/17 06:59 18:59 06:59 Intake Total 620 70 Output Total 600 500 Balance -600 120 70 Weight 51.5 kg Intake: Intake, IV Titration 70 Amount Sodium Chloride 0.9% 1, 70 000 ml @ 50 mls/hr IV . Q20H [facility] Rx#:[id number] Oral 620 Output: Urine 600 500 Other: Voiding Method Indwelling Catheter Urinal # Voids 1 - Exam Gen: This is a 67-year-old thin male. Patient is laying comfortably No respiratory distress noted. HEENT: Head is atraumatic, normocephalic. Pupils equal, round. Sclerae is anicteric. Conjunctiva pink. Mucous members of the mouth are dry. No thrush noted. NECK: Supple. No JVD. No lymphadenopathy. No thyromegaly. no menigsmus LUNGS: Scattered rhonchi. No intercostal retractions. HEART: Regular rate and rhythm. No murmur. ABDOMEN: Soft. Bowel sounds are present. No masses. Generalized tenderness. EXTREMITIES: Extremities are thin with muscle wasting noted. No pedal edema. No calf tenderness. Dorsalis pedis +1 bilaterally. Patient has an abrasion to the back of his left ankle. No significant redness erythema. NEUROLOGICAL: The patient is awake and arousable. As noted he is awake alert oriented person place and time. There are no gross focal sensory motor deficits although he does have some generalized weakness there is no focality to the exam. His mental status is markedly improved. - Labs CBC & Chem 7: 08/31/17 06:59 09/01/17 10:39 Labs: Laboratory Results WBC 11.2 k/uL (3.8-10.6) H 08/31/17 06:59 RBC 4.99 m/uL (4.30-5.90) 08/31/17 06:59 Hgb 14.6 gm/dL (13.0-17.5) 08/31/17 06:59 Hct 41.6 % (39.0-53.0) 08/31/17 06:59 MCV 83.4 fL (80.0-100.0) 08/31/17 06:59 MCH 29.3 pg (25.0-35.0) 08/31/17 06:59 MCHC 35.1 g/dL (31.0-37.0) 08/31/17 06:59 RDW 15.7 % (11.5-15.5) H 08/31/17 06:59 Plt Count 290 k/uL (150-450) 08/31/17 06:59 Neutrophils % 66 % 08/31/17 06:59 Lymphocytes % 24 % 08/31/17 06:59 Monocytes % 5 % 08/31/17 06:59 Eosinophils % 2 % 08/31/17 06:59 Basophils % 1 % 08/31/17 06:59 Neutrophils # 7.3 k/uL (1.3-7.7) 08/31/17 06:59 Lymphocytes # 2.7 k/uL (1.0-4.8) 08/31/17 06:59 Monocytes # 0.6 k/uL (0-1.0) 08/31/17 06:59 Eosinophils # 0.3 k/uL (0-0.7) 08/31/17 06:59 Basophils # 0.1 k/uL (0-0.2) 08/31/17 06:59 PT 13.6 sec (9.0-12.0) H 08/19/17 15:16 INR 1.5 (<1.2) H 08/19/17 15:16 APTT 20.7 sec (22.0-30.0) L 08/19/17 15:16 Sodium 141 mmol/L (137-145) 09/01/17 10:39 Potassium 4.4 mmol/L (3.5-5.1) 09/01/17 10:39 Chloride 103 mmol/L (98-107) 09/01/17 10:39 Carbon Dioxide 26 mmol/L (22-30) 09/01/17 10:39 Anion Gap 12 mmol/L 09/01/17 10:39 BUN 17 mg/dL (9-20) 09/01/17 10:39 Creatinine 1.20 mg/dL (0.66-1.25) 09/01/17 10:39 Est GFR (CKD-EPI)AfAm 73 (>60 ml/min/1.73 sqM) 09/01/17 10:39 Est GFR (CKD-EPI)NonAf 63 (>60 ml/min/1.73 sqM) 09/01/17 10:39 Glucose 85 mg/dL (74-99) 09/01/17 10:39 POC Glucose (mg/dL) 94 mg/dL (75-99) 08/22/17 04:08 POC Glu [employer] Principal ID Grey Carnes A 08/22/17 04:[address] Glu mg/dL 117 08/19/17 19:17 Hemoglobin A1c 5.7 % (4.0-6.0) 08/19/17 19:17 Lactic Ac Sepsis Rflx Y 08/19/17 15:48 Plasma Lactic Acid [place] 1.2 mmol/L (0.7-2.0) 08/19/17 19:17 Calcium 9.6 mg/dL (8.4-10.2) 09/01/17 10:39 Phosphorus 3.6 mg/dL (2.5-4.5) 08/29/17 06:45 Magnesium 1.6 mg/dL (1.6-2.3) 08/31/17 06:59 Total Bilirubin 0.6 mg/dL (0.2-1.3) 08/29/17 06:45 AST 15 U/L (17-59) L 08/29/17 06:45 ALT 24 U/L (21-72) 08/29/17 06:45 Alkaline Phosphatase 49 U/L (38-126) 08/29/17 06:45 Ammonia <9 umol/L (<30) 08/19/17 15:16 Total Creatine Kinase 247 U/L (55-170) H 08/19/17 15:16 CK-MB (CK-2) 2.6 ng/mL (0.0-2.4) H* 08/19/17 15:16 CK-MB (CK-2) Rel Index 1.1 08/19/17 15:16 Troponin I <0.012 ng/mL (0.000-0.034) 08/19/17 15:16 Total Protein 6.3 g/dL (6.3-8.2) 08/29/17 06:45 Albumin 3.6 g/dL (3.5-5.0) 08/29/17 06:45 Triglycerides 131 mg/dL (<150) 08/20/17 06:43 Cholesterol 136 mg/dL (<200) 08/20/17 06:43 LDL Cholesterol, Calc 71 mg/dL (0-99) 08/20/17 06:43 HDL Cholesterol 39 mg/dL (40-60) L 08/20/17 06:43 Amylase 62 U/L (30-110) 08/20/17 06:43 Lipase 201 U/L (23-300) 08/20/17 06:43 Homocysteine 21.68 umol/L (4.00-14.00) H 08/22/17 05:51 Urine Color Colorless 08/24/17 15:30 Urine Appearance Clear (Clear) 08/24/17 15:30 Urine pH 5.5 (5.0-8.0) 08/24/17 15:30 Ur Specific [place] 1.006 (1.001-1.035) 08/24/17 15:30 Urine Protein Trace (Negative) H 08/24/17 15:30 Urine Glucose (UA) Negative (Negative) 08/24/17 15:30 Urine Ketones Negative (Negative) 08/24/17 15:30 Urine Blood Small (Negative) H 08/24/17 15:30 Urine Nitrite Negative (Negative) 08/24/17 15:30 Urine Bilirubin Negative (Negative) 08/24/17 15:30 Urine Urobilinogen <2.0 mg/dL (<2.0) 08/24/17 15:30 Ur Leukocyte Esterase Negative (Negative) 08/24/17 15:30 Urine RBC 21 /hpf (0-5) H 08/24/17 15:30 Urine WBC 2 /hpf (0-5) 08/24/17 15:30 Amorphous Sediment Few /hpf (None) H 08/19/17 16:04 Urine Bacteria Rare /hpf (None) H 08/24/17 15:30 Hyaline Casts 9 /lpf (0-2) H 08/19/17 16:04 Granular Casts 8 /lpf (0) 08/19/17 16:04 Urine Mucus Rare /hpf (None) H 08/24/17 15:30 Ur Random Creatinine 30.3 mg/dL 08/23/17 18:30 Ur Random Sodium 88 mmol/L (30-90) 08/23/17 18:30 Random Vancomycin 14.4 ug/mL 08/23/17 05:38 Urine Opiates Screen Detected (NotDetected) H 08/19/17 16:04 Ur Oxycodone Screen Not Detected (NotDetected) 08/19/17 16:04 Urine Methadone Screen Not Detected (NotDetected) 08/19/17 16:04 Ur Propoxyphene Screen Not Detected (NotDetected) 08/19/17 16:04 Ur Barbiturates Screen Not Detected (NotDetected) 08/19/17 16:04 U Tricyclic Antidepress Not Detected (NotDetected) 08/19/17 16:04 Ur Phencyclidine Scrn Not Detected (NotDetected) 08/19/17 16:04 Ur Amphetamines Screen Not Detected (NotDetected) 08/19/17 16:04 U Methamphetamines Scrn Not Detected (NotDetected) 08/19/17 16:04 U Benzodiazepines Scrn Detected (NotDetected) H 08/19/17 16:04 Urine Cocaine Screen Not Detected (NotDetected) 08/19/17 16:04 U Marijuana (THC) Screen Detected (NotDetected) H 08/19/17 16:04 Serum Alcohol <10 mg/dL 08/19/17 15:16 C. difficile (EIA) Intrp Negative (Negative) 08/20/17 10:04 HSV I DNA PCR Not detected (Not detected) 08/20/17 06:43 HSV II DNA PCR Not detected (Not detected) 08/20/17 06:43 HSV (PCR) Source Blood - Plasma 08/20/17 06:43 Influenza Type A RNA Not Detected (Not Detectd) 08/20/17 12:05 Influenza Type B (PCR) Not Detected (Not Detectd) 08/20/17 12:05 Microbiology 08/24/17 16:04 Blood Blood Culture - Final No Growth after 144 hours 08/26/17 01:10 Urine,Catheterized Urine Culture - Final 08/24/17 15:30 Urine,Catheterized Urine Culture - Final 08/19/17 15:16 Blood Blood Culture - Final No Growth after 144 hours 08/19/17 16:04 Urine,Catheterized Urine Culture - Final Assessment and Plan (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 Patient also had a seizure while on the CAT scan unit possibly related to sepsis. Patient has had falls recently at home no obvious injuries noted. He also has had diarrhea for 3 days at home. We will check amylase and lipase and C. difficile toxin influenza testing will be done a patient will be started on ceftriaxone 2 g every 12 hours and vancomycin, acyclovir 10 mg/kg every 8 hours. Serum HSV 1 and 2 by PCR will be ordered. Continue IV Tylenol. Blood cultures are status received. Continue supportive care. 08/21/2017 the patient is more awake and alert today. He is able to answer some simple questions. The appropriateness of his answers is certainly questionable. Toward the end of the exam he tries to exit out of the bed and try to stand catching his Mcfarlane catheter in his leg. He is redirected that he has a Mcfarlane in and stops. And lays back down. It is noted there is evidence of his altered mental status At this point in time it is appearing more likely be an encephalitis. Unfortunately lumbar puncture could not be performed and CSF PCR for HSV 1 and 2 could not be performed. The serum PCR that was negative but does not exclude the possibility of viral encephalitis. The patient's fever and leukocytosis are rapidly improving. He has no meningismus and has no other new acute neurological difficulties. It is unlikely that he has meningitis if his blood cultures are negative tomorrow and consider discontinuation of his antibiotic therapy. Continue his antiviral therapy. Case is discussed with the hospitalist and likely will complete her course of acyclovir therapy. 08/25/2017 reveals the patient to have no further improvement. The patient is now greater than 5 days off of his Plavix and will arrange for lumbar puncture for radiology for routine studies as well as viral assessment including HSV-1/ HSV 2, VDRL, West Nile. The patient's behavior is quite quiet today because he received some antipsychotic therapy. Regretfully he is still very poorly functional. In that only herpes encephalitis is treatable we'll continue the intravenous acyclovir at this point in time. The patient didn't have evidence of some acute renal failure that appears to be multifactorial, the acyclovir dose has been adjusted. Patient did have a fever and Zosyn was added pending some further cultures. 08/26/2017 patient is having some improvement of his acute renal failure. Continues to be treated for acute herpetic encephalitis. Lumbar puncture requested however apparently has received further doses of Plavix which will further delay lumbar puncture. Consequently will not be able to discontinue acyclovir at this time is to complete the full course for HSV encephalitis. If possible lumbar puncture is still an ideal test given his significant neurological disease. Had a mild skin rash which is improving with just local care. 08/28/2017 reveals the patient to have steady improvement of his status. It does appear that he is starting to recover from his encephalitis, at this time will assume is related to the acyclovir therapy and we will plan a 14 day course of therapy. This is discussed with the primary care hospitalist. Since lumbar puncture could not be performed and the patient has had a clinical improvement with complete the course of therapy of the encephalitis with acyclovir. Acute renal failure is improving. 08/29/2017 patient continues to have improvement of his mental status. Appears to be having response to treatment of encephalitis. We have no definitive proof but we have clinical evidence that he is responding well to acyclovir therapy. His acute renal failure is resolving. Overall there is today improvement but he is a bit discouraged today and that his appetite and somewhat poor and he is surprised that just how profoundly weak his body is. 08/30/2017 the patient is sitting up or in a chair and has had some of his lunch. Strength is improved but nowhere near his baseline. Renal failure is improving. His mentation continues to show improvement. He does not appear uncomfortable sitting upright in a chair because he does not have much cushioning on his buttocks, this is not new and often uses a memory foam cushion when he travels. Complete 14 days of intravenous acyclovir for the presumptive diagnosis of herpetic encephalitis. 09/01/2017 the patient has had further improvement. He is on day #13 of 14 of intravenous acyclovir for his herpetic encephalitis. Fortunately he has had some further improvement. He still has significant generalized weakness and plan will be to go to rehab to receive some physical therapy and strengthening to get him back functional in his home setting. Current Visit: Yes Status: Acute Code(s): B00.4 - HERPESVIRAL ENCEPHALITIS SNOMED Code(s): 614340144 (2) Sepsis Current Visit: Yes Status: Acute Code(s): A41.9 - SEPSIS, UNSPECIFIED ORGANISM SNOMED Code(s): 10227256 (3) Seizure Current Visit: Yes Status: Acute Code(s): R56.9 - UNSPECIFIED CONVULSIONS SNOMED Code(s): 93548651
[2017-09-02 08:25] LABS: Anion Gap 16 mmol/L; Blood Urea Nitrogen 20 mg/dL (9-20); Calcium 9.5 mg/dL (8.4-10.2); Carbon Dioxide 21 mmol/L (22-30); Chloride 106 mmol/L (98-107); Glucose 94 mg/dL (74-99); Potassium 4.2 mmol/L (3.5-5.1); Sodium 143 mmol/L (137-145)
[2017-09-02] MEDS: ACYCLOVIR SODIUM 500 MG in SODIUM CHLORIDE 0.9% 100 ML IVPB SCH ×3 (08:33→23:28)
[2017-09-02] MEDS: SODIUM CHLORIDE 0.9% 1,000 ML IV SCH (08:34)
[2017-09-02] MEDS: NICOTINE 21MG/24HR PATCH TRANSDERM SCH (09:45)
[2017-09-02] MEDS: ASPIRIN 81 MG PO SCH (09:48)
[2017-09-02] MEDS: DULoxetine HCL 30 MG CAPSULE.DR PO SCH (09:48)
[2017-09-02] MEDS: amLODIPine 5 MG TAB PO SCH ×2 (09:48→20:44)
[2017-09-02] MEDS: CLOPIDOGREL 75 MG TAB PO SCH (09:48)
[2017-09-02] MEDS: hydrALAZINE HCL 50 MG TAB PO SCH ×3 (09:48→20:44)
[2017-09-02] MEDS: FAMOTIDINE 20 MG TAB PO SCH ×2 (09:48→20:49)
[2017-09-02] MEDS: PRAMIPEXOLE 0.5 MG TAB PO SCH ×3 (09:49→20:45)
[2017-09-02] MEDS: NYSTATIN 100,000 UNIT/ML SUSP 500,000 UNIT/5 ML CUP PO SCH ×4 (09:49→20:45)
[2017-09-02] MEDS: METOPROLOL TARTRATE 25 MG TAB PO SCH ×2 (09:49→20:44)
[2017-09-02] MEDS: TAMSULOSIN 0.4 MG CAP.ER.24H PO SCH (09:50)
--- NOTE | 2017-09-02 10:19 | P.PN ---
Subjective Patient is seen in follow-up for acute kidney injury. Creatinine peaked at 2.8 this admission and is down to 1.0 today. Patient's currently resting in bed. Doing well. No vomiting but does have loose bowel movements. Denies chest pain or shortness of breath. Admits to good urine output. Mcfarlane catheter discontinued. Vital signs are stable. General: The patient appeared well nourished and normally developed. HEENT: Head exam is unremarkable. Neck is without jugular venous distension. LUNGS: Lungs are clear to auscultation and percussion. Breath sounds decreased. HEART: Rate and Rhythm are regular. First and second heart sounds normal. No murmurs, rubs or gallops. ABDOMEN: Abdominal exam reveals normal bowel sounds. Non-tender and non- distended. No evidence of peritonitis. EXTREMITITES: No clubbing, cyanosis, or edema. Objective - Vital Signs Vital signs: Vital Signs Temp 97.4 F L 09/02/17 07:00 Pulse 72 09/02/17 07:00 Resp 18 09/02/17 07:00 BP 153/83 09/02/17 07:00 Pulse Ox 98 09/02/17 07:00 Intake & Output 09/01/17 09/02/17 09/02/17 18:59 06:59 18:59 Intake Total 620 70 Output Total 500 400 Balance 120 -330 Weight 51.5 kg Intake: Intake, IV Titration 70 Amount Sodium Chloride 0.9% 1, 70 000 ml @ 50 mls/hr IV . Q20H [facility] Rx#:[id number] Oral 620 Output: Urine 500 400 Other: Voiding Method Urinal Urinal Urinal # Voids 1 # Bowel Movements 1 - Labs CBC & Chem 7: 08/31/17 06:59 09/02/17 07:47 Labs: Abnormal Lab Results - Last 24 Hours (Table) 09/02/17 Range/Units 07:47 Carbon Dioxide 21 L (22-30) mmol/L Assessment and Plan Plan: Assessment: #1. Nonoliguric acute kidney injury secondary to ATN secondary to contrast- induced nephropathy and nonsteroidals. Renal function improving with creatinine down to 1. Baseline creatinine is near 1. #2. Hypernatremia secondary to lack of oral water intake. Resolved. #3. 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 #4. Benign hypertension. Better controlled but blood pressures somewhat labile. #5. Hypomagnesemia due to poor nutritional status, status post replacement. Plan: Discontinued potassium supplementation. NS at 50 cc/hr as he is on IV acycllovir. Encouraged oral intake. Avoid nephrotoxic agents and hypotensive episodes. Maintain current antihypertensives. Anticipate discharge soon.
[2017-09-02] MEDS: CYANOCOBALAMIN-FA-PYRIDOXINE 1 EACH TAB PO SCH (12:22)
--- NOTE | 2017-09-02 15:01 | PN ---
PROGRESS NOTE DATE OF SERVICE: 09/02/2017 PRESENTING COMPLAINT: Tired. INTERVAL HISTORY: The patient has suspected HSV encephalitis on IV acyclovir. Continues to do much better, eating much better. Sitting on bed, reading A newspaper. Up to the chair at the bedside for all his meals. Overall doing much better. REVIEW OF SYSTEMS: Done for constitutional, cardiovascular, GI, pulmonary; relevant findings as above. CURRENT MEDICATIONS: Include IV acyclovir and IV fluids. PHYSICAL EXAMINATION: Temperature 97.4, pulse 92, respiration 18, blood pressure 143/83, pulse ox 98% on room air. GENERAL APPEARANCE: Sitting up, comfortable, awake. EYES: Pupils equal, conjunctivae are normal. HEENT: External appearance of nose and ears normal, oral cavity normal. NECK: JVD not raised. Mass not palpable. Respiratory effort normal. LUNGS: Decreased breath sounds. CARDIOVASCULAR: First and second sounds normal, no edema. ABDOMEN: Soft, nontender. Liver and spleen not palpable. PSYCHIATRY: Alert and oriented x3. Mood and affect normal. INVESTIGATIONS: Potassium 4.2, creatinine down to 1.0. ASSESSMENT: 1. Herpes simplex encephalitis, likely. Patient will complete course of acyclovir tomorrow. 2. Essential hypertension. 3. Primary osteoarthritis multiple joints. 4. Benign prostatic hypertrophy. 5. Peripheral artery disease. 6. Permanent pacemaker. 7. Depression, not otherwise specified. 8. Chronic obstructive pulmonary disease. 9. Chronic nicotine dependence. Patient is an ex-cigarette smoker. 10.Anxiety disorder, not otherwise specified. 11.Restless legs syndrome on Mirapex. 12.Acute delirium multifactorial, resolved. 13.Acute kidney injury, nonoliguric secondary to contrast nephropathy with near resolution. 14.Epilepsy disorder. PLAN: Continue current medication and treatment plan. Care was discussed with the patient. Should be able to get discharged to the [facility] tomorrow after completing his acyclovir. MMODL / IJN: [id number] /
[2017-09-02] MEDS: ATORVASTATIN 80 MG TAB PO SCH (20:44)
--- NOTE | 2017-09-03 00:05 | P.PN ---
Subjective Progress Note Date: 09/02/17 Principal diagnosis: 67 Year old male patient who has history of hepatitis C as well as previous stroke on Plavix. The patient is seen in the emergency center. Patient states he has had diarrhea for the past 3 days and complains of abdominal pain he had. He has also had several falls over the last couple of days when he has an abrasion to the left lower leg and complains of increased lumbar pain. He states he always has back pain and he smokes marijuana for this. Patient is an active smoker. According to the ER documentation, patient was found by his son on the floor unresponsive and incontinent of urine and not using his left arm with a left lateral gaze. He was evaluated for stroke and not a candidate for TPA as he was last seen in the morning at 7:30 and was acting normal at that time. CAT scan of the brain showed age-related atrophy and chronic small vessel ischemic change. CTA of head and neck revealed 75% stenosis of the proximal left internal carotid artery. Artifact in the left carotid artery bifurcation. Diminutive left vertebral artery. No subclavian steal. No intracranial abnormality. EKG was a sinus rhythm. Her temperature max is been 102.6 with elevated heart rate and blood pressure elevated with leukocytosis of 20.3. Patient was given ceftriaxone 1 dose. Blood culture was obtained. Urinalysis was cloudy with bacteria rare. INR 1.5. Lactic acid initially 8.6 and repeated 1.2. Patient is unable to undergo LP due to Plavix. Patient appears to be sleeping and is minimally arousable to verbal stimuli. He will answer a few questions but does not open his eyes, set up, make eye contact but he is able to answer simple questions correctly regarding orientation. Patient denies having any shortness of breath. On note that patient had a 3 second tonic-clonic seizure-like activity while in CAT scan. He was given Ativan and there is a consult in place with Dr. Abel. 08/21/2017 patient is more cognizant. He is wondering when he'll be able to go home. He is less agitated. He is able to form sentences. He is moving easily in the bed. Is trying to get up. Does not easily understand he has a Mcfarlane catheter in place. But he is easily quieted. He does not complain of much discomfort. 08/25/2017 patient is awake occasionally is able to answer question. In general just has a quiet nature, has received Haldol earlier in the day. His related over the weekend his behavior worsened and consequently antipsychotic therapy was started. 08/26/2017 patient is actually a bit more calm today than he has been. Was able to answer simple questions without difficulty. However still remains with disorientation is not able to relate that he is in hospital. Denies discomforts 08/28/2017 reveals the patient be much more improved. He is easily arousable upon arrival. He knows his name without difficulties. He is able to relate that his [facility]. He knows it is not at home. The Pres. is Pual Mcgregor, in the year is 2018. This is a significant improvement of the mental status. He was having some left-sided weakness that is now resolved and is feeling better overall. He is eating considerably better and has no other new acute complaints but has chronic lower back pain that is not new. 08/29/2017 the patient continues to have improvement. He is awake alert oriented person place and time. His appetite sported a heat some nausea. He has very tender to be in the hospital. He has some physical therapy and is surprised at how weak he has. His some discouragement today. 08/30/2017 reveals the patient has further improvement. Sitting up in the chair. He still feels quite weak. But his speech is clear and relevant. His is present today and acknowledges a significant improvement, but he is nowhere near his usual baseline of a highly functional individual. 09/01/2017 patient has some further improvement. Sitting up in the chair. Eating well. Still having some discomforts to his buttocks and lower back which are chronic. He denying fevers or chills. Functional status continues to slowly improve. He is quite conversational today. 09/02/2017 patient has further improvement but still feels extremely weak. With utilizing the walker to go from bed to the chair he feels like his legs will give out. His mentation is improving. He looks forward to rehab to gain his strength. Objective - Vital Signs Vital signs: Vital Signs Temp 98.2 F 09/02/17 14:54 Pulse 67 09/02/17 14:54 Resp 18 09/02/17 14:54 BP 123/62 03/27/18 14:54 Pulse Ox 98 09/02/17 14:54 Intake & Output 09/02/17 09/02/17 09/03/17 06:59 18:59 06:59 Intake Total 70 175 Output Total 400 600 300 Balance -330 -600 -125 Intake: Intake, IV Titration 70 175 Amount Sodium Chloride 0.9% 1, 70 175 000 ml @ 50 mls/hr IV . Q20H [facility] Rx#:[id number] Output: Urine 400 600 300 Other: Voiding Method Urinal Bedside Commode # Voids 1 # Bowel Movements 1 - Exam Gen: This is a 67-year-old thin male. Patient is laying comfortably No respiratory distress noted. HEENT: Head is atraumatic, normocephalic. Pupils equal, round. Sclerae is anicteric. Conjunctiva pink. Mucous members of the mouth are dry. No thrush noted. NECK: Supple. No JVD. No lymphadenopathy. No thyromegaly. no menigsmus LUNGS: Scattered rhonchi. No intercostal retractions. HEART: Regular rate and rhythm. No murmur. ABDOMEN: Soft. Bowel sounds are present. No masses. Generalized tenderness. EXTREMITIES: Extremities are thin with muscle wasting noted. No pedal edema. No calf tenderness. Dorsalis pedis +1 bilaterally. Patient has an abrasion to the back of his left ankle. No significant redness erythema. NEUROLOGICAL: The patient is awake and arousable. As noted he is awake alert oriented person place and time. There are no gross focal sensory motor deficits although he does have some generalized weakness there is no focality to the exam. His mental status is markedly improved. - Labs CBC & Chem 7: 08/31/17 06:59 09/02/17 07:47 Labs: Abnormal Lab Results - Last 24 Hours (Table) 09/02/17 Range/Units 07:47 Carbon Dioxide 21 L (22-30) mmol/L Laboratory Results WBC 11.2 k/uL (3.8-10.6) H 08/31/17 06:59 RBC 4.99 m/uL (4.30-5.90) 08/31/17 06:59 Hgb 14.6 gm/dL (13.0-17.5) 08/31/17 06:59 Hct 41.6 % (39.0-53.0) 08/31/17 06:59 MCV 83.4 fL (80.0-100.0) 08/31/17 06:59 MCH 29.3 pg (25.0-35.0) 08/31/17 06:59 MCHC 35.1 g/dL (31.0-37.0) 08/31/17 06:59 RDW 15.7 % (11.5-15.5) H 08/31/17 06:59 Plt Count 290 k/uL (150-450) 08/31/17 06:59 Neutrophils % 66 % 08/31/17 06:59 Lymphocytes % 24 % 08/31/17 06:59 Monocytes % 5 % 08/31/17 06:59 Eosinophils % 2 % 08/31/17 06:59 Basophils % 1 % 08/31/17 06:59 Neutrophils # 7.3 k/uL (1.3-7.7) 08/31/17 06:59 Lymphocytes # 2.7 k/uL (1.0-4.8) 08/31/17 06:59 Monocytes # 0.6 k/uL (0-1.0) 08/31/17 06:59 Eosinophils # 0.3 k/uL (0-0.7) 08/31/17 06:59 Basophils # 0.1 k/uL (0-0.2) 08/31/17 06:59 PT 13.6 sec (9.0-12.0) H 08/19/17 15:16 INR 1.5 (<1.2) H 08/19/17 15:16 APTT 20.7 sec (22.0-30.0) L 08/19/17 15:16 Sodium 143 mmol/L (137-145) 09/02/17 07:47 Potassium 4.2 mmol/L (3.5-5.1) 09/02/17 07:47 Chloride 106 mmol/L (98-107) 09/02/17 07:47 Carbon Dioxide 21 mmol/L (22-30) L 09/02/17 07:47 Anion Gap 16 mmol/L 09/02/17 07:47 BUN 20 mg/dL (9-20) 09/02/17 07:47 Creatinine 1.00 mg/dL (0.66-1.25) 09/02/17 07:47 Est GFR (CKD-EPI)AfAm >90 (>60 ml/min/1.73 sqM) 09/02/17 07:47 Est GFR (CKD-EPI)NonAf 79 (>60 ml/min/1.73 sqM) 09/02/17 07:47 Glucose 94 mg/dL (74-99) 09/02/17 07:47 POC Glucose (mg/dL) 94 mg/dL (75-99) 08/22/17 04:08 POC Glu [employer] ID [place]es A 08/22/17 04:[address] Glu mg/dL 117 08/19/17 19:17 Hemoglobin A1c 5.7 % (4.0-6.0) 08/19/17 19:17 Lactic Ac Sepsis Rflx Y 08/19/17 15:48 Plasma Lactic Acid [place] 1.2 mmol/L (0.7-2.0) 08/19/17 19:17 Calcium 9.5 mg/dL (8.4-10.2) 09/02/17 07:47 Phosphorus 3.6 mg/dL (2.5-4.5) 08/29/17 06:45 Magnesium 1.6 mg/dL (1.6-2.3) 08/31/17 06:59 Total Bilirubin 0.6 mg/dL (0.2-1.3) 08/29/17 06:45 AST 15 U/L (17-59) L 08/29/17 06:45 ALT 24 U/L (21-72) 08/29/17 06:45 Alkaline Phosphatase 49 U/L (38-126) 08/29/17 06:45 Ammonia <9 umol/L (<30) 08/19/17 15:16 Total Creatine Kinase 247 U/L (55-170) H 08/19/17 15:16 CK-MB (CK-2) 2.6 ng/mL (0.0-2.4) H* 08/19/17 15:16 CK-MB (CK-2) Rel Index 1.1 08/19/17 15:16 Troponin I <0.012 ng/mL (0.000-0.034) 08/19/17 15:16 Total Protein 6.3 g/dL (6.3-8.2) 08/29/17 06:45 Albumin 3.6 g/dL (3.5-5.0) 08/29/17 06:45 Triglycerides 131 mg/dL (<150) 08/20/17 06:43 Cholesterol 136 mg/dL (<200) 08/20/17 06:43 LDL Cholesterol, Calc 71 mg/dL (0-99) 08/20/17 06:43 HDL Cholesterol 39 mg/dL (40-60) L 08/20/17 06:43 Amylase 62 U/L (30-110) 08/20/17 06:43 Lipase 201 U/L (23-300) 08/20/17 06:43 Homocysteine 21.68 umol/L (4.00-14.00) H 08/22/17 05:51 Urine Color Colorless 08/24/17 15:30 Urine Appearance Clear (Clear) 08/24/17 15:30 Urine pH 5.5 (5.0-8.0) 08/24/17 15:30 Ur Specific [place] 1.006 (1.001-1.035) 08/24/17 15:30 Urine Protein Trace (Negative) H 08/24/17 15:30 Urine Glucose (UA) Negative (Negative) 08/24/17 15:30 Urine Ketones Negative (Negative) 08/24/17 15:30 Urine Blood Small (Negative) H 08/24/17 15:30 Urine Nitrite Negative (Negative) 08/24/17 15:30 Urine Bilirubin Negative (Negative) 08/24/17 15:30 Urine Urobilinogen <2.0 mg/dL (<2.0) 08/24/17 15:30 Ur Leukocyte Esterase Negative (Negative) 08/24/17 15:30 Urine RBC 21 /hpf (0-5) H 08/24/17 15:30 Urine WBC 2 /hpf (0-5) 08/24/17 15:30 Amorphous Sediment Few /hpf (None) H 08/19/17 16:04 Urine Bacteria Rare /hpf (None) H 08/24/17 15:30 Hyaline Casts 9 /lpf (0-2) H 08/19/17 16:04 Granular Casts 8 /lpf (0) 08/19/17 16:04 Urine Mucus Rare /hpf (None) H 08/24/17 15:30 Ur Random Creatinine 30.3 mg/dL 08/23/17 18:30 Ur Random Sodium 88 mmol/L (30-90) 08/23/17 18:30 Random Vancomycin 14.4 ug/mL 08/23/17 05:38 Urine Opiates Screen Detected (NotDetected) H 08/19/17 16:04 Ur Oxycodone Screen Not Detected (NotDetected) 08/19/17 16:04 Urine Methadone Screen Not Detected (NotDetected) 08/19/17 16:04 Ur Propoxyphene Screen Not Detected (NotDetected) 08/19/17 16:04 Ur Barbiturates Screen Not Detected (NotDetected) 08/19/17 16:04 U Tricyclic Antidepress Not Detected (NotDetected) 08/19/17 16:04 Ur Phencyclidine Scrn Not Detected (NotDetected) 08/19/17 16:04 Ur Amphetamines Screen Not Detected (NotDetected) 08/19/17 16:04 U Methamphetamines Scrn Not Detected (NotDetected) 08/19/17 16:04 U Benzodiazepines Scrn Detected (NotDetected) H 08/19/17 16:04 Urine Cocaine Screen Not Detected (NotDetected) 08/19/17 16:04 U Marijuana (THC) Screen Detected (NotDetected) H 08/19/17 16:04 Serum Alcohol <10 mg/dL 08/19/17 15:16 C. difficile (EIA) Intrp Negative (Negative) 08/20/17 10:04 HSV I DNA PCR Not detected (Not detected) 08/20/17 06:43 HSV II DNA PCR Not detected (Not detected) 08/20/17 06:43 HSV (PCR) Source Blood - Plasma 08/20/17 06:43 Influenza Type A RNA Not Detected (Not Detectd) 08/20/17 12:05 Influenza Type B (PCR) Not Detected (Not Detectd) 08/20/17 12:05 Microbiology 08/24/17 16:04 Blood Blood Culture - Final No Growth after 144 hours 08/26/17 01:10 Urine,Catheterized Urine Culture - Final 08/24/17 15:30 Urine,Catheterized Urine Culture - Final 08/19/17 15:16 Blood Blood Culture - Final No Growth after 144 hours 08/19/17 16:04 Urine,Catheterized Urine Culture - Final Assessment and Plan (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 Patient also had a seizure while on the CAT scan unit possibly related to sepsis. Patient has had falls recently at home no obvious injuries noted. He also has had diarrhea for 3 days at home. We will check amylase and lipase and C. difficile toxin influenza testing will be done a patient will be started on ceftriaxone 2 g every 12 hours and vancomycin, acyclovir 10 mg/kg every 8 hours. Serum HSV 1 and 2 by PCR will be ordered. Continue IV Tylenol. Blood cultures are status received. Continue supportive care. 08/21/2017 the patient is more awake and alert today. He is able to answer some simple questions. The appropriateness of his answers is certainly questionable. Toward the end of the exam he tries to exit out of the bed and try to stand catching his Mcfarlane catheter in his leg. He is redirected that he has a Mcfarlane in and stops. And lays back down. It is noted there is evidence of his altered mental status At this point in time it is appearing more likely be an encephalitis. Unfortunately lumbar puncture could not be performed and CSF PCR for HSV 1 and 2 could not be performed. The serum PCR that was negative but does not exclude the possibility of viral encephalitis. The patient's fever and leukocytosis are rapidly improving. He has no meningismus and has no other new acute neurological difficulties. It is unlikely that he has meningitis if his blood cultures are negative tomorrow and consider discontinuation of his antibiotic therapy. Continue his antiviral therapy. Case is discussed with the hospitalist and likely will complete her course of acyclovir therapy. 08/25/2017 reveals the patient to have no further improvement. The patient is now greater than 5 days off of his Plavix and will arrange for lumbar puncture for radiology for routine studies as well as viral assessment including HSV-1/ HSV 2, VDRL, West Nile. The patient's behavior is quite quiet today because he received some antipsychotic therapy. Regretfully he is still very poorly functional. In that only herpes encephalitis is treatable we'll continue the intravenous acyclovir at this point in time. The patient didn't have evidence of some acute renal failure that appears to be multifactorial, the acyclovir dose has been adjusted. Patient did have a fever and Zosyn was added pending some further cultures. 08/26/2017 patient is having some improvement of his acute renal failure. Continues to be treated for acute herpetic encephalitis. Lumbar puncture requested however apparently has received further doses of Plavix which will further delay lumbar puncture. Consequently will not be able to discontinue acyclovir at this time is to complete the full course for HSV encephalitis. If possible lumbar puncture is still an ideal test given his significant neurological disease. Had a mild skin rash which is improving with just local care. 08/28/2017 reveals the patient to have steady improvement of his status. It does appear that he is starting to recover from his encephalitis, at this time will assume is related to the acyclovir therapy and we will plan a 14 day course of therapy. This is discussed with the primary care hospitalist. Since lumbar puncture could not be performed and the patient has had a clinical improvement with complete the course of therapy of the encephalitis with acyclovir. Acute renal failure is improving. 08/29/2017 patient continues to have improvement of his mental status. Appears to be having response to treatment of encephalitis. We have no definitive proof but we have clinical evidence that he is responding well to acyclovir therapy. His acute renal failure is resolving. Overall there is today improvement but he is a bit discouraged today and that his appetite and somewhat poor and he is surprised that just how profoundly weak his body is. 08/30/2017 the patient is sitting up or in a chair and has had some of his lunch. Strength is improved but nowhere near his baseline. Renal failure is improving. His mentation continues to show improvement. He does not appear uncomfortable sitting upright in a chair because he does not have much cushioning on his buttocks, this is not new and often uses a memory foam cushion when he travels. Complete 14 days of intravenous acyclovir for the presumptive diagnosis of herpetic encephalitis. 09/01/2017 the patient has had further improvement. He is on day #13 of 14 of intravenous acyclovir for his herpetic encephalitis. Fortunately he has had some further improvement. He still has significant generalized weakness and plan will be to go to rehab to receive some physical therapy and strengthening to get him back functional in his home setting. 09/02/2017 reveals the patient to have further improvement. He is on his last day of intravenous acyclovir for his suspected herpetic encephalitis. He will transition to extended care for rehab so he can regain his strength and hopefully get back to his home setting and functional status. His acute renal failure has resolved. Of this profound weakness he denies other acute changes at this time partially has had ongoing improvement of his mental status. Current Visit: Yes Status: Acute Code(s): B00.4 - HERPESVIRAL ENCEPHALITIS SNOMED Code(s): 475652623 (2) Sepsis Current Visit: Yes Status: Acute Code(s): A41.9 - SEPSIS, UNSPECIFIED ORGANISM SNOMED Code(s): 59892666 (3) Seizure Current Visit: Yes Status: Acute Code(s): R56.9 - UNSPECIFIED CONVULSIONS SNOMED Code(s): 61918143
[2017-09-03] MEDS: SODIUM CHLORIDE 0.9% 1,000 ML IV SCH ×2 (06:12→22:00)
[2017-09-03] MEDS: NICOTINE 21MG/24HR PATCH TRANSDERM SCH (08:51)
[2017-09-03] MEDS: amLODIPine 5 MG TAB PO SCH ×2 (08:51→21:57)
[2017-09-03] MEDS: CLOPIDOGREL 75 MG TAB PO SCH (08:52)
[2017-09-03] MEDS: ASPIRIN 81 MG PO SCH (08:52)
[2017-09-03] MEDS: DULoxetine HCL 30 MG CAPSULE.DR PO SCH (08:52)
[2017-09-03] MEDS: FAMOTIDINE 20 MG TAB PO SCH ×2 (08:53→21:57)
[2017-09-03] MEDS: METOPROLOL TARTRATE 25 MG TAB PO SCH ×2 (08:54→21:57)
[2017-09-03] MEDS: hydrALAZINE HCL 50 MG TAB PO SCH ×3 (08:54→21:57)
[2017-09-03] MEDS: NYSTATIN 100,000 UNIT/ML SUSP 500,000 UNIT/5 ML CUP PO SCH ×4 (08:55→21:57)
[2017-09-03] MEDS: TAMSULOSIN 0.4 MG CAP.ER.24H PO SCH (08:55)
[2017-09-03] MEDS: PRAMIPEXOLE 0.5 MG TAB PO SCH ×3 (08:55→21:57)
[2017-09-03] MEDS: ACYCLOVIR SODIUM 500 MG in SODIUM CHLORIDE 0.9% 100 ML IVPB SCH ×3 (09:13→23:15)
--- NOTE | 2017-09-03 11:12 | P.PN ---
Subjective Patient is seen in follow-up for acute kidney injury. Creatinine peaked at 2.8 this admission and was down to 1.0 as of yesterday. Patient's currently resting in bed. Doing well. No vomiting or diarrhea. Denies chest pain or shortness of breath. Admits to good urine output. Mcfarlane catheter discontinued. Vital signs are stable. General: The patient appeared well nourished and normally developed. HEENT: Head exam is unremarkable. Neck is without jugular venous distension. LUNGS: Lungs are clear to auscultation and percussion. Breath sounds decreased. HEART: Rate and Rhythm are regular. First and second heart sounds normal. No murmurs, rubs or gallops. ABDOMEN: Abdominal exam reveals normal bowel sounds. Non-tender and non- distended. No evidence of peritonitis. EXTREMITITES: No clubbing, cyanosis, or edema. Objective - Vital Signs Vital signs: Vital Signs Temp 97.7 F 09/03/17 07:10 Pulse 72 09/03/17 09:51 Resp 16 09/03/17 09:51 BP 152/89 09/03/17 07:10 Pulse Ox 99 09/03/17 07:10 Intake & Output 09/02/17 09/03/17 09/03/17 18:59 06:59 18:59 Intake Total 625 Output Total 600 300 Balance -600 325 Intake: Intake, IV Titration 625 Amount Acyclovir Sodium 500 mg 100 In Sodium Chloride 0.9% 100 ml @ 100 mls/hr IVPB Q8HR [facility] Rx#:[id number] Sodium Chloride 0.9% 1, 525 000 ml @ 50 mls/hr IV . Q20H [facility] Rx#:[id number] Output: Urine 600 300 Other: Voiding Method Bedside Commode Bedside Commode Toilet Urinal # Voids 1 # Bowel Movements 1 - Labs CBC & Chem 7: 08/31/17 06:59 09/02/17 07:47 Assessment and Plan Plan: Assessment: #1. Nonoliguric acute kidney injury secondary to ATN secondary to contrast- induced nephropathy and nonsteroidals. Renal function improving with creatinine down to 1. Baseline creatinine is near 1. #2. Hypernatremia secondary to lack of oral water intake. Resolved. #3. 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 #4. Benign hypertension. Better controlled but blood pressures somewhat labile. #5. Hypomagnesemia due to poor nutritional status, status post replacement. Plan: Discontinued potassium supplementation. NS at 50 cc/hr as he is on IV acycllovir. Encouraged oral intake. Avoid nephrotoxic agents and hypotensive episodes. Maintain current antihypertensives. Anticipate discharge soon.
[2017-09-03] MEDS: CYANOCOBALAMIN-FA-PYRIDOXINE 1 EACH TAB PO SCH (12:13)
[2017-09-03] MEDS: ACETAMINOPHEN TAB 325 MG TAB PO PRN (12:13)
--- NOTE | 2017-09-03 15:50 | DS ---
DISCHARGE SUMMARY DATE OF ADMISSION: 08/19/2017. DATE OF DISCHARGE: 09/03/2017. FINAL DIAGNOSES: 1. Suspected herpes encephalitis. The patient did complete a course of IV acyclovir today that is total of 14 days. 2. Essential hypertension. 3. Primary osteoarthritis multiple joints. 4. Benign prostatic hypertrophy. 5. Peripheral artery disease. 6. Permanent pacemaker. 7. Depression, not otherwise specified. 8. Chronic obstructive pulmonary disease in a current smoker. 9. Chronic nicotine dependence, patient has been a cigarette smoker. 10.Anxiety disorder not otherwise specified. 11.Restless legs syndrome, controlled on Mirapex. 12.Acute delirium multifactorial with significant improvement. 13.Acute kidney injury, nonoliguric secondary to contrast nephropathy, resolved. The patient does not have epilepsy disorder per Neurology. HOSPITAL COURSE: This patient presented with rather delirious, shaking, fever, septic picture, lumbar puncture could not be done because patient being on Plavix. Treated empirically for herpes encephalitis. Clinically, he has done really well and came back to normal self. The patient was in renal failure with a creatinine up to 2.80, did come down to 1.0. The patient is tolerating a diet. Because getting weak and tired, will be transferred to the rehab center. The patient apparently was taking some medications off the street, but he did not wish to talk about that in front of his who is a nurse here at the hospital. CONSULTATION: Dr. Rojas from nephrology, Dr. Starkey from Infectious Disease; Dr. Nuno from Psychiatry, Dr. Abel from the Neurology. EXAM: Lungs decreased breath sounds. Psych AO x3. Abdomen soft and nontender. DISCHARGE MEDICATIONS: 1. Lopressor 25 p.o. b.i.d. 2. Plavix 75 mg p.o. daily. 3. Flomax 0.4 mg p.o. daily. 4. Aspirin 81 mg p.o. daily. 5. Lipitor 80 mg q.h.s. 6. Folbic 1 capsule p.o. daily. 7. Cymbalta 30 mg p.o. daily. 8. Nicotine 20 mg patch daily. 9. Mirapex 0.5 mg p.o. t.i.d. for restless leg syndrome. 10.Norvasc 5 mg p.o. b.i.d. 11.Hydralazine 50 mg p.o. t.i.d. DISPOSITION: [facility]. CONDITION: On discharge, stable. FOLLOW UP: Follow up with Dr. Abel in 1 week. Follow up with Dr. Cortes/Dr. Raymond at the [facility]. Follow up with Psychiatry in 2 weeks. Follow up with Dr. Ramirez after discharge from the [facility]. Copy to Dr. Ramirez. Discussion and discharge planning more than 35 minutes. MMODL / IJN: [id number] /
[2017-09-03] MEDS: ATORVASTATIN 80 MG TAB PO SCH (21:57)
--- NOTE | 2017-09-03 23:53 | P.PN ---
Subjective Progress Note Date: 09/03/17 Principal diagnosis: 67 Year old male patient who has history of hepatitis C as well as previous stroke on Plavix. The patient is seen in the emergency center. Patient states he has had diarrhea for the past 3 days and complains of abdominal pain he had. He has also had several falls over the last couple of days when he has an abrasion to the left lower leg and complains of increased lumbar pain. He states he always has back pain and he smokes marijuana for this. Patient is an active smoker. According to the ER documentation, patient was found by his son on the floor unresponsive and incontinent of urine and not using his left arm with a left lateral gaze. He was evaluated for stroke and not a candidate for TPA as he was last seen in the morning at 7:30 and was acting normal at that time. CAT scan of the brain showed age-related atrophy and chronic small vessel ischemic change. CTA of head and neck revealed 75% stenosis of the proximal left internal carotid artery. Artifact in the left carotid artery bifurcation. Diminutive left vertebral artery. No subclavian steal. No intracranial abnormality. EKG was a sinus rhythm. Her temperature max is been 102.6 with elevated heart rate and blood pressure elevated with leukocytosis of 20.3. Patient was given ceftriaxone 1 dose. Blood culture was obtained. Urinalysis was cloudy with bacteria rare. INR 1.5. Lactic acid initially 8.6 and repeated 1.2. Patient is unable to undergo LP due to Plavix. Patient appears to be sleeping and is minimally arousable to verbal stimuli. He will answer a few questions but does not open his eyes, set up, make eye contact but he is able to answer simple questions correctly regarding orientation. Patient denies having any shortness of breath. On note that patient had a 3 second tonic-clonic seizure-like activity while in CAT scan. He was given Ativan and there is a consult in place with Dr. Abel. 08/21/2017 patient is more cognizant. He is wondering when he'll be able to go home. He is less agitated. He is able to form sentences. He is moving easily in the bed. Is trying to get up. Does not easily understand he has a Mcfarlane catheter in place. But he is easily quieted. He does not complain of much discomfort. 08/25/2017 patient is awake occasionally is able to answer question. In general just has a quiet nature, has received Haldol earlier in the day. His related over the weekend his behavior worsened and consequently antipsychotic therapy was started. 08/26/2017 patient is actually a bit more calm today than he has been. Was able to answer simple questions without difficulty. However still remains with disorientation is not able to relate that he is in hospital. Denies discomforts 08/28/2017 reveals the patient be much more improved. He is easily arousable upon arrival. He knows his name without difficulties. He is able to relate that his [facility]. He knows it is not at home. The Pres. is Paul Mcgregor, in the year is 2018. This is a significant improvement of the mental status. He was having some left-sided weakness that is now resolved and is feeling better overall. He is eating considerably better and has no other new acute complaints but has chronic lower back pain that is not new. 08/29/2017 the patient continues to have improvement. He is awake alert oriented person place and time. His appetite sported a heat some nausea. He has very tender to be in the hospital. He has some physical therapy and is surprised at how weak he has. His some discouragement today. 08/30/2017 reveals the patient has further improvement. Sitting up in the chair. He still feels quite weak. But his speech is clear and relevant. His is present today and acknowledges a significant improvement, but he is nowhere near his usual baseline of a highly functional individual. 09/01/2017 patient has some further improvement. Sitting up in the chair. Eating well. Still having some discomforts to his buttocks and lower back which are chronic. He denying fevers or chills. Functional status continues to slowly improve. He is quite conversational today. 09/02/2017 patient has further improvement but still feels extremely weak. With utilizing the walker to go from bed to the chair he feels like his legs will give out. His mentation is improving. He looks forward to rehab to gain his strength. 09/03/2017 patient is still weak but is having further improvement. He's eating well. Still having weakness. But with the walker was able to take a few steps. They're attempting given to rehab but because of some of his difficulties with drug dependency there is some difficulty. Objective - Vital Signs Vital signs: Vital Signs Temp 97.9 F 09/03/17 22:06 Pulse 77 09/03/17 22:06 Resp 16 09/03/17 22:06 BP 141/78 09/03/17 22:06 Pulse Ox 97 09/03/17 22:06 Intake & Output 09/03/17 09/03/17 09/04/17 06:59 18:59 06:59 Intake Total 625 600 200 Output Total 300 600 Balance 325 0 200 Intake: Intake, IV Titration 625 200 Amount Acyclovir Sodium 500 mg 100 In Sodium Chloride 0.9% 100 ml @ 100 mls/hr IVPB Q8HR LYDIA Rx#:[id number] Sodium Chloride 0.9% 1, 525 200 000 ml @ 50 mls/hr IV . Q20H LYDIA Rx#:[id number] Oral 600 Output: Urine 300 600 Other: Voiding Method Bedside Commode Toilet Urinal - Exam Gen: This is a 67-year-old thin male. Patient is laying comfortably No respiratory distress noted. HEENT: Head is atraumatic, normocephalic. Pupils equal, round. Sclerae is anicteric. Conjunctiva pink. Mucous members of the mouth are dry. No thrush noted. NECK: Supple. No JVD. No lymphadenopathy. No thyromegaly. no menigsmus LUNGS: Scattered rhonchi. No intercostal retractions. HEART: Regular rate and rhythm. No murmur. ABDOMEN: Soft. Bowel sounds are present. No masses. Generalized tenderness. EXTREMITIES: Extremities are thin with muscle wasting noted. No pedal edema. No calf tenderness. Dorsalis pedis +1 bilaterally. Patient has an abrasion to the back of his left ankle. No significant redness erythema. NEUROLOGICAL: The patient is awake and arousable. As noted he is awake alert oriented person place and time. There are no gross focal sensory motor deficits although he does have some generalized weakness there is no focality to the exam. His mental status is markedly improved. - Labs CBC & Chem 7: 08/31/17 06:59 09/02/17 07:47 Labs: Laboratory Results WBC 11.2 k/uL (3.8-10.6) H 08/31/17 06:59 RBC 4.99 m/uL (4.30-5.90) 08/31/17 06:59 Hgb 14.6 gm/dL (13.0-17.5) 08/31/17 06:59 Hct 41.6 % (39.0-53.0) 08/31/17 06:59 MCV 83.4 fL (80.0-100.0) 08/31/17 06:59 MCH 29.3 pg (25.0-35.0) 08/31/17 06:59 MCHC 35.1 g/dL (31.0-37.0) 08/31/17 06:59 RDW 15.7 % (11.5-15.5) H 08/31/17 06:59 Plt Count 290 k/uL (150-450) 08/31/17 06:59 Neutrophils % 66 % 08/31/17 06:59 Lymphocytes % 24 % 08/31/17 06:59 Monocytes % 5 % 08/31/17 06:59 Eosinophils % 2 % 08/31/17 06:59 Basophils % 1 % 08/31/17 06:59 Neutrophils # 7.3 k/uL (1.3-7.7) 08/31/17 06:59 Lymphocytes # 2.7 k/uL (1.0-4.8) 08/31/17 06:59 Monocytes # 0.6 k/uL (0-1.0) 08/31/17 06:59 Eosinophils # 0.3 k/uL (0-0.7) 08/31/17 06:59 Basophils # 0.1 k/uL (0-0.2) 08/31/17 06:59 PT 13.6 sec (9.0-12.0) H 08/19/17 15:16 INR 1.5 (<1.2) H 08/19/17 15:16 APTT 20.7 sec (22.0-30.0) L 08/19/17 15:16 Sodium 143 mmol/L (137-145) 09/02/17 07:47 Potassium 4.2 mmol/L (3.5-5.1) 09/02/17 07:47 Chloride 106 mmol/L (98-107) 09/02/17 07:47 Carbon Dioxide 21 mmol/L (22-30) L 09/02/17 07:47 Anion Gap 16 mmol/L 09/02/17 07:47 BUN 20 mg/dL (9-20) 09/02/17 07:47 Creatinine 1.00 mg/dL (0.66-1.25) 09/02/17 07:47 Est GFR (CKD-EPI)AfAm >90 (>60 ml/min/1.73 sqM) 09/02/17 07:47 Est GFR (CKD-EPI)NonAf 79 (>60 ml/min/1.73 sqM) 09/02/17 07:47 Glucose 94 mg/dL (74-99) 09/02/17 07:47 POC Glucose (mg/dL) 94 mg/dL (75-99) 08/22/17 04:08 POC Glu Systems Architect ID Grey Carnes A 08/22/17 04:[address] Glu mg/dL 117 08/19/17 19:17 Hemoglobin A1c 5.7 % (4.0-6.0) 08/19/17 19:17 Lactic Ac Sepsis Rflx Y 08/19/17 15:48 Plasma Lactic Acid [place] 1.2 mmol/L (0.7-2.0) 08/19/17 19:17 Calcium 9.5 mg/dL (8.4-10.2) 09/02/17 07:47 Phosphorus 3.6 mg/dL (2.5-4.5) 08/29/17 06:45 Magnesium 1.6 mg/dL (1.6-2.3) 08/31/17 06:59 Total Bilirubin 0.6 mg/dL (0.2-1.3) 08/29/17 06:45 AST 15 U/L (17-59) L 08/29/17 06:45 ALT 24 U/L (21-72) 08/29/17 06:45 Alkaline Phosphatase 49 U/L (38-126) 08/29/17 06:45 Ammonia <9 umol/L (<30) 08/19/17 15:16 Total Creatine Kinase 247 U/L (55-170) H 08/19/17 15:16 CK-MB (CK-2) 2.6 ng/mL (0.0-2.4) H* 08/19/17 15:16 CK-MB (CK-2) Rel Index 1.1 08/19/17 15:16 Troponin I <0.012 ng/mL (0.000-0.034) 08/19/17 15:16 Total Protein 6.3 g/dL (6.3-8.2) 08/29/17 06:45 Albumin 3.6 g/dL (3.5-5.0) 08/29/17 06:45 Triglycerides 131 mg/dL (<150) 08/20/17 06:43 Cholesterol 136 mg/dL (<200) 08/20/17 06:43 LDL Cholesterol, Calc 71 mg/dL (0-99) 08/20/17 06:43 HDL Cholesterol 39 mg/dL (40-60) L 08/20/17 06:43 Amylase 62 U/L (30-110) 08/20/17 06:43 Lipase 201 U/L (23-300) 08/20/17 06:43 Homocysteine 21.68 umol/L (4.00-14.00) H 08/22/17 05:51 Urine Color Colorless 08/24/17 15:30 Urine Appearance Clear (Clear) 08/24/17 15:30 Urine pH 5.5 (5.0-8.0) 08/24/17 15:30 Ur Specific Ferguson 1.006 (1.001-1.035) 08/24/17 15:30 Urine Protein Trace (Negative) H 08/24/17 15:30 Urine Glucose (UA) Negative (Negative) 08/24/17 15:30 Urine Ketones Negative (Negative) 08/24/17 15:30 Urine Blood Small (Negative) H 08/24/17 15:30 Urine Nitrite Negative (Negative) 08/24/17 15:30 Urine Bilirubin Negative (Negative) 08/24/17 15:30 Urine Urobilinogen <2.0 mg/dL (<2.0) 08/24/17 15:30 Ur Leukocyte Esterase Negative (Negative) 08/24/17 15:30 Urine RBC 21 /hpf (0-5) H 08/24/17 15:30 Urine WBC 2 /hpf (0-5) 08/24/17 15:30 Amorphous Sediment Few /hpf (None) H 08/19/17 16:04 Urine Bacteria Rare /hpf (None) H 08/24/17 15:30 Hyaline Casts 9 /lpf (0-2) H 08/19/17 16:04 Granular Casts 8 /lpf (0) 08/19/17 16:04 Urine Mucus Rare /hpf (None) H 08/24/17 15:30 Ur Random Creatinine 30.3 mg/dL 08/23/17 18:30 Ur Random Sodium 88 mmol/L (30-90) 08/23/17 18:30 Random Vancomycin 14.4 ug/mL 08/23/17 05:38 Urine Opiates Screen Detected (NotDetected) H 08/19/17 16:04 Ur Oxycodone Screen Not Detected (NotDetected) 08/19/17 16:04 Urine Methadone Screen Not Detected (NotDetected) 08/19/17 16:04 Ur Propoxyphene Screen Not Detected (NotDetected) 08/19/17 16:04 Ur Barbiturates Screen Not Detected (NotDetected) 08/19/17 16:04 U Tricyclic Antidepress Not Detected (NotDetected) 08/19/17 16:04 Ur Phencyclidine Scrn Not Detected (NotDetected) 08/19/17 16:04 Ur Amphetamines Screen Not Detected (NotDetected) 08/19/17 16:04 U Methamphetamines Scrn Not Detected (NotDetected) 08/19/17 16:04 U Benzodiazepines Scrn Detected (NotDetected) H 08/19/17 16:04 Urine Cocaine Screen Not Detected (NotDetected) 08/19/17 16:04 U Marijuana (THC) Screen Detected (NotDetected) H 08/19/17 16:04 Serum Alcohol <10 mg/dL 08/19/17 15:16 C. difficile (EIA) Intrp Negative (Negative) 08/20/17 10:04 HSV I DNA PCR Not detected (Not detected) 08/20/17 06:43 HSV II DNA PCR Not detected (Not detected) 08/20/17 06:43 HSV (PCR) Source Blood - Plasma 08/20/17 06:43 Influenza Type A RNA Not Detected (Not Detectd) 08/20/17 12:05 Influenza Type B (PCR) Not Detected (Not Detectd) 08/20/17 12:05 Microbiology 08/24/17 16:04 Blood Blood Culture - Final No Growth after 144 hours 08/26/17 01:10 Urine,Catheterized Urine Culture - Final 08/24/17 15:30 Urine,Catheterized Urine Culture - Final 08/19/17 15:16 Blood Blood Culture - Final No Growth after 144 hours 08/19/17 16:04 Urine,Catheterized Urine Culture - Final Assessment and Plan (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 Patient also had a seizure while on the CAT scan unit possibly related to sepsis. Patient has had falls recently at home no obvious injuries noted. He also has had diarrhea for 3 days at home. We will check amylase and lipase and C. difficile toxin influenza testing will be done a patient will be started on ceftriaxone 2 g every 12 hours and vancomycin, acyclovir 10 mg/kg every 8 hours. Serum HSV 1 and 2 by PCR will be ordered. Continue IV Tylenol. Blood cultures are status received. Continue supportive care. 08/21/2017 the patient is more awake and alert today. He is able to answer some simple questions. The appropriateness of his answers is certainly questionable. Toward the end of the exam he tries to exit out of the bed and try to stand catching his Mcfarlane catheter in his leg. He is redirected that he has a Mcfarlane in and stops. And lays back down. It is noted there is evidence of his altered mental status At this point in time it is appearing more likely be an encephalitis. Unfortunately lumbar puncture could not be performed and CSF PCR for HSV 1 and 2 could not be performed. The serum PCR that was negative but does not exclude the possibility of viral encephalitis. The patient's fever and leukocytosis are rapidly improving. He has no meningismus and has no other new acute neurological difficulties. It is unlikely that he has meningitis if his blood cultures are negative tomorrow and consider discontinuation of his antibiotic therapy. Continue his antiviral therapy. Case is discussed with the hospitalist and likely will complete her course of acyclovir therapy. 08/25/2017 reveals the patient to have no further improvement. The patient is now greater than 5 days off of his Plavix and will arrange for lumbar puncture for radiology for routine studies as well as viral assessment including HSV-1/ HSV 2, VDRL, West Nile. The patient's behavior is quite quiet today because he received some antipsychotic therapy. Regretfully he is still very poorly functional. In that only herpes encephalitis is treatable we'll continue the intravenous acyclovir at this point in time. The patient didn't have evidence of some acute renal failure that appears to be multifactorial, the acyclovir dose has been adjusted. Patient did have a fever and Zosyn was added pending some further cultures. 08/26/2017 patient is having some improvement of his acute renal failure. Continues to be treated for acute herpetic encephalitis. Lumbar puncture requested however apparently has received further doses of Plavix which will further delay lumbar puncture. Consequently will not be able to discontinue acyclovir at this time is to complete the full course for HSV encephalitis. If possible lumbar puncture is still an ideal test given his significant neurological disease. Had a mild skin rash which is improving with just local care. 08/28/2017 reveals the patient to have steady improvement of his status. It does appear that he is starting to recover from his encephalitis, at this time will assume is related to the acyclovir therapy and we will plan a 14 day course of therapy. This is discussed with the primary care hospitalist. Since lumbar puncture could not be performed and the patient has had a clinical improvement with complete the course of therapy of the encephalitis with acyclovir. Acute renal failure is improving. 08/29/2017 patient continues to have improvement of his mental status. Appears to be having response to treatment of encephalitis. We have no definitive proof but we have clinical evidence that he is responding well to acyclovir therapy. His acute renal failure is resolving. Overall there is today improvement but he is a bit discouraged today and that his appetite and somewhat poor and he is surprised that just how profoundly weak his body is. 08/30/2017 the patient is sitting up or in a chair and has had some of his lunch. Strength is improved but nowhere near his baseline. Renal failure is improving. His mentation continues to show improvement. He does not appear uncomfortable sitting upright in a chair because he does not have much cushioning on his buttocks, this is not new and often uses a memory foam cushion when he travels. Complete 14 days of intravenous acyclovir for the presumptive diagnosis of herpetic encephalitis. 09/01/2017 the patient has had further improvement. He is on day #13 of 14 of intravenous acyclovir for his herpetic encephalitis. Fortunately he has had some further improvement. He still has significant generalized weakness and plan will be to go to rehab to receive some physical therapy and strengthening to get him back functional in his home setting. 09/02/2017 reveals the patient to have further improvement. He is on his last day of intravenous acyclovir for his suspected herpetic encephalitis. He will transition to extended care for rehab so he can regain his strength and hopefully get back to his home setting and functional status. His acute renal failure has resolved. Of this profound weakness he denies other acute changes at this time partially has had ongoing improvement of his mental status. 09/03/2017 patient has steady improvement. He has now had completion of treatment for herpetic encephalitis. Not yet at baseline. Placement complicated by preadmit drug use. May be discharged tomorrow. Current Visit: Yes Status: Acute Code(s): B00.4 - HERPESVIRAL ENCEPHALITIS SNOMED Code(s): 759164637 (2) Sepsis Current Visit: Yes Status: Acute Code(s): A41.9 - SEPSIS, UNSPECIFIED ORGANISM SNOMED Code(s): 59575409 (3) Seizure Current Visit: Yes Status: Acute Code(s): R56.9 - UNSPECIFIED CONVULSIONS SNOMED Code(s): 97291634
[2017-09-04] MEDS: SODIUM CHLORIDE 0.9% 1,000 ML IV SCH (04:32)
[2017-09-04] MEDS: ACYCLOVIR SODIUM 500 MG in SODIUM CHLORIDE 0.9% 100 ML IVPB SCH (08:16)
[2017-09-04] MEDS: ASPIRIN 81 MG PO SCH (09:19)
[2017-09-04] MEDS: amLODIPine 5 MG TAB PO SCH ×2 (09:19→21:37)
[2017-09-04] MEDS: DULoxetine HCL 30 MG CAPSULE.DR PO SCH (09:19)
[2017-09-04] MEDS: CLOPIDOGREL 75 MG TAB PO SCH (09:19)
[2017-09-04] MEDS: NICOTINE 21MG/24HR PATCH TRANSDERM SCH (09:19)
[2017-09-04] MEDS: METOPROLOL TARTRATE 25 MG TAB PO SCH ×2 (09:20→21:36)
[2017-09-04] MEDS: FAMOTIDINE 20 MG TAB PO SCH ×2 (09:20→21:37)
[2017-09-04] MEDS: NYSTATIN 100,000 UNIT/ML SUSP 500,000 UNIT/5 ML CUP PO SCH ×4 (09:20→21:37)
[2017-09-04] MEDS: hydrALAZINE HCL 50 MG TAB PO SCH ×3 (09:21→21:36)
[2017-09-04] MEDS: PRAMIPEXOLE 0.5 MG TAB PO SCH ×3 (09:21→21:37)
[2017-09-04] MEDS: TAMSULOSIN 0.4 MG CAP.ER.24H PO SCH (09:22)
--- NOTE | 2017-09-04 10:21 | P.PN ---
Subjective Patient is seen in follow-up for acute kidney injury. Creatinine peaked at 2.8 this admission and was down to 1.0 as of September 02. Patient's currently resting in bed. Doing well. No vomiting. Does have loose bowel movements. Denies chest pain or shortness of breath. Admits to good urine output. Mcfarlane catheter discontinued. Vital signs are stable. General: The patient appeared well nourished and normally developed. HEENT: Head exam is unremarkable. Neck is without jugular venous distension. LUNGS: Lungs are clear to auscultation and percussion. Breath sounds decreased. HEART: Rate and Rhythm are regular. First and second heart sounds normal. No murmurs, rubs or gallops. ABDOMEN: Abdominal exam reveals normal bowel sounds. Non-tender and non- distended. No evidence of peritonitis. EXTREMITITES: No clubbing, cyanosis, or edema. Objective - Vital Signs Vital signs: Vital Signs Temp 97.6 F 09/04/17 07:00 Pulse 97 09/04/17 07:00 Resp 16 09/04/17 00:00 BP 142/74 09/04/17 07:00 Pulse Ox 97 09/04/17 08:55 Intake & Output 09/03/17 09/04/17 09/04/17 18:59 06:59 18:59 Intake Total 600 200 Output Total 600 Balance 0 200 Intake: Intake, IV Titration 200 Amount Sodium Chloride 0.9% 1, 200 000 ml @ 50 mls/hr IV . Q20H LYDIA Rx#:[id number] Oral 600 Output: Urine 600 Other: Voiding Method Toilet Toilet # Voids 1 # Bowel Movements 1 - Labs CBC & Chem 7: 08/31/17 06:59 09/02/17 07:47 Assessment and Plan Plan: Assessment: #1. Nonoliguric acute kidney injury secondary to ATN secondary to contrast- induced nephropathy and nonsteroidals. Renal function improving with creatinine down to 1. Baseline creatinine is near 1. #2. Hypernatremia secondary to lack of oral water intake. Resolved. #3. 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 #4. Benign hypertension. Better controlled but blood pressures somewhat labile. #5. Hypomagnesemia due to poor nutritional status, status post replacement. Plan: Discontinued potassium supplementation. NS at 50 cc/hr as he is on IV acycllovir. Encouraged oral intake. Avoid nephrotoxic agents and hypotensive episodes. Maintain current antihypertensives. Anticipate discharge soon.
[2017-09-04] MEDS: CYANOCOBALAMIN-FA-PYRIDOXINE 1 EACH TAB PO SCH (12:18)
--- NOTE | 2017-09-04 21:05 | P.PN ---
Subjective Progress Note Date: 09/04/17 Principal diagnosis: 67 Year old male patient who has history of hepatitis C as well as previous stroke on Plavix. The patient is seen in the emergency center. Patient states he has had diarrhea for the past 3 days and complains of abdominal pain he had. He has also had several falls over the last couple of days when he has an abrasion to the left lower leg and complains of increased lumbar pain. He states he always has back pain and he smokes marijuana for this. Patient is an active smoker. According to the ER documentation, patient was found by his son on the floor unresponsive and incontinent of urine and not using his left arm with a left lateral gaze. He was evaluated for stroke and not a candidate for TPA as he was last seen in the morning at 7:30 and was acting normal at that time. CAT scan of the brain showed age-related atrophy and chronic small vessel ischemic change. CTA of head and neck revealed 75% stenosis of the proximal left internal carotid artery. Artifact in the left carotid artery bifurcation. Diminutive left vertebral artery. No subclavian steal. No intracranial abnormality. EKG was a sinus rhythm. Her temperature max is been 102.6 with elevated heart rate and blood pressure elevated with leukocytosis of 20.3. Patient was given ceftriaxone 1 dose. Blood culture was obtained. Urinalysis was cloudy with bacteria rare. INR 1.5. Lactic acid initially 8.6 and repeated 1.2. Patient is unable to undergo LP due to Plavix. Patient appears to be sleeping and is minimally arousable to verbal stimuli. He will answer a few questions but does not open his eyes, set up, make eye contact but he is able to answer simple questions correctly regarding orientation. Patient denies having any shortness of breath. On note that patient had a 3 second tonic-clonic seizure-like activity while in CAT scan. He was given Ativan and there is a consult in place with Dr. Abel. 08/21/2017 patient is more cognizant. He is wondering when he'll be able to go home. He is less agitated. He is able to form sentences. He is moving easily in the bed. Is trying to get up. Does not easily understand he has a Mcfarlane catheter in place. But he is easily quieted. He does not complain of much discomfort. 08/25/2017 patient is awake occasionally is able to answer question. In general just has a quiet nature, has received Haldol earlier in the day. His related over the weekend his behavior worsened and consequently antipsychotic therapy was started. 08/26/2017 patient is actually a bit more calm today than he has been. Was able to answer simple questions without difficulty. However still remains with disorientation is not able to relate that he is in hospital. Denies discomforts 08/28/2017 reveals the patient be much more improved. He is easily arousable upon arrival. He knows his name without difficulties. He is able to relate that his [facility]. He knows it is not at home. The Pres. is Paul Mcgregor, in the year is 2018. This is a significant improvement of the mental status. He was having some left-sided weakness that is now resolved and is feeling better overall. He is eating considerably better and has no other new acute complaints but has chronic lower back pain that is not new. 08/29/2017 the patient continues to have improvement. He is awake alert oriented person place and time. His appetite sported a heat some nausea. He has very tender to be in the hospital. He has some physical therapy and is surprised at how weak he has. His some discouragement today. 08/30/2017 reveals the patient has further improvement. Sitting up in the chair. He still feels quite weak. But his speech is clear and relevant. His is present today and acknowledges a significant improvement, but he is nowhere near his usual baseline of a highly functional individual. 09/01/2017 patient has some further improvement. Sitting up in the chair. Eating well. Still having some discomforts to his buttocks and lower back which are chronic. He denying fevers or chills. Functional status continues to slowly improve. He is quite conversational today. 09/02/2017 patient has further improvement but still feels extremely weak. With utilizing the walker to go from bed to the chair he feels like his legs will give out. His mentation is improving. He looks forward to rehab to gain his strength. 09/03/2017 patient is still weak but is having further improvement. He's eating well. Still having weakness. But with the walker was able to take a few steps. They're attempting given to rehab but because of some of his difficulties with drug dependency there is some difficulty. 3 08/15/2017 patient is weak but is doing better. He's been able to utilize a walker to take more than just a few steps. Is being evaluated and likely will transition to rehab today Objective - Vital Signs Vital signs: Vital Signs Temp 97.9 F 09/04/17 15:00 Pulse 68 09/04/17 15:00 Resp 18 09/04/17 15:00 BP 145/73 09/04/17 15:00 Pulse Ox 96 09/04/17 15:00 Intake & Output 09/04/17 09/04/17 09/05/17 06:59 18:59 06:59 Intake Total 200 1000 Balance 200 1000 Weight 51.5 kg Intake: Intake, IV Titration 200 400 Amount Sodium Chloride 0.9% 1, 200 400 000 ml @ 50 mls/hr IV . Q20H LYDIA Rx#:[id number] Oral 600 Other: Voiding Method Toilet Toilet # Voids 1 4 # Bowel Movements 1 2 - Exam Gen: This is a 67-year-old thin male. Patient is laying comfortably No respiratory distress noted. HEENT: Head is atraumatic, normocephalic. Pupils equal, round. Sclerae is anicteric. Conjunctiva pink. Mucous members of the mouth are dry. No thrush noted. NECK: Supple. No JVD. No lymphadenopathy. No thyromegaly. no menigsmus LUNGS: Scattered rhonchi. No intercostal retractions. HEART: Regular rate and rhythm. No murmur. ABDOMEN: Soft. Bowel sounds are present. No masses. Generalized tenderness. EXTREMITIES: Extremities are thin with muscle wasting noted. No pedal edema. No calf tenderness. Dorsalis pedis +1 bilaterally. Patient has an abrasion to the back of his left ankle. No significant redness erythema. NEUROLOGICAL: The patient is awake and arousable. As noted he is awake alert oriented person place and time. There are no gross focal sensory motor deficits although he does have some generalized weakness there is no focality to the exam. His mental status is markedly improved. - Labs CBC & Chem 7: 08/31/17 06:59 09/02/17 07:47 Labs: Laboratory Results WBC 11.2 k/uL (3.8-10.6) H 08/31/17 06:59 RBC 4.99 m/uL (4.30-5.90) 08/31/17 06:59 Hgb 14.6 gm/dL (13.0-17.5) 08/31/17 06:59 Hct 41.6 % (39.0-53.0) 08/31/17 06:59 MCV 83.4 fL (80.0-100.0) 08/31/17 06:59 MCH 29.3 pg (25.0-35.0) 08/31/17 06:59 MCHC 35.1 g/dL (31.0-37.0) 08/31/17 06:59 RDW 15.7 % (11.5-15.5) H 08/31/17 06:59 Plt Count 290 k/uL (150-450) 08/31/17 06:59 Neutrophils % 66 % 08/31/17 06:59 Lymphocytes % 24 % 08/31/17 06:59 Monocytes % 5 % 08/31/17 06:59 Eosinophils % 2 % 08/31/17 06:59 Basophils % 1 % 08/31/17 06:59 Neutrophils # 7.3 k/uL (1.3-7.7) 08/31/17 06:59 Lymphocytes # 2.7 k/uL (1.0-4.8) 08/31/17 06:59 Monocytes # 0.6 k/uL (0-1.0) 08/31/17 06:59 Eosinophils # 0.3 k/uL (0-0.7) 08/31/17 06:59 Basophils # 0.1 k/uL (0-0.2) 08/31/17 06:59 PT 13.6 sec (9.0-12.0) H 08/19/17 15:16 INR 1.5 (<1.2) H 08/19/17 15:16 APTT 20.7 sec (22.0-30.0) L 08/19/17 15:16 Sodium 143 mmol/L (137-145) 09/02/17 07:47 Potassium 4.2 mmol/L (3.5-5.1) 09/02/17 07:47 Chloride 106 mmol/L (98-107) 09/02/17 07:47 Carbon Dioxide 21 mmol/L (22-30) L 09/02/17 07:47 Anion Gap 16 mmol/L 09/02/17 07:47 BUN 20 mg/dL (9-20) 09/02/17 07:47 Creatinine 1.00 mg/dL (0.66-1.25) 09/02/17 07:47 Est GFR (CKD-EPI)AfAm >90 (>60 ml/min/1.73 sqM) 09/02/17 07:47 Est GFR (CKD-EPI)NonAf 79 (>60 ml/min/1.73 sqM) 09/02/17 07:47 Glucose 94 mg/dL (74-99) 09/02/17 07:47 POC Glucose (mg/dL) 94 mg/dL (75-99) 08/22/17 04:08 POC Glu [employer] ID Grey Carnes A 08/22/17 04:[address] Glu mg/dL 117 08/19/17 19:17 Hemoglobin A1c 5.7 % (4.0-6.0) 08/19/17 19:17 Lactic Ac Sepsis Rflx Y 08/19/17 15:48 Plasma Lactic Acid [place] 1.2 mmol/L (0.7-2.0) 08/19/17 19:17 Calcium 9.5 mg/dL (8.4-10.2) 09/02/17 07:47 Phosphorus 3.6 mg/dL (2.5-4.5) 08/29/17 06:45 Magnesium 1.6 mg/dL (1.6-2.3) 08/31/17 06:59 Total Bilirubin 0.6 mg/dL (0.2-1.3) 08/29/17 06:45 AST 15 U/L (17-59) L 08/29/17 06:45 ALT 24 U/L (21-72) 08/29/17 06:45 Alkaline Phosphatase 49 U/L (38-126) 08/29/17 06:45 Ammonia <9 umol/L (<30) 08/19/17 15:16 Total Creatine Kinase 247 U/L (55-170) H 08/19/17 15:16 CK-MB (CK-2) 2.6 ng/mL (0.0-2.4) H* 08/19/17 15:16 CK-MB (CK-2) Rel Index 1.1 03/13/18 15:16 Troponin I <0.012 ng/mL (0.000-0.034) 08/19/17 15:16 Total Protein 6.3 g/dL (6.3-8.2) 08/29/17 06:45 Albumin 3.6 g/dL (3.5-5.0) 08/29/17 06:45 Triglycerides 131 mg/dL (<150) 08/20/17 06:43 Cholesterol 136 mg/dL (<200) 08/20/17 06:43 LDL Cholesterol, Calc 71 mg/dL (0-99) 08/20/17 06:43 HDL Cholesterol 39 mg/dL (40-60) L 08/20/17 06:43 Amylase 62 U/L (30-110) 08/20/17 06:43 Lipase 201 U/L (23-300) 08/20/17 06:43 Homocysteine 21.68 umol/L (4.00-14.00) H 08/22/17 05:51 Urine Color Colorless 08/24/17 15:30 Urine Appearance Clear (Clear) 08/24/17 15:30 Urine pH 5.5 (5.0-8.0) 08/24/17 15:30 Ur Specific [place] 1.006 (1.001-1.035) 08/24/17 15:30 Urine Protein Trace (Negative) H 08/24/17 15:30 Urine Glucose (UA) Negative (Negative) 08/24/17 15:30 Urine Ketones Negative (Negative) 08/24/17 15:30 Urine Blood Small (Negative) H 08/24/17 15:30 Urine Nitrite Negative (Negative) 08/24/17 15:30 Urine Bilirubin Negative (Negative) 08/24/17 15:30 Urine Urobilinogen <2.0 mg/dL (<2.0) 08/24/17 15:30 Ur Leukocyte Esterase Negative (Negative) 08/24/17 15:30 Urine RBC 21 /hpf (0-5) H 08/24/17 15:30 Urine WBC 2 /hpf (0-5) 08/24/17 15:30 Amorphous Sediment Few /hpf (None) H 08/19/17 16:04 Urine Bacteria Rare /hpf (None) H 08/24/17 15:30 Hyaline Casts 9 /lpf (0-2) H 08/19/17 16:04 Granular Casts 8 /lpf (0) 08/19/17 16:04 Urine Mucus Rare /hpf (None) H 08/24/17 15:30 Ur Random Creatinine 30.3 mg/dL 08/23/17 18:30 Ur Random Sodium 88 mmol/L (30-90) 08/23/17 18:30 Random Vancomycin 14.4 ug/mL 08/23/17 05:38 Urine Opiates Screen Detected (NotDetected) H 08/19/17 16:04 Ur Oxycodone Screen Not Detected (NotDetected) 08/19/17 16:04 Urine Methadone Screen Not Detected (NotDetected) 08/19/17 16:04 Ur Propoxyphene Screen Not Detected (NotDetected) 08/19/17 16:04 Ur Barbiturates Screen Not Detected (NotDetected) 08/19/17 16:04 U Tricyclic Antidepress Not Detected (NotDetected) 08/19/17 16:04 Ur Phencyclidine Scrn Not Detected (NotDetected) 08/19/17 16:04 Ur Amphetamines Screen Not Detected (NotDetected) 08/19/17 16:04 U Methamphetamines Scrn Not Detected (NotDetected) 08/19/17 16:04 U Benzodiazepines Scrn Detected (NotDetected) H 08/19/17 16:04 Urine Cocaine Screen Not Detected (NotDetected) 08/19/17 16:04 U Marijuana (THC) Screen Detected (NotDetected) H 08/19/17 16:04 Serum Alcohol <10 mg/dL 08/19/17 15:16 C. difficile (EIA) Intrp Negative (Negative) 08/20/17 10:04 HSV I DNA PCR Not detected (Not detected) 08/20/17 06:43 HSV II DNA PCR Not detected (Not detected) 08/20/17 06:43 HSV (PCR) Source Blood - Plasma 08/20/17 06:43 Influenza Type A RNA Not Detected (Not Detectd) 08/20/17 12:05 Influenza Type B (PCR) Not Detected (Not Detectd) 08/20/17 12:05 Microbiology 08/24/17 16:04 Blood Blood Culture - Final No Growth after 144 hours 08/26/17 01:10 Urine,Catheterized Urine Culture - Final 08/24/17 15:30 Urine,Catheterized Urine Culture - Final 08/19/17 15:16 Blood Blood Culture - Final No Growth after 144 hours 08/19/17 16:04 Urine,Catheterized Urine Culture - Final Assessment and Plan (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 Patient also had a seizure while on the CAT scan unit possibly related to sepsis. Patient has had falls recently at home no obvious injuries noted. He also has had diarrhea for 3 days at home. We will check amylase and lipase and C. difficile toxin influenza testing will be done a patient will be started on ceftriaxone 2 g every 12 hours and vancomycin, acyclovir 10 mg/kg every 8 hours. Serum HSV 1 and 2 by PCR will be ordered. Continue IV Tylenol. Blood cultures are status received. Continue supportive care. 08/21/2017 the patient is more awake and alert today. He is able to answer some simple questions. The appropriateness of his answers is certainly questionable. Toward the end of the exam he tries to exit out of the bed and try to stand catching his Mcfarlane catheter in his leg. He is redirected that he has a Mcfarlane in and stops. And lays back down. It is noted there is evidence of his altered mental status At this point in time it is appearing more likely be an encephalitis. Unfortunately lumbar puncture could not be performed and CSF PCR for HSV 1 and 2 could not be performed. The serum PCR that was negative but does not exclude the possibility of viral encephalitis. The patient's fever and leukocytosis are rapidly improving. He has no meningismus and has no other new acute neurological difficulties. It is unlikely that he has meningitis if his blood cultures are negative tomorrow and consider discontinuation of his antibiotic therapy. Continue his antiviral therapy. Case is discussed with the hospitalist and likely will complete her course of acyclovir therapy. 08/25/2017 reveals the patient to have no further improvement. The patient is now greater than 5 days off of his Plavix and will arrange for lumbar puncture for radiology for routine studies as well as viral assessment including HSV-1/ HSV 2, VDRL, West Nile. The patient's behavior is quite quiet today because he received some antipsychotic therapy. Regretfully he is still very poorly functional. In that only herpes encephalitis is treatable we'll continue the intravenous acyclovir at this point in time. The patient didn't have evidence of some acute renal failure that appears to be multifactorial, the acyclovir dose has been adjusted. Patient did have a fever and Zosyn was added pending some further cultures. 08/26/2017 patient is having some improvement of his acute renal failure. Continues to be treated for acute herpetic encephalitis. Lumbar puncture requested however apparently has received further doses of Plavix which will further delay lumbar puncture. Consequently will not be able to discontinue acyclovir at this time is to complete the full course for HSV encephalitis. If possible lumbar puncture is still an ideal test given his significant neurological disease. Had a mild skin rash which is improving with just local care. 08/28/2017 reveals the patient to have steady improvement of his status. It does appear that he is starting to recover from his encephalitis, at this time will assume is related to the acyclovir therapy and we will plan a 14 day course of therapy. This is discussed with the primary care hospitalist. Since lumbar puncture could not be performed and the patient has had a clinical improvement with complete the course of therapy of the encephalitis with acyclovir. Acute renal failure is improving. 08/29/2017 patient continues to have improvement of his mental status. Appears to be having response to treatment of encephalitis. We have no definitive proof but we have clinical evidence that he is responding well to acyclovir therapy. His acute renal failure is resolving. Overall there is today improvement but he is a bit discouraged today and that his appetite and somewhat poor and he is surprised that just how profoundly weak his body is. 08/30/2017 the patient is sitting up or in a chair and has had some of his lunch. Strength is improved but nowhere near his baseline. Renal failure is improving. His mentation continues to show improvement. He does not appear uncomfortable sitting upright in a chair because he does not have much cushioning on his buttocks, this is not new and often uses a memory foam cushion when he travels. Complete 14 days of intravenous acyclovir for the presumptive diagnosis of herpetic encephalitis. 09/01/2017 the patient has had further improvement. He is on day #13 of 14 of intravenous acyclovir for his herpetic encephalitis. Fortunately he has had some further improvement. He still has significant generalized weakness and plan will be to go to rehab to receive some physical therapy and strengthening to get him back functional in his home setting. 09/02/2017 reveals the patient to have further improvement. He is on his last day of intravenous acyclovir for his suspected herpetic encephalitis. He will transition to extended care for rehab so he can regain his strength and hopefully get back to his home setting and functional status. His acute renal failure has resolved. Of this profound weakness he denies other acute changes at this time partially has had ongoing improvement of his mental status. 09/03/2017 patient has steady improvement. He has now had completion of treatment for herpetic encephalitis. Not yet at baseline. Placement complicated by preadmit drug use. May be discharged tomorrow. 09/04/2017 patient is completed his treatment of his herpetic encephalitis. Is having some physical improvement with the physical therapy is receiving so far. We'll need to go to rehab to complete his course of therapy. We'll begin transitioning there today. Current Visit: Yes Status: Acute Code(s): B00.4 - HERPESVIRAL ENCEPHALITIS SNOMED Code(s): 385333207 (2) Sepsis Current Visit: Yes Status: Acute Code(s): A41.9 - SEPSIS, UNSPECIFIED ORGANISM SNOMED Code(s): 23033092 (3) Seizure Current Visit: Yes Status: Acute Code(s): R56.9 - UNSPECIFIED CONVULSIONS SNOMED Code(s): 48320680
[2017-09-04] MEDS: ATORVASTATIN 80 MG TAB PO SCH (21:37)
--- NOTE | 2017-09-05 06:49 | PN ---
PROGRESS NOTE DATE OF SERVICE: 09/03/2017. PRESENTING COMPLAINT: Tired. INTERVAL HISTORY: This patient was seen by me yesterday on 09/03/2017. Patient was supposed to be discharged, but the [facility] did not accept the patient. Patient today is getting the last dose of IV acyclovir from herpes simplex virus. Continues to improve. Eating better. Needs help with getting about, though he did walk with a walker, at least to the bathroom and in a bit in the hallway. REVIEW OF SYSTEMS: Done for constitutional, cardiovascular, GI, pulmonary; relevant findings as above. CURRENT MEDICATIONS: Include IV acyclovir. PHYSICAL EXAMINATION: Temperature 97.7, pulse 72, respiratory rate 18, blood pressure 152/89, pulse ox 99% on room air. GENERAL APPEARANCE: Sitting up in bed, comfortable. EYES: Pupils equal, conjunctivae normal. HEENT: External appearance of nose and ears normal, oral cavity normal. NECK: JVD not raised. Mass not palpable. Respiratory effort normal. Lungs are decreased breath sounds. CARDIOVASCULAR: First and second sounds are normal, no edema. ABDOMEN: Soft, nontender. Liver and spleen not palpable. PSYCHIATRY: Alert and oriented x3. Mood and affect normal. INVESTIGATIONS: No blood work from today. ASSESSMENT: 1. Herpes simplex encephalitis, likely. Patient will complete course of acyclovir today. 2. Essential hypertension. 3. Primary osteoarthritis in multiple joints. 4. Benign prostatic hypertrophy. 5. Peripheral artery disease. 6. Permanent pacemaker. 7. Depression, not otherwise specified. 8. Chronic obstructive pulmonary disease. 9. Chronic nicotine dependence, patient is active cigarette smoker. 10.Anxiety disorder, not otherwise specified. 11.Restless legs syndrome, on Mirapex. 12.Acute delirium multifactorial, resolved. 13.Acute kidney injury, nonoliguric secondary to contrast nephropathy, improved. 14.Epilepsy disorder. PLAN: Continue current medication and treatment plan. Discharge has been held from the [facility]. Social Work is working on the same. MMODL / IJN: [id number] /
--- NOTE | 2017-09-05 06:58 | PN ---
PROGRESS NOTE DATE OF SERVICE: 09/04/2017 PRESENTING COMPLAINT: Tired. INTERVAL HISTORY: The patient was treated for herpes simplex encephalitis, doing well, sitting up, tolerating a diet. Awaiting discharge. No new issues. REVIEW OF SYSTEMS: Done for costal cardiovascular GI pulmonary; relevant findings as above. CURRENT MEDICATIONS: Reviewed. PHYSICAL EXAMINATION: Temperature 97.9, pulse 68, respiratory rate 18, blood pressure 145/73, pulse ox 96% on room. GENERAL APPEARANCE: Sitting up, comfortable, awake. EYES: Pupils equal, conjunctivae normal. HEENT: External appearance of nose and ears normal, oral cavity normal. NECK: JVD not raised. Mass not palpable. Respiratory effort normal. Lungs are clear. Decreased breath sounds. CARDIOVASCULAR: First and second sounds are normal, no edema. ABDOMEN: Soft, nontender. Liver and spleen not palpable. PSYCHIATRY: Alert and oriented x3. Mood and affect normal. INVESTIGATIONS: No blood work from today. ASSESSMENT: 1. Herpes encephalitis likely, patient completed a course of acyclovir. 2. Essential hypertension. 3. Primary osteoarthritis in multiple joints. 4. Benign prostatic hypertrophy. 5. Peripheral artery disease. 6. Permanent pacemaker. 7. Depression, not otherwise specified. 8. Chronic obstructive pulmonary disease. 9. Chronic nicotine dependence, patient is an active cigarette smoker. 10.Anxiety disorder, not otherwise specified. 11.Restless legs syndrome, on Mirapex. 12.Acute delirium multifactorial, resolved. 13.Acute kidney injury, nonoliguric secondary to contrast nephropathy, resolved. 14.Epilepsy disorder. PLAN: Spoke to the social service agency director, they are looking for a placement for a place. Patient has finished the course of acyclovir. Await placement. MMODL / IJN: [id number] /
[2017-09-05 07:17] VITALS: TEMP 97.5
[2017-09-05] MEDS: ASPIRIN 81 MG PO SCH (07:32)
[2017-09-05] MEDS: DULoxetine HCL 30 MG CAPSULE.DR PO SCH (07:32)
[2017-09-05] MEDS: amLODIPine 5 MG TAB PO SCH (07:32)
[2017-09-05] MEDS: FAMOTIDINE 20 MG TAB PO SCH (07:32)
[2017-09-05] MEDS: NICOTINE 21MG/24HR PATCH TRANSDERM SCH (07:32)
[2017-09-05] MEDS: CLOPIDOGREL 75 MG TAB PO SCH (07:32)
[2017-09-05] MEDS: hydrALAZINE HCL 50 MG TAB PO SCH (07:33)
[2017-09-05] MEDS: METOPROLOL TARTRATE 25 MG TAB PO SCH (07:33)
[2017-09-05] MEDS: PRAMIPEXOLE 0.5 MG TAB PO SCH (07:34)
[2017-09-05] MEDS: NYSTATIN 100,000 UNIT/ML SUSP 500,000 UNIT/5 ML CUP PO SCH ×2 (07:34→13:33)
[2017-09-05] MEDS: TAMSULOSIN 0.4 MG CAP.ER.24H PO SCH (07:34)
[2017-09-05 08:50] LABS: Anion Gap 16 mmol/L; Blood Urea Nitrogen 14 mg/dL (9-20); Calcium 9.4 mg/dL (8.4-10.2); Carbon Dioxide 23 mmol/L (22-30); Chloride 103 mmol/L (98-107); Glucose 144 mg/dL (74-99); Potassium 3.4 mmol/L (3.5-5.1); Sodium 142 mmol/L (137-145)
[2017-09-05] MEDS ORDERED: POTASSIUM CHLORIDE ER 20 MEQ TAB.ER PO STA (09:06)
--- NOTE | 2017-09-05 09:09 | P.PN ---
Subjective Patient is seen in follow-up for acute kidney injury. Creatinine peaked at 2.8 this admission and now back to baseline - cr 0.8 today. Patient's currently resting in bed. Doing well. No vomiting. Does have loose bowel movements. Denies chest pain or shortness of breath. Admits to good urine output. Mcfarlane catheter discontinued. Awaiting rehab placement. Vital signs are stable. General: The patient appeared well nourished and normally developed. HEENT: Head exam is unremarkable. Neck is without jugular venous distension. LUNGS: Lungs are clear to auscultation and percussion. Breath sounds decreased. HEART: Rate and Rhythm are regular. First and second heart sounds normal. No murmurs, rubs or gallops. ABDOMEN: Abdominal exam reveals normal bowel sounds. Non-tender and non- distended. No evidence of peritonitis. EXTREMITITES: No clubbing, cyanosis, or edema. Objective - Vital Signs Vital signs: Vital Signs Temp 97.5 F L 09/05/17 07:00 Pulse 97 09/05/17 07:00 Resp 18 09/05/17 07:00 BP 175/78 09/05/17 07:00 Pulse Ox 95 09/04/17 21:07 Intake & Output 09/04/17 09/05/17 09/05/17 18:59 06:59 18:59 Intake Total 1000 240 Balance 1000 240 Weight 51.5 kg 51.5 kg Intake: Intake, IV Titration 400 Amount Sodium Chloride 0.9% 1, 400 000 ml @ 50 mls/hr IV . [facility] Rx#:[id number] Oral 600 240 Other: Voiding Method Toilet Toilet Urinal # Voids 4 1 2 # Bowel Movements 2 1 1 - Labs CBC & Chem 7: 08/31/17 06:59 09/05/17 08:05 Labs: Abnormal Lab Results - Last 24 Hours (Table) 09/05/17 Range/Units 08:05 Potassium 3.4 L (3.5-5.1) mmol/L Glucose 144 H (74-99) mg/dL Assessment and Plan Plan: Assessment: #1. Nonoliguric acute kidney injury secondary to ATN secondary to contrast- induced nephropathy and nonsteroidals. Renal function improving with creatinine down to 0.8. #2. Hypernatremia secondary to lack of oral water intake. Resolved. #3. Possible HSV encephalitis s/p IV acyclovir. #4. Benign hypertension. Better controlled but blood pressures somewhat labile. #5. Hypomagnesemia due to poor nutritional status, status post replacement. #6. Hypokalemia from poor po intake. Plan: Heplock IVFs. Replace K - 40 meq today. Encouraged oral intake. Avoid nephrotoxic agents and hypotensive episodes. Maintain current antihypertensives. Anticipate discharge soon.
[2017-09-05] MEDS ORDERED: Potassium Replacement Protocol 1 EACH MISC MISCELLANE PRN (09:34)
[2017-09-05] MEDS ORDERED: POTASSIUM CHLORIDE ER 20 MEQ TAB.ER PO SCH (10:00)
[2017-09-05 10:45] VITALS: PULSE 65
[2017-09-05 10:46] VITALS: BP 137/69
[2017-09-05] MEDS: ACETAMINOPHEN TAB 325 MG TAB PO PRN (10:55)
[2017-09-05 11:40] VITALS: RESP 16
[2017-09-05] MEDS: CYANOCOBALAMIN-FA-PYRIDOXINE 1 EACH TAB PO SCH (13:33)
--- NOTE | 2017-09-05 20:10 | DS ---
DISCHARGE SUMMARY DATE OF ADMISSION: 09/05/17. DATE OF DISCHARGE: September 05, 2017. Please refer to my discharge summary dictated on 09/05/17. The patient continues to do well. Stable. Did work with physical therapy. Eating better. Finally, a placement was found. The patient's creatinine has come down nicely to 0.80. DISPOSITION: [facility]. Other medication and treatment plan as before. Care was discussed with the patient and also with the long term care social worker. MMCEDL / LATOYAN: [id number] /
--- NOTE | 2017-09-05 22:17 | P.PN ---
Subjective Progress Note Date: 09/05/17 Principal diagnosis: 67 Year old male patient who has history of hepatitis C as well as previous stroke on Plavix. The patient is seen in the emergency center. Patient states he has had diarrhea for the past 3 days and complains of abdominal pain he had. He has also had several falls over the last couple of days when he has an abrasion to the left lower leg and complains of increased lumbar pain. He states he always has back pain and he smokes marijuana for this. Patient is an active smoker. According to the ER documentation, patient was found by his son on the floor unresponsive and incontinent of urine and not using his left arm with a left lateral gaze. He was evaluated for stroke and not a candidate for TPA as he was last seen in the morning at 7:30 and was acting normal at that time. CAT scan of the brain showed age-related atrophy and chronic small vessel ischemic change. CTA of head and neck revealed 75% stenosis of the proximal left internal carotid artery. Artifact in the left carotid artery bifurcation. Diminutive left vertebral artery. No subclavian steal. No intracranial abnormality. EKG was a sinus rhythm. Her temperature max is been 102.6 with elevated heart rate and blood pressure elevated with leukocytosis of 20.3. Patient was given ceftriaxone 1 dose. Blood culture was obtained. Urinalysis was cloudy with bacteria rare. INR 1.5. Lactic acid initially 8.6 and repeated 1.2. Patient is unable to undergo LP due to Plavix. Patient appears to be sleeping and is minimally arousable to verbal stimuli. He will answer a few questions but does not open his eyes, set up, make eye contact but he is able to answer simple questions correctly regarding orientation. Patient denies having any shortness of breath. On note that patient had a 3 second tonic-clonic seizure-like activity while in CAT scan. He was given Ativan and there is a consult in place with Dr. Abel. 08/21/2017 patient is more cognizant. He is wondering when he'll be able to go home. He is less agitated. He is able to form sentences. He is moving easily in the bed. Is trying to get up. Does not easily understand he has a Mcfarlane catheter in place. But he is easily quieted. He does not complain of much discomfort. 08/25/2017 patient is awake occasionally is able to answer question. In general just has a quiet nature, has received Haldol earlier in the day. His related over the weekend his behavior worsened and consequently antipsychotic therapy was started. 08/26/2017 patient is actually a bit more calm today than he has been. Was able to answer simple questions without difficulty. However still remains with disorientation is not able to relate that he is in hospital. Denies discomforts 08/28/2017 reveals the patient be much more improved. He is easily arousable upon arrival. He knows his name without difficulties. He is able to relate that his [facility]. He knows it is not at home. The Pres. is Paul Mcgregor, in the year is 2018. This is a significant improvement of the mental status. He was having some left-sided weakness that is now resolved and is feeling better overall. He is eating considerably better and has no other new acute complaints but has chronic lower back pain that is not new. 08/29/2017 the patient continues to have improvement. He is awake alert oriented person place and time. His appetite sported a heat some nausea. He has very tender to be in the hospital. He has some physical therapy and is surprised at how weak he has. His some discouragement today. 08/30/2017 reveals the patient has further improvement. Sitting up in the chair. He still feels quite weak. But his speech is clear and relevant. His is present today and acknowledges a significant improvement, but he is nowhere near his usual baseline of a highly functional individual. 09/01/2017 patient has some further improvement. Sitting up in the chair. Eating well. Still having some discomforts to his buttocks and lower back which are chronic. He denying fevers or chills. Functional status continues to slowly improve. He is quite conversational today. 09/02/2017 patient has further improvement but still feels extremely weak. With utilizing the walker to go from bed to the chair he feels like his legs will give out. His mentation is improving. He looks forward to rehab to gain his strength. 09/03/2017 patient is still weak but is having further improvement. He's eating well. Still having weakness. But with the walker was able to take a few steps. They're attempting given to rehab but because of some of his difficulties with drug dependency there is some difficulty. 09/04/2017 patient is weak but is doing better. He's been able to utilize a walker to take more than just a few steps. Is being evaluated and likely will transition to rehab today 09/05/2017 patient has had further improvement. Mentation reveals progressive improvement. Patient is very weak is able to only walk a short distance with a walker and this is all considerably less than his baseline. Objective - Vital Signs Vital signs: Vital Signs Temp 97.5 F L 09/05/17 07:00 Pulse 65 09/05/17 11:13 Resp 16 09/05/17 11:13 BP 137/69 09/05/17 10:45 Pulse Ox 98 09/05/17 10:45 Intake & Output 09/05/17 09/05/17 09/06/17 06:59 18:59 06:59 Intake Total 240 2400 Balance 240 2400 Weight 51.5 kg Intake: Oral 240 2400 Other: Voiding Method Toilet Toilet Urinal Urinal # Voids 1 4 # Bowel Movements 1 1 - Exam Gen: This is a 67-year-old thin male. Patient is laying comfortably No respiratory distress noted. HEENT: Head is atraumatic, normocephalic. Pupils equal, round. Sclerae is anicteric. Conjunctiva pink. Mucous members of the mouth are dry. No thrush noted. NECK: Supple. No JVD. No lymphadenopathy. No thyromegaly. no menigsmus LUNGS: Scattered rhonchi. No intercostal retractions. HEART: Regular rate and rhythm. No murmur. ABDOMEN: Soft. Bowel sounds are present. No masses. Generalized tenderness. EXTREMITIES: Extremities are thin with muscle wasting noted. No pedal edema. No calf tenderness. Dorsalis pedis +1 bilaterally. Patient has an abrasion to the back of his left ankle. No significant redness erythema. NEUROLOGICAL: The patient is awake and arousable. As noted he is awake alert oriented person place and time. There are no gross focal sensory motor deficits although he does have some generalized weakness there is no focality to the exam. His mental status is further improved. - Labs CBC & Chem 7: 08/31/17 06:59 09/05/17 08:05 Labs: Abnormal Lab Results - Last 24 Hours (Table) 09/05/17 Range/Units 08:05 Potassium 3.4 L (3.5-5.1) mmol/L Glucose 144 H (74-99) mg/dL Laboratory Results WBC 11.2 k/uL (3.8-10.6) H 08/31/17 06:59 RBC 4.99 m/uL (4.30-5.90) 08/31/17 06:59 Hgb 14.6 gm/dL (13.0-17.5) 08/31/17 06:59 Hct 41.6 % (39.0-53.0) 08/31/17 06:59 MCV 83.4 fL (80.0-100.0) 08/31/17 06:59 MCH 29.3 pg (25.0-35.0) 08/31/17 06:59 MCHC 35.1 g/dL (31.0-37.0) 08/31/17 06:59 RDW 15.7 % (11.5-15.5) H 08/31/17 06:59 Plt Count 290 k/uL (150-450) 08/31/17 06:59 Neutrophils % 66 % 08/31/17 06:59 Lymphocytes % 24 % 08/31/17 06:59 Monocytes % 5 % 08/31/17 06:59 Eosinophils % 2 % 08/31/17 06:59 Basophils % 1 % 08/31/17 06:59 Neutrophils # 7.3 k/uL (1.3-7.7) 08/31/17 06:59 Lymphocytes # 2.7 k/uL (1.0-4.8) 08/31/17 06:59 Monocytes # 0.6 k/uL (0-1.0) 08/31/17 06:59 Eosinophils # 0.3 k/uL (0-0.7) 08/31/17 06:59 Basophils # 0.1 k/uL (0-0.2) 08/31/17 06:59 PT 13.6 sec (9.0-12.0) H 08/19/17 15:16 INR 1.5 (<1.2) H 08/19/17 15:16 APTT 20.7 sec (22.0-30.0) L 08/19/17 15:16 Sodium 142 mmol/L (137-145) 09/05/17 08:05 Potassium 3.4 mmol/L (3.5-5.1) L 09/05/17 08:05 Chloride 103 mmol/L (98-107) 09/05/17 08:05 Carbon Dioxide 23 mmol/L (22-30) 09/05/17 08:05 Anion Gap 16 mmol/L 09/05/17 08:05 BUN 14 mg/dL (9-20) 09/05/17 08:05 Creatinine 0.80 mg/dL (0.66-1.25) 09/05/17 08:05 Est GFR (CKD-EPI)AfAm >90 (>60 ml/min/1.73 sqM) 09/05/17 08:05 Est GFR (CKD-EPI)NonAf >90 (>60 ml/min/1.73 sqM) 09/05/17 08:05 Glucose 144 mg/dL (74-99) H 09/05/17 08:05 POC Glucose (mg/dL) 94 mg/dL (75-99) 08/22/17 04:08 POC Glu [employer] ID DeyviGrey Nicholas 08/22/17 04:[address] Glu mg/dL 117 08/19/17 19:17 Hemoglobin A1c 5.7 % (4.0-6.0) 08/19/17 19:17 Lactic Ac Sepsis Rflx Y 08/19/17 15:48 Plasma Lactic Acid [place] 1.2 mmol/L (0.7-2.0) 08/19/17 19:17 Calcium 9.4 mg/dL (8.4-10.2) 09/05/17 08:05 Phosphorus 3.6 mg/dL (2.5-4.5) 08/29/17 06:45 Magnesium 1.6 mg/dL (1.6-2.3) 08/31/17 06:59 Total Bilirubin 0.6 mg/dL (0.2-1.3) 08/29/17 06:45 AST 15 U/L (17-59) L 08/29/17 06:45 ALT 24 U/L (21-72) 08/29/17 06:45 Alkaline Phosphatase 49 U/L (38-126) 08/29/17 06:45 Ammonia <9 umol/L (<30) 08/19/17 15:16 Total Creatine Kinase 247 U/L (55-170) H 08/19/17 15:16 CK-MB (CK-2) 2.6 ng/mL (0.0-2.4) H* 08/19/17 15:16 CK-MB (CK-2) Rel Index 1.1 08/19/17 15:16 Troponin I <0.012 ng/mL (0.000-0.034) 08/19/17 15:16 Total Protein 6.3 g/dL (6.3-8.2) 08/29/17 06:45 Albumin 3.6 g/dL (3.5-5.0) 08/29/17 06:45 Triglycerides 131 mg/dL (<150) 08/20/17 06:43 Cholesterol 136 mg/dL (<200) 08/20/17 06:43 LDL Cholesterol, Calc 71 mg/dL (0-99) 08/20/17 06:43 HDL Cholesterol 39 mg/dL (40-60) L 08/20/17 06:43 Amylase 62 U/L (30-110) 08/20/17 06:43 Lipase 201 U/L (23-300) 08/20/17 06:43 Homocysteine 21.68 umol/L (4.00-14.00) H 08/22/17 05:51 Urine Color Colorless 08/24/17 15:30 Urine Appearance Clear (Clear) 08/24/17 15:30 Urine pH 5.5 (5.0-8.0) 08/24/17 15:30 Ur Specific [place] 1.006 (1.001-1.035) 08/24/17 15:30 Urine Protein Trace (Negative) H 08/24/17 15:30 Urine Glucose (UA) Negative (Negative) 08/24/17 15:30 Urine Ketones Negative (Negative) 08/24/17 15:30 Urine Blood Small (Negative) H 08/24/17 15:30 Urine Nitrite Negative (Negative) 08/24/17 15:30 Urine Bilirubin Negative (Negative) 08/24/17 15:30 Urine Urobilinogen <2.0 mg/dL (<2.0) 08/24/17 15:30 Ur Leukocyte Esterase Negative (Negative) 08/24/17 15:30 Urine RBC 21 /hpf (0-5) H 08/24/17 15:30 Urine WBC 2 /hpf (0-5) 08/24/17 15:30 Amorphous Sediment Few /hpf (None) H 08/19/17 16:04 Urine Bacteria Rare /hpf (None) H 08/24/17 15:30 Hyaline Casts 9 /lpf (0-2) H 08/19/17 16:04 Granular Casts 8 /lpf (0) 08/19/17 16:04 Urine Mucus Rare /hpf (None) H 08/24/17 15:30 Ur Random Creatinine 30.3 mg/dL 08/23/17 18:30 Ur Random Sodium 88 mmol/L (30-90) 08/23/17 18:30 Random Vancomycin 14.4 ug/mL 08/23/17 05:38 Urine Opiates Screen Detected (NotDetected) H 08/19/17 16:04 Ur Oxycodone Screen Not Detected (NotDetected) 08/19/17 16:04 Urine Methadone Screen Not Detected (NotDetected) 08/19/17 16:04 Ur Propoxyphene Screen Not Detected (NotDetected) 08/19/17 16:04 Ur Barbiturates Screen Not Detected (NotDetected) 08/19/17 16:04 U Tricyclic Antidepress Not Detected (NotDetected) 08/19/17 16:04 Ur Phencyclidine Scrn Not Detected (NotDetected) 08/19/17 16:04 Ur Amphetamines Screen Not Detected (NotDetected) 08/19/17 16:04 U Methamphetamines Scrn Not Detected (NotDetected) 08/19/17 16:04 U Benzodiazepines Scrn Detected (NotDetected) H 08/19/17 16:04 Urine Cocaine Screen Not Detected (NotDetected) 08/19/17 16:04 U Marijuana (THC) Screen Detected (NotDetected) H 08/19/17 16:04 Serum Alcohol <10 mg/dL 08/19/17 15:16 C. difficile (EIA) Intrp Negative (Negative) 08/20/17 10:04 HSV I DNA PCR Not detected (Not detected) 08/20/17 06:43 HSV II DNA PCR Not detected (Not detected) 08/20/17 06:43 HSV (PCR) Source Blood - Plasma 08/20/17 06:43 Influenza Type A RNA Not Detected (Not Detectd) 08/20/17 12:05 Influenza Type B (PCR) Not Detected (Not Detectd) 08/20/17 12:05 Microbiology 08/24/17 16:04 Blood Blood Culture - Final No Growth after 144 hours 08/26/17 01:10 Urine,Catheterized Urine Culture - Final 08/24/17 15:30 Urine,Catheterized Urine Culture - Final 08/19/17 15:16 Blood Blood Culture - Final No Growth after 144 hours 08/19/17 16:04 Urine,Catheterized Urine Culture - Final Assessment and Plan (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 Patient also had a seizure while on the CAT scan unit possibly related to sepsis. Patient has had falls recently at home no obvious injuries noted. He also has had diarrhea for 3 days at home. We will check amylase and lipase and C. difficile toxin influenza testing will be done a patient will be started on ceftriaxone 2 g every 12 hours and vancomycin, acyclovir 10 mg/kg every 8 hours. Serum HSV 1 and 2 by PCR will be ordered. Continue IV Tylenol. Blood cultures are status received. Continue supportive care. 08/21/2017 the patient is more awake and alert today. He is able to answer some simple questions. The appropriateness of his answers is certainly questionable. Toward the end of the exam he tries to exit out of the bed and try to stand catching his Mcfarlane catheter in his leg. He is redirected that he has a Mcfarlane in and stops. And lays back down. It is noted there is evidence of his altered mental status At this point in time it is appearing more likely be an encephalitis. Unfortunately lumbar puncture could not be performed and CSF PCR for HSV 1 and 2 could not be performed. The serum PCR that was negative but does not exclude the possibility of viral encephalitis. The patient's fever and leukocytosis are rapidly improving. He has no meningismus and has no other new acute neurological difficulties. It is unlikely that he has meningitis if his blood cultures are negative tomorrow and consider discontinuation of his antibiotic therapy. Continue his antiviral therapy. Case is discussed with the hospitalist and likely will complete her course of acyclovir therapy. 08/25/2017 reveals the patient to have no further improvement. The patient is now greater than 5 days off of his Plavix and will arrange for lumbar puncture for radiology for routine studies as well as viral assessment including HSV-1/ HSV 2, VDRL, West Nile. The patient's behavior is quite quiet today because he received some antipsychotic therapy. Regretfully he is still very poorly functional. In that only herpes encephalitis is treatable we'll continue the intravenous acyclovir at this point in time. The patient didn't have evidence of some acute renal failure that appears to be multifactorial, the acyclovir dose has been adjusted. Patient did have a fever and Zosyn was added pending some further cultures. 08/26/2017 patient is having some improvement of his acute renal failure. Continues to be treated for acute herpetic encephalitis. Lumbar puncture requested however apparently has received further doses of Plavix which will further delay lumbar puncture. Consequently will not be able to discontinue acyclovir at this time is to complete the full course for HSV encephalitis. If possible lumbar puncture is still an ideal test given his significant neurological disease. Had a mild skin rash which is improving with just local care. 08/28/2017 reveals the patient to have steady improvement of his status. It does appear that he is starting to recover from his encephalitis, at this time will assume is related to the acyclovir therapy and we will plan a 14 day course of therapy. This is discussed with the primary care hospitalist. Since lumbar puncture could not be performed and the patient has had a clinical improvement with complete the course of therapy of the encephalitis with acyclovir. Acute renal failure is improving. 08/29/2017 patient continues to have improvement of his mental status. Appears to be having response to treatment of encephalitis. We have no definitive proof but we have clinical evidence that he is responding well to acyclovir therapy. His acute renal failure is resolving. Overall there is today improvement but he is a bit discouraged today and that his appetite and somewhat poor and he is surprised that just how profoundly weak his body is. 08/30/2017 the patient is sitting up or in a chair and has had some of his lunch. Strength is improved but nowhere near his baseline. Renal failure is improving. His mentation continues to show improvement. He does not appear uncomfortable sitting upright in a chair because he does not have much cushioning on his buttocks, this is not new and often uses a memory foam cushion when he travels. Complete 14 days of intravenous acyclovir for the presumptive diagnosis of herpetic encephalitis. 09/01/2017 the patient has had further improvement. He is on day #13 of 14 of intravenous acyclovir for his herpetic encephalitis. Fortunately he has had some further improvement. He still has significant generalized weakness and plan will be to go to rehab to receive some physical therapy and strengthening to get him back functional in his home setting. 09/02/2017 reveals the patient to have further improvement. He is on his last day of intravenous acyclovir for his suspected herpetic encephalitis. He will transition to extended care for rehab so he can regain his strength and hopefully get back to his home setting and functional status. His acute renal failure has resolved. Of this profound weakness he denies other acute changes at this time partially has had ongoing improvement of his mental status. 09/03/2017 patient has steady improvement. He has now had completion of treatment for herpetic encephalitis. Not yet at baseline. Placement complicated by preadmit drug use. May be discharged tomorrow. 09/04/2017 patient is completed his treatment of his herpetic encephalitis. Is having some physical improvement with the physical therapy is receiving so far. We'll need to go to rehab to complete his course of therapy. We'll begin transitioning there today. 09/05/2017 patient has completed the treatment of herpes simplex encephalitis. He continues to have slow improvement presented no change after therapy has discontinued. He will be transitioning to rehabilitation today to complete his physical therapy and occupational therapy so he can regain his independence. He can phone the office in the next several weeks to see how he is doing after his treatment of his herpetic encephalitis. Status: Acute Code(s): B00.4 - HERPESVIRAL ENCEPHALITIS SNOMED Code(s): 420510687 (2) Sepsis Status: Acute Code(s): A41.9 - SEPSIS, UNSPECIFIED ORGANISM SNOMED Code(s): 02262937 (3) Seizure Status: Acute Code(s): R56.9 - UNSPECIFIED CONVULSIONS SNOMED Code(s): 92811900
--- NOTE | 2017-09-08 11:01 | EEG ---
ELECTROENCEPHALOGRAM REPORT DATE OF SERVICE: 08/22/2017. REASON FOR TESTING: Seizure. DESCRIPTION OF THE PROCEDURE: This EEG was performed using a 21 channel digital electroencephalograph, following international 10-20 system. DESCRIPTION OF THE RECORDING: From the beginning of the tracing, and with patient's eyes closed, the background rhythm was mostly consisting of 8 Hz alpha frequency in the posterior occipital leads. No obvious asymmetry is seen. Photic stimulation was performed with a minimal driving response seen. No pathological waves were elicited. Occasional muscle artifacts and movement artifacts are seen. Hyperventilation was not performed. The patient remains awake throughout the tracing. No epileptiform discharges were seen. His EKG lead showed a regular rate and rhythm. INTERPRETATION: This awake EEG can be considered within normal limits. There was no asymmetry seen. No epileptiform discharges were noticed. The absence of epileptiform discharges does not rule out the diagnosis of epilepsy, therefore clinical correlation is recommended. MMCEDL / IJLavelle: [id number] /
== END 2017-09-05 15:05 | DRG 871 ==
LOC: EC 15:02 → 6SEL 18:02 → 5MS5E 08-24 21:35
PROVIDERS: ADMIT Hospitalist; ATTEND Hospitalist
DX: B00.7 Disseminated herpesviral disease (principal); G93.41 Metabolic encephalopathy; N17.0 Acute kidney failure with tubular necrosis; B00.4 Herpesviral encephalitis; E87.0 Hyperosmolality and hypernatremia; F05 Delirium due to known physiological condition; G40.89 Other seizures; E87.1 Hypo-osmolality and hyponatremia; B37.0 Candidal stomatitis; J44.9 Chronic obstructive pulmonary disease, unspecified; R15.9 Full incontinence of feces; G25.81 Restless legs syndrome; I10 Essential (primary) hypertension; M15.9 Polyosteoarthritis, unspecified; N40.0 Benign prostatic hyperplasia without lower urinary tract symptoms; I73.9 Peripheral vascular disease, unspecified; R32 Unspecified urinary incontinence; R40.2422 Glasgow coma scale score 9-12, at arrival to emergency department; F32.9 Major depressive disorder, single episode, unspecified; F17.210 Nicotine dependence, cigarettes, uncomplicated; F12.90 Cannabis use, unspecified, uncomplicated; T50.8X5A Adverse effect of diagnostic agents, initial encounter; F41.9 Anxiety disorder, unspecified; R29.6 Repeated falls; S80.812A Abrasion, left lower leg, initial encounter; I65.22 Occlusion and stenosis of left carotid artery; E87.6 Hypokalemia; M54.5 Low back pain; G89.4 Chronic pain syndrome; H55.00 Unspecified nystagmus; R45.1 Restlessness and agitation; R21 Rash and other nonspecific skin eruption; E78.5 Hyperlipidemia, unspecified; E83.42 Hypomagnesemia; T39.395A Adverse effect of other nonsteroidal anti-inflammatory drugs [NSAID], initial encounter; N14.1 Nephropathy induced by other drugs, medicaments and biological substances; E86.9 Volume depletion, unspecified; Z80.1 Family history of malignant neoplasm of trachea, bronchus and lung; Z80.8 Family history of malignant neoplasm of other organs or systems; Z86.73 Personal history of transient ischemic attack (TIA), and cerebral infarction without residual deficits; Z79.899 Other long term (current) drug therapy; Z87.19 Personal history of other diseases of the digestive system; Z90.49 Acquired absence of other specified parts of digestive tract; Z79.02 Long term (current) use of antithrombotics/antiplatelets; Z95.0 Presence of cardiac pacemaker; Z86.19 Personal history of other infectious and parasitic diseases; Z79.82 Long term (current) use of aspirin
CPT/HCPCS: 36415; 70450; 70496; 70498; 71045; 80048; 80053; 80061; 80202; 80306; 80320; 81001; 82140; 82150; 82550; 82553; 82570; 83036; 83090; 83605; 83690; 83735; 84100; 84132; 84300; 84484; 85025; 85027; 85610; 85730; 87040; 87086; 87324; 87502; 87529; 93005; 93306; 95819; 96361; 96365; 96366; 96367; 96372; 96375; 96376; 99291

== ENCOUNTER → 2017-10-09 | Outpatient (CLI) | payer MEDICAID ==
[2017-10-09 09:02] LABS: ALT 27 U/L (21-72); AST 23 U/L (17-59); Cholesterol 93 mg/dL (<200); HDL Cholesterol 52 mg/dL (40-60); LDL Cholesterol,Calculated 26 mg/dL (0-99); Triglycerides 74 mg/dL (<150)
== END | disposition home or self-care (01) ==
LOC: LABWHC1 07:19
PROVIDERS: ATTEND Internal Medicine Cardiovascular Disease
DX: E78.5 Hyperlipidemia, unspecified (principal)
CPT/HCPCS: 36415; 80061; 84450; 84460

== ENCOUNTER → 2017-10-20 | Outpatient (CLI) | payer MEDICAID ==
[2017-10-20 08:13] LABS: Basophils % (A) 1 %; Eosinophils # (A) 0.2 k/uL (0-0.7); Eosinophils % (A) 3 %; HCT 40.6 % (39.0-53.0); HGB 13.6 gm/dL (13.0-17.5); Lymphocytes # (A) 2.5 k/uL (1.0-4.8); Lymphocytes % (A) 31 %; MCH 30.5 pg (25.0-35.0); MCHC 33.6 g/dL (31.0-37.0); MCV 90.6 fL (80.0-100.0); Mean Platelet Volume 7.2; Monocytes # (A) 0.5 k/uL (0-1.0); Monocytes % (A) 6 %; Neutrophils # (A) 4.6 k/uL (1.3-7.7); Neutrophils % (A) 58 %; Platelet Count 283 k/uL (150-450); RBC 4.48 m/uL (4.30-5.90); RDW 15.4 % (11.5-15.5); WBC 7.9 k/uL (3.8-10.6)
[2017-10-20 08:32] LABS: Albumin 4.6 g/dL (3.5-5.0); Bilirubin, Delta 0.3 mg/dL (0.0-0.2); Bilirubin,Unconjugated 0.1 mg/dL (0.0-1.1); Total Bilirubin 0.4 mg/dL (0.2-1.3); Total Protein 7.5 g/dL (6.3-8.2)
== END | disposition home or self-care (01) ==
LOC: LABWHC1 07:44
PROVIDERS: ATTEND Physician Assistant
DX: B18.2 Chronic viral hepatitis C (principal)
CPT/HCPCS: 36415; 80076; 85025; 87522

== ENCOUNTER → 2018-01-05 | Outpatient (CLI) | payer MEDICAID ==
[2018-01-05 07:43] LABS: Blood Urea Nitrogen 14 mg/dL (9-20)
--- NOTE | 2018-01-05 09:15 | CT ---
EXAMINATION TYPE: CT lumbar spine wo con DATE OF EXAM: 01/05/2018 8:57 AM COMPARISON: None HISTORY: Lower extremity weakness CT DLP: 672 mGycm Automated exposure control for dose reduction was used. TECHNIQUE: Unenhanced CT of the lumbar spine was performed. Bone and soft tissue window settings are submitted as well as coronal and sagittal reconstructions. FINDINGS: Evaluation of the spinal canal is limited on CT. Evaluation of degree of neural foraminal n arrowing and spinal canal stenosis are better evaluated with MRI. There are bilateral pars interarticularis defects at L5 however there is no anterolisthesis of L5 on S1. There is mild retrolisthesis of L3 with respect L4, L2 with respect to L3, L1 with respect to L2, and T12 with respect L1. Multilevel malalignment is likely on a degenerative basis with no acute fra cture identified. There are moderate to severe multilevel degenerative changes of the lumbar spine wi th multilevel vacuum disc disease, endplate sclerosis, facet arthropathy, intervertebral disc space n arrowing and anterior osteophytes. Pneumorachis is seen at the L2 vertebral level likely from the ad jacent vacuum disc phenomenon. There is extensive atherosclerosis of the abdominal aorta and its branches. Bilateral nonobstructing nephrolithiasis is also seen (at least 3 calculi in the left measuring up to 4 mm and a solitary righ t lower pole 3 mm nonobstructing calculus. Numerous colonic diverticula are seen with no focal laurie lonic fat stranding in the given [id number]. There is mild paraspinal muscular atrophy of the lowe r lumbar spine. L1-L2: There is a left eccentric disc bulge that in combination with posterior osteophyte, retrolisth esis, facet arthropathy and ligamentum flavum buckling create moderate bilateral neural foraminal shannon rowing and mild spinal canal stenosis. L2-L3: There is a right eccentric disc bulge that in combination with retrolisthesis and facet arthro charles creates mild left and moderate right neural foraminal narrowing as well as mild spinal canal st enosis. L3-L4: There is a left paracentral disc protrusion/herniation superimposed upon a left eccentric disc bulge that in combination with facet arthropathy, retrolisthesis and a posterior protruding osteophy te create severe left neural foraminal narrowing, mild to moderate spinal canal stenosis and mild rig ht neuroforaminal narrowing. L4-L5: There is a broad-based disc bulge seen, additionally there is a focal central disc herniation/ protrusion, extensive facet arthropathy, and ligamentum flavum buckling creating moderate to severe s juju canal stenosis, severe left neural foraminal narrowing and moderate right neural foraminal narr owing. L5-S1: There is a central disc herniation superimposed upon a broad-based disc bulge that in combinat ion with facet arthropathy creates mild bilateral neural foraminal narrowing and mild spinal canal st enosis. There is a mild levoscoliosis of the lumbar spine. IMPRESSION: 1. Moderate to severe multilevel degenerative disc disease of the lumbar spine with multilevel malali gnment, likely on a degenerative basis. Degenerative disc disease contributes to mild spinal canal st enosis at L1-L2, L2-L3, and L5-S1 with mild to moderate spinal canal stenosis at L3-L4 and moderate t o severe spinal canal stenosis at L4-5. 2. Left paracentral disc herniation at L3-L4 in combination with degenerative changes create severe l eft neural foraminal narrowing and mild right neuroforaminal narrowing. 3. Central disc herniations at L4-L5 and L5-S1 contributing to variable degrees of neural foraminal n arrowing and spinal canal stenosis as described above. 4. Bilateral pars interarticularis defects at L5 without associated anterolisthesis. 5. Bilateral nonobstructing renal calculi. 6. Focal pneumorachis at the L2 vertebral level, likely from the adjacent vacuum disc phenomenon.
--- NOTE | 2018-01-05 09:26 | CT ---
EXAMINATION TYPE: CT brain wo/w con DATE OF EXAM: 01/05/2018 COMPARISON: CT angio head and neck dated 08/19/[address] brain dated 08/19/2018 HISTORY: Lower extremity weakness CT DLP: 2131 mGycm Automated Exposure Control for Dose Reduction was Utilized. TECHNIQUE: CT scan of the head is performed with IV contrast.,CT scan of the head is performed withou t and with without and with IV Contrast, patient injected with 100 mL of Isovue 300. FINDINGS: There is encephalomalacia within the right occipital lobe from prior infarct with ex vacu o dilatation of the posterior horn of the right lateral ventricle. Confluent nonspecific white matter change within the periventricular and subcortical white matter is similar to the prior of 08/19/2017. Old lacunar injury is also noted of the anterior limb of the right external capsule, progressed in s ize from the prior. Punctate basal ganglia dystrophic calcifications are seen. Prominence of the righ t internal carotid terminus is also unchanged from the prior. Dense calcifications along the tentoriu m cerebelli and falx cerebral artery are similar. In addition to the extra-articular dilatation symme tric sulcal prominence and ventricular prominence is most compatible with age-related volume loss. 3 small cavum septum lucidum is seen. There is no evidence of acute intracranial hemorrhage, midline sh ift or suspicious extra-axial fluid collection. Osseous structures of the calvarium appear intact. Paranasal sinuses and mastoid air cells are well a erated. Postcontrast images show no suspicious enhancing intraparenchymal mass. IMPRESSION: 1. No abnormal postcontrast enhancement or evidence of suspicious enhancing intracranial mass. 2. Encephalomalacia in the right occipital lobe from prior infarct, evolving chronic right anterior l imb external capsule lacunar injury, and confluent white matter changes, although likely on the basis of chronic microangiopathy are slightly advanced for the patient's age. Vasculitis should also be co nsidered.
== END | disposition home or self-care (01) ==
LOC: RADCTMAIN 07:03
PROVIDERS: ATTEND Psychiatry & Neurology Neurology
DX: M48.061 Spinal stenosis, lumbar region without neurogenic claudication (principal); M99.73 Connective tissue and disc stenosis of intervertebral foramina of lumbar region; M51.27 Other intervertebral disc displacement, lumbosacral region; M51.37 Other intervertebral disc degeneration, lumbosacral region; I67.7 Cerebral arteritis, not elsewhere classified; R90.82 White matter disease, unspecified; G93.89 Other specified disorders of brain; M62.81 Muscle weakness (generalized); Z86.73 Personal history of transient ischemic attack (TIA), and cerebral infarction without residual deficits
CPT/HCPCS: 82565; 84520; 72131; 70470; 36415; Q9967

== ENCOUNTER → 2018-06-16 | Outpatient (CLI) | payer MEDICAID ==
[2018-06-16 08:37] LABS: Basophils # (A) 0.1 k/uL (0-0.2); Basophils % (A) 1 %; Eosinophils # (A) 0.2 k/uL (0-0.7); Eosinophils % (A) 2 %; HCT 49.2 % (39.0-53.0); HGB 16.1 gm/dL (13.0-17.5); Lymphocytes # (A) 2.7 k/uL (1.0-4.8); Lymphocytes % (A) 31 %; MCH 29.2 pg (25.0-35.0); MCHC 32.7 g/dL (31.0-37.0); MCV 89.3 fL (80.0-100.0); Mean Platelet Volume 7.1; Monocytes # (A) 0.4 k/uL (0-1.0); Monocytes % (A) 5 %; Neutrophils # (A) 4.9 k/uL (1.3-7.7); Neutrophils % (A) 58 %; Platelet Count 237 k/uL (150-450); RBC 5.51 m/uL (4.30-5.90); RDW 14.4 % (11.5-15.5); WBC 8.5 k/uL (3.8-10.6)
[2018-06-16 08:53] LABS: Appearance,Urine Clear (Clear); Bilirubin,Urine Negative (Negative); Blood,Urine Moderate (Negative); Color,Urine Yellow; Glucose,Urine (UA) Negative (Negative); Hyaline Casts,Urine 1 /lpf (0-2); Ketones,Urine Negative (Negative); Leukocyte Esterase,Urine Moderate (Negative); Mucus,Urine Rare /hpf; Nitrite,Urine Negative (Negative); Protein,Urine Negative (Negative); RBC,Urine >182 /hpf (0-5); Specific Gravity,Urine 1.012 (1.001-1.035); Urobilinogen,Urine <2.0 mg/dL (<2.0); WBC,Urine 31 /hpf (0-5)
[2018-06-16 16:35] LABS: Albumin 4.8 g/dL (3.80-4.90); Albumin/Globulin Ratio 2.18 (1.20-2.10); Anion Gap 9.1 mmol/L (4.00-12.00); Bilirubin, Conjugated 0.2 mg/dL (0.20-0.40); Bilirubin,Unconjugated 0.3 mg/dL; Calcium 9.5 mg/dL (8.7-10.3); Carbon Dioxide 24.9 mmol/L (21.6-31.8); Globulin 2.2 g/dL (1.6-3.3); Potassium 4.5 mmol/L (3.5-5.5); Total Bilirubin 0.5 mg/dL (0.3-1.2)
[2018-06-18 15:30] LABS: Hepatits C Virus RNA Not detected (Not detected); Hepatits C Virus RNA, Quant <12 IU/mL (<12); LOG HCV IU/mL <1.08 (<1.08)
== END | disposition home or self-care (01) ==
LOC: LABWHC1 08:17
PROVIDERS: ATTEND Family Medicine
DX: Z00.01 Encounter for general adult medical examination with abnormal findings (principal); B18.2 Chronic viral hepatitis C
CPT/HCPCS: 36415; 80053; 80061; 81001; 82248; 84153; 85025; 87086; 87522

== ENCOUNTER → 2019-03-22 | Outpatient (CLI) | payer MEDICARE ==
--- NOTE | 2019-03-22 08:32 | US ---
EXAMINATION TYPE: US duplex aorta DATE OF EXAM: 03/22/2019 COMPARISON: NONE CLINICAL HISTORY: F17.210 Nicotine dependence. Smoker, HTN, patient not NPO EXAM MEASUREMENTS: Abdominal Aorta: Proximal: 2.8 x 3.1cm Mid: 1.7 x 2.2cm Distal: 1.3 x 1.3cm Right Iliac: 0.7 x 0.8cm Left Iliac: 0.7 x 0.8cm Atherosclerotic changes, proximal aorta mildly aneurysmal measuring 2.8 x 3.1cm IMPRESSION: 1. Mild aneurysmal dilatation of the proximal abdominal aorta measuring up to 3.1 cm (upper limits of normal measuring 3.0 cm). 2. Extensive atherosclerosis of the abdominal aorta.
== END ==
LOC: RADUSWWP 07:36
PROVIDERS: ATTEND Family Medicine
DX: I71.4 Abdominal aortic aneurysm, without rupture (principal); I70.0 Atherosclerosis of aorta; F17.210 Nicotine dependence, cigarettes, uncomplicated
CPT/HCPCS: 93979

== ENCOUNTER → 2019-05-03 | Outpatient (CLI) | payer MEDICARE ==
[2019-05-03 11:06] LABS: HCT 41.5 % (39.0-53.0); HGB 14.7 gm/dL (13.0-17.5); MCH 32.1 pg (25.0-35.0); MCHC 35.3 g/dL (31.0-37.0); MCV 90.7 fL (80.0-100.0); Platelet Count 222 k/uL (150-450); RBC 4.58 m/uL (4.30-5.90); RDW 13.8 % (11.5-15.5); WBC 9.7 k/uL (3.8-10.6)
[2019-05-03 11:35] LABS: African American GFR (CKD) >90 (>60 ml/min/1.73 sqM); Anion Gap 7 mmol/L; Blood Urea Nitrogen 9 mg/dL (9-20); Carbon Dioxide 32 mmol/L (22-30); Chloride 102 mmol/L (98-107); Non-African American GFR(CKD) >90 (>60 ml/min/1.73 sqM); Potassium 4.2 mmol/L (3.5-5.1); Sodium 141 mmol/L (137-145)
== END | disposition home or self-care (01) ==
LOC: LABPAT 10:18
PROVIDERS: ATTEND Internal Medicine Interventional Cardiology
DX: Z01.812 Encounter for preprocedural laboratory examination (principal); I70.213 Atherosclerosis of native arteries of extremities with intermittent claudication, bilateral legs
CPT/HCPCS: 36415; 80051; 82565; 84520; 85027

== ENCOUNTER → 2019-05-04 | Day surgery (SDC) | payer MEDICARE ==
[~2019-05-04] MED LIST changes: -ALPRAZolam 0.5 MG TAB PO PRN; +ASPIRIN 325 MG TAB PO ONE; -ASPIRIN 325 MG TAB PO STA; -CLOPIDOGREL 75 MG TAB PO STA; +IOPAMIDOL-250 100ML BTL INTRAARTER ONE; +LIDOCAINE 1% INJ 10MG/ML (20 ML MDV) SQ ONE; +MIDAZOLAM 2 MG/2 ML VIAL IVP ONE; -NITROGLYCERIN SL TABS 0.4 MG TAB SUBLINGUAL PRN; +SODIUM CHLORIDE 0.9% 1,000 ML IV SCH
[2019-05-04 12:31] VITALS: RESP 18; TEMP 98
[2019-05-04 14:10] VITALS: PULSE 60
--- NOTE | 2019-05-04 16:13 | IR ---
Fluoroscopy HISTORY: Peripheral vascular occlusive disease, bilateral leg pain 2.9 minutes fluoroscopy time supplied to the referring clinician. 155 intraoperative C-arm images do cument the procedure. See dictated report from cardiology.
[2019-05-04 17:59] VITALS: BP 122/74
--- NOTE | 2019-05-05 06:11 | AN ---
ANGIOGRAPHY REPORT DATE OF SERVICE: May 04, 2019 PERFORMING PHYSICIAN: Loyd Bui MD. PROCEDURE PERFORMED: 1. An abdominal aortogram. 2. Bilateral lower extremities runoff. INDICATION: This is a very pleasant 69-year-old gentleman who sees Dr. French in the office as an outpatient with history of peripheral arterial disease and prior stenting of the left external iliac artery was experiencing recently bilateral lower extremities intermittent claudication, Brady class 2A. He underwent an arterial duplex study which came into be abnormal and because of that, an aortogram with runoff was advised. APPROACH: Right common femoral artery. COMPLICATION: None. LEVEL OF SEDATION: Moderate with sedation length of 16 minutes. PROCEDURE DESCRIPTION: After obtaining an informed consent, the patient was brought to the cardiac culture media laboratory assistant. The right common femoral artery was cannulated using micropuncture technique under ultrasound guidance, the micropuncture wire passed easily then I placed a 5-Trinidadian sheath 11 cm at the level of the right common femoral artery. Subsequently, I did an abdominal aortogram and bilateral lower extremities runoff using 5-Trinidadian pigtail catheter which was initially placed at the level of the arteries and it was pulled into above the bifurcation of the aorta to right and left common iliac arteries. The procedure was completed without any complication. SELECTIVE PERIPHERAL ANGIOGRAM: 1. The aorta appeared to be calcified with mild to moderate diffuse disease. 2. Common Iliac Arteries: The right common iliac artery appeared to be angiographically normal and the left common iliac artery appeared to have an intermediate lesion only. 3. Internal Iliac Arteries: The right and left internal iliac arteries appeared to be patent. 4. External Iliac Arteries: The right external iliac artery is occluded and reconstitutes by the inguinal ligament on the right side. The left external iliac artery is stented and the stent is patent. 5. Common Femoral Arteries: The right common femoral artery appeared to be calcified with mild disease only and the left common femoral artery appeared to have an eccentric lesion in the range of 80% to 90%. 6. Profunda: Both profunda seems to be patent. 7. SFA: The right SFA appeared to have an intermediate to severe lesion in the midportion and the left SFA appeared to have mild disease only. 8. Popliteal: Both popliteals appeared to be angiographically normal. 9. Below the knee: There are 3 vessels runoff below the knee bilaterally. CONCLUSION: 1. Extremely calcified peripheral arterial system of the lower extremities. 2. Occluded right external iliac artery. 3. Patent stent in the left external iliac artery. 4. Severe disease involving the left common femoral artery with extremely calcified and eccentric plaque. 5. Intermediate to severe disease involving the right SFA. POSTPROCEDURE MANAGEMENT: 1. I did recommend the patient to be discharged home today. 2. Follow up with the patient next week in the office. 3. Schedule the patient to undergo stenting of the right external iliac artery. 4. Subsequently he needs to undergo left femoral artery endarterectomy. MMODL / IJN: [id number] /
== END ==
LOC: CATHCVL 12:00
PROVIDERS: ATTEND Internal Medicine Interventional Cardiology
DX: I70.213 Atherosclerosis of native arteries of extremities with intermittent claudication, bilateral legs (principal); I49.5 Sick sinus syndrome; I10 Essential (primary) hypertension; I48.0 Paroxysmal atrial fibrillation; I74.5 Embolism and thrombosis of iliac artery; E78.5 Hyperlipidemia, unspecified; Z79.01 Long term (current) use of anticoagulants; Z79.899 Other long term (current) drug therapy; Z86.73 Personal history of transient ischemic attack (TIA), and cerebral infarction without residual deficits; Z86.19 Personal history of other infectious and parasitic diseases; Z95.828 Presence of other vascular implants and grafts
CPT/HCPCS: 36200; 75625; 75716; 76937; C1894; C1769 ×3; J2250; J2001; Q9966

== ENCOUNTER → 2019-06-03 | Outpatient (CLI) | payer MEDICARE ==
[2019-06-03 10:42] LABS: HCT 44.8 % (39.0-53.0); HGB 15.6 gm/dL (13.0-17.5); MCHC 34.8 g/dL (31.0-37.0); Mean Platelet Volume 7.5; Platelet Count 289 k/uL (150-450); RBC 5.04 m/uL (4.30-5.90); RDW 13.5 % (11.5-15.5); WBC 6.8 k/uL (3.8-10.6)
[2019-06-03 11:04] LABS: African American GFR (CKD) >90 (>60 ml/min/1.73 sqM); Anion Gap 9 mmol/L; Blood Urea Nitrogen 14 mg/dL (9-20); Carbon Dioxide 25 mmol/L (22-30); Chloride 107 mmol/L (98-107); Non-African American GFR(CKD) >90 (>60 ml/min/1.73 sqM); Potassium 4.1 mmol/L (3.5-5.1); Sodium 141 mmol/L (137-145)
== END | disposition home or self-care (01) ==
LOC: LABPAT 09:27
PROVIDERS: ATTEND Internal Medicine Interventional Cardiology
DX: Z01.812 Encounter for preprocedural laboratory examination (principal); I73.9 Peripheral vascular disease, unspecified
CPT/HCPCS: 80051; 82565; 84520; 85027

== ENCOUNTER 2019-06-07 06:35 | Day surgery (SDC) | payer MEDICARE ==
[2019-05-31 15:41] VITALS: BMI 19.3
[~2019-06-07 06:35] MED LIST changes: -ALPRAZolam 0.25 MG TAB PO PRN; -ASPIRIN 325 MG TAB PO ONE; -IOPAMIDOL-250 100ML BTL INTRAARTER ONE; -LIDOCAINE 1% INJ 10MG/ML (20 ML MDV) SQ ONE; -MIDAZOLAM 2 MG/2 ML VIAL IVP ONE; -SODIUM CHLORIDE 0.9% 1,000 ML IV SCH
[2019-06-07] MEDS ORDERED: ASPIRIN 325 MG TAB ONE (06:46)
[2019-06-07] MEDS ORDERED: SODIUM CHLORIDE 0.9% 1,000 ML IV ONE (07:00)
[2019-06-07] MEDS ORDERED: MIDAZOLAM 2 MG/2 ML VIAL IV ONE (07:46)
[2019-06-07] MEDS ORDERED: LIDOCAINE 1% INJ 10MG/ML (20 ML MDV) SQ ONE (07:48)
[2019-06-07] MEDS ORDERED: HEPARIN SODIUM 1,000 UN/ML (10ML VL) IV ONE (07:52)
[2019-06-07] MEDS ORDERED: SODIUM CHLORIDE 0.9% 1,000 ML IV SCH (08:45)
[2019-06-07] MEDS ORDERED: CLOPIDOGREL 75 MG TAB PO ONE (08:53)
[2019-06-07] MEDS ORDERED: IOPAMIDOL-300 100ML BTL INJ ONE (08:53)
[2019-06-07] MEDS ORDERED: amLODIPine 5 MG TAB PO SCH (09:00)
--- NOTE | 2019-06-07 09:03 | AN ---
ANGIOGRAPHY REPORT PERCUTANEOUS PERIPHERAL INTERVENTION DATE OF SERVICE: June 07, 2019 PERFORMING PHYSICIAN: Loyd Bui MD. PROCEDURE PERFORMED: 1. Selective right external iliac artery angiogram. 2. Intravascular ultrasound, IVUS, of the right external iliac artery. 3. Successful stenting of the right external iliac artery using 8 x 60 mm Absolute Pro self expandable stent with an excellent angiographic result and reduction of stenosis from 100% to 0%. INDICATION: This is a very pleasant 69-year-old gentleman who sees Dr. French in the office as an outpatient who is known to have peripheral arterial disease with prior revascularization, who underwent recently an angiogram which revealed an occluded right iliac with critical disease involving the left common femoral artery. He was brought today to undergo a CHAIN MENDER of the right iliac artery. APPROACH: Right common femoral artery. COMPLICATION: None. LEVEL OF SEDATION: Moderate with sedation length of 48 minutes. PROCEDURE DESCRIPTION: After obtaining an informed consent, the patient was brought to the cardiac laborer carpentry dock. The right common femoral artery was cannulated using micropuncture technique, the micropuncture wire passed easily and that was performed under ultrasound guidance, then I placed a 6-Barbadian 11 cm Brite tip sheath at the right common femoral artery where the tip of the sheath was positioned just by the upper border of the right femoral head, barely inside the right common femoral artery because the lesion started very close to the inguinal ligament. At that point, anticoagulation was initiated using heparin and the patient was given 5000 units of heparin IV at the beginning of the procedure. Subsequently, I crossed the lesion in the right external iliac artery using 0.035 [place] Advantage wire. Subsequently I did exchange my 0.035 [place] Advantage wire into 0.[address] wire using 0.035 Quick-Cross catheter. After that I did intravascular ultrasound, IVUS, of the right external iliac artery, which revealed a diameter of about 7 to 8 mm with extremely calcified and eccentric lesion. Subsequently, I did predilatation of the lesion using 6 x 60 mm balloon. I deployed 8 x 60 Absolute Pro self expandable stent where the stent was positioned under fluoroscopy guidance and deployed under fluoroscopy guidance as well. I post-dilated the stent initially using 7 mm balloon, then the proximal portion was post dilated using 8 mm balloon. The following angiogram showed excellent angiographic results and the procedure was completed without any complication. Subsequently, I did advance the sheath inside the right common femoral artery over a 0.035 [place] Advantage wire as well as over dilator of the sheath. The procedure was completed without any complication. POSTPROCEDURE MANAGEMENT: 1. Dual antiplatelet therapy. 2. Risk factors modifications. 3. Follow up with the patient. NADIA / JONAH: [id number] /
--- NOTE | 2019-06-07 10:06 | IR ---
EXAMINATION TYPE: IR investigation division captain iliac DATE OF EXAM: 06/07/2019 COMPARISON: NONE HISTORY: Fluoroscopy time. Fluoroscopy was provided to the referring clinician.
[2019-06-07] MEDS: MORPHINE PAIN PUMP SQ SCH (14:34)
[2019-06-07] MEDS: DULoxetine HCL 60 MG CAPSULE.DR PO SCH (15:11)
[2019-06-07] MEDS: hydrALAZINE HCL 25 MG TAB PO SCH ×2 (15:11→21:20)
[2019-06-07] MEDS: TAMSULOSIN 0.4 MG CAP.ER.24H PO SCH (15:30)
[2019-06-07] MEDS: GABAPENTIN 400 MG CAP PO SCH ×2 (15:30→21:20)
[2019-06-07] MEDS ORDERED: METOPROLOL TARTRATE 25 MG TAB PO SCH (21:00)
[2019-06-07] MEDS ORDERED: oxyCODONE ER 15 MG TAB.ER.12H PO SCH (21:00)
[2019-06-07] MEDS ORDERED: ATORVASTATIN 10 MG TAB PO SCH (21:00)
[2019-06-08 01:17] VITALS: PULSE 60; RESP 18
[2019-06-08 07:36] LABS: Basophils # (A) 0.1 k/uL (0-0.2); Basophils % (A) 1 %; Eosinophils # (A) 0.2 k/uL (0-0.7); Eosinophils % (A) 2 %; HCT 42.2 % (39.0-53.0); Lymphocytes # (A) 1.8 k/uL (1.0-4.8); Lymphocytes % (A) 26 %; MCH 29.5 pg (25.0-35.0); MCHC 33.1 g/dL (31.0-37.0); MCV 89.2 fL (80.0-100.0); Mean Platelet Volume 7.3; Monocytes # (A) 0.4 k/uL (0-1.0); Monocytes % (A) 6 %; Neutrophils # (A) 4.5 k/uL (1.3-7.7); Neutrophils % (A) 63 %; Platelet Count 195 k/uL (150-450); RBC 4.73 m/uL (4.30-5.90); RDW 13.3 % (11.5-15.5); WBC 7.1 k/uL (3.8-10.6)
[2019-06-08 07:41] LABS: African American GFR (CKD) >90 (>60 ml/min/1.73 sqM); Anion Gap 5 mmol/L; Blood Urea Nitrogen 15 mg/dL (9-20); Calcium 9.3 mg/dL (8.4-10.2); Carbon Dioxide 30 mmol/L (22-30); Chloride 104 mmol/L (98-107); Glucose 86 mg/dL (74-99); Non-African American GFR(CKD) >90 (>60 ml/min/1.73 sqM); Potassium 4.4 mmol/L (3.5-5.1); Sodium 139 mmol/L (137-145)
[2019-06-08 08:27] VITALS: BP 133/83; TEMP 98.5
[2019-06-08] MEDS: GABAPENTIN 400 MG CAP PO SCH (08:29)
[2019-06-08] MEDS: TAMSULOSIN 0.4 MG CAP.ER.24H PO SCH (08:29)
[2019-06-08] MEDS: DULoxetine HCL 60 MG CAPSULE.DR PO SCH (08:29)
[2019-06-08] MEDS: hydrALAZINE HCL 25 MG TAB PO SCH (08:29)
[2019-06-08] MEDS: MORPHINE PAIN PUMP SQ SCH (08:32)
[2019-06-08] MEDS ORDERED: METOPROLOL TARTRATE 50 MG TAB PO SCH (09:00)
[2019-06-08] MEDS ORDERED: oxyCODONE ER 20 MG TAB.ER.12H PO SCH (09:00)
[2019-06-08] MEDS ORDERED: CLOPIDOGREL 75 MG TAB PO SCH (09:00)
[2019-06-08] MEDS ORDERED: amLODIPine 5 MG TAB PO SCH (09:00)
--- NOTE | 2019-06-09 00:50 | DS ---
DISCHARGE SUMMARY ADMISSION DATE: June 07, 2019 DISCHARGE DATE: June 08, 2019 BRIEF HISTORY: This is a 69-year-old gentleman who underwent yesterday successful stenting of the right external iliac artery with an excellent angiographic results and without any complication. The procedure was performed from the right groin which is soft and nontender and without any hematomas. The patient is going to be discharged home on dual anti-platelet therapy and I will follow up with the patient in the office next week. MMISAMAR / LATOYAN: [id number] /
== END 2019-06-08 10:13 | disposition home or self-care (01) ==
LOC: CATHCVL 06:35 → MERGE 07:30 → 3SCARD 14:16 → CATHCVL 06-08 10:13
PROVIDERS: ATTEND Internal Medicine Interventional Cardiology
DX: I70.213 Atherosclerosis of native arteries of extremities with intermittent claudication, bilateral legs (principal); I10 Essential (primary) hypertension; I48.0 Paroxysmal atrial fibrillation; I49.5 Sick sinus syndrome; E78.5 Hyperlipidemia, unspecified; Z79.01 Long term (current) use of anticoagulants; Z79.899 Other long term (current) drug therapy; Z86.73 Personal history of transient ischemic attack (TIA), and cerebral infarction without residual deficits; Z86.19 Personal history of other infectious and parasitic diseases; Z95.828 Presence of other vascular implants and grafts
CPT/HCPCS: 37221; 37252; 80048; 85025; C1894; C1725 ×2; C1876; C1769 ×5; C1887; C1753; J2250; J2001; J1644; Q9967

== ENCOUNTER 2019-06-09 10:53 | Emergency (ER) | payer MEDICARE ==
[2019-06-09 10:57] VITALS: RESP 18; TEMP 97.7
--- NOTE | 2019-06-09 11:51 | CT ---
EXAMINATION TYPE: CT brain wo con DATE OF EXAM: 06/09/2019 COMPARISON: 01/05/2018 CT brain HISTORY: Fall with head pain and laceration of the left ear. CT DLP: 1091.4 mGycm Automated exposure control for dose reduction was used. FINDINGS: There is a 5 mm left posterior parietal scalp hematoma. Calcification and hypertrophy density of the tentorium cerebelli is unchanged from 01/05/2018. Additionally hyperdensity of the cranial aspect of t he transverse sinus just deep to the scalp hematoma on series 201 image 22 is unchanged from the prio r of 01/05/2018 on image 20. This is also confirmed as a sinus rather than subdural hematoma on mon l image 56. No acute intracranial hemorrhage. Confluent areas of hypoattenuation are seen within the periventricular and subcortical white matter with cystic ex vacuo dilatation of the posterior horn of the right lateral ventricle from prior right occipital infarct. Peripheral sulci and ventricular sys tem are both dilated compatible with atrophy related volume loss. Dystrophic benign basal ganglia marilyn cifications on the right. No midline shift. Calvarium is intact. Paranasal sinuses are well aerated a s are the mastoid air cells. Atherosclerosis of the intracranial vasculature is seen. IMPRESSION: CHRONIC CHANGES SEEN ON THE PRIOR OF 01/05/2018. NO ACUTE INTRACRANIAL HEMORRHAGE OR MIDLINE SHIFT. LEFT PARIETAL SCALP HEMATOMA MEASURING UP TO 5 MM.
[2019-06-09] MEDS ORDERED: TOPICAL SKIN ADHESIVE 1 EACH AMP TOPICAL ONE (11:57)
--- NOTE | 2019-06-09 12:38 | ED ---
General Adult HPI <Edward Weiss - Last Filed: 06/09/19 12:59> - General Source: patient, RN notes reviewed, old records reviewed Mode of arrival: wheelchair Limitations: no limitations <Casimiro Fay - Last Filed: 06/09/19 13:07> - General Chief complaint: Wound/Laceration Stated complaint: fall Time Seen by Provider: 06/09/19 11:01 - History of Present Illness Initial comments: 69-year-old male patient presents to ED with a fall and abrasion to left ear. Patient reports that he stood up abruptly and loss his balance falling to the side hitting his head on the ground. She reports that the main reason that he presents to the hospital was the bleeding from the left ear. Denies a loss of consciousness. Denies a headache or changes in vision. Denies any pain in any other areas. Patient presented greater than 1 OH. Patient did have recent stent placement. Also on Plavix. Denies any other complaints. Systemic: Pt denies fatigue, fever/chills, rash. Pt denies weakness, night sweats, weight loss. Neuro: Pt denies headache, visual disturbances, syncope or pre-syncope. HEENT: Pt denies ocular discharge or irritation, otalgia, rhinorrhea, pharyngitis or notable lymphadenopathy. Cardiopulmonary: Pt denies chest pain, SOB, heart palpitations, dyspnea on exertion. Abdominal/GI: Pt denies abdominal pain, n/v/d. : Pt denies dysuria, burning w/ urination, frequency/urgency. Denies new onset urinary or bowel incontinence. MSK: Pt denies myalgia, loss of strength or function in extremities. Neuro: Pt denies new onset weakness, paresthesias. (Casimiro Fay) - Related Data Home Medications Medication Instructions Recorded Confirmed Metoprolol Tartrate [Lopressor] 25 mg PO HS 12/31/16 06/07/19 Tamsulosin HCl [Flomax] 0.4 mg PO QAM 08/19/17 06/07/19 Atorvastatin [Lipitor] 10 mg PO HS 05/03/19 06/07/19 DULoxetine HCL [Cymbalta] 60 mg PO QAM 05/03/19 06/07/19 Gabapentin [Neurontin] 400 mg PO TID 05/03/19 06/07/19 Metoprolol Tartrate [Lopressor] 50 mg PO QAM 05/03/19 06/07/19 amLODIPine [Norvasc] 5 mg PO QAM 05/03/19 06/07/19 hydrALAZINE HCL [Apresoline] 25 tab PO BID 05/03/19 06/07/19 oxyCODONE HCL [OxyCONTIN] 30 mg PO HS 05/03/19 05/31/19 oxyCODONE HCL [OxyCONTIN] 40 mg PO QAM 05/03/19 05/31/19 Morphine Pain Pump 1 dose SQ CONTINUOUS 05/31/19 06/07/19 Previous Rx's Medication Instructions Recorded Clopidogrel [Plavix] 75 mg PO DAILY #90 tab 06/08/19 Rivaroxaban [Xarelto] 15 mg PO DAILY #90 tab 06/08/19 Allergies Allergy/AdvReac Type Severity Reaction Status Date / Time No Known Allergies Allergy Verified 06/09/19 10:57 Review of Systems ROS Other: All systems not noted in ROS Statement are negative. <Edward Weiss - Last Filed: 06/09/19 12:59> ROS Other: All systems not noted in ROS Statement are negative. <Casimiro Fay - Last Filed: 06/09/19 13:07> ROS Statement: Those systems with pertinent positive or pertinent negative responses have been documented in the HPI. Past Medical History Past Medical History: Cancer, Chest Pain / Angina, CVA/TIA, Hypertension, Liver Disease, Memory Impairment, Musculoskeletal Disorder, Osteoarthritis (OA), Vascular Disorder Additional Past Medical History / Comment(s): Encephalitis Menigitis. Hx Bladder CA, hx immunotherapy. DDD w/ CHRONIC PAIN, pain pump placed 05/21/19. BLE pain w/ claudication. PAD. HEPATITIS C 1994 est, treated 2016. 2014 CVA, 3 SMALLER ONES. History of Any Multi-Drug Resistant Organisms: None Reported Past Surgical History: Appendectomy, Hernia Repair, Orthopedic Surgery, Pacemake r Additional Past Surgical History / Comment(s): Lt CAROTID ENDARECTOMY 04/10/16 L femoral popliteal atherectomy with PTBA. Other surgical hx: abdominal aortagram w/ bilateral lower extremity runoffs x2, 2016 LIVER BX THIS YEAR. Liver biopsy -approx. 15-20 years ago. Bladder surg/scope. Pain Pump 05/21/19. bilateral knee arthroscopy Past Anesthesia/Blood Transfusion Reactions: Previous Problems w/ Anesthesia, Motion Sickness Additional Past Anesthesia/Blood Transfusion Reaction / Comment(s): After pain pump felt like "a hangover" Type of Cardiac Device: Permanent Pacemaker Device Placement Date:: 02-13-16 Past Psychological History: Depression Smoking Status: Current every day smoker Past Alcohol Use History: None Reported Past Drug Use History: Marijuana - Past Family History Mother Family Medical History: Cancer Additional Family Medical History / Comment(s): Skin cancer and lung cancer Father Family Medical History: CVA/TIA <Casimiro Fay - Last Filed: 06/09/19 13:07> General Exam Limitations: no limitations <Casimiro Fay - Last Filed: 06/09/19 13:07> - General Exam Comments Initial Comments: Constitutional: NAD, AOX3, Pt has pleasant affect. HEENT: NC/AT, trachea midline, neck supple, no lymphadenopathy. Posterior pharynx non erythematous, without exudates. External ears appear normal, without discharge. Mucous membranes moist. Eyes PERRLA, EOM intact. There is no scleral icterus. No pallor noted. Cardiopulmonary: RRR, no murmurs, rubs or gallops, no JVD noted. Lungs CTAB in anterior and posterior hernandez. No peripheral edema. Abdominal exam: Abdomen soft and non-distended. Abdomen non-tender to palpation in all 4 quadrants. Bowel sounds active in LLQ. No hepatosplenomegaly. No ecchymosis Neuro: CN II-XII intact. No nuchal rigidity. No raccon eyes, no biswas sign, no hemotympanum. No cervical spinal tenderness. NIH 0. Repeat neurologic exam wnl. MSK: Small abrasion noted to left ear. Cleaned and hemostasis achieved with exofin. No posterior calf tenderness bilaterally, homans sign negative bilaterally. Posterior tibialis and radial pulse +2 bilaterally. Sensation int act in upper and lower extremities. Full active ROM in upper and lower extremities, 5/5 stregnth. (Casimiro Fay) Course <Edward Weiss - Last Filed: 06/09/19 12:59> Vital Signs 06/09/19 06/09/19 10:54 12:52 Temperature 97.7 F Pulse Rate 60 70 Respiratory 18 18 Rate Blood Pressure 131/82 120/87 O2 Sat by Pulse 98 100 Oximetry - Reevaluation(s) Reevaluation #1: 06/09/19 12:59 PA supervision: I proceeded [id number] evaluation the patient did discuss findings with the patient and his family. Patient did demonstrate some dizziness with head movement. CT exam was reviewed no acute findings noted patient's left ear was History surgical glue. (Edward Weiss) Medical Decision Making <Casimiro Fay - Last Filed: 06/09/19 13:07> - Medical Decision Making 69-year-old male patient presents to ED with a fall and abrasion to left ear. Patient reports that he stood up abruptly and loss his balance falling to the side hitting his head on the ground. She reports that the main reason that he presents to the hospital was the bleeding from the left ear. Denies a loss of consciousness. Denies a headache or changes in vision. Denies any pain in any other areas. Patient presented greater than 1 OH. Patient did have recent stent placement. Also on Plavix. Denies any other complaints. She no signs stable, afebrile. Physical exam displayed intact neurologic exam, small abrasion noted to left external ear. A CT was obtained due to fall with head trauma on thinners. Small parietal scalp hematoma was noted. Patient has no pain in neck. Hemostasis was achieved onabrasion. Patient denies any complaints at this time. Patient is ambulatory without difficulty. Tetanus is up to date. Case discussed the patient seen by Dr. Weiss, who with further history taking revealed patient had some dizziness with side to side movement. Reports this has been a long-term issue and is nonacute. (Casimiro Fay) Disposition <Edward Weiss - Last Filed: 06/09/19 12:59> Is patient prescribed a controlled substance at d/c from ED?: No <Casimiro Fay - Last Filed: 06/09/19 13:07> Clinical Impression: Fall, Abrasion Disposition: HOME SELF-CARE Condition: Stable Instructions (If sedation given, give patient instructions): Abrasion (ED), Fall Prevention (ED) Additional Instructions: Follow-up with primary care provider tomorrow. Return to ER if condition worsens in any way. Referrals: Cheo Ramirez MD [Primary Care Provider] - 1-2 days
[2019-06-09] MEDS ORDERED: GELATIN SPONGE,ABSORB (LARGE) 1 EACH SPONGE TOPICAL STA (12:40)
[2019-06-09 12:52] VITALS: BP 120/87; PULSE 70
== END 2019-06-09 12:57 | disposition home or self-care (01) ==
LOC: EC 10:53
DX: S00.412A Abrasion of left ear, initial encounter (principal); S00.03XA Contusion of scalp, initial encounter; I10 Essential (primary) hypertension; M19.90 Unspecified osteoarthritis, unspecified site; G89.29 Other chronic pain; F32.9 Major depressive disorder, single episode, unspecified; F17.200 Nicotine dependence, unspecified, uncomplicated; Z79.02 Long term (current) use of antithrombotics/antiplatelets; Z79.891 Long term (current) use of opiate analgesic; Z79.899 Other long term (current) drug therapy; Z86.73 Personal history of transient ischemic attack (TIA), and cerebral infarction without residual deficits; Z85.51 Personal history of malignant neoplasm of bladder; Z96.89 Presence of other specified functional implants; Z95.0 Presence of cardiac pacemaker; Z95.5 Presence of coronary angioplasty implant and graft; W01.0XXA Fall on same level from slipping, tripping and stumbling without subsequent striking against object, initial encounter; Y93.89 Activity, other specified; Y92.009 Unspecified place in unspecified non-institutional (private) residence as the place of occurrence of the external cause; Z53.8 Procedure and treatment not carried out for other reasons
CPT/HCPCS: 70450; 99284

== ENCOUNTER → 2020-02-11 | Outpatient (CLI) | payer MEDICARE ==
[2020-02-11 15:17] LABS: Basophils % (A) 0 %; Eosinophils % (A) 0 %; HCT 48.9 % (39.0-53.0); HGB 16.2 gm/dL (13.0-17.5); Lymphocytes # (A) 1.3 k/uL (1.0-4.8); Lymphocytes % (A) 12 %; MCH 30.1 pg (25.0-35.0); MCHC 33.2 g/dL (31.0-37.0); MCV 90.9 fL (80.0-100.0); Mean Platelet Volume 7.2; Monocytes # (A) 0.3 k/uL (0-1.0); Monocytes % (A) 3 %; Neutrophils # (A) 9.1 k/uL (1.3-7.7); Neutrophils % (A) 85 %; Platelet Count 332 k/uL (150-450); RBC 5.38 m/uL (4.30-5.90); RDW 13.1 % (11.5-15.5); WBC 10.8 k/uL (3.8-10.6)
[2020-02-11 20:36] LABS: African American GFR (CKD) 101.4 (60.0-200.0); Albumin 4.8 g/dL (3.80-4.90); Albumin/Globulin Ratio 1.85 (1.60-3.17); Anion Gap 7.3 mmol/L (4.00-12.00); BUN/Creat Ratio 34.44 Ratio (12.00-20.00); Calcium 9.4 mg/dL (8.7-10.3); Carbon Dioxide 26.7 mmol/L (21.6-31.8); Globulin 2.6 g/dL (1.6-3.3); Non-African American GFR(CKD) 87.5 (60.0-200.0); Potassium 4.2 mmol/L (3.5-5.5); Total Bilirubin 0.6 mg/dL (0.3-1.2); Total Protein 7.4 g/dL (6.2-8.2)
== END | disposition home or self-care (01) ==
LOC: LABWHC1 14:35
PROVIDERS: ATTEND Psychiatry & Neurology Pain Medicine
DX: R11.2 Nausea with vomiting, unspecified (principal); R19.7 Diarrhea, unspecified
CPT/HCPCS: 36415; 80053; 85025

== ENCOUNTER → 2020-06-13 | Outpatient (CLI) | payer MEDICARE ==
[2020-06-13 10:49] LABS: HCT 43.2 % (39.0-53.0); HGB 14.5 gm/dL (13.0-17.5); MCH 30.6 pg (25.0-35.0); MCHC 33.5 g/dL (31.0-37.0); MCV 91.3 fL (80.0-100.0); Mean Platelet Volume 7.2; Platelet Count 215 k/uL (150-450); RBC 4.73 m/uL (4.30-5.90); RDW 12.9 % (11.5-15.5); WBC 7.9 k/uL (3.8-10.6)
[2020-06-13 15:24] LABS: Chol/HDL Ratio 2.9; LDL Cholesterol,Calculated 75.8 mg/dL (0.0-131.0); VLDL Calculation 15.2 mg/dL (5.00-40.00)
[2020-06-13 15:29] LABS: African American GFR (CKD) 112.4 (60.0-200.0); Albumin 4.6 g/dL (3.80-4.90); Albumin/Globulin Ratio 1.92 (1.60-3.17); Anion Gap 3.3 mmol/L (4.00-12.00); BUN/Creat Ratio 22.86 Ratio (12.00-20.00); Calcium 9.4 mg/dL (8.7-10.3); Carbon Dioxide 31.7 mmol/L (21.6-31.8); Globulin 2.4 g/dL (1.6-3.3); Potassium 4.5 mmol/L (3.5-5.5); Total Bilirubin 0.4 mg/dL (0.3-1.2)
[2020-06-13 15:34] LABS: PSA Annual Screen 0.4 ng/mL (0.0-4.0)
== END | disposition home or self-care (01) ==
LOC: LABWHC1 09:42
PROVIDERS: ATTEND Family Medicine
DX: Z00.01 Encounter for general adult medical examination with abnormal findings (principal); Z12.5 Encounter for screening for malignant neoplasm of prostate; N40.1 Benign prostatic hyperplasia with lower urinary tract symptoms
CPT/HCPCS: 80061; 80053; 85027; 36415; G0103

== ENCOUNTER → 2020-06-13 | Outpatient (CLI) | payer MEDICARE | END | disposition home or self-care (01) | LOC: LABPAT 09:39 | PROVIDERS: ATTEND Internal Medicine Interventional Cardiology | DX: Z53.9 Procedure and treatment not carried out, unspecified reason (principal) ==

== ENCOUNTER → 2020-06-28 | Outpatient (CLI) | payer MEDICARE ==
[2020-06-28 13:08] LABS: African American GFR (CKD) >90 (>60 ml/min/1.73 sqM); Blood Urea Nitrogen 16 mg/dL (9-20); Non-African American GFR(CKD) >90 (>60 ml/min/1.73 sqM)
--- NOTE | 2020-06-28 13:54 | CT ---
EXAMINATION TYPE: CT lumbar spine wo/w con DATE OF EXAM: 06/28/2020 COMPARISON: CT lumbar spine January 05, 2018 HISTORY: DDD and sclerosis per order. CT DLP: 1782 mGycm Automated exposure control for dose reduction was used. CONTRAST: CT scan of the lumbar is performed without and with IV Contrast, patient injected with mL of Isovue [address] of the lumbar spine was performed. Bone and soft tissue window settings are submitted as well as coronal and sagittal reconstructions. I will use same counting system is used on prior CT with assumed bilateral hypoplastic T12 ribs. Pers istent levoconvex scoliotic curvature centered upper lumbar spine and bilateral convex scoliotic curv ature centered lower lumbar spine. Bilateral pars defect L5 level without spondylolisthesis redemonst rated. Stable grade 1 retrolisthesis L3 on L4. Also grade 1 retrolisthesis of T12 on L1, L1 on L2, an d L2 on L3 all redemonstrated. Stable moderate disc space narrowing L4-L5 level with vacuum disc phen omenon and posterior endplate sclerosis. Persistent moderate to severe disc space narrowing and spurr ing with endplate sclerosis at the L1-L2 and L2-L3 levels. Persistent moderate disc space narrowing L 3-L4 level. Posterior disc herniations and spur disc complexes efface the anterior thecal sac at all lumbar levels similar to prior. Axial images at the T11-T12 level redemonstrate mild/moderate broad-based disc bulge effacing anterio r thecal sac thought stable. Axial images at the T12-L1 level show spondylolisthesis with moderate broad-based posterior disc prot rusion effacing the anterior thecal sac, patent bilateral neural foramina. Axial images at the L1-L2 level shows spondylosis with posterior spur disc complex effacing the anter ior thecal sac, there is right foraminal spur disc complex protrusion component causing moderate righ t-sided neural foraminal narrowing. Axial images at the L2-L3 level shows spondylosis with with moderate to advanced broad-based disc bul ge effacing the anterior thecal sac and mild to moderate bilateral anterior inferior neural foraminal narrowing. No significant change from prior study. Axial images at the L3-L4 level show moderate to severe broad-based disc protrusion and mild facet ar thropathy. There is effacement of the anterior thecal sac and spondylolisthesis. There is moderate to severe left-sided neural foraminal narrowing with more mild right-sided neural foraminal narrowing. No significant change from prior. Axial images at the L4-L5 level show moderate to advanced facet degenerative changes bilaterally. The re is moderate broad disc bulge effacing the anterior thecal sac. There is effacement of the posterol ateral thecal sac. There is mild right and moderate 2 severe left-sided neural foraminal narrowing. N o significant change from prior. Axial images at the L5-S1 level shows central disc protrusion and moderate to advanced facet arthropa thy. There is some effacement of the anterior thecal sac. There is moderate left-sided neural foramin al narrowing redemonstrated. Patent Right-sided neural foramina. Postcontrast images show severe plaque in the distal abdominal aorta extending into iliac branch vess els with significant stenosis in the right common iliac artery proximally flow present. There is part ial visualization of patent stent grafts in the distal common iliac arteries bilaterally. No suspicio us enhancing masses. There is new spinal stimulator device entering the posterior spinal canal at L2- L3 level and extending into the thoracic spine out of field of view. IMPRESSION: Multilevel spondylolisthesis and degenerative changes as detailed above without significa nt change or progression from December 2017 CT. New Stimulator device partially imaged. New significant stenosis in the proximal right common iliac arter y felt present, advise endovascular surgical referral or follow-up.
== END | disposition home or self-care (01) ==
LOC: RADCTMAIN 12:26
PROVIDERS: ATTEND Psychiatry & Neurology Neurology
DX: M43.16 Spondylolisthesis, lumbar region (principal); M47.816 Spondylosis without myelopathy or radiculopathy, lumbar region; M47.817 Spondylosis without myelopathy or radiculopathy, lumbosacral region; M51.36 Other intervertebral disc degeneration, lumbar region; M41.86 Other forms of scoliosis, lumbar region; Z51.81 Encounter for therapeutic drug level monitoring; Z79.899 Other long term (current) drug therapy
CPT/HCPCS: 82565; 84520; 72133; 36415; Q9967

== ENCOUNTER 2020-08-29 11:31 | Inpatient (IN) | payer MEDICARE ==
[2020-08-29] MEDS ORDERED: SODIUM CHLORIDE 0.9% 1,000 ML IV STA (12:11)
--- NOTE | 2020-08-29 12:24 | ED ---
Abdominal Pain HPI - General Chief Complaint: Abdominal Pain Stated Complaint: ABD pain/confused Time Seen by Provider: 08/29/20 12:00 Source: patient Mode of arrival: ambulatory Limitations: no limitations - History of Present Illness Initial Comments: 70-year-old male with history of bladder cancer presents to the emergency department with a chief complaint of abdominal pain. Patient reports his pain has been ongoing for the past few months. States she seeing Dr. Akers but there has been no definitive findings yet. States he is scheduled for colonoscopy next month. States the pain is achy and a 7/10 and constant. States the pain is usually postprandial. He reports the pain is usually located in the periumbilical region. He reports occasional nausea but no vomiting diarrhea or constipation. Denies hematuria, hematochezia or melena. Does report occasional obstructive urinary symptoms which she believes is secondary to enlarged prost ate. He has a morphine pain pump placed in his left lower abdominal region for his chronic back pain. - Related Data Home Medications Medication Instructions Recorded Confirmed Tamsulosin HCl [Flomax] 0.4 mg PO DAILY 08/19/17 08/29/20 Gabapentin [Neurontin] 400 mg PO TID 05/03/19 08/29/20 Metoprolol Tartrate [Lopressor] 50 mg PO DAILY 05/03/19 08/29/20 amLODIPine [Norvasc] 5 mg PO DAILY 05/03/19 08/29/20 hydrALAZINE HCL [Apresoline] 25 tab PO BID 05/03/19 08/29/20 Morphine Pain Pump 1 dose SQ CONTINUOUS 05/31/19 08/29/20 Rivaroxaban [Xarelto] 20 mg PO HS 06/16/20 08/29/20 DULoxetine HCL [Cymbalta] 60 mg PO BID 08/29/20 08/29/20 Metoprolol Tartrate [Lopressor] 25 mg PO HS 08/29/20 08/29/20 Allergies Allergy/AdvReac Type Severity Reaction Status Date / Time No Known Allergies Allergy Verified 08/29/20 13:40 Review of Systems ROS Statement: Those systems with pertinent positive or pertinent negative responses have been documented in the HPI. ROS Other: All systems not noted in ROS Statement are negative. Past Medical History Past Medical History: Cancer, Chest Pain / Angina, CVA/TIA, Hypertension, Liver Disease, Memory Impairment, Musculoskeletal Disorder, Osteoarthritis (OA), Vascular Disorder Additional Past Medical History / Comment(s): hx of diverticulitis current antibiotic Encephalitis Menigitis. Hx Bladder CA, hx immunotherapy. DDD w/ CHRONIC PAIN, pain pump placed 05/21/19. BLE pain w/ claudication. PAD. HEPATITIS C 1994 est, treated 2016. 2014 CVA, 3 SMALLER ONES. History of Any Multi-Drug Resistant Organisms: None Reported Past Surgical History: Appendectomy, Hernia Repair, Orthopedic Surgery, Pacemaker Additional Past Surgical History / Comment(s): Lt CAROTID ENDARECTOMY 04/10/16 L femoral popliteal atherectomy with PTBA. Other surgical hx: abdominal aortag avis w/ bilateral lower extremity runoffs x2, 2016 LIVER BX THIS YEAR. Liver biopsy -approx. 15-20 years ago. Bladder surg/scope. Pain Pump 05/21/19. bilateral knee arthroscopy Past Anesthesia/Blood Transfusion Reactions: Previous Problems w/ Anesthesia Additional Past Anesthesia/Blood Transfusion Reaction / Comment(s): After pain pump felt like "a hangover" Type of Cardiac Device: Permanent Pacemaker Device Placement Date:: 02-13-16 Past Psychological History: Anxiety, Depression Smoking Status: Current every day smoker Past Alcohol Use History: None Reported Past Drug Use History: None Reported - Past Family History Mother Family Medical History: Cancer Additional Family Medical History / Comment(s): Skin cancer and lung cancer. Father Family Medical History: CVA/TIA General Exam Limitations: no limitations General appearance: alert, in no apparent distress Head exam: Present: atraumatic, normocephalic, normal inspection Eye exam: Present: normal appearance, PERRL, EOMI Pupils: Present: normal accommodation ENT exam: Present: normal exam, normal oropharynx, mucous membranes moist Neck exam: Present: normal inspection Respiratory exam: Present: normal lung sounds bilaterally. Absent: respiratory distress Cardiovascular Exam: Present: regular rate, normal rhythm, normal heart sounds GI/Abdominal exam: Present: soft (Pain pump was noted in the left lower quadrant region), tenderness (Mild periumbilical abdominal tenderness. Nonacute abdomen). Absent: distended, guarding, rebound, rigid Extremities exam: Present: normal inspection, full ROM, normal capillary refill. Absent: tenderness, pedal edema Back exam: Present: normal inspection, full ROM. Absent: tenderness, CVA tenderness (R), CVA tenderness (L) Neurological exam: Present: alert, oriented X3, normal gait Psychiatric exam: Present: normal affect, normal mood Course Vital Signs 08/29/20 11:40 Temperature 97.8 F Pulse Rate 60 Respiratory 16 Rate Blood Pressure 150/86 O2 Sat by Pulse 96 Oximetry Medical Decision Making - Medical Decision Making 70-year-old male with history of bladder cancer presents emergency Department with a chief complaint of abdominal pain. On physical examination, mild periUmbilical abdominal tenderness. Patient was only given IV fluids. CBC CMP unremarkable. Patient is yet to give a urine sample. He only has nausea but no vomiting or diarrhea. No other associated signs or symptoms. He underwent immunotherapy and procedure to remove the bladder cancer [address] of ab domen and pelvis reveals new suspicious duct obstruction mass mid body of the pancreas with adjacent adenopathy suspected [employer] encasement and abnormal r retroperitoneal adenopathy worsen for advanced pancreatic adenocarcinoma. 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 Patient will be admitted for further medical management. Case discussed with Admitting is Dr Waldo Santos on consult oncology on consult - Lab Data Result diagrams: 08/29/20 12:38 08/29/20 12:38 Lab Results 08/29/20 08/29/20 Range/Units 12:38 12:38 WBC 7.9 (3.8-10.6) k/uL RBC 4.66 (4.30-5.90) m/uL Hgb 14.4 (13.0-17.5) gm/dL Hct 41.4 (39.0-53.0) % MCV 88.9 (80.0-100.0) fL MCH 30.9 (25.0-35.0) pg MCHC 34.8 (31.0-37.0) g/dL RDW 12.8 (11.5-15.5) % Plt Count 217 (150-450) k/uL MPV 7.4 Neutrophils % 70 % Lymphocytes % 22 % Monocytes % 5 % Eosinophils % 1 % Basophils % 1 % Neutrophils # 5.5 (1.3-7.7) k/uL Lymphocytes # 1.7 (1.0-4.8) k/uL Monocytes # 0.4 (0-1.0) k/uL Eosinophils # 0.1 (0-0.7) k/uL Basophils # 0.0 (0-0.2) k/uL Sodium 138 (137-145) mmol/L Potassium 4.2 (3.5-5.1) mmol/L Chloride 104 (98-107) mmol/L Carbon Dioxide 29 (22-30) mmol/L Anion Gap 5 mmol/L BUN 12 (9-20) mg/dL Creatinine 0.63 L (0.66-1.25) mg/dL Est GFR (CKD-EPI)AfAm >90 (>60 ml/min/1.73 sqM) Est GFR (CKD-EPI)NonAf >90 (>60 ml/min/1.73 sqM) Glucose 127 H (74-99) mg/dL Calcium 9.6 (8.4-10.2) mg/dL Total Bilirubin 0.4 (0.2-1.3) mg/dL AST 18 (17-59) U/L ALT 8 (4-49) U/L Alkaline Phosphatase 75 (38-126) U/L Total Protein 7.4 (6.3-8.2) g/dL Albumin 4.3 (3.5-5.0) g/dL Amylase 51 (30-110) U/L Lipase 381 H (23-300) U/L Disposition Clinical Impression: Abdominal pain, Pancreatic mass, Splenic vein thrombosis Disposition: ADMITTED IP TO THIS [facility] Condition: Stable Instructions (If sedation given, give patient instructions): Abdominal Pain (ED) Is patient prescribed a controlled substance at d/c from ED?: No Referrals: Cheo Ramirez MD [Primary Care Provider] - 1-2 days Time of Disposition: 15:08
[2020-08-29 12:46] LABS: Basophils % (A) 1 %; Eosinophils # (A) 0.1 k/uL (0-0.7); Eosinophils % (A) 1 %; HCT 41.4 % (39.0-53.0); HGB 14.4 gm/dL (13.0-17.5); Lymphocytes # (A) 1.7 k/uL (1.0-4.8); Lymphocytes % (A) 22 %; MCH 30.9 pg (25.0-35.0); MCHC 34.8 g/dL (31.0-37.0); MCV 88.9 fL (80.0-100.0); Mean Platelet Volume 7.4; Monocytes # (A) 0.4 k/uL (0-1.0); Monocytes % (A) 5 %; Neutrophils # (A) 5.5 k/uL (1.3-7.7); Neutrophils % (A) 70 %; Platelet Count 217 k/uL (150-450); RBC 4.66 m/uL (4.30-5.90); RDW 12.8 % (11.5-15.5); WBC 7.9 k/uL (3.8-10.6)
[2020-08-29 13:16] LABS: ALT 8 U/L (4-49); AST 18 U/L (17-59); African American GFR (CKD) >90 (>60 ml/min/1.73 sqM); Albumin 4.3 g/dL (3.5-5.0); Alkaline Phosphatase 75 U/L (38-126); Amylase 51 U/L (30-110); Anion Gap 5 mmol/L; Blood Urea Nitrogen 12 mg/dL (9-20); Calcium 9.6 mg/dL (8.4-10.2); Carbon Dioxide 29 mmol/L (22-30); Chloride 104 mmol/L (98-107); Glucose 127 mg/dL (74-99); Lipase 381 U/L (23-300); Non-African American GFR(CKD) >90 (>60 ml/min/1.73 sqM); Potassium 4.2 mmol/L (3.5-5.1); Sodium 138 mmol/L (137-145); Total Bilirubin 0.4 mg/dL (0.2-1.3); Total Protein 7.4 g/dL (6.3-8.2)
--- NOTE | 2020-08-29 14:19 | CT ---
EXAMINATION TYPE: CT abdomen pelvis w con DATE OF EXAM: 08/29/2020 COMPARISON: CT urogram 05/05/2017. HISTORY: generalized pain and tenderness. CT DLP: 555.2 mGycm, Automated Exposure Control for Dose Reduction was Utilized. CONTRAST: CT scan of the abdomen and pelvis is performed without oral and with IV Contrast, patient injected wi th 100 mL of Isovue 300. FINDINGS: LUNG BASES: Dual-lead pacemaker in current study. Dependent atelectasis both bases. LIVER/GB: Mild central intrahepatic biliary dilatation similar to prior. Heterogeneous hypodense appe arance to liver could reflect diffuse fatty infiltration. Liver size stable and within normal limits. PANCREAS: Pancreas is now abnormal with heterogeneous hypodense mass measuring roughly 3.8 x 3.5 cm-i mage 20 causing distal pancreatic ductal dilatation. There is adjacent 1.7 cm thin-walled fluid colle ction or cystic lesion. This abnormal mass causes some encroachment and probable encasement of portio ns of the SMA with ill-defined surrounding fat plane. Suspicious prominent but subcentimeter adjacent lymph nodes noted for reference axial image 26. SPLEEN: Poor visualization of patent draining splenic vein on current study, thrombosis suspected axi al image 18 for reference.r ADRENALS: No significant abnormality is seen. KIDNEYS: Symmetric cortical medullary uptake and excretion without hydronephrosis seen bilaterally. T here is a 7 mm nonobstructing calculus upper pole left kidney coronal image 53. Occasional subcentime ter thin-walled cyst scattered throughout both kidneys BOWEL: Evaluation while suboptimal as patient has little intra-abdominal fat and lack of enteric cont rast. No suspicious smaller large bowel dilatation. Sigmoid colonic diverticulosis. PROSTATE/SEMINAL VESICLES: No gross abnormality seen. LYMPH NODES: Abnormal aortocaval 2.0 x 20 cm lymph node or mass axial image 24. OSSEOUS STRUCTURES: Underlying scoliotic curvature with multilevel spurring and disc space narrowing. Moderate to severe spurring and disc space narrowing with endplate sclerosis right L2-L3 level and l eft L4-L5 levels. OTHER: [id number] atherosclerotic change of aorta extends into branch vessels. IMPRESSION: New suspicious duct obstructing mass mid body of pancreas with adjacent adenopathy, suspe cted SMA encasement, and abnormal retroperitoneal adenopathy worrisome for advanced pancreatic adenoc arcinoma. New partial splenic vein thrombosis suspected secondary to neoplasm.
[2020-08-29] MEDS ORDERED: IBUPROFEN 400 MG TAB PO PRN (15:02)
[2020-08-29] MEDS ORDERED: traMADol 50 MG TAB PO PRN (15:02)
[2020-08-29] MEDS ORDERED: ONDANSETRON 4 MG/2 ML VIAL IVP PRN (15:02)
[2020-08-29] MEDS ORDERED: ACETAMINOPHEN TAB 325 MG TAB PO PRN (15:02)
[2020-08-29] MEDS ORDERED: LORazepam 2 MG/ML INJ IV PRN (15:02)
[2020-08-29] MEDS ORDERED: NALOXONE 0.4 MG/ML 1 ML VIAL IV PRN (15:02)
[2020-08-29] MEDS: SODIUM CHLORIDE 0.9% 1,000 ML IV SCH (15:23)
[2020-08-29] MEDS: HYDROmorphone 0.5 MG/0.5 ML SYRINGE IVP PRN ×2 (15:23→22:31)
[2020-08-29] MEDS: MORPHINE SULFATE 4 MG/ML SYRINGE IV PRN (17:52)
[2020-08-29 19:30] LABS: Appearance,Urine Clear (Clear); Bilirubin,Urine Negative (Negative); Blood,Urine Negative (Negative); Color,Urine Light Yellow; Glucose,Urine (UA) Negative (Negative); Ketones,Urine Negative (Negative); Leukocyte Esterase,Urine Negative (Negative); Nitrite,Urine Negative (Negative); Protein,Urine Negative (Negative); Specific Gravity,Urine 1.033 (1.001-1.035); Urobilinogen,Urine <2.0 mg/dL (<2.0)
[2020-08-29] MEDS ORDERED: RIVAROXABAN 20 MG TAB PO SCH (21:00)
[2020-08-29] MEDS: hydrALAZINE HCL 25 MG TAB PO SCH (22:25)
[2020-08-29] MEDS: DULoxetine HCL 60 MG CAPSULE.DR PO SCH (22:25)
[2020-08-29] MEDS: GABAPENTIN 400 MG CAP PO SCH (22:26)
[2020-08-29] MEDS: METOPROLOL TARTRATE 25 MG TAB PO SCH (22:26)
[2020-08-30] MEDS: MORPHINE SULFATE 4 MG/ML SYRINGE IV PRN ×3 (01:10→16:39)
[2020-08-30] MEDS: SODIUM CHLORIDE 0.9% 1,000 ML IV SCH ×2 (05:48→20:49)
[2020-08-30] MEDS: HYDROmorphone 0.5 MG/0.5 ML SYRINGE IVP PRN ×3 (08:04→19:29)
[2020-08-30] MEDS: DULoxetine HCL 60 MG CAPSULE.DR PO SCH ×2 (08:08→20:46)
[2020-08-30] MEDS: GABAPENTIN 400 MG CAP PO SCH ×3 (08:08→20:46)
[2020-08-30] MEDS: amLODIPine 5 MG TAB PO SCH (08:08)
[2020-08-30] MEDS: METOPROLOL TARTRATE 50 MG TAB PO SCH (08:08)
[2020-08-30] MEDS: TAMSULOSIN 0.4 MG CAP.ER.24H PO SCH (08:08)
[2020-08-30] MEDS: hydrALAZINE HCL 25 MG TAB PO SCH ×3 (08:08→21:05)
--- NOTE | 2020-08-30 12:37 | P.CONS ---
History of Present Illness - Reason for Consult Consult date: 08/30/20 Pancreatic mass Requesting physician: Jerardo Haas - Chief Complaint Abdominal pain - History of Present Illness 70-year-old male with a medical history significant for hypertension, bladder cancer, hepatitis C treated in 2016 with antiviral therapy, prior CVA/TIA, memor y impairment, PAD and diverticulosis as well as chronic pain for which she is on a pain pump who presented to the hospital due to abdominal pain. He reports symptoms of abdominal pain in the periumbilical region and left side of his abdomen occurring since the beginning of the year. He reports associated 4-5 pounds of weight loss. He also has associated nausea. No signs or symptoms of GI bleeding the patient does suffer from constipation and was previously started on MiraLAX therapy which he has stopped. Currently reporting the bowel movements are normal. Patient is scheduled for a colonoscopy for further evaluation next month with his last colonoscopy 7-10 years ago and significant for diverticulosis and colonic polyps with last EGD 6-7 years ago. On presentation to the hospital computed tomography scan of the abdomen was performed in significant for a new suspicious duct obstructing mass in the mid body of the pancreas with adjacent adenopathy, suspected SMA encasement and abn ormal retroperitoneal adenopathy concerning for advanced pancreatic cancer as well as a new partial splenic vein thrombosis. Laboratory evaluation with normal liver enzymes including total bilirubin 0.4, alkaline phosphatase 75, AST 18 ALT 8 with lipase 381 and amylase 51 and a hemoglobin of 14.4, CA 199 was performed and markedly elevated at 1416. Review of Systems REVIEW OF SYSTEMS: CONSTITUTIONAL: Denies any fevers, chills, he does report 4 pounds of weight loss. CARDIOVASCULAR: Denies any chest pain, palpitations high or low blood pressures RESPIRATORY: Denies any shortness of breath, hemoptysis or cough. GENITOURINARY: No dysuria or hematuria. MUSCULOSKELETAL: No weakness reported, chronic back pain. SKIN: Denies any new rashes or lesions, jaundice or pallor. PSYCHIATRIC: Denies any depression or anxiety. NEUROLOGY: Denies headache, denies any new focal deficits. EARS/NOSE/THROAT: No recent hearing change, congestion, nasal discharge or sore throat. EYES: No pain in eyes, discharge or change in vision. GASTROINTESTINAL: As per HPI. Past Medical History Past Medical History: Cancer, Chest Pain / Angina, CVA/TIA, Hypertension, Liver Disease, Memory Impairment, Musculoskeletal Disorder, Osteoarthritis (OA), Vascular Disorder Additional Past Medical History / Comment(s): hx of diverticulitis current antibiotic Encephalitis Menigitis. Hx Bladder CA, hx immunotherapy. DDD w/ CHRONIC PAIN, pain pump placed 05/21/19. BLE pain w/ claudication. PAD. HEPATITIS C 1994 est, treated 2016. 2014 CVA, 3 SMALLER ONES. History of Any Multi-Drug Resistant Organisms: None Reported Past Surgical History: Appendectomy, Hernia Repair, Orthopedic Surgery, Pacemaker Additional Past Surgical History / Comment(s): Lt CAROTID ENDARECTOMY 04/10/16 L femoral popliteal atherectomy with PTBA. Other surgical hx: abdominal aortagram w/ bilateral lower extremity runoffs x2, 2016 LIVER BX THIS YEAR. Liver biopsy - approx. 15-20 years ago. Bladder surg/scope. Pain Pump 05/21/19. bilateral knee arthroscopy Past Anesthesia/Blood Transfusion Reactions: Previous Problems w/ Anesthesia Additional Past Anesthesia/Blood Transfusion Reaction / Comm: After pain pump felt like "a hangover" Type of Cardiac Device: Permanent Pacemaker Device Placement Date:: 02-13-16 Past Psychological History: Anxiety, Depression Additional Psychological History / Comment(s): . Smoking Status: Current every day smoker Past Alcohol Use History: None Reported Additional Past Alcohol Use History / Comment(s): Started smoking he states in 1971- 06/10 ppd. Past Drug Use History: None Reported Additional Drug Use History / Comment(s): marijuana occasionally - Past Family History Mother Family Medical History: Cancer Additional Family Medical History / Comment(s): Skin cancer and lung cancer. Father Family Medical History: CVA/TIA Medications and Allergies Home Medications Medication Instructions Recorded Confirmed Type Tamsulosin HCl [Flomax] 0.4 mg PO DAILY 08/19/17 08/29/20 History Gabapentin [Neurontin] 400 mg PO TID 05/03/19 08/29/20 History Metoprolol Tartrate [Lopressor] 50 mg PO DAILY 05/03/19 08/29/20 History amLODIPine [Norvasc] 5 mg PO DAILY 05/03/19 08/29/20 History hydrALAZINE HCL [Apresoline] 25 tab PO BID 05/03/19 08/29/20 History Morphine Pain Pump 1 dose SQ CONTINUOUS 05/31/19 08/29/20 History Rivaroxaban [Xarelto] 20 mg PO HS 06/16/20 08/29/20 History DULoxetine HCL [Cymbalta] 60 mg PO BID 08/29/20 08/29/20 History Metoprolol Tartrate [Lopressor] 25 mg PO HS 08/29/20 08/29/20 History Allergies Allergy/AdvReac Type Severity Reaction Status Date / Time No Known Allergies Allergy Verified 08/29/20 13:40 Physical Exam Vitals: Vital Signs Temp Pulse Pulse Resp BP BP Pulse Ox 08/30/20 07:35 97.9 F 16 135/74 96 08/30/20 02:00 97.5 F L 96 16 126/77 96 08/30/20 01:00 97.7 F 62 16 131/79 98 08/29/20 22:30 60 16 149/91 98 08/29/20 18:03 86 16 145/80 98 Intake and Output 08/29/20 08/30/20 08/30/20 22:59 06:59 14:59 Intake Total 240 118 Balance 240 118 Intake: Oral 240 118 Other: # Voids 1 1 Weight 54.431 kg On physical examination, patient appears comfortable in no apparent distress. HEAD: Normocephalic, atraumatic. EYES: No scleral icterus. No conjunctival injection. MOUTH: No lesions, tongue midline. NECK: Trachea midline, no gross abnormalities. CHEST: Decreased air entry in all lung hernandez. HEART: Regular rate and rhythm. ABDOMEN: Soft, mildly tender to palpation. Bowel sounds are positive. No organomegaly. No guarding or rigidity. EXTREMITIES: No pedal edema. SKIN: No rashes, no jaundice. NEUROLOGIC: Alert and oriented x3. No focal deficits. Results CBC & Chem 7: 08/29/20 12:38 08/29/20 12:38 Labs: Abnormal Lab Results - Last 24 Hours (Table) 08/29/20 08/29/20 Range/Units 12:38 12:38 Creatinine 0.63 L (0.66-1.25) mg/dL Glucose 127 H (74-99) mg/dL Lipase 381 H (23-300) U/L CA 19-9 Antigen 1416.6 H (0.0-34.9) U/mL CT scan - abdomen: report reviewed (computed tomography scan of the abdomen was performed in significant for a new suspicious duct obstructing mass in the mid body of the pancreas with adjacent adenopathy, suspected SMA encasement and abnormal retroperitoneal adenopathy concerning for advanced pancreatic cancer.) Assessment and Plan (1) Abdominal pain Narrative/Plan: 70-year-old male with multiple medical comorbidities presenting to the hospital for evaluation with computed tomography scan of the abdomen suggestive of a new pancreatic mass. Patient had reported periumbilical abdominal pain with associated nausea and 4 pounds of weight loss. Liver enzymes within normal li mits with a total bilirubin 0.4, alkaline phosphatase 75, AST 18 and ALT 8 with no evidence of biliary obstruction and findings of a elevated CA 199 at 1416 consistent with findings and concern for pancreatic cancer. Current Visit: Yes Status: Acute Code(s): R10.9 - UNSPECIFIED ABDOMINAL PAIN SNOMED Code(s): 56649791 (2) History of hepatitis C Current Visit: Yes Status: Acute Code(s): Z86.19 - PERSONAL HISTORY OF OTHER INFECTIOUS AND PARASITIC DISEASES SNOMED Code(s): 84094193118308 (3) Pancreatic mass Current Visit: Yes Status: Acute Code(s): K86.89 - OTHER SPECIFIED DISEASES OF PANCREAS SNOMED Code(s): 294595444 (4) Splenic vein thrombosis Current Visit: Yes Status: Acute Code(s): I82.890 - ACUTE EMBOLISM AND THROMBOSIS OF OTHER SPECIFIED VEINS SNOMED Code(s): 53582377 Plan: Supportive care Okay for diet as tolerated Patient will likely need IR guided biopsy for confirmation of suspected pancreatic cancer Oncology service consult dated Continue to monitor CBC, BMP, LFTs No plans for endoscopic evaluation at this time Computed tomography scan of the abdomen reviewed Thank you for allowing us to dissipate in the care of the patient we will continue to follow
[2020-08-30] MEDS ORDERED: ONDANSETRON 4 MG/2 ML VIAL IVP PRN (13:01)
--- NOTE | 2020-08-30 14:18 | P.CONS ---
History of Present Illness - Reason for Consult Consult date: 08/30/20 Pancreatic Mass Requesting physician: Nai Mendoza - Chief Complaint abdominal pain - History of Present Illness Patient presents with new pancreatic mass, and palpable left supraclavicular nodes. TO note he received covid vaccine one week prior. He has lost 15lbs in last month. Active smoker, history of alcohol, greater than 20 years ago. History of bladder cancer ->5 years per . Review of Systems All systems: negative Constitutional: Reports as per HPI Past Medical History Past Medical History: Cancer, Chest Pain / Angina, CVA/TIA, Hypertension, Liver Disease, Memory Impairment, Musculoskeletal Disorder, Osteoarthritis (OA), Vascular Disorder Additional Past Medical History / Comment(s): hx of diverticulitis current antib iotic Encephalitis Menigitis. Hx Bladder CA, hx immunotherapy. DDD w/ CHRONIC PAIN, pain pump placed 05/21/19. BLE pain w/ claudication. PAD. HEPATITIS C 1993 est, treated 2016. 2013 CVA, 3 SMALLER ONES. History of Any Multi-Drug Resistant Organisms: None Reported Past Surgical History: Appendectomy, Hernia Repair, Orthopedic Surgery, Pacemake r Additional Past Surgical History / Comment(s): Lt CAROTID ENDARECTOMY 04/10/16 L femoral popliteal atherectomy with PTBA. Other surgical hx: abdominal aortagram w/ bilateral lower extremity runoffs x2, 2016 LIVER BX THIS YEAR. Liver biopsy - approx. 15-20 years ago. Bladder surg/scope. Pain Pump 05/21/19. bilateral knee arthroscopy Past Anesthesia/Blood Transfusion Reactions: Previous Problems w/ Anesthesia Additional Past Anesthesia/Blood Transfusion Reaction / Comm: After pain pump felt like "a hangover" Type of Cardiac Device: Permanent Pacemaker Device Placement Date:: 02-13-16 Past Psychological History: Anxiety, Depression Additional Psychological History / Comment(s): . Smoking Status: Current every day smoker Past Alcohol Use History: None Reported Additional Past Alcohol Use History / Comment(s): Started smoking he states in 1971- 06/10 ppd. Past Drug Use History: None Reported Additional Drug Use History / Comment(s): marijuana occasionally - Past Family History Mother Family Medical History: Cancer Additional Family Medical History / Comment(s): Skin cancer and lung cancer. Father Family Medical History: CVA/TIA Medications and Allergies Home Medications Medication Instructions Recorded Confirmed Type Tamsulosin HCl [Flomax] 0.4 mg PO DAILY 08/19/17 08/29/20 History Gabapentin [Neurontin] 400 mg PO TID 05/03/19 08/29/20 History Metoprolol Tartrate [Lopressor] 50 mg PO DAILY 05/03/19 08/29/20 History amLODIPine [Norvasc] 5 mg PO DAILY 05/03/19 08/29/20 History hydrALAZINE HCL [Apresoline] 25 tab PO BID 05/03/19 08/29/20 History Morphine Pain Pump 1 dose SQ CONTINUOUS 05/31/19 08/29/20 History Rivaroxaban [Xarelto] 20 mg PO HS 06/16/20 08/29/20 History DULoxetine HCL [Cymbalta] 60 mg PO BID 08/29/20 08/29/20 History Metoprolol Tartrate [Lopressor] 25 mg PO HS 08/29/20 08/29/20 History Allergies Allergy/AdvReac Type Severity Reaction Status Date / Time No Known Allergies Allergy Verified 08/29/20 13:40 Physical Exam Vitals: Vital Signs Temp Pulse Pulse Resp BP BP Pulse Ox 08/30/20 07:35 97.9 F 16 135/74 96 08/30/20 02:00 97.5 F L 96 16 126/77 96 08/30/20 01:00 97.7 F 62 16 131/79 98 08/29/20 22:30 60 16 149/91 98 08/29/20 18:03 86 16 145/80 98 Intake and Output 08/29/20 08/30/20 08/30/20 22:59 06:59 14:59 Intake Total 240 118 Balance 240 118 Intake: Oral 240 118 Other: # Voids 1 1 Weight 54.431 kg - Constitutional General appearance: cooperative, no acute distress, thin - EENT Eyes: EOMI ENT: hard of hearing - Neck Neck: lymphadenopathy - Respiratory Respiratory: bilateral: diminished - Cardiovascular Rhythm: regularly irregular - Gastrointestinal General gastrointestinal: soft, tenderness - Integumentary Integumentary: pale - Musculoskeletal Musculoskeletal: generalized weakness - Psychiatric Psychiatric: A&O x's 3, appropriate affect Results CBC & Chem 7: 08/29/20 12:38 08/30/20 15:51 Labs: Abnormal Lab Results - Last 24 Hours (Table) 08/29/20 Range/Units 12:38 CA 19-9 Antigen 1416.6 H (0.0-34.9) U/mL CT scan - abdomen: report reviewed CT scan - pelvis: report reviewed Assessment and Plan (1) Pancreatic mass Current Visit: Yes Status: Acute Code(s): K86.89 - OTHER SPECIFIED DISEASES OF PANCREAS SNOMED Code(s): 597395716 Plan: Assessment and Recommendations: CT Chest with contrast for initial staging Left Supraclavicular Lymph Node palpable - will as General surgery for excisional biopsy Physician attest: I have completed the full history and physical and agree with above dictation, dictated as a ascribe.
[2020-08-30] MEDS ORDERED: RX INFO: IV CONTRAST WAS GIVEN 1 EACH MISC MISCELLANE PRN (14:23)
--- NOTE | 2020-08-30 15:45 | P.GSCN ---
<Jenifer Cabrera - Last Filed: 08/30/20 15:25> History of Present Illness Consult date: 08/30/20 History of present illness: CHIEF COMPLAINT: Abdominal pain HISTORY OF PRESENT ILLNESS: This is a 70-year-old male with a known past medical history of bladder cancer status post immunotherapy and procedure to the bladder 3 years ago, enlarged prostate, chronic back pain with morphine pain pump, h epatitis C status post treatment, CVA, hypertension, PAD, diverticulosis and pacemaker placement. Patient presented to the emergency room with a chief complaint of abdominal pain. Patient had complained of the pain and feeling achy and located around the. Umbilical region and had radiated to the left side of the abdomen. Patient is reported abdominal discomfort since the beginning of the year. He has been having nausea and decreased appetite. He is noted about a 5 pound weight loss. He had been seen by GI service outpatient. They had treated him with MiraLAX for constipation. Patient reports that his bowel movements have now been regular. Patient had computed tomography scan of the abdomen and pelvis completed showing new suspicious duct obstructing mass mid body of pancreas with adjacent adenopathy, suspected SMA encasement, and abnormal retroperitoneal adenopathy worrisome for advanced pancreatic adenocarcinoma. New partial splenic vein thrombosis suspected secondary to ne oplasm. Patient's CA-19-9 antigen is elevated. Oncology service and GI service are following. A surgical consult was placed for left supraclavicular lymph node biopsy. Also note that patient takes Xarelto at home. His last dose of Xarelto was on 08/28/2020. Patient is on Xarelto for his history of A. fib. PAST MEDICAL HISTORY: See list. PAST SURGICAL HISTORY: See list. MEDICATIONS: See list. ALLERGIES: See list. SOCIAL HISTORY: No illicit drug use. REVIEW OF SYSTEMS: CONSTITUTIONAL: Denies fever or chills. HEENT: Denies blurred vision, vision changes, or eye pain. Denies hemoptysis ENDOCRINE: Denies heat or cold intolerance. CARDIOVASCULAR: Denies chest pain or pressure. RESPIRATORY: No shortness of breath. GASTROINTESTINAL: Denies abdominal pain. Denies nausea or vomiting. NEURO: Denies history of seizures. PSYCH: No depression or suicidal ideation HEMATOLOGIC: Denies bleeding disorders. LYMPHATIC: The patient denies any lumps and bumps around the neck. GENITOURINARY: Denies any blood in urine or increased urinary frequency. MUSCULOSKELETAL: Denies myalgias. Denies joint swelling. Denies decreased range of motion beyond patients baseline. SKIN: Denies pruitis. Denies rash. PHYSICAL EXAM: VITAL SIGNS: Reviewed GENERAL: Underweight. In no acute distress. HEENT: No sclera icterus. Extraocular movements grossly intact. Moist buccal mucosa. Head is atraumatic, normocephalic. Hears conversational speech. No nasal drainage. NECK: Supple without lymphadenopathy. CHEST: Non-labored respirations and equal bilateral excursions. CARDIOVASCULAR: Palpable 2+ radial pulses. ABDOMEN: Soft. Nondistended. Tenderness with palpation of the epigastric region and around the periumbilical area MUSCULOSKELETAL: No clubbing or cyanosis. NEUROLOGIC: No focal or lateralizing signs. Cranial nerves II through XII grossly intact. PSYCH: Appropriate affect. Alert and oriented to person, place and time. SKIN: Well perfused. Good skin turgor. Lymph nodes: Patient has 4 palpable lymph nodes in the left supraclavicular area LABORATORY DATA: WBC 7.9 Hgb 14.4 platelets 217 creatinine 0.63 LFTs are normal total bili 0.4 amylase 51 lipase 381 CA-19-9 antigen 1416.6 IMAGING: computed tomography scan of the abdomen and pelvis completed showing new s uspicious duct obstructing mass mid body of pancreas with adjacent adenopathy, suspected SMA encasement, and abnormal retroperitoneal adenopathy worrisome for advanced pancreatic adenocarcinoma. New partial splenic vein thrombosis suspected secondary to neoplasm. ASSESSMENT: 1. Palpable left supraclavicular lymph nodes 2. Abdominal pain with new mass mid body of pancreas and elevated CA-19-9 with concerns for advanced pancreatic adenocarcinoma 3. New partial splenic vein thrombosis noted on CAT scan 4. History of atrial fibrillation anticoagulated with Xarelto at home 5. History of bladder cancer status post treatment 6. History of stroke 7. History of pacemaker 8. History of hepatitis C status post treatment 9. 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 Signing provider agrees with the documented findings, assessment, and plan of care. Past Medical History Past Medical History: Cancer, Chest Pain / Angina, CVA/TIA, Hypertension, Liver Disease, Memory Impairment, Musculoskeletal Disorder, Osteoarthritis (OA), Vascular Disorder Additional Past Medical History / Comment(s): hx of diverticulitis current antibiotic Encephalitis Menigitis. Hx Bladder CA, hx immunotherapy. DDD w/ CHRONIC PAIN, pain pump placed 05/21/19. BLE pain w/ claudication. PAD. HEPATITIS C 1994 est, treated 2016. 2014 CVA, 3 SMALLER ONES. History of Any Multi-Drug Resistant Organisms: None Reported Past Surgical History: Appendectomy, Hernia Repair, Orthopedic Surgery, Pacemaker Additional Past Surgical History / Comment(s): Lt CAROTID ENDARECTOMY 04/10/16 L femoral popliteal atherectomy with PTBA. Other surgical hx: abdominal aortagram w/ bilateral lower extremity runoffs x2, 2016 LIVER BX THIS YEAR. Liver biopsy - approx. 15-20 years ago. Bladder surg/scope. Pain Pump 05/21/19. bilateral knee arthroscopy Past Anesthesia/Blood Transfusion Reactions: Previous Problems w/ Anesthesia Additional Past Anesthesia/Blood Transfusion Reaction / Comm: After pain pump felt like "a hangover" Type of Cardiac Device: Permanent Pacemaker Device Placement Date:: 02-13-16 Past Psychological History: Anxiety, Depression Additional Psychological History / Comment(s): . Smoking Status: Current every day smoker Past Alcohol Use History: None Reported Additional Past Alcohol Use History / Comment(s): Started smoking he states in 1971- 06/10 ppd. Past Drug Use History: None Reported Additional Drug Use History / Comment(s): marijuana occasionally - Past Family History Mother Family Medical History: Cancer Additional Family Medical History / Comment(s): Skin cancer and lung cancer. Father Family Medical History: CVA/TIA Medications and Allergies Home Medications Medication Instructions Recorded Confirmed Type Tamsulosin HCl [Flomax] 0.4 mg PO DAILY 08/19/17 08/29/20 History Gabapentin [Neurontin] 400 mg PO TID 05/03/19 08/29/20 History Metoprolol Tartrate [Lopressor] 50 mg PO DAILY 05/03/19 08/29/20 History amLODIPine [Norvasc] 5 mg PO DAILY 05/03/19 08/29/20 History hydrALAZINE HCL [Apresoline] 25 tab PO BID 05/03/19 08/29/20 History Morphine Pain Pump 1 dose SQ CONTINUOUS 05/31/19 08/29/20 History Rivaroxaban [Xarelto] 20 mg PO HS 06/16/20 08/29/20 History DULoxetine HCL [Cymbalta] 60 mg PO BID 08/29/20 08/29/20 History Metoprolol Tartrate [Lopressor] 25 mg PO HS 08/29/20 08/29/20 History Allergies Allergy/AdvReac Type Severity Reaction Status Date / Time No Known Allergies Allergy Verified 08/29/20 13:40 Surgical - Exam Vital Signs Temp Pulse Resp BP Pulse Ox 97.8 F 60 16 150/86 96 08/29/20 11:40 08/29/20 11:40 08/29/20 11:40 08/29/20 11:40 08/29/20 11:40 Results - Labs 08/29/20 12:38 08/29/20 12:38 Abnormal Lab Results - Last 24 Hours (Table) 08/29/20 Range/Units 12:38 CA 19-9 Antigen 1416.6 H (0.0-34.9) U/mL <Yohana Alegria N - Last Filed: 08/31/20 18:48> History of Present Illness History of present illness: Patient seen and evaluated. Please see additional documentation below CHIEF COMPLAINT: Abnormal computed tomography scan HISTORY OF PRESENT ILLNESS: The patient is a 70 year old male admitted with ongoing epigastric abdominal pain present for over 3+ months. He has pre-e xisting history of peripheral vascular occlusive disease including ischemic cardiomyopathy, hypertensive heart disease, chronic anticoagulation, and history of bladder cancer. He has chronic pain and has a pain pump. Despite his pain pump, he continued to have abdominal pain crampy achy in nature. Additional consultants including oncology and gastroenterology were obtained for abnormal computed tomography scan questionable for pancreatic neoplasm. General surgery is consulted for further surgical intervention. PAST MEDICAL HISTORY: See list and reviewed PAST SURGICAL HISTORY: See list and reviewed MEDICATIONS: See list and reviewed ALLERGIES: See list and reviewed SOCIAL HISTORY: See list and reviewed FAMILY HISTORY: See list and reviewed REVIEW OF ORGAN SYSTEMS: CONSTITUTIONAL: No fevers or chills. EYES: Denies any trouble with vision. No glasses. HEENT: No difficulties with hearing. No nosebleeds. No difficulty swallowing. RESPIRATORY: Denies pneumonia. Denies any troubles with breathing or dyspnea on exertion. CARDIOVASCULAR: Past chest pain, palpitations, or recent heart attacks. Has atrial fibrillation. Has hypertensive heart disease. Has peripheral vascular occlusive disease. Has permanent pacemaker. GASTROINTESTINAL: Denies fatty food intolerance. Denies change in bowel habits and gas bloat. Has liver disease with hepatitis. GENITOURINARY: History of bladder cancer and enlarged prostate. NEUROLOGICAL: Has numbness or tingling along the distal extremities. No seizure disorders or headaches. Past CVAs 3. MUSCULOSKELETAL: Has back pain, stiffness or joint arthritis. Has chronic pain. SKIN: No current skin cancer. No rash. PSYCHIATRIC: Has depression. suicidal thoughts. Has memory impairment. ENDOCRINE: Denies current thyroid disorders. Denies any blood sugar glucose intolerance. HEME/LYMPHATIC: Denies any lumps and bumps around the neck. No recent deep venous thrombosis. ALLERGY/IMMUNOLOGY: Past immunoglobulin therapy. No immune deficiencies. Past chemotherapy for bladder cancer. BREAST: Denies current breast lumps, pain or nipple discharge. PHYSICAL EXAM: VITALS: Reviewed CONSTITUTIONAL: Well developed and in no acute distress. Cachectic, BMI less than 20. EYES: Conjuctivae without sclera icterus. Extraocular movements grossly intact. HEAD, EARS, NOSE, THROAT: Moist buccal mucosa. Head is atraumatic, normocep halic. Hears conversational speech. No nasal drainage. NECK: No JV distention. No thyroidomegaly. RESPIRATORY: Non-labored respirations and equal bilateral excursions. No gross wheezes. CARDIOVASCULAR: Irregular rate and irregular rhythm with atrial fibrillation. Palpable 2+ radial pulses. ABDOMEN: Soft. Non-tender. Nondistended. LYMPH: Palpable over 3-cm neck lymphadenopathy along the left lower neck that is firm and nontender and fixed. MUSCULOSKELETAL: Nail and fingers with good capillary refill. SKIN: Warm and well perfused with good skin turgor. NEUROLOGIC: Cranial nerves II through XII grossly intact. Sensation upper and extremities intact. No focal or lateralizing signs. PSYCH: Appropriate affect. Alert and oriented to person, place and time. Displays appropriate insight. CLINCAL LABS: Reviewed. WBC normal 7.9. Hemoglobin normal at 14.4. Creatinine normal 0.63. CA 199 elevated over 1400. IMAGING: CT of the abdomen and pelvis in the panel reviewed demonstrates left lower quadrant pain pump along external abdomen. Compression along the mid pancreatic duct with mass lesion. No evidence of small bowel obstruction or free air. Very minimal intra-abdominal fat identified. No lesions identified along the liver. This is my independent interpretation. RADIOLOGY: Report reviewed demonstrating a 4 cm pancreatic mass along the mid body. Presence of SMA encasement. Aortocaval lymph node over 2 cm identified. Presence of splenic vein thrombosis. RECORDS: previous old records review with right external iliac artery stenting 2019. ASSESSMENT: 1. Abnormal computed tomography scan for pancreatic neoplasm 2. Clinical enlarged left supraclavicular lymph node in presence of neoplasm 3. Peripheral vascular occlusive disease 4. Atrial fibrillation 5. History of bladder cancer 6. Permanent pacemaker 7. Chronic anticoagulation PLAN: 1. At this time, will need additional diagnostic studies to characterize swelling along the left neck. At the lymph and off of the along the neck would benefit from computed tomography scan and ultrasound. 2. Heart healthy diet in the interim. 3. Patient reports temporary holding anticoagulant at least 1 day ago. 4. Will likely need additional diagnostic studies including endoscopic ultrasound with biopsies not available at this institution Thank you for this kind consultation. Surgical - Exam Vital Signs Temp Pulse Resp BP Pulse Ox 97.8 F 60 16 150/86 96 08/29/20 11:40 08/29/20 11:40 08/29/20 11:40 08/29/20 11:40 08/29/20 11:40 Results - Labs 08/31/20 11:24 08/30/20 15:51 Abnormal Lab Results - Last 24 Hours (Table) 08/29/20 Range/Units 12:38 CA 19-9 Antigen 1416.6 H (0.0-34.9) U/mL Assessment and Plan (1) Abnormal CT of the abdomen Current Visit: Yes Status: Acute Code(s): R93.5 - ABN FINDINGS ON DX IMAGING OF ABD REGIONS, INC RETROPERITON SNOMED Code(s): 26396601688568947 (2) Chronic pain Current Visit: Yes Status: Acute Code(s): G89.29 - OTHER CHRONIC PAIN SNOMED Code(s): 92019471 (3) Supraclavicular adenopathy Current Visit: Yes Status: Acute Code(s): R59.0 - LOCALIZED ENLARGED LYMPH NODES SNOMED Code(s): 947895157 (4) Underweight Current Visit: Yes Status: Acute Code(s): R63.6 - UNDERWEIGHT SNOMED Code(s): 295516404 (5) Abdominal pain Current Visit: Yes Status: Acute Code(s): R10.9 - UNSPECIFIED ABDOMINAL PAIN SNOMED Code(s): 35404274 (6) History of hepatitis C Current Visit: Yes Status: Acute Code(s): Z86.19 - PERSONAL HISTORY OF OTHER INFECTIOUS AND PARASITIC DISEASES SNOMED Code(s): 26655707073522 (7) Pancreatic mass Current Visit: Yes Status: Acute Code(s): K86.89 - OTHER SPECIFIED DISEASES OF PANCREAS SNOMED Code(s): 554057981 (8) Splenic vein thrombosis Current Visit: Yes Status: Acute Code(s): I82.890 - ACUTE EMBOLISM AND THROMBOSIS OF OTHER SPECIFIED VEINS SNOMED Code(s): 39549091 (9) PAD (peripheral artery disease) Current Visit: No Status: Acute Code(s): I73.9 - PERIPHERAL VASCULAR DISEAS E, UNSPECIFIED SNOMED Code(s): 125188674
[2020-08-30] MEDS: NICOTINE 21MG/24HR PATCH TRANSDERM SCH (16:42)
[2020-08-30 17:55] LABS: African American GFR (CKD) >90 (>60 ml/min/1.73 sqM); Blood Urea Nitrogen 11 mg/dL (9-20); Non-African American GFR(CKD) >90 (>60 ml/min/1.73 sqM)
--- NOTE | 2020-08-30 18:00 | P.HPIM ---
History of Present Illness H&P Date: 08/30/20 Chief Complaint: Abdominal pain History of presenting complaint: This is a pleasant 70-year-old patient who follows with Dr. Ramirez. Chronic stable medical conditions include essential hypertension, primary osteogen [place], BPH, and brought to disease, permanent pacemaker, depression, COPD, anxiety disorder, restless leg syndrome,. 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 Patient also has a pain pump. For close to at least 3 months she has been having increasing abdominal pain. Was in epigastric area. Pain does seem to radiate to the back has been progressively getting worse. Has some accompanying nausea. Has been losing weight. Appetite has gone down. No fever no chills. Does have a bowel movement every day. Patient's is at the bedside. Review of systems: GEN.: Decreased appetite and weight loss EYES: None HEENT: None NECK: None RESPIRATORY: Baseline some shortness of breath CARDIOVASCULAR: None GASTROINTESTINAL: As above GENITOURINARY: None MUSCULOSKELETAL: [Joint pains LYMPHATICS: None HEMATOLOGICAL: None PSYCHIATRY: None NEUROLOGICAL: None Past medical history to include: Herpes encephalitis 2 years ago, hypertension, osteoarthritis, BPH, peripheral arterial disease, permanent pacemaker, depression, COPD, anxiety, restless leg syndrome, diverticulitis bladder cancer treated with immunotherapy hepatitis C 1994 treated in 2016, anxiety depression Social history: Patient been a smoker for over 45 years. This dropped drinking a considerable, lower 25 years ago. 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 does some marijuana Physical examination: VITAL SIGNS: 97.9, 62, 16, 135/74, 96% on room air GENERAL: BMI 19.4, loss of subcutaneous fat, laying in bed, tired,. EYES: Pupils equal. Conjunctiva normal. HEENT: External appearance of nose and ears normal, oral cavity grossly normal. NECK: JVD not raised; firm lymph nodes on the left side of the neck. HEART: First and second heart sounds are normal; no edema. LUNGS:[ Respiratory rate normal; decreased breath sounds. ABDOMEN: Soft, epigastric tenderness liver spleen not palpable, no masses palpable. Pain pump PSYCH: Alert and oriented x3; mood and affect anxiousl. NEUROLOGICAL: Cranial nerves grossly intact; no facial asymmetry, power and sensation grossly intact. LYMPHATICS: No lymph nodes palpable in the axilla and neck INVESTIGATIONS, reviewed in the clinical context: WBC 7.9 hemoglobin 14.4 platelets 217 potassium 4.2 creatinine 0.63 Lipase 380 CA-19 1416 UA negative. Coronavirus [PCR]-not detected EKG tracing personally reviewed by me-atrial paced rhythm Computed tomography scan of the abdomen pelvis with contrast: Pancreas abnormal with heterogenous hyperdense mass measuring 3.8 into 3.5 cm causing distal pancreatic ductal dilatation. And just and 1.7 cm thin-walled fluid collection. The mass causes some encroachment and probable encasement of portions of the SMA with ill-defined surrounding fat plane. Some prominent and Roni lymph nodes. Nonobstructing calculus left kidney. New partial splenic vein thrombosis suspected secondary to neoplasm Assessment and plan: -This is a patient presents with 3 months of progressive epigastric pain. Being referred to the back. Accompanied by weight loss loss of appetite. Computed tomography scan is showing a pancreatic mass causing distal pancreatic ductal dilatation. Strongly suspicious for pancreatic malignancy. Patient will at least need a brush biopsy. -Secondary splenic vein thrombosis sepsis suspected secondary to the malignancy- related anticoagulation. Hold off xarelto. Start the patient on IV heparin -Essential hypertension, continue with hydralazine, Norvasc -Primary osteoarthritis, Tylenol as needed -BPH, on Flomax -Peripheral arterial disease, patient is on xarelto, we'll use IV heparin for now -Permanent pacemaker -Depression and anxiety not otherwise specified, continue Cymbalta -COPD in a smoker, use DuoNeb when necessary -Restless leg syndrome, on Neurontin - Consultation was made to GI, oncology. Patient will have biopsy of the mass in the left supraclavicular area/lymph nodes. Further plan depending from there. Given the complexity and severity of patient's condition expect the patient to be in the hospital at least for 2 overnights Past Medical History Past Medical History: Cancer, Chest Pain / Angina, CVA/TIA, Hypertension, Liver Disease, Memory Impairment, Musculoskeletal Disorder, Osteoarthritis (OA), Vascular Disorder Additional Past Medical History / Comment(s): hx of diverticulitis current antibiotic Encephalitis Menigitis. Hx Bladder CA, hx immunotherapy. DDD w/ CHRONIC PAIN, pain pump placed 05/21/19. BLE pain w/ claudication. PAD. HEPATITIS C 1993 est, treated 2016. 2013 CVA, 3 SMALLER ONES. History of Any Multi-Drug Resistant Organisms: None Reported Past Surgical History: Appendectomy, Hernia Repair, Orthopedic Surgery, Pacemaker Additional Past Surgical History / Comment(s): Lt CAROTID ENDARECTOMY 04/10/16 L femoral popliteal atherectomy with PTBA. Other surgical hx: abdominal aortagram w/ bilateral lower extremity runoffs x2, 2016 LIVER BX THIS YEAR. Liver biopsy -approx. 15-20 years ago. Bladder surg/scope. Pain Pump 05/21/19. bilateral knee arthroscopy Past Anesthesia/Blood Transfusion Reactions: Previous Problems w/ Anesthesia Additional Past Anesthesia/Blood Transfusion Reaction / Comment(s): After pain pump felt like "a hangover" Type of Cardiac Device: Permanent Pacemaker Device Placement Date:: 02-13-16 Past Psychological History: Anxiety, Depression Additional Psychological History / Comment(s): . Smoking Status: Current every day smoker Past Alcohol Use History: None Reported Additional Past Alcohol Use History / Comment(s): Started smoking he states in 06/10 ppd. Past Drug Use History: None Reported Additional Drug Use History / Comment(s): marijuana occasionally - Past Family History Mother Family Medical History: Cancer Additional Family Medical History / Comment(s): Skin cancer and lung cancer. Father Family Medical History: CVA/TIA Medications and Allergies Home Medications Medication Instructions Recorded Confirmed Type Tamsulosin HCl [Flomax] 0.4 mg PO DAILY 08/19/17 08/29/20 History Gabapentin [Neurontin] 400 mg PO TID 05/03/19 08/29/20 History Metoprolol Tartrate [Lopressor] 50 mg PO DAILY 05/03/19 08/29/20 History amLODIPine [Norvasc] 5 mg PO DAILY 05/03/19 08/29/20 History hydrALAZINE HCL [Apresoline] 25 tab PO BID 05/03/19 08/29/20 History Morphine Pain Pump 1 dose SQ CONTINUOUS 05/31/19 08/29/20 History Rivaroxaban [Xarelto] 20 mg PO HS 06/16/20 08/29/20 History DULoxetine HCL [Cymbalta] 60 mg PO BID 08/29/20 08/29/20 History Metoprolol Tartrate [Lopressor] 25 mg PO HS 08/29/20 08/29/20 History Allergies Allergy/AdvReac Type Severity Reaction Status Date / Time No Known Allergies Allergy Verified 08/29/20 13:40 Physical Exam Vitals: Vital Signs Temp Pulse Pulse Resp BP BP Pulse Ox 08/30/20 07:35 97.9 F 16 135/74 96 08/30/20 02:00 97.5 F L 96 16 126/77 96 08/30/20 01:00 97.7 F 62 16 131/79 98 08/29/20 22:30 60 16 149/91 98 08/29/20 18:03 86 16 145/80 98 08/29/20 11:40 97.8 F 60 16 150/86 96 Intake and Output 08/29/20 08/30/20 08/30/20 22:59 06:59 14:59 Intake Total 240 Balance 240 Intake: Oral 240 Other: # Voids 1 Weight 54.431 kg Results CBC & Chem 7: 08/29/20 12:38 08/29/20 12:38 Labs: Abnormal Lab Results - Last 24 Hours (Table) 08/29/20 08/29/20 Range/Units 12:38 12:38 Creatinine 0.63 L (0.66-1.25) mg/dL Glucose 127 H (74-99) mg/dL Lipase 381 H (23-300) U/L CA 19-9 Antigen 1416.6 H (0.0-34.9) U/mL Thrombosis Risk Factor Assmnt - Choose All That Apply Other Risk Factors: Yes Each Risk Factor Represents 2 Points: Age 61-74 years Thrombosis Risk Factor Assessment Total Risk Factor Score: 2 Thrombosis Risk Factor Assessment Level: Low Risk
[2020-08-30] MEDS: METOPROLOL TARTRATE 25 MG TAB PO SCH ×2 (20:46→21:05)
--- NOTE | 2020-08-30 22:15 | CT ---
EXAMINATION TYPE: CT chest w con DATE OF EXAM: 08/30/2020 COMPARISON: CT abdomen/pelvis 08/29/2020. HISTORY: ca staging CT DLP: 144.2 mGycm Automated exposure control for dose reduction was used. TECHNIQUE: CT scan of the chest is performed with IV Contrast, patient injected with 100 mL of Isovue 300. MIP Images are created on CT scanner and reviewed. 3D reconstructed images are created on an independent workstation and reviewed. FINDINGS: LUNGS: There is small left lower lobe opacity. No suspicious pulmonary nodule. There is no pleural effusion or pneumothorax seen. The tracheobronchial tree is patent. MEDIASTINUM: There are no greater than 1 cm hilar or mediastinal lymph nodes. There is a pretracheal mediastinal lymph node measuring is 0.7 cm short axis. No pericardial effusion is seen. OTHER: Partially imaged pancreatic mass with retroperitoneal lymphadenopathy. Moderate thoracic spon dylosis. No acute osseous abnormality or destructive lesions. IMPRESSION: Small left opacities correlate for atelectasis versus infiltrate. Nonspecific borderline-enlarged mediastinal lymph node. Otherwise no evidence of thoracic metastatic disease.
[2020-08-31] MEDS: MORPHINE SULFATE 4 MG/ML SYRINGE IV PRN ×6 (00:34→21:40)
[2020-08-31] MEDS: amLODIPine 5 MG TAB PO SCH (09:00)
[2020-08-31] MEDS: hydrALAZINE HCL 25 MG TAB PO SCH ×2 (09:00→21:40)
[2020-08-31] MEDS: DULoxetine HCL 60 MG CAPSULE.DR PO SCH ×2 (09:00→20:41)
[2020-08-31] MEDS: TAMSULOSIN 0.4 MG CAP.ER.24H PO SCH (09:00)
[2020-08-31] MEDS: GABAPENTIN 400 MG CAP PO SCH ×3 (09:00→20:41)
[2020-08-31] MEDS: METOPROLOL TARTRATE 50 MG TAB PO SCH (09:00)
[2020-08-31] MEDS: NICOTINE 21MG/24HR PATCH TRANSDERM SCH (09:02)
[2020-08-31] MEDS: SODIUM CHLORIDE 0.9% 1,000 ML IV SCH ×2 (09:10→21:41)
[2020-08-31] MEDS ORDERED: HEPARIN SODIUM,PORCINE 5,000 UNIT/ML 1 ML VIAL IV PRN (10:02)
[2020-08-31] MEDS ORDERED: HEPARIN SODIUM,PORCINE 5,000 UNIT/ML 1 ML VIAL IV ONE (10:02)
[2020-08-31] MEDS: HEPARIN SOD,PORK IN 0.45% NACL 25,000 UNIT in 0.45% NACL 1 250ML.BAG IV SCH (10:24)
[2020-08-31] MEDS: HYDROmorphone 0.5 MG/0.5 ML SYRINGE IVP PRN ×3 (10:26→19:33)
[2020-08-31 11:43] LABS: Basophils % (A) 1 %; Eosinophils # (A) 0.2 k/uL (0-0.7); Eosinophils % (A) 2 %; HCT 39.4 % (39.0-53.0); HGB 13.2 gm/dL (13.0-17.5); Lymphocytes # (A) 1.5 k/uL (1.0-4.8); Lymphocytes % (A) 18 %; MCHC 33.5 g/dL (31.0-37.0); MCV 89.4 fL (80.0-100.0); Mean Platelet Volume 7.4; Monocytes # (A) 0.4 k/uL (0-1.0); Monocytes % (A) 5 %; Neutrophils # (A) 6.1 k/uL (1.3-7.7); Neutrophils % (A) 73 %; Platelet Count 168 k/uL (150-450); WBC 8.3 k/uL (3.8-10.6)
[2020-08-31 11:50] LABS: INR 1.2 (<1.2); Partial Thromboplastin Time 24.9 sec (22.0-30.0); Prothrombin Time 12.4 sec (9.0-12.0)
--- NOTE | 2020-08-31 13:01 | US ---
EXAMINATION TYPE: US soft tissue left neck DATE OF EXAM: 08/31/2020 COMPARISON: NONE CLINICAL HISTORY: left neck . Palpable noted left supraclavicular region; pancreatic mass Left Neck US at palpable: multiple lymph nodes are seen with largest mid supraclavicular region = 2.5 x 3.0 x 2.1cm; second inferomedial lymph node seen = 4.0 x 2.7 x 2.2cm. IMPRESSION: Adenopathy.
--- NOTE | 2020-08-31 13:15 | P.PN ---
<BrandonjudyJenifer mccormack - Last Filed: 08/31/20 13:05> Subjective Progress Note Date: 08/31/20 CHIEF COMPLAINT: Abdominal pain HISTORY OF PRESENT ILLNESS: This is a 70-year-old male who presented to the hospital with abdominal pain computed tomography scan of the abdomen and pelvis showing new suspicious duct obstructing mass mid body of pancreas with adjacent adenopathy, suspected SMA encasement, and abnormal retroperitoneal adenopathy worrisome for advanced pancreatic adenocarcinoma. New partial splenic vein thrombosis suspected secondary to neoplasm. CA-19-9 is elevated. He does have palpable left supraclavicular lymph nodes. Surgical service is following for biopsy of the left supraclavicular lymph nodes. Medicine service has placed patient on IV heparin. Patient is complaining of epigastric abdominal pain. Denies any nausea or vomiting. He is on a regular diet. Patient is afebrile. Case discussed with oncology service. Computed tomography scan of the chest small left opacities correlate for atelect asis versus infiltrate. Nonspecific borderline enlarged mediastinal lymph node. Otherwise no evidence of thoracic metastatic disease. Left neck ultrasound completed showing multiple lymph nodes with the largest mid supraclavicular region measuring 2.5 x 3.0 x 2.1 cm and second inferomedial lymph node measuring 4 x 2.7 x 2.2 cm. PHYSICAL EXAM: VITAL SIGNS: Reviewed GENERAL: Well-developed in no acute distress. HEENT: No sclera icterus. Extraocular movements grossly intact. Moist buccal mucosa. Head is atraumatic, normocephalic. Hears conversational speech. No nasal drainage. NECK: Palpable left supraclavicular lymph nodes CHEST: Non-labored respirations and equal bilateral excursions. CARDIOVASCULAR: Palpable 2+ radial pulses. ABDOMEN: Soft. Nondistended. Epigastric tenderness MUSCULOSKELETAL: No clubbing or cyanosis. NEUROLOGIC: No focal or lateralizing signs. Cranial nerves II through XII grossly intact. PSYCH: Appropriate affect. Alert and oriented to person, place and time. SKIN: Well perfused. Good skin turgor. ASSESSMENT: 1. Palpable left supraclavicular lymph nodes 2. Abdominal pain with new mass mid body of pancreas and elevated CA-19-9 with concerns for advanced pancreatic adenocarcinoma 3. New partial splenic vein thrombosis noted on CAT scan 4. History of atrial fibrillation anticoagulated with Xarelto at home 5. History of bladder cancer status post treatment 6. History of stroke 7. History of pacemaker 8. History of hepatitis C status post treatment 9. History of chronic back pain with morphine pain pump PLAN: -Patient is scheduled for left supraclavicular lymph node biopsy with Dr. Alegria on 09/01/2020 -Continue supportive care -Continue regular diet -Nothing by mouth after midnight Physician Pharmacy Clerk note has been reviewed by physician. Signing provider agrees with the documented findings, assessment, and plan of care. Objective - Vital Signs Vital signs: Vital Signs Temp 97.1 F L 08/31/20 07:43 Pulse 60 08/31/20 07:43 Resp 17 08/31/20 07:43 BP 126/77 08/31/20 07:43 Pulse Ox 98 08/31/20 07:43 Intake & Output 08/30/20 08/31/20 08/31/20 18:59 06:59 18:59 Intake Total 298 Output Total 200 Balance 98 Intake: Oral 298 Output: Urine 200 Other: # Voids 1 1 - Labs CBC & Chem 7: 08/31/20 11:24 08/30/20 15:51 Labs: Abnormal Lab Results - Last 24 Hours (Table) 08/30/20 08/31/20 Range/Units 15:51 11:24 PT 12.4 H (9.0-12.0) sec INR 1.2 H (<1.2) Creatinine 0.61 L (0.66-1.25) mg/dL <Yohana Alegria - Last Filed: 08/31/20 18:55> Subjective CHIEF COMPLAINT: Abnormal computed tomography scan HISTORY OF PRESENT ILLNESS: The patient is a 70 year old male admitted with ongoing epigastric abdominal pain present for over 3+ months. Diagnostic studies including elevated CA 199 is suspicious for pancreatic neoplasm. Since admission, he is tolerating diet. Reports mild epigastric abdominal pain. Additional diagnostic studies were ordered by me including ultrasound of the neck. CT chest was obtained yesterday to rule out metastatic lesions. No reports of blood in stools. He has been started on heparin drip for splenic vein thrombosis. REVIEW OF ORGAN SYSTEMS: Underwent with BMI less than 20. No fevers or chills. No dyspnea. No active chest pain. PHYSICAL EXAM: VITALS: Reviewed CONSTITUTIONAL: Well developed and in no acute distress. Cachectic, BMI less than 20. EYES: Conjuctivae without sclera icterus. Extraocular movements grossly intact. HEAD, EARS, NOSE, THROAT: Moist buccal mucosa. Head is atraumatic, normocephalic. Hears conversational speech. No nasal drainage. RESPIRATORY: Non-labored respirations and equal bilateral excursions. No gross wheezes. CARDIOVASCULAR: Irregular rate and irregular rhythm with atrial fibrillation. ABDOMEN: Soft. Non-tender. Nondistended. LYMPH: Palpable over 3-cm neck lymphadenopathy. MUSCULOSKELETAL: Nail and fingers with good capillary refill. NEUROLOGIC: Cranial nerves II through XII grossly intact. Sensation upper and extremities intact. No focal or lateralizing signs. PSYCH: Appropriate affect. Alert and oriented to person, place and time. Displays appropriate insight. CLINCAL LABS: Reviewed. WBC normal 8.3. PT/INR elevated. IMAGING: CT of the chest reviewed by me without metastatic lesions to the lung. This is my independent interpretation. Ultrasound of the neck also independently reviewed demonstrating 3 cm to 4 cm size lymph nodes along the left neck. This is my independent interpretation. RADIOLOGY: CT of the chest with demonstration of retroperitoneal adenopathy at level of pancreatic neoplasm. ASSESSMENT: 1. Abnormal computed tomography scan for pancreatic neoplasm 2. Clinical enlarged left supraclavicular lymph node in presence of neoplasm 3. Peripheral vascular occlusive disease 4. Atrial fibrillation 5. History of bladder cancer 6. Permanent pacemaker 7. Chronic anticoagulation 8. Splenic vein thrombosis PLAN: 1. Overall, clinical picture highly suspicious for pancreatic ligament see. We'll need tissue biopsy ideally with endoscopic ultrasound and transduodenal fine-needle aspiration currently not available institution. 2. We'll proceed with left lymph node supraclavicular biopsy. Overall, pathology pending for metastatic disease 3. Patient is elevated risk for complications due to pre-existing ischemic cardiomyopathy, chronic anticoagulation, splenic vein thrombosis. Risk of bleeding described. Objective - Vital Signs Vital signs: Vital Signs Temp 97.6 F 08/31/20 14:00 Pulse 61 08/31/20 14:00 Resp 16 08/31/20 14:00 BP 123/74 08/31/20 14:00 Pulse Ox 97 08/31/20 14:00 Intake & Output 08/30/20 08/31/20 08/31/20 18:59 06:59 18:59 Intake Total 298 42.567 Output Total 200 Balance 98 42.567 Intake: Intake, IV Titration 42.567 Amount Heparin Sod,Pork in 0.45% 42.567 NaCl 25,000 unit In 0.45 % NaCl 1 250ml.bag @ 12 UNITS/KG/HR 6.532 mls/hr IV .Q24H [facility] Rx#: [id number] Oral 298 Output: Urine 200 Other: # Voids 1 1 - Labs CBC & Chem 7: 08/31/20 11:24 08/30/20 15:51 Labs: Abnormal Lab Results - Last 24 Hours (Table) 08/31/20 Range/Units 11:24 PT 12.4 H (9.0-12.0) sec INR 1.2 H (<1.2) Assessment and Plan (1) Abnormal CT of the abdomen Current Visit: Yes Status: Acute Code(s): R93.5 - ABN FINDINGS ON DX IMAGING OF ABD REGIONS, INC RETROPERITON SNOMED Code(s): 67462785649099541 (2) Chronic pain Current Visit: Yes Status: Acute Code(s): G89.29 - OTHER CHRONIC PAIN SNOMED Code(s): 34873031 (3) Supraclavicular adenopathy Current Visit: Yes Status: Acute Code(s): R59.0 - LOCALIZED ENLARGED LYMPH NODES SNOMED Code(s): 840357153 (4) Underweight Current Visit: Yes Status: Acute Code(s): R63.6 - UNDERWEIGHT SNOMED Code(s): 473625468 (5) Abdominal pain Current Visit: Yes Status: Acute Code(s): R10.9 - UNSPECIFIED ABDOMINAL PAIN SNOMED Code(s): 43879835 (6) History of hepatitis C Current Visit: Yes Status: Acute Code(s): Z86.19 - PERSONAL HISTORY OF OTHER INFECTIOUS AND PARASITIC DISEASES SNOMED Code(s): 93877703635453 (7) Pancreatic mass Current Visit: Yes Status: Acute Code(s): K86.89 - OTHER SPECIFIED DISEASES OF PANCREAS SNOMED Code(s): 075812329 (8) Splenic vein thrombosis Current Visit: Yes Status: Acute Code(s): I82.890 - ACUTE EMBOLISM AND THROMBOSIS OF OTHER SPECIFIED VEINS SNOMED Code(s): 55641324 (9) PAD (peripheral artery disease) Current Visit: No Status: Acute Code(s): I73.9 - PERIPHERAL VASCULAR DISEASE, UNSPECIFIED SNOMED Code(s): 800043763
--- NOTE | 2020-08-31 13:18 | P.PN ---
Subjective Progress Note Date: 08/31/20 Principal diagnosis: pancreatic mass She was seen and examined lying in bed. He states his abdominal pain is quite significant. He states he has nausea, but no vomiting. He reports little appetite. He has had no bowel movement since Friday, however not want anything to help with bowel movement. Oncology is on consult. Surgery is on consult and plan is for lymph node biopsy tomorrow. The patient had a CT chest with contrast for cancer staging which showed a small left Rip if these correlate for atelectasis versus infiltrate. Nonspecific borderline enlarged mediastinal lymph nodes. Otherwise no evidence of thoracic metastatic disease. Ultrasound soft tissue neck showed multiple lymph nodes seen with largest mid supraclavicular region 2.5 x 3.0 x 2.1 cm second inferomedial ymph node seen 4.0 x 2.7 x 2.2 cm Objective - Vital Signs Vital signs: Vital Signs Temp 97.1 F L 08/31/20 07:43 Pulse 60 08/31/20 07:43 Resp 17 08/31/20 07:43 BP 126/77 08/31/20 07:43 Pulse Ox 98 08/31/20 07:43 Intake & Output 08/30/20 08/31/20 08/31/20 18:59 06:59 18:59 Intake Total 298 Output Total 200 Balance 98 Intake: Oral 298 Output: Urine 200 Other: # Voids 1 1 - Exam General appearance: The patient is alert, oriented, appears in no acute distress. HET: Head is normocephalic and atraumatic. Conjunctiva pink. Sclera anicteric. Neck: Supple with lymphadenopathy Abdomen: Soft, tender, nondistended with bowel sounds. No guarding or rigidity. Extremities: Normal skin color and turgor. No pedal edema Skin: No rashes, no jaundice Neurological: No focal deficits. Alert and oriented 3. - Labs CBC & Chem 7: 08/31/20 11:24 08/30/20 15:51 Labs: Abnormal Lab Results - Last 24 Hours (Table) 08/30/20 Range/Units 15:51 Creatinine 0.61 L (0.66-1.25) mg/dL Assessment and Plan Plan: 1. Supportive care 2. Diet as tolerated 3. Oncology on consult 4. Biopsy of supraclavicular lymph node scheduled for tomorrow with general surgery 5. No plans for endoscopic evaluation at this time 6. Antiemetics as needed 7. Pain medication per primary medicine team Thank you for this consultation, we will continue to follow Dr. Ballard I agree with the dictator's note, documented as a scribe by Nai Manzano.
--- NOTE | 2020-08-31 18:06 | P.PN ---
Subjective Progress Note Date: 08/31/20 Principal diagnosis: Suspicious for metastatic cancer Surgery planning supraclavicular biopsy tomorrow. CT chest reviewed, concern for possible metastatic disease Objective - Vital Signs Vital signs: Vital Signs Temp 97.6 F 08/31/20 14:00 Pulse 61 08/31/20 14:00 Resp 16 08/31/20 14:00 BP 123/74 08/31/20 14:00 Pulse Ox 97 08/31/20 14:00 Intake & Output 08/30/20 08/31/20 08/31/20 18:59 06:59 18:59 Intake Total 298 42.567 Output Total 200 Balance 98 42.567 Intake: Intake, IV Titration 42.567 Amount Heparin Sod,Pork in 0.45% 42.567 NaCl 25,000 unit In 0.45 % NaCl 1 250ml.bag @ 12 UNITS/KG/HR 6.532 mls/hr IV .Q24H [facility] Rx#: [id number] Oral 298 Output: Urine 200 Other: # Voids 1 1 - Labs CBC & Chem 7: 08/31/20 11:24 08/30/20 15:51 Labs: Abnormal Lab Results - Last 24 Hours (Table) 08/31/20 Range/Units 11:24 PT 12.4 H (9.0-12.0) sec INR 1.2 H (<1.2) Assessment and Plan (1) Pancreatic mass Current Visit: Yes Status: Acute Code(s): K86.89 - OTHER SPECIFIED DISEASES OF PANCREAS SNOMED Code(s): 941325341 Plan: Assessment and Recommendations: CT Chest with contrast for initial staging with small bilateral pulm nodules. Left Supraclavicular Lymph Node palpable -planning biopsy in am to note recent covid vaccine Physician attest: I have completed the full history and physical and agree with above dictation, dictated as a ascribe.
[2020-08-31] MEDS: METOPROLOL TARTRATE 25 MG TAB PO SCH (21:40)
--- NOTE | 2020-08-31 22:06 | P.PN ---
Subjective This is a pleasant 70-year-old patient who follows with Dr. Ramirez. Chronic stable medical conditions include essential hypertension, primary osteogen Boaz, BPH, and brought to disease, permanent pacemaker, depression, COPD, anxiety disorder, restless leg syndrome,. 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 Patient also has a pain pump. For close to at least 3 months she has been having increasing abdominal pain. Was in epigastric area. Pain does seem to radiate to the back has been progressively getting worse. Has some accompanying nausea. Has been losing weight. Appetite has gone down. No fever no chills. Does have a bowel movement every day. Patient's is at the bedside. 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 Also found to have left supra R lymphadenopathy and plan to have surgical resection for this lymph node tomorrow. He is on Zoloft at home which is helped now and placed on heparin drip, he was complaining of abdominal pain which is improved with heparin drip and IV pain medication we will keep it tonight for patient will be nothing by mouth and try to switch her to oral medication tomorrow. Patient has also splenic vein thrombosis on anticoagulation ROS CONSTITUTIONAL: No fever, no malaise, no fatigue. HEENT: No recent visual problems or hearing problems. Denied any sore throat. CARDIOVASCULAR: No orthopnea, PND, no palpitations, no syncope. PULMONARY: No shortness of breath, no cough, no hemoptysis. GASTROINTESTINAL: No diarrhea, no nausea, no vomiting, no abdominal pain. Normoactive bowel sounds. NEUROLOGICAL: No headaches, no weakness, no numbness. HEMATOLOGICAL: Denies any bleeding or petechiae. Active Medications Generic Name Dose Route Start Last Admin Trade Name Freq PRN Reason Stop Dose Admin Acetaminophen 650 mg 08/29/20 15:02 Acetaminophen Tab 325 Mg Tab PO Q6H PRN Mild Pain or Fever > 100.5 Amlodipine Besylate 5 mg 08/30/20 09:00 08/31/20 09:00 Amlodipine 5 Mg Tab PO 5 mg DAILY LYDIA Administration Duloxetine HCl 60 mg 08/29/20 21:00 08/31/20 20:41 Duloxetine Hcl 60 Mg Capsule.Dr PO 60 mg BID LYDIA Administration Gabapentin 400 mg 08/29/20 22:00 08/31/20 20:41 Gabapentin 400 Mg Cap PO 400 mg TID LYDIA Administration Heparin Sodium (Porcine) 0 unit 08/31/20 10:02 08/31/20 16:59 Heparin Sodium,Porcine 5,000 Unit/Ml 1 Ml Vial IV 2,720 unit PER PROTOCOL PRN Administration Low PTT Protocol Hydralazine HCl 25 mg 08/29/20 21:00 08/31/20 21:40 Hydralazine Hcl 25 Mg Tab PO 25 mg BID LYDIA Administration Hydromorphone HCl 0.5 mg 08/29/20 15:02 08/31/20 19:33 Hydromorphone 0.5 Mg/0.5 Ml Syringe IVP 0.5 mg Q3H PRN Administration Moderate Pain Sodium Chloride 1,000 mls @ 75 mls/hr 08/29/20 15:15 08/31/20 21:41 Saline 0.9% IV 75 mls/hr .[id number] LYDIA Administration Heparin Sodium/Sodium Chloride 250 mls @ 6.532 mls/hr 08/31/20 10:15 08/31/20 16:55 25,000 unit/ Sodium Chloride IV 15 units/kg/hr .Q24H LYDIA 8.165 mls/hr Titration Protocol 12 UNITS/KG/HR Metoprolol Tartrate 25 mg 08/29/20 21:00 08/31/20 21:40 Metoprolol Tartrate 25 Mg Tab PO 25 mg HS LYDIA Administration Metoprolol Tartrate 50 mg 08/30/20 09:00 08/31/20 09:00 Metoprolol Tartrate 50 Mg Tab PO 50 mg DAILY LYDIA Administration Miscellaneous Information 1 each 08/30/20 14:23 Rx Info: Iv Contrast Was Given 1 Each Misc MISCELLANE 09/01/20 14:23 DAILY PRN Per Protocol Morphine Sulfate 4 mg 08/29/20 15:02 08/31/20 21:40 Morphine Sulfate 4 Mg/Ml Syringe IV 4 mg Q4H PRN Administration Severe Pain Naloxone HCl 0.2 mg 08/29/20 15:02 Naloxone 0.4 Mg/Ml 1 Ml Vial IV Q2M PRN Opioid Reversal Nicotine 1 patch 08/30/20 15:45 08/31/20 09:02 Nicotine 21mg/24hr Patch TRANSDERM 1 patch DAILY LYDIA Administration Ondansetron HCl 4 mg 08/30/20 13:01 08/30/20 13:11 Ondansetron 4 Mg/2 Ml Vial IVP 4 mg Q6HR PRN Administration Nausea And Vomiting Tamsulosin HCl 0.4 mg 08/30/20 09:00 08/31/20 09:00 Tamsulosin 0.4 Mg Cap.Er.24h PO 0.4 mg DAILY LYDIA Administration Tramadol HCl 50 mg 08/29/20 15:02 Tramadol 50 Mg Tab PO Q6H PRN Moderate Pain Objective - Vital Signs Vital signs: Vital Signs Temp 97.1 F L 08/31/20 07:43 Pulse 60 08/31/20 07:43 Resp 17 08/31/20 07:43 BP 126/77 08/31/20 07:43 Pulse Ox 98 08/31/20 07:43 Intake & Output 08/30/20 08/31/20 08/31/20 18:59 06:59 18:59 Intake Total 298 Output Total 200 Balance 98 Intake: Oral 298 Output: Urine 200 Other: # Voids 1 1 - Exam GENERAL: The patient is alert and oriented x3, not in any acute distress. Well developed, well nourished. HEENT: Pupils are round and equally reacting to light. EOMI. No scleral icterus. No conjunctival pallor. Normocephalic, atraumatic. No pharyngeal erythema. No thyromegaly. CARDIOVASCULAR: S1 and S2 present. No murmurs, rubs, or gallops. PULMONARY: Chest is clear to auscultation, no wheezing or crackles. -ABDOMEN: Soft, upper abdominal tenderness with no rebound nontender, nondistended, normoactive bowel sounds. No palpable organomegaly. MUSCULOSKELETAL: No joint swelling or deformity. EXTREMITIES: No cyanosis, clubbing, or pedal edema. NEUROLOGICAL: Gross neurological examination did not reveal any focal deficits. SKIN: No rashes. no petechiae. - Labs CBC & Chem 7: 08/31/20 11:24 08/30/20 15:51 Labs: Abnormal Lab Results - Last 24 Hours (Table) 08/30/20 08/31/20 Range/Units 15:51 11:24 PT 12.4 H (9.0-12.0) sec INR 1.2 H (<1.2) Creatinine 0.61 L (0.66-1.25) mg/dL Assessment and Plan Assessment: -pancreatic mass with DrDavid peritoneal lymphadenopathy, Strongly suspicious for pancreatic malignancy. With elevated tumor marker CA 19-9. Going for left supraclavicular lymph node biopsy -Secondary splenic vein thrombosis sepsis suspected secondary to the malignancy- related anticoagulation. Hold off xarelto. Start the patient on IV heparin -Essential hypertension, continue with hydralazine, Norvasc -Primary osteoarthritis, Tylenol as needed -BPH, on Flomax -Peripheral arterial disease, patient is on xarelto, we'll use IV heparin for now -Permanent pacemaker -Depression and anxiety not otherwise specified, continue Cymbalta -COPD in a smoker, use DuoNeb when necessary -Restless leg syndrome, on Neurontin DVT prophylaxis: On heparin drip and WISH to Xarelto GI prophylaxis:ppi Prognosis is guarded
[2020-08-31] MEDS: PANTOPRAZOLE 40 MG/10 ML VIAL IVP SCH (22:15)
[2020-09-01] MEDS: amLODIPine 5 MG TAB PO SCH (07:15)
[2020-09-01] MEDS: GABAPENTIN 400 MG CAP PO SCH ×3 (07:15→21:13)
[2020-09-01] MEDS: PANTOPRAZOLE 40 MG/10 ML VIAL IVP SCH (07:15)
[2020-09-01] MEDS: TAMSULOSIN 0.4 MG CAP.ER.24H PO SCH (07:15)
[2020-09-01] MEDS: METOPROLOL TARTRATE 50 MG TAB PO SCH (07:15)
[2020-09-01] MEDS: hydrALAZINE HCL 25 MG TAB PO SCH ×2 (07:15→21:13)
[2020-09-01] MEDS: DULoxetine HCL 60 MG CAPSULE.DR PO SCH ×2 (07:15→21:13)
[2020-09-01] MEDS: NICOTINE 21MG/24HR PATCH TRANSDERM SCH (07:15)
[2020-09-01] MEDS: MORPHINE SULFATE 4 MG/ML SYRINGE IV PRN ×2 (07:16→11:37)
--- NOTE | 2020-09-01 09:05 | P.PN ---
Progress Note - Text Progress Note Date: 09/01/20 Per request of anesthesia, patient is pacemaker dependent. Will need immediate cardiology consultation prior to general anesthetic.
[2020-09-01 09:19] LABS: Basophils # (A) 0.1 k/uL (0-0.2); Basophils % (A) 1 %; Eosinophils # (A) 0.2 k/uL (0-0.7); Eosinophils % (A) 3 %; HCT 41.2 % (39.0-53.0); HGB 13.7 gm/dL (13.0-17.5); Lymphocytes # (A) 1.8 k/uL (1.0-4.8); Lymphocytes % (A) 22 %; MCH 29.7 pg (25.0-35.0); MCHC 33.3 g/dL (31.0-37.0); MCV 89.3 fL (80.0-100.0); Mean Platelet Volume 7.8; Monocytes # (A) 0.5 k/uL (0-1.0); Monocytes % (A) 6 %; Neutrophils # (A) 5.7 k/uL (1.3-7.7); Neutrophils % (A) 67 %; Platelet Count 171 k/uL (150-450); RBC 4.62 m/uL (4.30-5.90); RDW 13.1 % (11.5-15.5); WBC 8.5 k/uL (3.8-10.6)
[2020-09-01] MEDS: HEPARIN SOD,PORK IN 0.45% NACL 25,000 UNIT in 0.45% NACL 1 250ML.BAG IV SCH (11:37)
[2020-09-01] MEDS: SODIUM CHLORIDE 0.9% 1,000 ML IV SCH ×2 (11:45→21:14)
--- NOTE | 2020-09-01 12:51 | XR ---
EXAMINATION TYPE: XR chest 1V portable DATE OF EXAM: 09/01/2020 COMPARISON: Prior chest x-ray 08/24/2017, CT 08/30/2020 HISTORY: Lead placement check, abnormal chest CT TECHNIQUE: Single frontal view of the chest is obtained. FINDINGS: There is no focal air space opacity, pleural effusion, or pneumothorax seen, the basilar d ensity seen on prior CT may be obscured, no lateral exam submitted. Hyperinflation is consistent with underlying COPD. Generator is present in the left pectoral region, there are leads in right atrium and ventricle. The cardiac silhouette size is within normal limits. The aorta is tortuous and dens e, ectatic in the descending portion The osseous structures are intact, there is a spinal curvature. Device is partially seen over the left abdomen. IMPRESSION: No acute process. There is underlying emphysema.
--- NOTE | 2020-09-01 13:22 | P.PN ---
Subjective Progress Note Date: 09/01/20 CHIEF COMPLAINT: Abnormal computed tomography scan HISTORY OF PRESENT ILLNESS: The patient is a 70 year old male admitted for epigastric abdominal pain and abnormal computed tomography scan for pancreatic neoplasm. He also had splenic vein thrombosis and was started on heparin drip. During his hospitalization, he reports new tenderness along the left neck. Cardiology consultation was obtained to assess patient's pacemaker dependency for his heart. Thus far, patient found not pacemaker dependent. Additionally, patient and confirms Coronavirus vaccine one week ago. In less than one day, patient has doubled to triple size swelling along the left neck from lymph nodes. REVIEW OF ORGAN SYSTEMS: Underwent with BMI less than 20. No fevers or chills. No dyspnea. No active chest pain. PHYSICAL EXAM: VITALS: Reviewed CONSTITUTIONAL: Well developed and in no acute distress. Cachectic, BMI less than 20. EYES: Conjuctivae without sclera icterus. Extraocular movements grossly intact . HEAD, EARS, NOSE, THROAT: Moist buccal mucosa. Head is atraumatic, normocephalic. Hears conversational speech. No nasal drainage. RESPIRATORY: Non-labored respirations and equal bilateral excursions. No gross wheezes. CARDIOVASCULAR: Irregular rate and irregular rhythm with atrial fibrillation. ABDOMEN: Soft. Non-tender. Nondistended. LYMPH: Palpable over 5-cm neck lymphadenopathy along the left supraclavicular area. Tender. MUSCULOSKELETAL: Nail and fingers with good capillary refill. NEUROLOGIC: Cranial nerves II through XII grossly intact. Sensation upper and extremities intact. No focal or lateralizing signs. PSYCH: Appropriate affect. Alert and oriented to person, place and time. Displays appropriate insight. CLINCAL LABS: Reviewed. WBC normal 8.3. PT/INR elevated. IMAGING: Chest x-ray obtained to confirm leads below the clavicle to perform lymph node biopsy. This my independent interpretation ASSESSMENT: 1. Abnormal computed tomography scan for pancreatic neoplasm 2. Clinical enlarged left supraclavicular lymph node in presence of neoplasm 3. Peripheral vascular occlusive disease 4. Atrial fibrillation 5. History of bladder cancer 6. Permanent pacemaker 7. Chronic anticoagulation 8. Splenic vein thrombosis 9. Coronary virus vaccination PLAN: 1. He has unusually progressive lymphadenopathy along the left neck. With recent Covid vaccination, this make she returned lymphadenopathy. 2. Cardiology consultation including appreciated identifying patient's pacemaker status. 3. Overall, patient elevated risk for complications with enlarged supraclavicular node, chronic anticoagulation, including peripheral vascular occlusive disease Objective - Vital Signs Vital signs: Vital Signs Temp 99.5 F 09/01/20 06:58 Pulse 62 09/01/20 06:58 Resp 18 09/01/20 08:00 BP 144/74 09/01/20 06:58 Pulse Ox 96 09/01/20 06:58 Intake & Output 08/31/20 09/01/20 09/01/20 18:59 06:59 18:59 Intake Total 42.567 480 Balance 42.567 480 Intake: Intake, IV Titration 42.567 Amount Heparin Sod,Pork in 0.45% 42.567 NaCl 25,000 unit In 0.45 % NaCl 1 250ml.bag @ 12 UNITS/KG/HR 6.532 mls/hr IV .Q24H LYDIA Rx#: [id number] Oral 480 Other: Voiding Method Toilet # Voids 1 1 - Labs CBC & Chem 7: 09/01/20 08:38 08/30/20 15:51 Labs: Abnormal Lab Results - Last 24 Hours (Table) 08/31/20 Range/Units 22:45 APTT 45.0 H (22.0-30.0) sec Assessment and Plan (1) Abnormal CT of the abdomen Current Visit: Yes Status: Acute Code(s): R93.5 - ABN FINDINGS ON DX IMAGING OF ABD REGIONS, INC RETROPERITON SNOMED Code(s): 05785333193552789 (2) Chronic pain Current Visit: Yes Status: Acute Code(s): G89.29 - OTHER CHRONIC PAIN SNOMED Code(s): 45642601 (3) Supraclavicular adenopathy Current Visit: Yes Status: Acute Code(s): R59.0 - LOCALIZED ENLARGED LYMPH NODES SNOMED Code(s): 468714263 (4) Underweight Current Visit: Yes Status: Acute Code(s): R63.6 - UNDERWEIGHT SNOMED Code(s): 969765790 (5) Abdominal pain Current Visit: Yes Status: Acute Code(s): R10.9 - UNSPECIFIED ABDOMINAL PAIN SNOMED Code(s): 39589677 (6) History of hepatitis C Current Visit: Yes Status: Acute Code(s): Z86.19 - PERSONAL HISTORY OF OTHER INFECTIOUS AND PARASITIC DISEASES SNOMED Code(s): 05531338472570 (7) Pancreatic mass Current Visit: Yes Status: Acute Code(s): K86.89 - OTHER SPECIFIED DISEASES OF PANCREAS SNOMED Code(s): 171442358 (8) Splenic vein thrombosis Current Visit: Yes Status: Acute Code(s): I82.890 - ACUTE EMBOLISM AND THROMBOSIS OF OTHER SPECIFIED VEINS SNOMED Code(s): 43123606 (9) PAD (peripheral artery disease) Current Visit: No Status: Acute Code(s): I73.9 - PERIPHERAL VASCULAR DISEASE, UNSPECIFIED SNOMED Code(s): 490345061
--- NOTE | 2020-09-01 13:34 | P.PN ---
Subjective Progress Note Date: 09/01/20 Principal diagnosis: pancreatic mass Seen and examined lying in bed. He states he has abdominal pain is still not well controlled. He denies any vomiting, however still has the nausea. He is scheduled today for a supraclavicular lymph node biopsy. No acute changes through the night. Oncology continues to follow patient closely. Objective - Vital Signs Vital signs: Vital Signs Temp 99.5 F 09/01/20 06:58 Pulse 62 09/01/20 06:58 Resp 18 09/01/20 08:00 BP 144/74 09/01/20 06:58 Pulse Ox 96 09/01/20 06:58 Intake & Output 08/31/20 09/01/20 09/01/20 18:59 06:59 18:59 Intake Total 42.567 480 Balance 42.567 480 Intake: Intake, IV Titration 42.567 Amount Heparin Sod,Pork in 0.45% 42.567 NaCl 25,000 unit In 0.45 % NaCl 1 250ml.bag @ 12 UNITS/KG/HR 6.532 mls/hr IV .Q24H LYDIA Rx#: [id number] Oral 480 Other: Voiding Method Toilet # Voids 1 1 - Exam General appearance: The patient is alert, oriented, appears in no acute distress. HET: Head is normocephalic and atraumatic. Conjunctiva pink. Sclera anicteric. Neck: Supple with lymphadenopathy Abdomen: Soft, tender, nondistended with bowel sounds. No guarding or rigidity. Extremities: Normal skin color and turgor. No pedal edema Skin: No rashes, no jaundice Neurological: No focal deficits. Alert and oriented 3. - Labs CBC & Chem 7: 09/01/20 08:38 08/30/20 15:51 Labs: Abnormal Lab Results - Last 24 Hours (Table) 08/31/20 08/31/20 Range/Units 11:24 22:45 PT 12.4 H (9.0-12.0) sec INR 1.2 H (<1.2) APTT 45.0 H (22.0-30.0) sec Assessment and Plan (1) Abdominal pain Narrative/Plan: Is a 70-year-old male with multiple medical comorbidities presenting to the hospital for evaluation with computed tomography scan of the abdomen suggested of new pancreatic mass. Patient had reported periumbilical pain with associated nausea and 4 pounds of weight loss. Liver enzymes were within normal limits with no evidence of biliary obstruction and findings of elevated CA-19-9 at 1416 consistent with findings and concern for pancreatic cancer Current Visit: Yes Status: Acute Code(s): R10.9 - UNSPECIFIED ABDOMINAL PAIN SNOMED Code(s): 94538474 (2) History of hepatitis C Current Visit: Yes Status: Acute Code(s): Z86.19 - PERSONAL HISTORY OF OTHER INFECTIOUS AND PARASITIC DISEASES SNOMED Code(s): 14201638797988 (3) Pancreatic mass Narrative/Plan: Oncology following patient closely Current Visit: Yes Status: Acute Code(s): K86.89 - OTHER SPECIFIED DISEASES OF PANCREAS SNOMED Code(s): 614384994 (4) Splenic vein thrombosis Current Visit: Yes Status: Acute Code(s): I82.890 - ACUTE EMBOLISM AND THROMBOSIS OF OTHER SPECIFIED VEINS SNOMED Code(s): 58313546 Plan: 1. Supportive care 2. Diet as tolerated 3. Oncology on consult 4. Biopsy of supraclavicular lymph node scheduled for today 5. No plans for endoscopic evaluation at this time 6. Antiemetics as needed 7. Pain medication per primary medicine team Thank you for this consultation, we will sign off at this time Dr. Ballard I agree with the dictator's note, documented as a scribe by Nai Manzano.
[2020-09-01] MEDS: HYDROmorphone 0.5 MG/0.5 ML SYRINGE IVP PRN ×2 (13:35→21:20)
--- NOTE | 2020-09-01 13:59 | P.PN ---
Subjective This is a pleasant 70-year-old patient who follows with Dr. Ramirez. Chronic stable medical conditions include essential hypertension, primary osteogen Boaz, BPH, and brought to disease, permanent pacemaker, depression, COPD, anxiety disorder, restless leg syndrome,. 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 Patient also has a pain pump. For close to at least 3 months she has been having increasing abdominal pain. Was in epigastric area. Pain does seem to radiate to the back has been progressively getting worse. Has some accompanying nausea. Has been losing weight. Appetite has gone down. No fever no chills. Does have a bowel movement every day. Patient's is at the bedside. 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 Also found to have left supra R lymphadenopathy and plan to have surgical resection for this lymph node tomorrow. He is on Zoloft at home which is helped now and placed on heparin drip, he was complaining of abdominal pain which is improved with heparin drip and IV pain medication we will keep it tonight for patient will be nothing by mouth and try to switch her to oral medication tomorrow. Patient has also splenic vein thrombosis on anticoagulation 09/01/2020 Patient with serial abdominal pain, mild nausea vomiting but did tolerate some diet. He is planned for left supra clavicular lymph node biopsy by surgery team. Head and neck ultrasound showing multiple lymphadenopathy of the neck. Patient was placed on heparin drip and held before the procedure. Change to Xarelto after the procedure once cleared by surgery team ROS CONSTITUTIONAL: No fever, no malaise, no fatigue. HEENT: No recent visual problems or hearing problems. Denied any sore throat. CARDIOVASCULAR: No orthopnea, PND, no palpitations, no syncope. PULMONARY: No shortness of breath, no cough, no hemoptysis. GASTROINTESTINAL: No diarrhea, no nausea, no vomiting, no abdominal pain. Normoactive bowel sounds. NEUROLOGICAL: No headaches, no weakness, no numbness. HEMATOLOGICAL: Denies any bleeding or petechiae. Active Medications Generic Name Dose Route Start Last Admin Trade Name Freq PRN Reason Stop Dose Admin Acetaminophen 650 mg 03/23/21 15:02 Acetaminophen Tab 325 Mg Tab PO Q6H PRN Mild Pain or Fever > 100.5 Amlodipine Besylate 5 mg 08/30/20 09:00 09/01/20 07:15 Amlodipine 5 Mg Tab PO 5 mg DAILY LYDIA Administration Duloxetine HCl 60 mg 08/29/20 21:00 09/01/20 07:15 Duloxetine Hcl 60 Mg Capsule.Dr PO 60 mg BID LYDIA Administration Gabapentin 400 mg 08/29/20 22:00 09/01/20 07:15 Gabapentin 400 Mg Cap PO 400 mg TID LYDIA Administration Heparin Sodium (Porcine) 0 unit 08/31/20 10:02 08/31/20 16:59 Heparin Sodium,Porcine 5,000 Unit/Ml 1 Ml Vial IV 2,720 unit PER PROTOCOL PRN Administration Low PTT Protocol Hydralazine HCl 25 mg 08/29/20 21:00 09/01/20 07:15 Hydralazine Hcl 25 Mg Tab PO 25 mg BID LYDIA Administration Hydromorphone HCl 0.5 mg 08/29/20 15:02 09/01/20 13:35 Hydromorphone 0.5 Mg/0.5 Ml Syringe IVP 0.5 mg Q3H PRN Administration Moderate Pain Sodium Chloride 1,000 mls @ 75 mls/hr 08/29/20 15:15 09/01/20 11:45 Saline 0.9% IV Not Given .[id number] COUNT INCLUDES THE [facility] Heparin Sodium/Sodium Chloride 250 mls @ 6.532 mls/hr 08/31/20 10:15 09/01/20 11:37 25,000 unit/ Sodium Chloride IV Not Given .Q24H COUNT INCLUDES THE [facility] Protocol 12 UNITS/KG/HR Metoprolol Tartrate 25 mg 08/29/20 21:00 08/31/20 21:40 Metoprolol Tartrate 25 Mg Tab PO 25 mg HS LYDIA Administration Metoprolol Tartrate 50 mg 08/30/20 09:00 09/01/20 07:15 Metoprolol Tartrate 50 Mg Tab PO 50 mg DAILY LYDIA Administration Miscellaneous Information 1 each 08/30/20 14:23 Rx Info: Iv Contrast Was Given 1 Each Misc MISCELLANE 09/01/20 14:23 DAILY PRN Per Protocol Morphine Sulfate 4 mg 08/29/20 15:02 09/01/20 11:37 Morphine Sulfate 4 Mg/Ml Syringe IV 4 mg Q4H PRN Administration Severe Pain Naloxone HCl 0.2 mg 08/29/20 15:02 Naloxone 0.4 Mg/Ml 1 Ml Vial IV Q2M PRN Opioid Reversal Nicotine 1 patch 08/30/20 15:45 09/01/20 07:15 Nicotine 21mg/24hr Patch TRANSDERM 1 patch DAILY LYDIA Administration Ondansetron HCl 4 mg 08/30/20 13:01 08/30/20 13:11 Ondansetron 4 Mg/2 Ml Vial IVP 4 mg Q6HR PRN Administration Nausea And Vomiting Pantoprazole Sodium 40 mg 08/31/20 22:15 09/01/20 07:15 Pantoprazole 40 Mg/10 Ml Vial IVP 40 mg DAILY LYDIA Administration Polyethylene Glycol 17 gm 09/02/20 09:00 Polyethylene Glycol 3350 17 Gm Powd.Pack PO DAILY LYDIA Tamsulosin HCl 0.4 mg 08/30/20 09:00 09/01/20 07:15 Tamsulosin 0.4 Mg Cap.Er.24h PO 0.4 mg DAILY LYDIA Administration Tramadol HCl 50 mg 08/29/20 15:02 Tramadol 50 Mg Tab PO Q6H PRN Moderate Pain Objective - Vital Signs Vital signs: Vital Signs Temp 99.5 F 09/01/20 06:58 Pulse 62 09/01/20 06:58 Resp 18 09/01/20 08:00 BP 144/74 09/01/20 06:58 Pulse Ox 96 09/01/20 06:58 Intake & Output 08/31/20 09/01/20 09/01/20 18:59 06:59 18:59 Intake Total 42.567 480 Balance 42.567 480 Intake: Intake, IV Titration 42.567 Amount Heparin Sod,Pork in 0.45% 42.567 NaCl 25,000 unit In 0.45 % NaCl 1 250ml.bag @ 12 UNITS/KG/HR 6.532 mls/hr IV .Q24H LYDIA Rx#: [id number] Oral 480 Other: Voiding Method Toilet # Voids 1 1 - Exam GENERAL: The patient is alert and oriented x3, not in any acute distress. Well developed, well nourished. HEENT: Pupils are round and equally reacting to light. EOMI. No scleral icterus. No conjunctival pallor. Normocephalic, atraumatic. No pharyngeal erythema. No thyromegaly. CARDIOVASCULAR: S1 and S2 present. No murmurs, rubs, or gallops. PULMONARY: Chest is clear to auscultation, no wheezing or crackles. -ABDOMEN: Soft, upper abdominal tenderness with no rebound nontender, nondistended, normoactive bowel sounds. No palpable organomegaly. MUSCULOSKELETAL: No joint swelling or deformity. EXTREMITIES: No cyanosis, clubbing, or pedal edema. NEUROLOGICAL: Gross neurological examination did not reveal any focal deficits. SKIN: No rashes. no petechiae. - Labs CBC & Chem 7: 09/01/20 08:38 08/30/20 15:51 Labs: Abnormal Lab Results - Last 24 Hours (Table) 08/31/20 Range/Units 22:45 APTT 45.0 H (22.0-30.0) sec Assessment and Plan Assessment: -pancreatic mass with DrDavid peritoneal lymphadenopathy, Strongly suspicious for pancreatic malignancy. With elevated tumor marker CA 19-9. Going for left supraclavicular lymph node biopsy -Secondary splenic vein thrombosis sepsis suspected secondary to the malignancy- related anticoagulation. Hold off xarelto. Start the patient on IV heparin -Essential hypertension, continue with hydralazine, Norvasc -Primary osteoarthritis, Tylenol as needed -BPH, on Flomax -Peripheral arterial disease, patient is on xarelto, we'll use IV heparin for now -Permanent pacemaker -Depression and anxiety not otherwise specified, continue Cymbalta -COPD in a smoker, use DuoNeb when necessary -Restless leg syndrome, on Neurontin DVT prophylaxis: On heparin drip and WISH to Xarelto GI prophylaxis:ppi Prognosis is guarded
[2020-09-01] MEDS ORDERED: ONDANSETRON 4 MG/2 ML VIAL ONE (15:37)
[2020-09-01] MEDS ORDERED: DEXAMETHASONE SOD PHOSPHATE 10 MG/ML 1 ML VIAL ONE (15:37)
[2020-09-01] MEDS ORDERED: ePHEDrine SULFATE/0.9% NACL/PF 50 MG/5 ML SYRINGE IV ONE (15:37)
[2020-09-01] MEDS ORDERED: PROPOFOL 10 MG/ML 20 ML VIAL IV ONE (15:37)
[2020-09-01] MEDS ORDERED: fentaNYL (PF) 50 MCG/ML 2 ML AMP ONE (15:37)
[2020-09-01] MEDS ORDERED: PHENYLEPHRINE-0.9% NACL SYG 1,000 MCG/10 ML SYRINGE ONE (15:37)
[2020-09-01] MEDS ORDERED: LIDOCAINE 1% INJ 10MG/ML (20 ML MDV) ONE (15:37)
[2020-09-01] MEDS ORDERED: SUCCINYLCHOLINE CHLORIDE 100 MG/5 ML SYR IV ONE (15:37)
[2020-09-01] MEDS ORDERED: ALBUTEROL HFA INHALER INHALATION ONE (15:37)
[2020-09-01] MEDS ORDERED: IV FLUID CONTINUATION 1,000 ML IV ONE (15:41)
[2020-09-01] MEDS ORDERED: LIDOCAINE 1%-EPI 1:100,000 20 ML VIAL SQ ONE ×2 (16:08)
--- NOTE | 2020-09-01 16:25 | P.CRDCN ---
History of Present Illness History of present illness: HISTORY OF PRESENTING ILLNESS This is a 70-year-old male with a known past medical history of atrial fibillation (on xarelto), PAD s/p bilateral iliac stenting, Hypertension, hyperlipidemia, Current every day smoker, sick sinus syndrome s/p pacemaker placement in 2016, CVA, bladder cancer status post immunotherapy and procedure to the bladder 3 years ago, enlarged prostate, chronic back pain with morphine pain pump, hepatitis C status post treatment. Patient follows with Dr. Bui in the outpatient office. We have been asked to see in consultation for cardiac clearance. Patient presented to the emergency room with a chief complaint of abdominal pain. Patient had complained of the pain and feeling achy and located around the umbilical region and had radiated to the left side of the abdomen. Patient is reported abdominal discomfort since the beginning of the year. He corral s been having nausea and decreased appetite. He is noted about a 5 pound weight loss. He had been seen by GI service outpatient. Patient had CT scan of the abdomen and pelvis completed showing new suspicious duct obstructing mass mid body of pancreas with adjacent adenopathy, suspected SMA encasement, and abnormal retroperitoneal adenopathy worrisome for advanced pancreatic adenocarcinoma. New partial splenic vein thrombosis suspected secondary to neoplasm. Oncology service and GI service are following patient. Plan for patient to undergo a left supraclavicular lymph node biopsy. Current cardiac medications include hydralazine 25 mg twice daily, amlodipine 5 mg daily, Xarelto 20 mg, metoprolol titrate 25 mg nightly and metoprolol tartrate 50 mg daily. His last dose of Xarelto was on 08/28/2020. Laboratory data reviewed, WBC 8.5, hemoglobin 13.7, platelets 171, creatinine 0.61, BUN 11, Ca 19-9 elevated, Lipase 381, K 4.2, Covid-19 negative. Vital signs blood pressure 144/74, heart rate 62, temp 90 9.5F, maintaining oxygen saturation on room air. DIAGNOSTICS EKG reveals atrial paced rhythm, HR 61 Telemetry tracings- patient not on nurse monitoring to review. Chest CT- small left opacities correlate with atelectasis versus infiltrate. Nonspecific borderline enlarged mediastinal lymph node. No evidence of thoracic metastatic disease. Most recent Lexiscan stress test in 2019- was negative. Showed a fixed defect in inferior wall most probably secondary to soft tissue attenuation. Images show normal wall motion and thickening. Lower extremity duplex in 04/2020revealed severe disease in the left femoral artery. No echocardiogram on file to review REVIEW OF SYSTEMS At the time of my exam: CONSTITUTIONAL: Denies fever or chills. CARDIOVASCULAR: Denies chest pain, shortness of breath, orthopnea, PND or palpitations. RESPIRATORY: Denies cough. GASTROINTESTINAL: Denies abdominal pain, diarrhea, constipation, nausea or vomiting. MUSCULOSKELETAL: Denies myalgias. NEUROLOGIC: Denies numbness, tingling, headacbe or weakness. ENDOCRINE: Denies fatigue, weight change, polydipsia or polyurina. GENITOURINARY: Denies burning, hematuria or urgency with micturation. HEMATOLOGIC: Denies history of anemia or bleeding. PHYSICAL EXAMINATION Blood pressure 146/80 heart rate 60 afebrile and maintaining oxygen saturation on room air CONSTITUTIONAL: No apparent distress. HEENT: Head is normocephalic. Pupils are equal, round. Sclerae anicteric. Mucous membranes of the mouth are moist. No JVD. No carotid bruit. CHEST EXAMINATION: Lungs are clear to auscultation. No chest wall tenderness is noted on palpation or with deep breathing. HEART EXAMINATION: Regular rate and rhythm. S1, S2 heard. No murmurs, gallops or rub. ABDOMEN: Soft, nontender. Positive bowel sounds. EXTREMITIES: 2+ peripheral pulses, no lower extremity edema and no calf tenderness. NEUROLOGIC EXAMINATION: Patient is awake, alert and oriented x3. ASSESSMENT Atrial fibillation (on xarelto), PAD s/p bilateral iliac stenting, Hypertension, hyperlipidemia, Current every day smoker, Sick sinus syndrome s/p pacemaker placement in 2016, History of CVA Abdominal pain with new mass mid body of pancreas and elevated CA-19-9 with concerns for advanced pancreatic adenocarcinoma PLAN -From cardiology perspective patient stable to proceed with lymph node biopsy. Patient is at moderate risk for surgery, however at this time benefit outweighs the risk of lymph node biopsy. Patient is able to perform >4 METs levels of activity. Patient may proceed with surgery with no additional cardiac testing or procedures. Nurse Practitioner note has been reviewed, I agree with a documented findings and plan of care. Patient was seen and examined. Past Medical History Past Medical History: Cancer, Chest Pain / Angina, CVA/TIA, Hypertension, Liver Disease, Memory Impairment, Musculoskeletal Disorder, Osteoarthritis (OA), Vascular Disorder Additional Past Medical History / Comment(s): hx of diverticulitis current antibiotic Encephalitis Menigitis. Hx Bladder CA, hx immunotherapy. DDD w/ CHRONIC PAIN, pain pump placed 05/21/19. BLE pain w/ claudication. PAD. HEPATITIS C 1994 est, treated 2016. 2014 CVA, 3 SMALLER ONES. History of Any Multi-Drug Resistant Organisms: None Reported Past Surgical History: Appendectomy, Hernia Repair, Orthopedic Surgery, Pacemaker Additional Past Surgical History / Comment(s): Lt CAROTID ENDARECTOMY 04/10/16 L femoral popliteal atherectomy with PTBA. Other surgical hx: abdominal aortagram w/ bilateral lower extremity runoffs x2, 2016 LIVER BX THIS YEAR. Liver biopsy - approx. 15-20 years ago. Bladder surg/scope. Pain Pump 05/21/19. bilateral knee arthroscopy Past Anesthesia/Blood Transfusion Reactions: Previous Problems w/ Anesthesia Additional Past Anesthesia/Blood Transfusion Reaction / Comment(s): After pain pump felt like "a hangover" Type of Cardiac Device: Permanent Pacemaker Device Placement Date:: 02-13-16 Past Psychological History: Anxiety, Depression Additional Psychological History / Comment(s): . Smoking Status: Current every day smoker Past Alcohol Use History: None Reported Additional Past Alcohol Use History / Comment(s): Started smoking he states in 1971- 06/10 ppd. Past Drug Use History: None Reported Additional Drug Use History / Comment(s): marijuana occasionally - Past Family History Mother Family Medical History: Cancer Additional Family Medical History / Comment(s): Skin cancer and lung cancer. Father Family Medical History: CVA/TIA Medications and Allergies Home Medications Medication Instructions Recorded Confirmed Type Tamsulosin HCl [Flomax] 0.4 mg PO DAILY 08/19/17 08/29/20 History Gabapentin [Neurontin] 400 mg PO TID 05/03/19 08/29/20 History Metoprolol Tartrate [Lopressor] 50 mg PO DAILY 05/03/19 08/29/20 History amLODIPine [Norvasc] 5 mg PO DAILY 05/03/19 08/29/20 History hydrALAZINE HCL [Apresoline] 25 tab PO BID 05/03/19 08/29/20 History Morphine Pain Pump 1 dose SQ CONTINUOUS 05/31/19 08/29/20 History Rivaroxaban [Xarelto] 20 mg PO HS 06/16/20 08/29/20 History DULoxetine HCL [Cymbalta] 60 mg PO BID 08/29/20 08/29/20 History Metoprolol Tartrate [Lopressor] 25 mg PO HS 08/29/20 08/29/20 History Allergies Allergy/AdvReac Type Severity Reaction Status Date / Time No Known Allergies Allergy Verified 08/29/20 13:40 Physical Exam Vitals: Vital Signs Temp Pulse Resp BP Pulse Ox 09/01/20 06:58 99.5 F 62 22 144/74 96 08/31/20 21:18 98.3 F 60 16 126/78 94 L 08/31/20 20:00 60 16 08/31/20 14:00 97.6 F 61 16 123/74 97 Intake and Output 08/31/20 09/01/20 09/01/20 22:59 06:59 14:59 Intake Total 522.567 Balance 522.567 Intake: Intake, IV Titration 42.567 Amount Heparin Sod,Pork in 0.45% 42.567 NaCl 25,000 unit In 0.45 % NaCl 1 250ml.bag @ 12 UNITS/KG/HR 6.532 mls/hr IV .Q24H [facility] Rx#: [id number] Oral 480 Other: # Voids 1 1 Results 09/01/20 08:38 08/30/20 15:51 Coagulation 08/31/20 08/31/20 08/31/20 Range/Units 11:24 16:00 22:45 PT 12.4 H (9.0-12.0) sec APTT 24.9 28.2 45.0 H (22.0-30.0) sec CBC 08/31/20 09/01/20 Range/Units 11:24 08:38 WBC 8.3 8.5 (3.8-10.6) k/uL RBC 4.40 4.62 (4.30-5.90) m/uL Hgb 13.2 13.7 (13.0-17.5) gm/dL Hct 39.4 41.2 (39.0-53.0) % Plt Count 168 171 (150-450) k/uL Current Medications Generic Name Dose Route Start Last Admin Trade Name Freq PRN Reason Stop Dose Admin Acetaminophen 650 mg 08/29/20 15:02 Acetaminophen Tab 325 Mg Tab PO Q6H PRN Mild Pain or Fever > 100.5 Amlodipine Besylate 5 mg 08/30/20 09:00 09/01/20 07:15 Amlodipine 5 Mg Tab PO 5 mg DAILY [facility] Administration Duloxetine HCl 60 mg 08/29/20 21:00 09/01/20 07:15 Duloxetine Hcl 60 Mg Capsule.Dr PO 60 mg BID [facility] Administration Gabapentin 400 mg 08/29/20 22:00 09/01/20 07:15 Gabapentin 400 Mg Cap PO 400 mg TID L[facility] Administration Heparin Sodium (Porcine) 0 unit 08/31/20 10:02 08/31/20 16:59 Heparin Sodium,Porcine 5,000 Unit/Ml 1 Ml Vial IV 2,720 unit PER PROTOCOL PRN Administration Low PTT Protocol Hydralazine HCl 25 mg 08/29/20 21:00 09/01/20 07:15 Hydralazine Hcl 25 Mg Tab PO 25 mg BID LYDIA Administration Hydromorphone HCl 0.5 mg 08/29/20 15:02 08/31/20 19:33 Hydromorphone 0.5 Mg/0.5 Ml Syringe IVP 0.5 mg Q3H PRN Administration Moderate Pain Sodium Chloride 1,000 mls @ 75 mls/hr 08/29/20 15:15 08/31/20 21:41 Saline 0.9% IV 75 mls/hr .[id number] [facility] Administration Heparin Sodium/Sodium Chloride 250 mls @ 6.532 mls/hr 08/31/20 10:15 08/31/20 16:55 25,000 unit/ Sodium Chloride IV 15 units/kg/hr .Q24H [facility] 8.165 mls/hr Titration Protocol 12 UNITS/KG/HR Metoprolol Tartrate 25 mg 08/29/20 21:00 08/31/20 21:40 Metoprolol Tartrate 25 Mg Tab PO 25 mg HS LYDIA Administration Metoprolol Tartrate 50 mg 08/30/20 09:00 09/01/20 07:15 Metoprolol Tartrate 50 Mg Tab PO 50 mg DAILY LYDIA Administration Miscellaneous Information 1 each 08/30/20 14:23 Rx Info: Iv Contrast Was Given 1 Each Misc MISCELLANE 09/01/20 14:23 DAILY PRN Per Protocol Morphine Sulfate 4 mg 08/29/20 15:02 09/01/20 07:16 Morphine Sulfate 4 Mg/Ml Syringe IV 4 mg Q4H PRN Administration Severe Pain Naloxone HCl 0.2 mg 08/29/20 15:02 Naloxone 0.4 Mg/Ml 1 Ml Vial IV Q2M PRN Opioid Reversal Nicotine 1 patch 08/30/20 15:45 09/01/20 07:15 Nicotine 21mg/24hr Patch TRANSDERM 1 patch DAILY LYDIA Administration Ondansetron HCl 4 mg 08/30/20 13:01 08/30/20 13:11 Ondansetron 4 Mg/2 Ml Vial IVP 4 mg Q6HR PRN Administration Nausea And Vomiting Pantoprazole Sodium 40 mg 08/31/20 22:15 09/01/20 07:15 Pantoprazole 40 Mg/10 Ml Vial IVP 40 mg DAILY LYDIA Administration Tamsulosin HCl 0.4 mg 08/30/20 09:00 09/01/20 07:15 Tamsulosin 0.4 Mg Cap.Er.24h PO 0.4 mg DAILY LYDIA Administration Tramadol HCl 50 mg 08/29/20 15:02 Tramadol 50 Mg Tab PO Q6H PRN Moderate Pain Intake and Output 08/31/20 09/01/20 09/01/20 22:59 06:59 14:59 Intake Total 522.567 Balance 522.567 Intake: Intake, IV Titration 42.567 Amount Heparin Sod,Pork in 0.45% 42.567 NaCl 25,000 unit In 0.45 % NaCl 1 250ml.bag @ 12 UNITS/KG/HR 6.532 mls/hr IV .Q24H [facility] Rx#: [id number] Oral 480 Other: # Voids 1 1 09/01/20 08:38 08/30/20 15:51
[2020-09-01] MEDS ORDERED: LACTATED RINGERS 1,000 ML IV ONE (16:35)
[2020-09-01] MEDS ORDERED: SODIUM CHLORIDE 0.9% 1,000 ML IV ONE (16:39)
--- NOTE | 2020-09-01 17:54 | P.OP ---
Date of Procedure: 09/01/20 Description of Procedure: SURGEON: MIAH MOLINA MD PREOPERATIVE DIAGNOSIS: 1. Left supraclavicular cervical lymphadenopathy. 2. Abnormal computed tomography scan for pancreatic neoplasm with epigastric abdominal pain 3. Hypertensive heart disease with congestive heart failure 4. Permanent pacemaker in situ 5. Splenic vein thrombosis 6. Underweight 7. Peripheral vascular occlusive disease 8. Depressive disorder 9. Chronic pain syndrome 10. Chronic anticoagulant therapy 11. History of hepatitis C 12. History of bladder cancer 13. History of transient ischemic attack 14. Recent coronavirus vaccination, 1 week POSTOPERATIVE DIAGNOSIS: 1. Left supraclavicular cervical lymphadenopathy. 2. Abnormal computed tomography scan for pancreatic neoplasm with epigastric abdominal pain 3. Hypertensive heart disease with congestive heart failure 4. Permanent pacemaker in situ 5. Splenic vein thrombosis 6. Underweight 7. Peripheral vascular occlusive disease 8. Depressive disorder 9. Chronic pain syndrome 10. Chronic anticoagulant therapy 11. History of hepatitis C 12. History of bladder cancer 13. History of transient ischemic attack 14. Recent coronavirus vaccination, 1 week OPERATION: 1. Excision of deep subfascial supraclavicular node cervical lymph node with bipolar ANESTHESIA: GETA with 50 mL ESTIMATED BLOOD LOSS: 5 mL. SPECIMENS REMOVED: Left supraclavicular node biopsy COMPLICATIONS: None. FINDINGS: 1. Subfascial supraclavicular adenopathy of the deep left neck INDICATIONS: The patient is a pleasant 70-year-old gentleman who presents with history of adenopathy of the neck including recent diagnosis of pancreatic neoplasm with possible metastases. Progressive oncology, supraclavicular lymph node biopsy was requested. Surgical options were discussed biopsy of the lymph node. Benefits and risk were described. Informed consent was obtained. DESCRIPTION OF PROCEDURE: Patient was brought into the operating room, laid in supine position. Bilateral SCDs for DVT prophylaxis had been confirmed. After general induction, the left shoulder and neck was prepped and draped in standard sterile fashion including Ioban. After timeout protocol was confirmed with the surgical team, a field block was created using local anesthetic was placed Additionally, please note preoperative medication particularly of IV antibiotics were given. A field block using local anesthetic was placed. Transverse 4 cm incision was made along the skin tension line using a #15 blade 2 fingerbreadths above the left clavicle. Using hemostats and minimal bipolar including battery-operated cautery, the lymph node was hard over 4-cm and clustered found in the deep fascia of the neck. Care was taken to avoid any injury to neurovascular structures. No rupture of the lymph node had occurred upon complete excision with bipolar device. The specimen was then passed off. Hemostasis was checked with electro- Bovie cautery. The final specimen was 3 cm in size. The skin was cleansed using dilute hydrogen peroxide. The wound was closed in layers with the deep fascia using 3-0 Vicryl in interrupted fashion. Next for the dermis 3-0 Vicryl interrupted fashion was placed. Finally, a 4-0 Monocryl in a running subcuticular fashion was placed. Once the wound was dry Exofin tape was placed. At the end of the procedure, needle, sponge and instrument counts had been verified correct by rn medical surgical. The patient was taken to the postanesthesia care unit in stable condition. The patient and family were pleased with level of care.
[2020-09-01] MEDS: METOPROLOL TARTRATE 25 MG TAB PO SCH (21:13)
[2020-09-02] MEDS: HYDROmorphone 0.5 MG/0.5 ML SYRINGE IVP PRN ×5 (01:46→23:34)
[2020-09-02 08:16] LABS: Basophils % (A) 0 %; Eosinophils % (A) 0 %; HCT 36.6 % (39.0-53.0); HGB 12.9 gm/dL (13.0-17.5); Lymphocytes # (A) 0.9 k/uL (1.0-4.8); Lymphocytes % (A) 8 %; MCHC 35.3 g/dL (31.0-37.0); MCV 87.7 fL (80.0-100.0); Monocytes # (A) 0.4 k/uL (0-1.0); Monocytes % (A) 4 %; Neutrophils # (A) 9.1 k/uL (1.3-7.7); Neutrophils % (A) 87 %; Platelet Count 167 k/uL (150-450); RBC 4.18 m/uL (4.30-5.90); RDW 12.7 % (11.5-15.5); WBC 10.5 k/uL (3.8-10.6)
[2020-09-02] MEDS: METOPROLOL TARTRATE 50 MG TAB PO SCH (08:44)
[2020-09-02] MEDS: polyethylene glycoL 3350 17 GM POWD.PACK PO SCH (08:44)
[2020-09-02] MEDS: DULoxetine HCL 60 MG CAPSULE.DR PO SCH ×2 (08:45→20:15)
[2020-09-02] MEDS: GABAPENTIN 400 MG CAP PO SCH ×3 (08:45→20:15)
[2020-09-02] MEDS: amLODIPine 5 MG TAB PO SCH (08:45)
[2020-09-02] MEDS: NICOTINE 21MG/24HR PATCH TRANSDERM SCH (08:45)
[2020-09-02] MEDS: hydrALAZINE HCL 25 MG TAB PO SCH ×2 (08:45→20:15)
[2020-09-02] MEDS: PANTOPRAZOLE 40 MG/10 ML VIAL IVP SCH (08:45)
[2020-09-02] MEDS: TAMSULOSIN 0.4 MG CAP.ER.24H PO SCH (08:46)
[2020-09-02] MEDS: RIVAROXABAN 20 MG TAB PO SCH (12:48)
--- NOTE | 2020-09-02 13:09 | P.PN ---
Subjective Progress Note Date: 09/02/20 CHIEF COMPLAINT: Cervical lymphadenopathy HISTORY OF PRESENT ILLNESS: The patient is a 70 year old male admitted for epigastric abdominal pain and abnormal computed tomography scan for pancreatic neoplasm. He had adenopathy along the left neck where cervical lymph node biopsy was requested by oncology team. He status post left supraclavicular node excisional biopsy, 09/01/2020. He is tolerating diet. He reports no moderate pain from his surgical site and no signs of bleeding. He is comfortable and eager to go home. REVIEW OF ORGAN SYSTEMS: BMI less than 20 and underweight. No fevers or chills. No dyspnea. No active chest pain. PHYSICAL EXAM: VITALS: Reviewed CONSTITUTIONAL: Well developed and in no acute distress. Cachectic, BMI less than 20. EYES: Conjuctivae without sclera icterus. Extraocular movements grossly intact. HEAD, EARS, NOSE, THROAT: Moist buccal mucosa. Head is atraumatic, normocephalic. Hears conversational speech. No nasal drainage. RESPIRATORY: Non-labored respirations and equal bilateral excursions. No gross wheezes. Pacemaker along left chest wall. CARDIOVASCULAR: Irregular rate and irregular rhythm with atrial fibrillation. ABDOMEN: Soft. Non-tender. Nondistended. NECK: Dressing along left neck clean dry and intact. No hematoma MUSCULOSKELETAL: Nail and fingers with good capillary refill. NEUROLOGIC: Cranial nerves II through XII grossly intact. No focal or lateralizing signs. PSYCH: Appropriate affect. Alert and oriented to person, place and time. CLINCAL LABS: Reviewed. Hemoglobin down 13.7-12.9. WBC normal 10.5. ASSESSMENT: 1. Abnormal computed tomography scan for pancreatic neoplasm 2. Clinical enlarged left supraclavicular lymph node in presence of neoplasm 3. Peripheral vascular occlusive disease 4. Atrial fibrillation 5. History of bladder cancer 6. Permanent pacemaker 7. Chronic anticoagulation 8. Splenic vein thrombosis 9. Coronavirus vaccination PLAN: 1. He has no signs of bleeding on exam and may start blood thinners. Recommend monitor hemoglobin while on heparin drip 2. Patient clear from a surgical standpoint for discharge on blood thinner with follow up in the office in 3 days. 3. Diet as tolerated. Objective - Vital Signs Vital signs: Vital Signs Temp 98.2 F 09/02/20 08:00 Pulse 60 09/02/20 08:00 Resp 20 09/02/20 08:00 BP 135/69 09/02/20 08:00 Pulse Ox 98 09/02/20 08:00 Intake & Output 09/01/20 09/02/20 09/02/20 18:59 06:59 18:59 Intake Total 1700 800 Output Total 5 Balance 1695 800 Intake: IV 1100 Intake, IV Titration 600 800 Amount Sodium Chloride 0.9% 1, 600 000 ml @ 75 mls/hr IV . [id number] [facility] Rx#:[id number] ceFAZolin 2 gm In Sodium 800 Chloride 0.9% 50 ml @ 100 mls/hr IVPB ONCE ONE Rx# :[id number] Output: Estimated Blood Loss 5 Other: Voiding Method Toilet Toilet Toilet # Voids 2 2 - Labs CBC & Chem 7: 09/02/20 07:44 08/30/20 15:51 Labs: Abnormal Lab Results - Last 24 Hours (Table) 09/02/20 Range/Units 07:44 RBC 4.18 L (4.30-5.90) m/uL Hgb 12.9 L (13.0-17.5) gm/dL Hct 36.6 L (39.0-53.0) % Neutrophils # 9.1 H (1.3-7.7) k/uL Lymphocytes # 0.9 L (1.0-4.8) k/uL Assessment and Plan (1) Abnormal CT of the abdomen Current Visit: Yes Status: Acute Code(s): R93.5 - ABN FINDINGS ON DX IMAGING OF ABD REGIONS, INC RETROPERITON SNOMED Code(s): 09553899814617112 (2) Chronic pain Current Visit: Yes Status: Acute Code(s): G89.29 - OTHER CHRONIC PAIN SNOMED Code(s): 64080273 (3) Supraclavicular adenopathy Current Visit: Yes Status: Acute Code(s): R59.0 - LOCALIZED ENLARGED LYMPH NODES SNOMED Code(s): 288070038 (4) Underweight Current Visit: Yes Status: Acute Code(s): R63.6 - UNDERWEIGHT SNOMED Code(s): 319874543 (5) Abdominal pain Current Visit: Yes Status: Acute Code(s): R10.9 - UNSPECIFIED ABDOMINAL PAIN SNOMED Code(s): 80715079 (6) History of hepatitis C Current Visit: Yes Status: Acute Code(s): Z86.19 - PERSONAL HISTORY OF OTHER INFECTIOUS AND PARASITIC DISEASES SNOMED Code(s): 07970419804124 (7) Pancreatic mass Current Visit: Yes Status: Acute Code(s): K86.89 - OTHER SPECIFIED DISEASES OF PANCREAS SNOMED Code(s): 361104810 (8) Splenic vein thrombosis Current Visit: Yes Status: Acute Code(s): I82.890 - ACUTE EMBOLISM AND THROMBOSIS OF OTHER SPECIFIED VEINS SNOMED Code(s): 67475037 (9) PAD (peripheral artery disease) Current Visit: No Status: Acute Code(s): I73.9 - PERIPHERAL VASCULAR DISEASE, UNSPECIFIED SNOMED Code(s): 066249381
[2020-09-02] MEDS: MORPHINE SULFATE 4 MG/ML SYRINGE IV PRN ×2 (14:58→21:20)
[2020-09-02] MEDS: SODIUM CHLORIDE 0.9% 1,000 ML IV SCH ×2 (15:08→23:34)
[2020-09-02] MEDS: METOPROLOL TARTRATE 25 MG TAB PO SCH (20:15)
--- NOTE | 2020-09-02 20:21 | P.PN ---
Subjective This is a pleasant 70-year-old patient who follows with Dr. Ramirez. Chronic stable medical conditions include essential hypertension, primary osteogen Boaz, BPH, and brought to disease, permanent pacemaker, depression, COPD, anxiety disorder, restless leg syndrome,. 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 Patient also has a pain pump. For close to at least 3 months she has been having increasing abdominal pain. Was in epigastric area. Pain does seem to radiate to the back has been progressively getting worse. Has some accompanying nausea. Has been losing weight. Appetite has gone down. No fever no chills. Does have a bowel movement every day. Patient's is at the bedside. 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 Also found to have left supra R lymphadenopathy and plan to have surgical resection for this lymph node tomorrow. He is on Zoloft at home which is helped now and placed on heparin drip, he was complaining of abdominal pain which is improved with heparin drip and IV pain medication we will keep it tonight for patient will be nothing by mouth and try to switch her to oral medication tomorrow. Patient has also splenic vein thrombosis on anticoagulation 09/01/2020 Patient with serial abdominal pain, mild nausea vomiting but did tolerate some diet. He is planned for left supra clavicular lymph node biopsy by surgery team. Head and neck ultrasound showing multiple lymphadenopathy of the neck. Patient was placed on heparin drip and held before the procedure. Change to Xarelto after the procedure once cleared by surgery team 09/02/2020 Patient is status post left supraclavicular lymph nodes biopsy by surgery team Today he was seen walking in his room with minimal abdominal pain and tolerated diet well Patient is aware of his diagnosis of pancreatic mass with elevated tumor markers, he is aware biopsy is pending Xarelto was started on the recommendation of surgery team Objective - Vital Signs Vital signs: Vital Signs Temp 97.8 F 09/02/20 14:00 Pulse 60 09/02/20 14:00 Resp 20 09/02/20 14:00 BP 124/67 09/02/20 14:00 Pulse Ox 98 03/27/21 14:00 Intake & Output 09/01/20 09/02/20 09/02/20 18:59 06:59 18:59 Intake Total 1700 800 Output Total 5 Balance 1695 800 Intake: IV 1100 Intake, IV Titration 600 800 Amount Sodium Chloride 0.9% 1, 600 000 ml @ 75 mls/hr IV . [id number] [facility] Rx#:[id number] ceFAZolin 2 gm In Sodium 800 Chloride 0.9% 50 ml @ 100 mls/hr IVPB ONCE ONE Rx# :[id number] Output: Estimated Blood Loss 5 Other: Voiding Method Toilet Toilet Toilet # Voids 2 2 - Exam GENERAL: The patient is alert and oriented x3, not in any acute distress. Well developed, well nourished. HEENT: Pupils are round and equally reacting to light. EOMI. No scleral icterus. No conjunctival pallor. Normocephalic, atraumatic. No pharyngeal erythema. No thyromegaly. CARDIOVASCULAR: S1 and S2 present. No murmurs, rubs, or gallops. PULMONARY: Chest is clear to auscultation, no wheezing or crackles. -ABDOMEN: Soft, upper abdominal tenderness with no rebound nontender, nondistended, normoactive bowel sounds. No palpable organomegaly. MUSCULOSKELETAL: No joint swelling or deformity. EXTREMITIES: No cyanosis, clubbing, or pedal edema. NEUROLOGICAL: Gross neurological examination did not reveal any focal deficits. SKIN: No rashes. no petechiae. - Labs CBC & Chem 7: 09/02/20 07:44 08/30/20 15:51 Labs: Abnormal Lab Results - Last 24 Hours (Table) 09/02/20 Range/Units 07:44 RBC 4.18 L (4.30-5.90) m/uL Hgb 12.9 L (13.0-17.5) gm/dL Hct 36.6 L (39.0-53.0) % Neutrophils # 9.1 H (1.3-7.7) k/uL Lymphocytes # 0.9 L (1.0-4.8) k/uL Assessment and Plan Assessment: -pancreatic mass with peritoneal lymphadenopathy, Strongly suspicious for pancreatic malignancy. With elevated tumor marker CA 19-9. Going for left supraclavicular lymph node biopsy -Secondary splenic vein thrombosis sepsis suspected secondary to the malignancy- related anticoagulation. Hold off xarelto. Start the patient on IV heparin -Essential hypertension, continue with hydralazine, Norvasc -Primary osteoarthritis, Tylenol as needed -BPH, on Flomax -Peripheral arterial disease, patient is on xarelto, we'll use IV heparin for now -Permanent pacemaker -Depression and anxiety not otherwise specified, continue Cymbalta -COPD in a smoker, use DuoNeb when necessary -Restless leg syndrome, on Neurontin DVT prophylaxis: On heparin drip and WISH to Xarelto GI prophylaxis:ppi Prognosis is guarded
[2020-09-03] MEDS: MORPHINE SULFATE 4 MG/ML SYRINGE IV PRN ×4 (06:54→19:45)
[2020-09-03 08:59] LABS: Basophils # (A) 0.03 X 10*3/uL (0.00-0.10); Basophils % (A) 0.3 %; Eosinophils # (A) 0.11 X 10*3/uL (0.04-0.35); Eosinophils % (A) 1.3 %; HCT 39.4 % (39.6-50.0); HGB 13.2 g/dL (13.0-17.0); Lymphocytes # (A) 2.23 X 10*3/uL (0.90-5.00); MCHC 33.5 g/dL (32.0-37.0); MCV 89.5 fL (80.0-97.0); Mean Platelet Volume 10.6 fL (9.5-12.2); Monocytes # (A) 0.46 X 10*3/uL (0.20-1.00); Monocytes % (A) 5.4 %; Neutrophils # (A) 5.75 X 10*3/uL (1.80-7.70); Neutrophils % (A) 66.9 %; Platelet Count 159 X 10*3/uL (140-440); WBC 8.59 X 10*3/uL (4.50-10.00)
[2020-09-03] MEDS: NICOTINE 21MG/24HR PATCH TRANSDERM SCH (09:10)
[2020-09-03] MEDS: TAMSULOSIN 0.4 MG CAP.ER.24H PO SCH (09:10)
[2020-09-03] MEDS: PANTOPRAZOLE 40 MG/10 ML VIAL IVP SCH (09:10)
[2020-09-03] MEDS: METOPROLOL TARTRATE 50 MG TAB PO SCH (09:10)
[2020-09-03] MEDS: hydrALAZINE HCL 25 MG TAB PO SCH ×2 (09:10→19:44)
[2020-09-03] MEDS: DULoxetine HCL 60 MG CAPSULE.DR PO SCH ×2 (09:10→19:44)
[2020-09-03] MEDS: GABAPENTIN 400 MG CAP PO SCH ×3 (09:11→19:45)
[2020-09-03] MEDS: amLODIPine 5 MG TAB PO SCH (09:11)
[2020-09-03] MEDS: polyethylene glycoL 3350 17 GM POWD.PACK PO SCH (09:15)
[2020-09-03] MEDS: SODIUM CHLORIDE 0.9% 1,000 ML IV SCH (13:04)
--- NOTE | 2020-09-03 15:40 | P.PN ---
Subjective Progress Note Date: 09/03/20 CHIEF COMPLAINT: Cervical lymphadenopathy HISTORY OF PRESENT ILLNESS: The patient is a 70 year old male admitted for epigastric abdominal pain and abnormal computed tomography scan for pancreatic neoplasm with possible metastases. He status post left supraclavicular node excisional biopsy, 09/01/2020. He is on blood thinners. No signs of bleeding. REVIEW OF ORGAN SYSTEMS: BMI less than 20 and underweight. No fevers or chills. No dyspnea. No active chest pain. PHYSICAL EXAM: VITALS: Reviewed CONSTITUTIONAL: Well developed and in no acute distress. Cachectic, BMI less than 20. EYES: Conjuctivae without sclera icterus. Extraocular movements grossly intact. HEAD, EARS, NOSE, THROAT: Moist buccal mucosa. Head is atraumatic, normocephalic. Hears conversational speech. No nasal drainage. RESPIRATORY: Non-labored respirations and equal bilateral excursions. No gross wheezes. Pacemaker along left chest wall. CARDIOVASCULAR: Irregular rate and irregular rhythm with atrial fibrillation. ABDOMEN: Soft. Non-tender. Nondistended. NECK: Dressing along left neck clean dry and intact. No hematoma MUSCULOSKELETAL: Nail and fingers with good capillary refill. NEUROLOGIC: Cranial nerves II through XII grossly intact. No focal or lateralizing signs. PSYCH: Appropriate affect. Alert and oriented to person, place and time. CLINCAL LABS: Reviewed. Hemoglobin down 13.7-12.9, up to 13.2. ASSESSMENT: 1. Abnormal computed tomography scan for pancreatic neoplasm 2. Clinical enlarged left supraclavicular lymph node in presence of neoplasm 3. Peripheral vascular occlusive disease 4. Atrial fibrillation 5. History of bladder cancer 6. Permanent pacemaker 7. Chronic anticoagulation 8. Splenic vein thrombosis 9. Coronavirus vaccination PLAN: 1. Patient stable from surgical standpoint for discharge. Objective - Vital Signs Vital signs: Vital Signs Temp 97.9 F 09/03/20 06:53 Pulse 60 09/03/20 08:00 Resp 16 09/03/20 08:00 BP 158/75 09/03/20 06:53 Pulse Ox 93 L 09/03/20 06:53 Intake & Output 09/02/20 09/03/20 09/03/20 18:59 06:59 18:59 Intake Total 600 Balance 600 Intake: IV 600 Sodium Chloride 0.9% 1, 600 000 ml @ 75 mls/hr IV . [id number] [facility] Rx#:[id number] Other: Voiding Method Toilet Toilet Toilet # Voids 2 - Labs CBC & Chem 7: 09/03/20 06:34 08/30/20 15:51 Labs: Abnormal Lab Results - Last 24 Hours (Table) 09/03/20 Range/Units 06:34 Hct 39.4 L (39.6-50.0) % Assessment and Plan (1) Abnormal CT of the abdomen Current Visit: Yes Status: Acute Code(s): R93.5 - ABN FINDINGS ON DX IMAGING OF ABD REGIONS, INC RETROPERITON SNOMED Code(s): 71990651917692158 (2) Chronic pain Current Visit: Yes Status: Acute Code(s): G89.29 - OTHER CHRONIC PAIN SNOMED Code(s): 47743866 (3) Supraclavicular adenopathy Current Visit: Yes Status: Acute Code(s): R59.0 - LOCALIZED ENLARGED LYMPH NODES SNOMED Code(s): 028395498 (4) Underweight Current Visit: Yes Status: Acute Code(s): R63.6 - UNDERWEIGHT SNOMED Code(s): 572183167 (5) Abdominal pain Current Visit: Yes Status: Acute Code(s): R10.9 - UNSPECIFIED ABDOMINAL PAIN SNOMED Code(s): 54105167 (6) History of hepatitis C Current Visit: Yes Status: Acute Code(s): Z86.19 - PERSONAL HISTORY OF OTHER INFECTIOUS AND PARASITIC DISEASES SNOMED Code(s): 56763548828757 (7) Pancreatic mass Current Visit: Yes Status: Acute Code(s): K86.89 - OTHER SPECIFIED DISEASES OF PANCREAS SNOMED Code(s): 456143927 (8) Splenic vein thrombosis Current Visit: Yes Status: Acute Code(s): I82.890 - ACUTE EMBOLISM AND THROMBOSIS OF OTHER SPECIFIED VEINS SNOMED Code(s): 52373495 (9) PAD (peripheral artery disease) Current Visit: No Status: Acute Code(s): I73.9 - PERIPHERAL VASCULAR DISEASE, UNSPECIFIED SNOMED Code(s): 698523025
[2020-09-03] MEDS ORDERED: bisacodyL 5 MG TABLET.DR PO PRN ×2 (16:40→20:07)
[2020-09-03] MEDS: RIVAROXABAN 20 MG TAB PO SCH (16:50)
[2020-09-03] MEDS: METOPROLOL TARTRATE 25 MG TAB PO SCH (19:45)
--- NOTE | 2020-09-03 20:26 | P.PN ---
Subjective This is a pleasant 70-year-old patient who follows with Dr. Ramirez. Chronic stable medical conditions include essential hypertension, primary osteogen Boaz, BPH, and brought to disease, permanent pacemaker, depression, COPD, anxiety disorder, restless leg syndrome,. 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 Patient also has a pain pump. For close to at least 3 months she has been having increasing abdominal pain. Was in epigastric area. Pain does seem to radiate to the back has been progressively getting worse. Has some accompanying nausea. Has been losing weight. Appetite has gone down. No fever no chills. Does have a bowel movement every day. Patient's is at the bedside. 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 Also found to have left supra R lymphadenopathy and plan to have surgical resection for this lymph node tomorrow. He is on Zoloft at home which is helped now and placed on heparin drip, he was complaining of abdominal pain which is improved with heparin drip and IV pain medication we will keep it tonight for patient will be nothing by mouth and try to switch her to oral medication tomorrow. Patient has also splenic vein thrombosis on anticoagulation 09/01/2020 Patient with serial abdominal pain, mild nausea vomiting but did tolerate some diet. He is planned for left supra clavicular lymph node biopsy by surgery team. Head and neck ultrasound showing multiple lymphadenopathy of the neck. Patient was placed on heparin drip and held before the procedure. Change to Xarelto after the procedure once cleared by surgery team 09/02/2020 Patient is status post left supraclavicular lymph nodes biopsy by surgery team Today he was seen walking in his room with minimal abdominal pain and tolerated diet well Patient is aware of his diagnosis of pancreatic mass with elevated tumor markers, he is aware biopsy is pending Xarelto was started on the recommendation of surgery team 09/03/2020 Patient is doing well however these having some abdominal pain today and was 7/10, he tolerates diet well however his complain of from constipation probably related to his pain medication, Dulcolax is added upon his request states that it usually works. Surgery team, the patient status post left supraclavicular lymph node biopsy and result pending, patient is aware. Surgery team already cleared The patient Xarelto was started and tolerated well by the patient. Hemoglobin is a stable and normal today Possible discharge in 24-48 hours of keeps improvement Objective - Vital Signs Vital signs: Vital Signs Temp 98.1 F 09/03/20 14:00 Pulse 61 09/03/20 14:00 Resp 16 09/03/20 14:00 BP 133/78 09/03/20 14:00 Pulse Ox 97 09/03/20 14:00 Intake & Output 09/02/20 09/03/20 09/03/20 18:59 06:59 18:59 Intake Total 600 200 Balance 600 200 Intake: IV 600 Sodium Chloride 0.9% 1, 600 000 ml @ 75 mls/hr IV . [id number] [facility] Rx#:[id number] Oral 200 Other: Voiding Method Toilet Toilet Toilet # Voids 2 - Exam GENERAL: The patient is alert and oriented x3, not in any acute distress. Well developed, well nourished. HEENT: Pupils are round and equally reacting to light. EOMI. No scleral icterus. No conjunctival pallor. Normocephalic, atraumatic. No pharyngeal erythema. No thyromegaly. CARDIOVASCULAR: S1 and S2 present. No murmurs, rubs, or gallops. PULMONARY: Chest is clear to auscultation, no wheezing or crackles. -ABDOMEN: Soft, upper abdominal tenderness with no rebound nontender, nondistended, normoactive bowel sounds. No palpable organomegaly. MUSCULOSKELETAL: No joint swelling or deformity. EXTREMITIES: No cyanosis, clubbing, or pedal edema. NEUROLOGICAL: Gross neurological examination did not reveal any focal deficits. SKIN: No rashes. no petechiae. - Labs CBC & Chem 7: 09/03/20 06:34 08/30/20 15:51 Labs: Abnormal Lab Results - Last 24 Hours (Table) 09/03/20 Range/Units 06:34 Hct 39.4 L (39.6-50.0) % Assessment and Plan Assessment: -pancreatic mass with peritoneal lymphadenopathy, Strongly suspicious for pancreatic malignancy. With elevated tumor marker CA 19-9. Going for left supraclavicular lymph node biopsy -Secondary splenic vein thrombosis sepsis suspected secondary to the malignancy- related anticoagulation. Hold off xarelto. Start the patient on IV heparin -Essential hypertension, continue with hydralazine, Norvasc -Primary osteoarthritis, Tylenol as needed -BPH, on Flomax -Peripheral arterial disease, patient is on xarelto, we'll use IV heparin for now -Permanent pacemaker -Depression and anxiety not otherwise specified, continue Cymbalta -COPD in a smoker, use DuoNeb when necessary -Restless leg syndrome, on Neurontin DVT prophylaxis: On heparin drip and WISH to Xarelto GI prophylaxis:ppi Prognosis is guarded
[2020-09-04] MEDS: HYDROcodone/APAP 7.5-325MG 1 EACH TAB PO PRN ×2 (01:31→07:22)
[2020-09-04] MEDS: SODIUM CHLORIDE 0.9% 1,000 ML IV SCH (03:39)
[2020-09-04 07:35] VITALS: RESP 19
[2020-09-04 07:56] VITALS: BP 159/86; PULSE 63; TEMP 98
[2020-09-04] MEDS: hydrALAZINE HCL 25 MG TAB PO SCH (08:14)
[2020-09-04] MEDS: polyethylene glycoL 3350 17 GM POWD.PACK PO SCH (08:15)
[2020-09-04] MEDS: GABAPENTIN 400 MG CAP PO SCH (08:15)
[2020-09-04] MEDS: TAMSULOSIN 0.4 MG CAP.ER.24H PO SCH (08:15)
[2020-09-04] MEDS: PANTOPRAZOLE 40 MG/10 ML VIAL IVP SCH (08:15)
[2020-09-04] MEDS: amLODIPine 5 MG TAB PO SCH (08:15)
[2020-09-04] MEDS: METOPROLOL TARTRATE 50 MG TAB PO SCH (08:15)
[2020-09-04] MEDS: NICOTINE 21MG/24HR PATCH TRANSDERM SCH (08:16)
[2020-09-04] MEDS: DULoxetine HCL 60 MG CAPSULE.DR PO SCH (08:48)
--- NOTE | 2020-09-04 13:05 | P.PN ---
Subjective Progress Note Date: 09/04/20 Principal diagnosis: stable for discharge home Objective - Vital Signs Vital signs: Vital Signs Temp 98.0 F 09/04/20 06:59 Pulse 63 09/04/20 06:59 Resp 19 09/04/20 07:27 BP 159/86 09/04/20 06:59 Pulse Ox 95 09/04/20 06:59 Intake & Output 09/03/20 09/04/20 09/04/20 18:59 06:59 18:59 Intake Total 800 240 Balance 800 240 Intake: IV 600 Sodium Chloride 0.9% 1, 600 000 ml @ 75 mls/hr IV . [id number] [facility] Rx#:[id number] Oral 200 240 Other: Voiding Method Toilet Toilet # Voids 1 - Labs CBC & Chem 7: 09/03/20 06:34 08/30/20 15:51 Assessment and Plan (1) Abnormal CT of the abdomen Current Visit: Yes Status: Acute Code(s): R93.5 - ABN FINDINGS ON DX IMAGING OF ABD REGIONS, INC RETROPERITON SNOMED Code(s): 22913864798435886 (2) Chronic pain Current Visit: Yes Status: Acute Code(s): G89.29 - OTHER CHRONIC PAIN SNOMED Code(s): 72063228 (3) Supraclavicular adenopathy Current Visit: Yes Status: Acute Code(s): R59.0 - LOCALIZED ENLARGED LYMPH NODES SNOMED Code(s): 349026814 (4) Underweight Current Visit: Yes Status: Acute Code(s): R63.6 - UNDERWEIGHT SNOMED Code(s): 625556737 (5) Abdominal pain Current Visit: Yes Status: Acute Code(s): R10.9 - UNSPECIFIED ABDOMINAL PAIN SNOMED Code(s): 03652038 (6) History of hepatitis C Current Visit: Yes Status: Acute Code(s): Z86.19 - PERSONAL HISTORY OF OTHER INFECTIOUS AND PARASITIC DISEASES SNOMED Code(s): 45072563945057 (7) Pancreatic mass Current Visit: Yes Status: Acute Code(s): K86.89 - OTHER SPECIFIED DISEASES OF PANCREAS SNOMED Code(s): 901360457 (8) Splenic vein thrombosis Current Visit: Yes Status: Acute Code(s): I82.890 - ACUTE EMBOLISM AND THROMBOSIS OF OTHER SPECIFIED VEINS SNOMED Code(s): 66589273 (9) PAD (peripheral artery disease) Current Visit: No Status: Acute Code(s): I73.9 - PERIPHERAL VASCULAR DISEASE, UNSPECIFIED SNOMED Code(s): 750540240
--- NOTE | 2020-09-04 22:09 | P.PN ---
Subjective Progress Note Date: 09/04/20 Principal diagnosis: Suspicious for metastatic cancer at bedside, patient sitting up eating salad, feels good and wants to go home. Still awaiting pathology and plan to follow-up with us next week. Objective - Vital Signs Vital signs: Vital Signs Temp 98.0 F 09/04/20 06:59 Pulse 63 09/04/20 06:59 Resp 19 09/04/20 07:27 BP 159/86 09/04/20 06:59 Pulse Ox 95 09/04/20 06:59 Intake & Output 09/04/20 09/04/20 09/05/20 06:59 18:59 06:59 Intake Total 240 Balance 240 Intake: Oral 240 Other: Voiding Method Toilet # Voids 1 - Exam - Constitutional General appearance: cooperative, no acute distress, thin - EENT Eyes: EOMI ENT: hard of hearing - Neck Neck: lymphadenopathy - Respiratory Respiratory: bilateral: diminished - Cardiovascular Rhythm: regularly irregular - Gastrointestinal General gastrointestinal: soft, tenderness - Integumentary Integumentary: pale - Musculoskeletal Musculoskeletal: generalized weakness - Psychiatric Psychiatric: A&O x's 3, appropriate affect - Labs CBC & Chem 7: 09/03/20 06:34 08/30/20 15:51 Assessment and Plan (1) Pancreatic mass Status: Acute Code(s): K86.89 - OTHER SPECIFIED DISEASES OF PANCREAS SNOMED Code(s): 722051451 Plan: Assessment and Recommendations: CT Chest with contrast for initial staging with small bilateral pulm nodules. Left Supraclavicular Lymph Node palpable -Status post biopsy excisional awaiting path to note recent covid vaccine Folow-up in 1-2 weeks in office to review pathology and decide further diagnostics versus treatment plan, discussed with and patient and planning on discharge today, discussed with primary team.
--- NOTE | 2020-09-05 00:15 | P.DS ---
Providers Date of admission: 08/29/20 14:49 Attending physician: Jerardo Haas Consults: 08/29/20 15:02 Consult Physician Stat Consulting Provider: Pranav Iqbal Consult Reason/Comments: Pancreatic mass Do you want consulting provider notified?: Yes 08/30/20 15:07 Consult Physician Routine Consulting Provider: Yohana Alegria Consult Reason/Comments: Left supraclavicular lymph node biopsy Do you want consulting provider notified?: Yes 09/01/20 09:03 Consult Physician Stat Consulting Provider: Guero Romero Consult Reason/Comments: Pacemaker assessment for surgery Do you want consulting provider notified?: Yes Primary care physician: [facility] Course: Diagnoses: -pancreatic mass with retroperitoneal lymphadenopathy, Strongly suspicious for pancreatic malignancy. With elevated tumor marker CA 19-9. s/p left supraclavicular lymph node biopsy -Secondary splenic vein thrombosis sepsis suspected secondary to the malignancy- related anticoagulation. on xarelto. -Essential hypertension -Primary osteoarthritis -BPH -Peripheral arterial disease -Permanent pacemaker -Depression and anxiety -COPD in a smoker, -Restless leg syndrome Hospital course: This is a pleasant 70 years old male who presents with abdominal pain for 3 months found to have pancreatic mass 3.8 x 3.5 with SMA encasement on CT of the abdomen and pelvis associated with abdominal retroperitoneal lymphadenopathy and elevated tumor marker CA 199 NTG while lipase only mildly elevated at 381. Also found to have supra-clavicular Lymphadenopathy status post surgical biopsy with results of the biopsy still pending. Patient abdominal pain is controlled and tolerated by the patient is able to eat. He has bowel movement yesterday with laxative. Patient is welcome to home with no difficulty patient feels he is ready to go home. He denies any other symptoms. He denies chest pain or dyspnea or coughing. No change in urine habits. No fever Patient was cleared for discharge by both oncology and surgery teams I had a lengthy discussion with the patient and at bedside, they're aware of the pancreatic mass and the lymph node biopsy result is pending, I told them it is highly suspicious for malignancy given increased tumor markers, they verbalized understanding and acceptance. Also they agree with the recommendation for close outpatient follow-up with the surgeon Dr. Asher wi th the biopsy for her and Dr. Iqbal office which is indication so the office will call him for appointment However I called his PCP Dr. Ramirez and I discussed the case with him and the possibility of pancreatic cancer pending lymph node biopsy and he kindly took note of this, also his office provided an appointment for him on 09/11, I talked to the patient and at bedside and they agree with this appointment and state they will follow up. Problems and management plan were discussed with the patient and he verbalized understanding and acceptance Patient was found stable and can be discharged home however he needs follow-up as an outpatient. Patient was instructed to follow up with PCP Dr. Ramirez as above and other consultants as above and patient and both agree Physical exam Gen: patient is a AAOx3, no distress CVS: S1-S2, RRR, no murmur Lungs: B/L CTA, no wheezing Abdomen: soft, no distention, no tenderness, positive bowel sounds Extremity: no leg edema or induration Time spent more than 35 minutes Patient Condition at Discharge: Stable Plan - Discharge Summary New Discharge Prescriptions: New HYDROcodone/APAP 5-325MG [[place] 5-325] 1 tab PO Q6HR PRN 3 Days #12 tab PRN Reason: Severe Pain Pantoprazole Sodium [Protonix] 40 mg PO DAILY #21 tablet. bisacodyL [Dulcolax] 10 mg PO DAILY PRN #10 tablet. PRN Reason: Constipation Continue Tamsulosin HCl [Flomax] 0.4 mg PO DAILY amLODIPine [Norvasc] 5 mg PO DAILY hydrALAZINE HCL [Apresoline] 25 tab PO BID Gabapentin [Neurontin] 400 mg PO TID Metoprolol Tartrate [Lopressor] 50 mg PO DAILY Morphine Pain Pump 1 dose SQ CONTINUOUS Rivaroxaban [Xarelto] 20 mg PO HS DULoxetine HCL [Cymbalta] 60 mg PO BID Metoprolol Tartrate [Lopressor] 25 mg PO HS Discharge Medication List Tamsulosin HCl [Flomax] 0.4 mg PO DAILY 08/19/17 [History] Gabapentin [Neurontin] 400 mg PO TID 05/03/19 [History] Metoprolol Tartrate [Lopressor] 50 mg PO DAILY 05/03/19 [History] amLODIPine [Norvasc] 5 mg PO DAILY 05/03/19 [History] hydrALAZINE HCL [Apresoline] 25 tab PO BID 05/03/19 [History] Morphine Pain Pump 1 dose SQ CONTINUOUS 05/31/19 [History] Rivaroxaban [Xarelto] 20 mg PO HS 06/16/20 [History] DULoxetine HCL [Cymbalta] 60 mg PO BID 08/29/20 [History] Metoprolol Tartrate [Lopressor] 25 mg PO HS 08/29/20 [History] HYDROcodone/APAP 5-325MG [[place] 5-325] 1 tab PO Q6HR PRN 3 Days #12 tab 09/04/20 [Rx] Pantoprazole Sodium [Protonix] 40 mg PO DAILY #21 tablet. 09/04/20 [Rx] bisacodyL [Dulcolax] 10 mg PO DAILY PRN #10 tablet. 09/04/20 [Rx] Follow up Appointment(s)/Referral(s): Pranav Iqbal MD [STAFF PHYSICIAN] - 1 Week (Office will call with appointment.) Cheo Ramirez MD [Primary Care Provider] - 09/11/20 2:00 pm Yohana Alegria MD [STAFF PHYSICIAN] - 09/05/20 Patient Instructions/Handouts: Abdominal Pain (ED), Lymph Node Biopsy (DC) Activity/Diet/Wound Care/Special Instructions: DO NOT REMOVE DRESSING! No lifting over 10 pounds in 2 weeks until September 15. May shower. No bath tub soaks for two weeks until September 15 Diet as tolerated. Use Tylenol and ibuprofen or Aleve scheduled for the next 24-48 hours for best pain relief. Use ice along incisions for today to prevent swelling. Discharge Disposition: HOME SELF-CARE
== END 2020-09-04 14:35 | disposition home or self-care (01) | DRG 987 ==
LOC: EC 11:31 → 5NMEDONC 14:49 → 6NMEDSUR 23:25
PROVIDERS: ADMIT Hospitalist; ATTEND Hospitalist
PROC: 07B60ZX Excision of Left Axillary Lymphatic, Open Approach, Diagnostic (ICD-10-PCS; principal; 2020-09-01 14:55)
DX: C25.9 Malignant neoplasm of pancreas, unspecified (principal); A41.9 Sepsis, unspecified organism; I82.890 Acute embolism and thrombosis of other specified veins; Z68.1 Body mass index [BMI] 19.9 or less, adult; R10.9 Unspecified abdominal pain; Z85.51 Personal history of malignant neoplasm of bladder; Z79.01 Long term (current) use of anticoagulants; F17.200 Nicotine dependence, unspecified, uncomplicated; I10 Essential (primary) hypertension; N40.0 Benign prostatic hyperplasia without lower urinary tract symptoms; J44.9 Chronic obstructive pulmonary disease, unspecified; F41.9 Anxiety disorder, unspecified; G25.81 Restless legs syndrome; F32.9 Major depressive disorder, single episode, unspecified; Z86.73 Personal history of transient ischemic attack (TIA), and cerebral infarction without residual deficits; M19.90 Unspecified osteoarthritis, unspecified site; Z80.8 Family history of malignant neoplasm of other organs or systems; Z80.1 Family history of malignant neoplasm of trachea, bronchus and lung; R59.0 Localized enlarged lymph nodes; M54.9 Dorsalgia, unspecified; I48.91 Unspecified atrial fibrillation; Z95.0 Presence of cardiac pacemaker; R63.6 Underweight; E78.5 Hyperlipidemia, unspecified; Z86.19 Personal history of other infectious and parasitic diseases; I73.9 Peripheral vascular disease, unspecified; I11.0 Hypertensive heart disease with heart failure; I50.9 Heart failure, unspecified; G89.4 Chronic pain syndrome
CPT/HCPCS: 36415; 71045; 71260; 74177; 76536; 80053; 81003; 82150; 82565; 83690; 84520; 85025; 85610; 85730; 86301; 87635; 88305; 88341; 88342; 93005; 96361; 96374; 96375; 96376; 99285

== ENCOUNTER → 2020-09-22 | Outpatient (CLI) | payer MEDICARE ==
--- NOTE | 2020-09-25 12:54 | PE ---
EXAMINATION TYPE: PET CT fusion skull to thigh DATE OF EXAM: 09/22/2020 COMPARISON: Chest CT August 30, 2020. CT abdomen and pelvis August 29, 2020. Older CTs. HISTORY: Pancreatic cancer. TECHNIQUE: Following the intravenous administration of 13.17 mCi of F-18 FDG, whole body images are performed from the skull base to the midthigh. Images are reviewed on the computer in the coronal, a xial, and sagittal planes. Reconstructed rotating images are created on independent workstation and reviewed on the computer. A localization and attenuation correction CT is performed in conjunction with the PET scan. Blood glucose level was 97. SCAN: Initial Scan FINDINGS: SKULL BASE AND NECK: Abnormal left supraclavicular and neck adenopathy beginning at level of hyoid bone extending through the level of vocal cords. For reference there is hypermetabolic 1.9 x 1.8 cm lymph node just above th e hyoid bone axial image 45, max SUV is 5.19. For reference there is 2.7 x 1.9 cm hypermetabolic lymp h node at level of vocal cord axial image 54, max SUV is 6.06. CHEST, MEDIASTINUM, AND HILAR REGION: Hypermetabolic enlarged left axillary lymph nodes are present, for reference there is 2.6 x 1.4 cm lymph node posterior to inferior pacemaker axial image 69, max COLEY V is 5.54. Some suspicious prominent breast subcentimeter mildly hypermetabolic right axillary lymph nodes are p resent, for reference there is 11 x 9 mm lymph node axial image 70 noted. The max SUV less than 2.5. No additional areas of abnormal hypermetabolic uptake. No suspicious nodules. ABDOMEN AND PELVIS: Abnormal uptake in the biopsy-proven neoplasm mid body just left of midline measu ring roughly 4.1 x 3.6 cm current study image 141, max SUV is 5.26. Abnormal hypermetabolic uptake in the enlarged retrocrural 2.1 x 2.1 cm lymph node axial image 147, m ax SUV is 7.03. Additional abnormal hypermetabolic retroperitoneal lymph nodes extend left periaortic region and into the iliac bifurcation on the left, max SUV is 5.74 on axial image 162. OSSEOUS STRUCTURES: No areas of abnormal hypermetabolic uptake. OTHER CT: There is suspected stent in the right carotid artery at level of carotid bulb, correlate cl inically. Ventricular prominence and low attenuation in the periventricular white matter in the visua lized brain parenchyma corresponds to CT June 09. Dual-lead pacemaker redemonstrated. Enlarged pulmonary arteries, CT findings consistent with underlyi ng pulmonary artery hypertension. Tiny pericardial effusion anterior inferior aspect. Some nonobstructing renal calculi bilaterally. Moderate to severe calcified plaque of the aorta exten ds into branch vessels. Stimulator device overlies anterior left midabdomen. Bladder shows mild to mo derate concentric wall thickening with posterior left diverticulum axial image 207. Mildly enlarged p rostate consistent with BPH bulging of the bladder base. Sigmoid colonic diverticulosis. Moderate to severe spurring and disc space narrowing L1-L2 and L2-L3 levels. Multilevel facet arthrop athy in the lower lumbar spine. Slight underlying scoliotic curvature. Moderate to severe narrowing o f both hip joints. IMPRESSION: Findings consistent with metastatic pancreatic cancer as detailed above with retrocrural and retroperitoneal adenopathy. There is left neck metastatic disease. There is possible bilateral hi lar involvement more suspicious on the left.
== END | disposition home or self-care (01) ==
LOC: RADPETMAIN 12:06
PROVIDERS: ATTEND Internal Medicine Hematology & Oncology
DX: C25.1 Malignant neoplasm of body of pancreas (principal); C77.0 Secondary and unspecified malignant neoplasm of lymph nodes of head, face and neck
CPT/HCPCS: 78815; A9552

== ENCOUNTER 2020-09-25 07:16 | Day surgery (SDC) | payer MEDICARE ==
[2020-09-20 12:25] VITALS: BMI 18.6
[~2020-09-25 07:16] MED LIST changes: +ACETAMINOPHEN TAB 325 MG TAB PO PRN; +LACTATED RINGERS 1,000 ML IV SCH; +LIDOCAINE 1% (10MG/ML) FOR IV START INTRADERMA PRN; +ONDANSETRON 4 MG/2 ML VIAL IVP PRN; +Pre Op ABX Message 1 EACH MISC MISCELLANE ONE; -SODIUM CHLORIDE 0.9% 1,000 ML in EMPTY BAG 1 BAG IV ONE
--- NOTE | 2020-09-25 07:16 | P.GSHP ---
History of Present Illness H&P Date: 09/25/20 CHIEF COMPLAINT: Pancreatic cancer HISTORY OF PRESENT ILLNESS: The patient is a 70-year-old male diagnosed with pancreatic cancer. He needs a Mediport placement for chemotherapy. PAST MEDICAL HISTORY: See list PAST SURGICAL HISTORY: See list CURRENT MEDICATIONS: See list. ALLERGIES: See list. SOCIAL HISTORY: No active tobacco or alcohol use. FAMILY HISTORY: Noncontributory. REVIEW OF ORGAN SYSTEMS: CONSTITUTIONAL: Has weight loss. PHYSICAL EXAMINATION: Vital signs: Stable GENERAL: Well developed and in no acute distress. Pleasant. HEENT: No sclera icterus. Extraocular movements grossly intact. Moist buccal mucosa. Head is atraumatic, normocephalic. Hears conversational speech. No nasal drainage. NECK: Supple with lymphadenopathy. No JV distention. CHEST: Non-labored respirations and equal bilateral excursions. CARDIOVASCULAR: Regular rate and rhythm. Palpable 2+ radial pulses. ABDOMEN: Nontender. MUSCULOSKELETAL: No clubbing, cyanosis or edema. NEUROLOGIC: No focal or lateralizing signs. PSYCH: Appropriate affect. Alert and oriented to person, place and time. ASSESSMENT: 1. Pancreatic cancer 2. Need for chemotherapeutic access. PLAN: 1. Agree with Port-A-Cath placement. Past Medical History Past Medical History: Cancer, Chest Pain / Angina, CVA/TIA, Hypertension, Liver Disease, Memory Impairment, Musculoskeletal Disorder, Osteoarthritis (OA), Vascular Disorder Additional Past Medical History / Comment(s): pancreatic mass, hx of diverticulitis, Encephalitis Menigitis. Hx Bladder CA, hx immunotherapy. DDD w/ CHRONIC PAIN, pain pump placed 05/21/19. BLE pain w/ claudication. PAD. HEPATITIS C 1993 est, treated 2016. 2014 CVA, 3 SMALLER ONES. History of Any Multi-Drug Resistant Organisms: None Reported Past Surgical History: Appendectomy, Hernia Repair, Orthopedic Surgery, Pacemaker Additional Past Surgical History / Comment(s): lymph node bx 09/01/20, Lt CAROTID ENDARECTOMY 04/10/16 L femoral popliteal atherectomy with PTBA. abdominal aortagram w/ bilateral lower extremity runoffs x2, 2016 LIVER BX THIS YEAR. Liver biopsy -approx. 15-20 years ago. Bladder surg/scope. Pain Pump 05/21/19. bilateral knee arthroscopy Past Anesthesia/Blood Transfusion Reactions: Previous Problems w/ Anesthesia Additional Past Anesthesia/Blood Transfusion Reaction / Comment(s): After pain pump felt like "a hangover" Type of Cardiac Device: Permanent Pacemaker Device Placement Date:: 02-13-16 Smoking Status: Current every day smoker - Past Family History Mother Family Medical History: Cancer Additional Family Medical History / Comment(s): Skin cancer and lung cancer. Father Family Medical History: CVA/TIA Medications and Allergies Home Medications Medication Instructions Recorded Confirmed Type Tamsulosin HCl [Flomax] 0.4 mg PO DAILY 08/19/17 09/20/20 History Gabapentin [Neurontin] 400 mg PO TID 05/03/19 09/20/20 History Metoprolol Tartrate [Lopressor] 50 mg PO DAILY 05/03/19 09/20/20 History amLODIPine [Norvasc] 5 mg PO DAILY 05/03/19 09/20/20 History hydrALAZINE HCL [Apresoline] 25 tab PO BID 05/03/19 09/20/20 History Morphine Pain Pump 1 dose SQ CONTINUOUS 05/31/19 09/20/20 History Rivaroxaban [Xarelto] 20 mg PO HS 06/16/20 09/20/20 History DULoxetine HCL [Cymbalta] 60 mg PO BID 08/29/20 09/20/20 History Metoprolol Tartrate [Lopressor] 25 mg PO HS 08/29/20 09/20/20 History Pantoprazole Sodium [Protonix] 40 mg PO DAILY #21 tablet. 09/04/20 09/20/20 Rx bisacodyL [Dulcolax] 10 mg PO DAILY PRN #10 tablet. 09/04/20 09/20/20 Rx oxyCODONE-APAP 10-325MG [Percocet 1 tab PO Q8HR PRN 09/20/20 09/20/20 History 10-325 mg] Allergies Allergy/AdvReac Type Severity Reaction Status Date / Time No Known Allergies Allergy Verified 09/20/20 12:16
[2020-09-25 07:38] VITALS: TEMP 97.2
[2020-09-25] MEDS ORDERED: PROPOFOL 10 MG/ML 20 ML VIAL IV ONE (09:01)
[2020-09-25] MEDS ORDERED: MIDAZOLAM 2 MG/2 ML VIAL ONE (09:01)
[2020-09-25] MEDS ORDERED: KETAMINE 10 MG/ML 20 ML VIAL ONE (09:01)
[2020-09-25] MEDS ORDERED: fentaNYL (PF) 50 MCG/ML 2 ML AMP ONE (09:01)
[2020-09-25] MEDS ORDERED: LACTATED RINGERS 1,000 ML IV ONE ×2 (09:40)
[2020-09-25] MEDS ORDERED: LIDOCAINE 1%-EPI 1:100,000 20 ML VIAL SQ ONE ×2 (09:41)
[2020-09-25] MEDS ORDERED: HEPARIN SODIUM,PORCINE 10,000 UNIT/ML 1 ML VIAL IV ONE (09:42)
[2020-09-25] MEDS ORDERED: HEPARIN SODIUM,PORCINE 100 UNIT/ML 5 ML VIAL IV ONE (09:42)
[2020-09-25 10:22] VITALS: RESP 16
--- NOTE | 2020-09-25 10:27 | P.OP ---
Date of Procedure: 09/25/20 Description of Procedure: SURGEON: YOHANA ALEGRIA MD RETORT SETTER: None. PREOPERATIVE DIAGNOSES: 1. Pancreatic cancer 2. Need for chemotherapeutic access. 3. Left supraclavicular cervical lymphadenopathy. 4. Permanent pacemaker in situ 5. Splenic vein thrombosis 6. Underweight 7. Peripheral vascular occlusive disease 8. Depressive disorder 9. Chronic pain syndrome 10. Chronic anticoagulant therapy 11. History of hepatitis C 12. History of bladder cancer 13. History of transient ischemic attack 14. Recent coronavirus vaccination 15. Hypertensive heart disease with congestive heart failure POSTOPERATIVE DIAGNOSES: 1. Pancreatic cancer 2. Need for chemotherapeutic access. 3. Left supraclavicular cervical lymphadenopathy. 4. Permanent pacemaker in situ 5. Splenic vein thrombosis 6. Underweight 7. Peripheral vascular occlusive disease 8. Depressive disorder 9. Chronic pain syndrome 10. Chronic anticoagulant therapy 11. History of hepatitis C 12. History of bladder cancer 13. History of transient ischemic attack 14. Recent coronavirus vaccination 15. Hypertensive heart disease with congestive heart failure PROCEDURES PERFORMED: 1. Ultrasound guided central venous access of the right internal jugular venous vein. 2. Fluoroscopic guidance for central venous access right internal jugular vein 2 seconds. 3. Placement of right internal jugular power port 6 [place] by Bard. ANESTHESIA: IV sedation with local anesthetic. ESTIMATED BLOOD LOSS: 1 mL. SPECIMENS REMOVED: None. COMPLICATIONS: None. INDICATIONS: The patient is a 70-year-old male recently diagnosed with pancreatic cancer. He presents for chemotherapeutic access. Benefits and risks of surgical intervention were described including bleeding, infection, mechanical problems with her port. Informed consent was obtained. DESCRIPTION OR PROCEDURE: The patient was brought into the operating room, laid in supine position. After adequate IV sedation, the chest and right neck were prepped and draped in a standard sterile fashion including the shoulder with ChloraPrep. Timeout protocol was confirmed with the surgical team regarding the patient's name, procedure to be performed including preoperative medications for which he received Ancef 2 g IV piggyback. Bilateral SCDs were placed. An ultrasound was used to capture views of the right internal jugular vein including right carotid artery, which was patent and without thrombus along its course. The right IJ was then localized using anesthetic for the skin. A 16 [place] needle was used to access the IJ. The needle was advanced into the IJ with successful dark nonpulsatile venous blood. A J-wire was placed however with initial resistance. A repeat stick demonstrated arterial bleeding controlled with pressure. The needle was adjusted and the guidewire was passed. To control for bleeding, bipolar and hand-held battery operated cautery was used. The skin was generally localized using anesthetic along the proposed port site as well as subcutaneous tract. Two fingerbreadths distal to the clavicle, on the lateral third, a transverse 2-cm incision was deepened into the skin after localizing the skin. A pocket was created for the port. The port on the back table was flushed with heparinized saline and then attached to the catheter tubing. An adapter was fastened to the port site over the tubing. The port easily had fit snug into the pocket. A subcutaneous tunneler was placed along the open end of the tubing and brought out through the separate stab incision. Fluoroscopic guidance confirmed no kinking along the tubing and the port site. Next, the J-wire was exchanged for a catheter sheath for which the tubing was cut to 25 cm and then advanced through the catheter sheath. The Peel-away sheath was then removed and the tubing was secured at the junction of the superior vena cava as well as the right atrium. Easy pullback of the syringe with return and aspiration was obtained of the port. The skin incision was closed using layers using 3-0 Vicryl for the subcu followed by 4-0 Monocryl in a running subcuticular fashion. At the stick site this was also reapproximated using 4-0 Monocryl. The skin was cleansed and Exofin was applied. The incisions were covered with Optifoam. A total of 20 mL of local anesthetic was placed. At the end of the procedure, needle, sponge, and instrument count was verified correct by certified composites technician. Heparin lock of 5 mL was placed. The patient was awoken and pain free and taken to the second stage postanesthesia care unit. The patient tolerated the procedure well. FINDINGS: 1. No thrombus encountered along the right carotid artery or right internal jugular vein. 2. Access of the right internal jugular vein under ultrasound guidance. 3. Fluoroscopy of 2 seconds. 4. Final fluoroscopic image confirmed no mechanical kink of the port site or at the junction at the skin puncture site. Plan - Discharge Summary Discharge Rx Participant: Yes New Discharge Prescriptions: Continue Tamsulosin HCl [Flomax] 0.4 mg PO DAILY amLODIPine [Norvasc] 5 mg PO DAILY hydrALAZINE HCL [Apresoline] 25 tab PO BID Gabapentin [Neurontin] 400 mg PO TID Metoprolol Tartrate [Lopressor] 50 mg PO DAILY Morphine Pain Pump 1 dose SQ CONTINUOUS Rivaroxaban [Xarelto] 20 mg PO HS Pantoprazole Sodium [Protonix] 40 mg PO DAILY #21 tablet. oxyCODONE-APAP 10-325MG [Percocet 10-325 mg] 1 tab PO Q8HR PRN PRN Reason: Pain DULoxetine HCL [Cymbalta] 60 mg PO BID Metoprolol Tartrate [Lopressor] 25 mg PO HS bisacodyL [Dulcolax] 10 mg PO DAILY PRN #10 tablet. PRN Reason: Constipation Discharge Medication List Tamsulosin HCl [Flomax] 0.4 mg PO DAILY 08/19/17 [History] Gabapentin [Neurontin] 400 mg PO TID 05/03/19 [History] Metoprolol Tartrate [Lopressor] 50 mg PO DAILY 05/03/19 [History] amLODIPine [Norvasc] 5 mg PO DAILY 05/03/19 [History] hydrALAZINE HCL [Apresoline] 25 tab PO BID 05/03/19 [History] Morphine Pain Pump 1 dose SQ CONTINUOUS 05/31/19 [History] Rivaroxaban [Xarelto] 20 mg PO HS 06/16/20 [History] DULoxetine HCL [Cymbalta] 60 mg PO BID 08/29/20 [History] Metoprolol Tartrate [Lopressor] 25 mg PO HS 08/29/20 [History] Pantoprazole Sodium [Protonix] 40 mg PO DAILY #21 tablet. 09/04/20 [Rx] bisacodyL [Dulcolax] 10 mg PO DAILY PRN #10 tablet. 09/04/20 [Rx] oxyCODONE-APAP 10-325MG [Percocet 10-325 mg] 1 tab PO Q8HR PRN 09/20/20 [History] Follow up Appointment(s)/Referral(s): Yohana Alegria MD [STAFF PHYSICIAN] - As Needed (Follow up with oncologist) Patient Instructions/Handouts: Implanted Venous Access Port (DC), How to Care for Your Implanted Venous Access Port (DC) Activity/Diet/Wound Care/Special Instructions: DO NOT START TAKING BLOOD THINNER XARELTO UNTIL FRIDAY, SEPTEMBER 28 Remove dressing on September 29. May shower. No bathtub soaks for 2 weeks,October 09 No wide motions of the right arm to prevent dislodge of your port for 3 weeks. EXPECT BRUISING AND SLEEP WITH 2 TO 3 PILLOWS. BRUISING RESOLVES IN 2 TO 3 WEEKS. Take Tylenol for pain as needed Discharge Disposition: HOME SELF-CARE
[2020-09-25 10:37] VITALS: BP 125/74; PULSE 60
--- NOTE | 2020-09-25 11:19 | XR ---
EXAMINATION TYPE: XR chest 1V confirm line plcma DATE OF EXAM: 09/25/2020 COMPARISON: 09/01/2020 HISTORY: 70-year-old male line placement TECHNIQUE: Single frontal view of the chest is obtained. FINDINGS: Left anterior chest wall pacemaker generator with right atrial and right ventricular leads. Interval placement of right anterior chest wall injection port. Catheter tip is at the lower SVC level. Heart normal size. There are scattered microcalcifications. Hyperinflation. No consolidation or pleural effusion. IMPRESSION: 1. Right anterior chest wall injection port. Catheter tip at the lower SVC. 2. COPD. No acute process seen.
--- NOTE | 2020-09-25 13:15 | FL ---
Fluoroscopy HISTORY: Right-sided Port-A-Cath placement 2 seconds fluoroscopy time supplied to the referring clinician. 1 intraoperative C-arm images docume nt the procedure. See dictated report from general surgery.
== END 2020-09-25 11:29 | disposition home or self-care (01) ==
LOC: OR 07:16
PROVIDERS: ATTEND Surgery Plastic and Reconstructive Surgery
DX: C25.9 Malignant neoplasm of pancreas, unspecified (principal); R59.0 Localized enlarged lymph nodes; Z95.0 Presence of cardiac pacemaker; D73.5 Infarction of spleen; R63.6 Underweight; Z68.1 Body mass index [BMI] 19.9 or less, adult; I73.9 Peripheral vascular disease, unspecified; I11.0 Hypertensive heart disease with heart failure; I50.9 Heart failure, unspecified; R41.3 Other amnesia; M19.90 Unspecified osteoarthritis, unspecified site; F32.9 Major depressive disorder, single episode, unspecified; G89.4 Chronic pain syndrome; Z96.89 Presence of other specified functional implants; Z86.19 Personal history of other infectious and parasitic diseases; Z85.51 Personal history of malignant neoplasm of bladder; Z86.73 Personal history of transient ischemic attack (TIA), and cerebral infarction without residual deficits; Z87.19 Personal history of other diseases of the digestive system; Z90.89 Acquired absence of other organs; Z79.01 Long term (current) use of anticoagulants; F17.200 Nicotine dependence, unspecified, uncomplicated; Z80.1 Family history of malignant neoplasm of trachea, bronchus and lung; Z80.8 Family history of malignant neoplasm of other organs or systems; Z79.891 Long term (current) use of opiate analgesic; Z79.899 Other long term (current) drug therapy
CPT/HCPCS: 77001; 36561; 76937; C1788; J2250; J1644; J1642; J0690; J2405; J3010; J2704